=== PATIENT | female | born 1995 | race Hispanic/Latino ===

== ENCOUNTER 2018-07-29 18:54 | Inpatient (IN) | payer SELFPAY ==
--- OUTSIDE RECORDS SUMMARY | 2018-07-29 18:56 | XMS REPORT ---
:1995 [facility] Address [address] [place] [address] Care Team Providers Name Role Phone Unavailable Unavailable Unavailable Payers Payer Name Policy Type Policy Number Effective Date Expiration Date Problems This patient has no known problems. Allergies, Adverse Reactions, Alerts Allergy Allergy Status Severity Reaction(s) Onset Inactive Treating Comments Name Type Date Date Clinician No Known DA Active U 2016-12 Allergies -31 00:00:0 0 Medications This patient has no known medications.
[2018-07-29] MEDS ORDERED: ONDANSETRON 4 MG/2 ML VIAL ONE ×2 (19:49→23:03)
[2018-07-29] MEDS ORDERED: NA CHLORIDE 0.9% 1,000 ML ONE (19:49)
[2018-07-29] MEDS ORDERED: PANTOPRAZOLE 40 MG INJ ONE (19:49)
[2018-07-29 20:07] LABS: Absolute Lymphocytes (CBC) 1.3 K/uL (0.7-4.9); Absolute Monocytes 0.7 K/uL (0.1-1.3); Absolute Neutrophil 10.5 K/uL (1.8-8.0); Basophils % 0.3 % (0-1.3); Eosinophils % 4.4 % (0-4.4); Hematocrit 36.4 % (36.0-45.0); MCH 27.9 pg (27.0-35.0); MCV 84.1 fL (80-100); MPV 8.6 fL (7.6-11.3); Monocytes % 5.1 % (3.3-12.3); RBC Red Blood Cell Count 4.33 M/uL (3.86-4.86)
[2018-07-29 20:28] LABS: Barbiturates NEGATIVE (NEGATIVE); Benzodiazepines NEGATIVE (NEGATIVE); Cocaine POSITIVE (NEGATIVE); METHAMPHETAM NEGATIVE (NEGATIVE); Methadone NEGATIVE (NEGATIVE); Opiates NEGATIVE (NEGATIVE); Phencyclidine NEGATIVE (NEGATIVE); THC Cannibis NEGATIVE (NEGATIVE)
[2018-07-29 20:28] LABS: Albumin 3.5 g/dL (3.4-5.0); Bilirubin Direct 0.2 mg/dL (0-0.2); Bilirubin Total 0.3 mg/dL (0.2-1.0); Potassium 3.6 mmol/L (3.5-5.1); Protein, Total 7.4 g/dL (6.4-8.2)
[2018-07-29 20:29] LABS: Troponin I < 0.02 ng/mL (0.0-0.045)
[2018-07-29] MEDS ORDERED: FENTANYL CITR 100 MCG/2 ML ONE (20:35)
--- NOTE | 2018-07-29 20:56 | RAD REPORT ---
EXAM DESCRIPTION: CTAbdomen Pelvis W Contrast - 07/29/2018 8:48 pm CLINICAL HISTORY: Abdominal pain. upper abdomen pain COMPARISON: No comparisons TECHNIQUE: Biphasic CT imaging of the abdomen and pelvis was performed with 100 ml non-ionic IV cont rast. All CT scans are performed using dose optimization technique as appropriate and may include automated exposure control or mA/KV adjustment according to patient size. FINDINGS: The lung bases are clear. Diffuse fatty liver is identified. [id number] peripancreatic fat stranding is identified compat ible with acute pancreatitis. No evidence of portal vein thrombosis, pancreatic necrosis or pseudocys t identified. The spleen, adrenal glands and kidneys are within normal limits. No bowel obstruction, free air, free fluid or abscess. The appendix is normal. No evidence of signi ficant lymphadenopathy. No suspicious bony findings. 3 cm left ovarian follicle. IMPRESSION: Moderate acute pancreatitis. Fatty liver.
[2018-07-29 21:02] LABS: Urine Blood NEGATIVE (NEG); Urine Glucose NEGATIVE (NEG); Urine Protein 1+ (NEG); Urine Specific Gravity 1.025 (1.005-1.030)
--- NOTE | 2018-07-29 21:02 | RAD REPORT ---
EXAM DESCRIPTION: RAD - Chest Single View - 07/29/2018 8:57 pm CLINICAL HISTORY: upper abdomen pain Chest pain. COMPARISON: No comparisons FINDINGS: Portable technique limits examination quality. The lungs are grossly clear. The heart is normal in size. No displaced fractures. IMPRESSION: No acute intrathoracic process suspected.
[2018-07-29] MEDS ORDERED: NA CHLORIDE 0.9% 2,000 ML ONE (21:33)
--- NOTE | 2018-07-29 21:38 | ER ---
Nurse's Notes [facility] Name: Rufina Pavon Age: 22 yrs Sex: Female : 1995 Arrival Date: 07/29/2018 Time: 18:56 Bed 7 Private MD: Diagnosis: Acute pancreatitis;Cocaine abuse Presentation: 07/29 18:58 Presenting complaint: Patient states: I have pancreatitis and I think I am having a la1 flare. I have been having pain and vomiting. Transition of care: patient was not received from another setting of care. Onset of symptoms was July 29, 2018. Risk Assessment: Do you want to hurt yourself or someone else? Patient reports no desire to harm self or others. Initial Sepsis Screen: Does the patient meet any 2 criteria? No. Patient's initial sepsis screen is negative. Does the patient have a suspected source of infection? No. Patient's initial sepsis screen is negative. Care prior to arrival: None. 18:58 Method Of Arrival: Ambulatory la1 18:58 Acuity: AYAZ 3 la1 Historical: - Allergies: 18:59 No Known Allergies; la1 - PMHx: 18:59 Anxiety; Pancreatitis; la1 - PSHx: 18:59 None; la1 - Immunization history:: Adult Immunizations up to date. - Social history:: Smoking status: Patient/guardian denies using tobacco. - Ebola Screening: : No symptoms or risks identified at this time. Screenin:28 Abuse screen: Denies threats or abuse. Denies injuries from another. Nutritional ao screening: No deficits noted. Tuberculosis screening: No symptoms or risk factors identified. Fall Risk None identified. Assessment: 19:19 General: Appears uncomfortable, Behavior is calm, cooperative, appropriate for age. ea Pain: Complains of pain in right upper quadrant and left upper quadrant. Neuro: Level of Consciousness is awake, alert, obeys commands, Oriented to person, place, time, situation. Cardiovascular: Heart tones S1 S2 present Patient's skin is warm and dry. Respiratory: Airway is patent Respiratory effort is even, unlabored, Respiratory pattern is regular, symmetrical. GI: Bowel sounds present X 4 quads. Abd is soft X 4 quads Abdomen is tender to palpation in right upper quadrant and left upper quadrant. : No signs and/or symptoms were reported regarding the genitourinary system. Derm: Skin is pink, warm \T\ dry. 20:23 Reassessment: Patient appears in no apparent distress at this time. Patient and/or ao family updated on plan of care and expected duration. Pain level reassessed. Patient is alert, oriented x 3, equal unlabored respirations, skin warm/dry/pink. 21:29 Reassessment: Patient appears in no apparent distress at this time. Patient and/or ao family updated on plan of care and expected duration. Pain level reassessed. Patient is alert, oriented x 3, equal unlabored respirations, skin warm/dry/pink. 23:19 Reassessment: Patient appears in no apparent distress at this time. Patient and/or ao family updated on plan of care and expected duration. Pain level reassessed. Patient to be hospitalize. Patient agree with POC. 23:30 Reassessment: Patient and/or family updated on plan of care and expected duration. Pain ea level reassessed. Patient is alert, oriented x 3, equal unlabored respirations, skin warm/dry/pink. Report called to Kelly on fourth floor. Vital Signs: 18:59 BP 113 / 77; Pulse 95; Resp 16; Temp 97.6; Pulse Ox 99% on R/A; Weight 96.16 kg; Height la1 5 ft. 0 in. (152.40 cm); 19:21 BP 133 / 104; Pulse 64; Resp 18; Pulse Ox 99% on R/A; ea 20:23 BP 96 / 76; Pulse 70; Resp 16; Pulse Ox 100% on R/A; ao 21:34 BP 131 / 81; Pulse 72; Resp 16; Pulse Ox 98% on R/A; Pain 0/10; ao 22:16 BP 96 / 57; Pulse 74; Resp 16; Pulse Ox 98% on R/A; ao 23:16 BP 124 / 73; Pulse 76; Resp 16; Pulse Ox 100% on R/A; ao 18:59 Body Mass Index 41.40 (96.16 kg, 152.40 cm) la1 ED Course: 18:56 Patient arrived in ED. as 18:59 Triage completed. la1 18:59 Arm band placed on left wrist. la1 19:13 Maryam Yeboah, RN is Primary Nurse. ph 19:14 Miri Almazan, KYM is Primary Nurse. ea 19:16 [facility]. cp 19:16 Wes Mata MD is Attending Physician. cp 19:16 Inserted saline lock: 20 gauge in right antecubital area, using aseptic technique. jb5 Blood collected. 20:15 Troponin I Sent. jb5 20:15 Basic Metabolic Panel Sent. jb5 20:15 CBC with Diff Sent. jb5 20:15 Creatinine for Radiology Sent. jb5 20:15 Hepatic Function Sent. jb5 20:15 Lipase Sent. jb5 20:47 CT Abd/Pelvis - W/Contrast: no oral contrast In Process Unspecified. EDMS 20:47 CT completed. Patient tolerated procedure well. Patient moved to radiology Patient kw1 moved back from CT. 20:55 XRAY Chest (1 view) In Process Unspecified. EDMS 21:29 Patient has correct armband on for positive identification. Pulse ox on. NIBP on. ao 21:37 Dimitri Valeznuela MD is Hospitalizing Provider. cp 23:21 No provider procedures requiring assistance completed. Patient admitted, IV remains in ea place. Administered Medications: 19:42 Drug: Zofran 4 mg Route: IVP; Site: right antecubital; ao 21:01 Follow up: Response: No adverse reaction ao 19:45 Drug: NS 0.9% 1000 ml Route: IV; Rate: 1 bolus; Site: right antecubital; ao 20:58 Follow up: IV Status: Completed infusion; IV Intake: 1000ml ao 19:52 Drug: ProTONIX 40 mg Route: IVP; Site: right antecubital; ao 21:01 Follow up: Response: No adverse reaction ao 20:31 Drug: fentaNYL (PF) 25 mcg Route: IVP; Site: right antecubital; ao 21:01 Follow up: Response: Pain is unchanged, physician notified ao 21:38 Drug: NS 0.9% 1000 ml Route: IV; Rate: 1 bolus; Site: right antecubital; ea 23:21 Follow up: Response: No adverse reaction; IV Status: Completed infusion ea 21:38 Drug: NS 0.9% 1000 ml Route: IV; Rate: 125 ml/hr; Site: right antecubital; ea 23:21 Follow up: Response: No adverse reaction; IV Status: Completed infusion ea Intake: 20:58 IV: 1000ml; Total: 1000ml. ao Outcome: 21:38 Decision to Hospitalize by Provider. cp 23:22 Instructed on the need for admit. triston 23:30 Admitted to Med/surg accompanied by tech, room 427, on monitor, Report called to Kelly goldstein RN on fourth floor 23:30 Condition: stable 23:33 Patient left the ED. triston Signatures: Dispatcher [employer] EDElizabeth Fam Lee RN RN la1 Maryam Yeboah RN RN Lenny Sauer, KORIN PA Landry Hillman, RN RN Grace Dominguez jb5 Miri Almazan RN RN Yenifer Walsh kw1
--- NOTE | 2018-07-29 21:39 | EDPHYS ---
Physician Documentation [facility] Name: Rufina Pavon Age: 22 yrs Sex: Female : 1995 Arrival Date: 07/29/2018 Time: 18:56 Bed 7 Private MD: ED Physician Wes Mata HPI: 07/29 19:57 This 22 yrs old Female presents to ER via Ambulatory with complaints of cp Abdominal Pain. 19:57 The patient presents with abdominal pain in the upper abdomen. cp 19:57 Onset: The symptoms/episode began/occurred today. cp 19:57 The symptoms do not radiate. Associated signs and symptoms: Pertinent positives: nausea cp and vomiting, chest pain, Pertinent negatives: blood in stools, constipation, diarrhea, dysuria, fever, headache, shortness of breath, vaginal discharge, vomiting blood. The symptoms are described as constant. The patient has experienced similar episodes in the past, today's symptoms are similar, to when the patient was apparently diagnosed with pancreatitis. Historical: - Allergies: 18:59 No Known Allergies; la1 - PMHx: 18:59 Anxiety; Pancreatitis; la1 - PSHx: 18:59 None; la1 - Immunization history:: Adult Immunizations up to date. - Social history:: Smoking status: Patient/guardian denies using tobacco. - Ebola Screening: : No symptoms or risks identified at this time. ROS: 20:05 Constitutional: Negative for body aches, chills, fever, poor PO intake. cp 20:05 Eyes: Negative for injury, pain, redness, and discharge. cp 20:05 ENT: Negative for drainage from ear(s), ear pain, sore throat, difficulty swallowing, difficulty handling secretions. 20:05 Cardiovascular: Positive for chest pain, Negative for edema, palpitations. 20:05 Respiratory: Negative for cough, shortness of breath, wheezing. 20:05 Abdomen/GI: Positive for abdominal pain, nausea and vomiting, Negative for diarrhea, constipation, hematemesis, black/tarry stool, rectal bleeding. 20:05 : Negative for urinary symptoms, vaginal bleeding, vaginal discharge. 20:05 Skin: Negative for cellulitis, rash. 20:05 Neuro: Negative for altered mental status, weakness. 20:05 All other systems are negative. Exam: 20:10 ECG was reviewed by the Attending Physician. cp 20:15 Constitutional: The patient appears in no acute distress, alert, awake, cp non-diaphoretic, non-toxic, well developed, well nourished, uncomfortable. 20:15 Head/Face: Normocephalic, atraumatic. Eyes: Pupils equal round and reactive to light, cp extra-ocular motions intact. Lids and lashes normal. Conjunctiva and sclera are non-icteric and not injected. Cornea within normal limits. Periorbital areas with no swelling, redness, or edema. ENT: Nares patent. No nasal discharge, no septal abnormalities noted. Tympanic membranes are normal and external auditory canals are clear. Oropharynx with no redness, swelling, or masses, exudates, or evidence of obstruction, uvula midline. Mucous membranes moist. Chest/axilla: Normal chest wall appearance and motion. Nontender with no deformity. No lesions are appreciated. 20:15 Cardiovascular: Rate: normal, Rhythm: regular, Heart sounds: murmur, not appreciated, Edema: is not appreciated, JVD: is not appreciated. 20:15 Respiratory: the patient does not display signs of respiratory distress, Respirations: normal, no use of accessory muscles, no retractions, no splinting, no tachypnea, labored breathing, is not present, Breath sounds: are clear throughout, no decreased breath sounds, no stridor, no wheezing. 20:15 Abdomen/GI: Inspection: abdomen appears normal, Bowel sounds: active, all quadrants, Palpation: soft, in all quadrants, moderate abdominal tenderness, in the right upper quadrant and left upper quadrant, voluntary guarding, is elicited in the right upper quadrant and left upper quadrant. 20:15 Back: CVA tenderness, is absent. 20:15 Skin: cellulitis, is not appreciated, no rash present. 20:15 Neuro: Orientation: to person, place \T\ time. Mentation: lucid, able to follow commands, Cerebellar function: is grossly normal, Motor: moves all fours, strength is normal, Sensation: no obvious gross deficits. Vital Signs: 18:59 BP 113 / 77; Pulse 95; Resp 16; Temp 97.6; Pulse Ox 99% on R/A; Weight 96.16 kg; Height la1 5 ft. 0 in. (152.40 cm); 19:21 BP 133 / 104; Pulse 64; Resp 18; Pulse Ox 99% on R/A; ea 20:23 BP 96 / 76; Pulse 70; Resp 16; Pulse Ox 100% on R/A; ao 21:34 BP 131 / 81; Pulse 72; Resp 16; Pulse Ox 98% on R/A; Pain 0/10; ao 22:16 BP 96 / 57; Pulse 74; Resp 16; Pulse Ox 98% on R/A; ao 23:16 BP 124 / 73; Pulse 76; Resp 16; Pulse Ox 100% on R/A; ao 18:59 Body Mass Index 41.40 (96.16 kg, 152.40 cm) la1 MDM: 19:16 Patient medically screened. cp 20:00 Differential diagnosis: appendicitis, cholecystitis, Cholelithiasis, gastritis, cp gastroesophageal reflux disease, GI Bleed, non-specific abd pain, pancreatitis, Peptic Ulcer Disease, Perf. Duodenal Ulcer, Perf. Gastric Ulcer, Ureterolithiasis, urinary tract infection. 21:15 Data reviewed: vital signs, nurses notes, lab test result(s), EKG, radiologic studies, cp CT scan, plain films. 21:15 Test interpretation: by ED physician or midlevel provider: ECG, plain radiologic cp studies. Counseling: I had a detailed discussion with the patient and/or guardian regarding: the historical points, exam findings, and any diagnostic results supporting the discharge/admit diagnosis, lab results, radiology results, the need for further work-up and treatment in the hospital. 07/29 19:16 Order name: Basic Metabolic Panel; Complete Time: 21:09 cp 07/29 21:09 Interpretation: Normal except: GLUC 127; BUN 6; GFR 78. cp 07/29 19:16 Order name: CBC with Diff; Complete Time: 20:26 cp 07/29 21:10 Interpretation: WBC 13.1; TIMRU% 80.2; LYM% 10.0; NEUT A 10.5. cp 07/29 19:16 Order name: Creatinine for Radiology; Complete Time: 20:26 cp 07/29 19:16 Order name: Hepatic Function; Complete Time: 21:09 cp 07/29 21:09 Interpretation: Normal except: ALT 85; GLOB 3.9; A/G 0.9. cp 07/29 19:16 Order name: Lipase; Complete Time: 21:09 cp 07/29 19:36 Order name: Troponin I; Complete Time: 21:09 cp 07/29 19:36 Order name: UDS; Complete Time: 21:09 cp 07/29 19:36 Order name: Magnesium; Complete Time: 21: cp 07/29 20:27 Order name: CT Abd/Pelvis - W/Contrast: no oral contrast; Complete Time: 21:09 cp 07/29 20:27 Order name: XRAY Chest (1 view); Complete Time: 21:09 cp 07/29 20:28 Order name: Urine Dipstick--Ancillary (enter results); Complete Time: 21:09 cc 07/29 20:28 Order name: Urine --Ancillary (enter results); Complete Time: 21:09 cc 07/29 19:16 Order name: IV Saline Lock; Complete Time: 19:40 cp 07/29 19:16 Order name: Labs collected and sent; Complete Time: 19:40 cp 07/29 19:16 Order name: Urine Dipstick-Ancillary (obtain specimen); Complete Time: 20:27 cp 07/29 19:16 Order name: Urine Test (obtain specimen); Complete Time: 20:27 cp 07/29 19:36 Order name: EKG; Complete Time: 19:37 cp 07/29 19:36 Order name: EKG - Nurse/Tech; Complete Time: 20:15 cp EC:10 Rate is 56 beats/min. Rhythm is regular. ND interval is normal. QRS interval is normal. cp QT interval is normal. Interpreted by me. Reviewed by me. Administered Medications: 19:42 Drug: Zofran 4 mg Route: IVP; Site: right antecubital; ao 21:01 Follow up: Response: No adverse reaction ao 19:45 Drug: NS 0.9% 1000 ml Route: IV; Rate: 1 bolus; Site: right antecubital; ao 20:58 Follow up: IV Status: Completed infusion; IV Intake: 1000ml ao 19:52 Drug: ProTONIX 40 mg Route: IVP; Site: right antecubital; ao 21:01 Follow up: Response: No adverse reaction ao 20:31 Drug: fentaNYL (PF) 25 mcg Route: IVP; Site: right antecubital; ao 21:01 Follow up: Response: Pain is unchanged, physician notified ao 21:38 Drug: NS 0.9% 1000 ml Route: IV; Rate: 1 bolus; Site: right antecubital; ea 23:21 Follow up: Response: No adverse reaction; IV Status: Completed infusion ea 21:38 Drug: NS 0.9% 1000 ml Route: IV; Rate: 125 ml/hr; Site: right antecubital; ea 23:21 Follow up: Response: No adverse reaction; IV Status: Completed infusion ea Disposition: 07/29/18 21:38 Hospitalization ordered by Dimitri Valenzuela for Inpatient Admission. Preliminary diagnosis are Acute pancreatitis, Cocaine abuse. - Bed requested for Telemetry/MedSurg (Inpatient). - Status is Inpatient Admission. ea - Condition is Stable. - Problem is new. - Symptoms have improved. UTI on Admission? No Addendum: 08/04/2018 21:30 Co-signature as Attending Physician, Wes Mata MD Available for consultation at p s1 all times. . Signatures: Dispatcher [employer] EDMS Sola Tang Lee, RN RN la1 Lenny Chavira PA PA cp Ortiz, Alex, RN RN ao Antunez, Elena, RN RN ea Singer, Phillip, MD MD ps1 Corrections: (The following items were deleted from the chart) 07/29 23:09 21:38 Hospitalization Ordered by Dimitri Valenzuela MD for Inpatient Admission. Preliminary cc diagnosis is Acute pancreatitis; Cocaine abuse. Bed requested for Telemetry/MedSurg (Inpatient). Status is Inpatient Admission. Condition is Stable. Problem is new. Symptoms have improved. UTI on Admission? No. cp 23:33 23:09 07/29/2018 21:38 Hospitalization Ordered by Dimitri Valenzuela MD for Inpatient ea Admission. Preliminary diagnosis is Acute pancreatitis; Cocaine abuse. Bed requested for Telemetry/MedSurg (Inpatient). Status is Inpatient Admission. Condition is Stable. Problem is new. Symptoms have improved. UTI on Admission? No. cc
[2018-07-29] MEDS ORDERED: MORPHINE 2 MG/ML SYR IV ONE (22:23)
--- NOTE | 2018-07-29 22:29 | P.HP ---
Certification for Inpatient Patient admitted to: Inpatient With expected LOS: >2 Midnights Practitioner: I am a practitioner with admitting privileges, knowledge of patient current condition, hospital course, and medical plan of care. Services: Services provided to patient in accordance with Admission requirements found in Title 42 Section 412.3 of the Code of Federal Regulations Patient History Date of Service: 07/29/18 Reason for admission: Acute pancreatitis History of Present Illness: Ms Pavon is a 22-year-old woman with history of cocaine abuse, alcohol abuse , who start last night with severe abdominal pain localizing in left upper quadrant, radiating to mid abdomen, associated with nausea and vomiting. Intensity of the pain is 10/10. She states that the last time she drink alcohol was last night, about 3 beers, but she says that usually she drinks more than 6 beers, however not every day. Lab work is remarkable for leukocytosis 13.1 K, significant elevation of lipase 3152. Toxicology was positive for cocaine. CT abdomen and pelvis remarkable for signs of acute pancreatitis, no pseudocyst seen. At my encounter, patient was in moderate distress due to abdominal pain. Home medications list reviewed: Yes - Past Medical/Surgical History -: Alcohol abuse -: Cocaine abuse Past Surgical History: Reviewed- Non-Contributory - Family History Family History: Reviewed- Non-Contributory - Social History Smoking Status: Light Tobacco smoker (1-9 cigarettes/day) Counseled patient to stop smoking for: less than 10 minutes Alcohol use: Yes CD- Drugs: Yes Caffeine use: Yes Place of Residence: Home Review of Systems 10-point ROS is otherwise unremarkable Physical Examination - Physical Exam General: Alert, In no apparent distress HEENT: Atraumatic, PERRLA, Mucous membr. moist/pink, EOMI, Sclerae nonicteric Neck: Supple, 2+ carotid pulse no bruit, No LAD, Without JVD or thyroid abnormality Respiratory: Clear to auscultation bilaterally, Normal air movement Cardiovascular: Regular rate/rhythm, Normal S1 S2 Gastrointestinal: Normal bowel sounds, Tenderness (Tenderness to palpation especially in the left upper quadrant) Musculoskeletal: No tenderness Integumentary: No rashes Neurological: Normal speech, Normal strength at 5/5 x4 extr, Normal tone, Normal affect Lymphatics: No axilla or inguinal lymphadenopathy - Studies Laboratory Data (last 24 hrs) 07/29/18 19:52: Magnesium 2.0, Troponin I < 0.02 07/29/18 19:52: Creatinine 0.90 07/29/18 19:52: WBC 13.1 H, Hgb 12.1, Hct 36.4, Plt Count 269 07/29/18 19:52: Sodium 139, Potassium 3.6, BUN 6 L, Creatinine 0.90, Glucose 127 H, Total Bilirubin 0.3, AST 30, ALT 85 H, Alkaline Phosphatase 115, Lipase 3152 H Assessment and Plan - Problems (Diagnosis) (1) Acute pancreatitis Current Visit: Yes Status: Acute Qualifiers: Pancreatitis type: unspecified pancreatitis type Acute pancreatitis complication: unspecified Qualified Code(s): K85.90 - Acute pancreatitis without necrosis or infection, unspecified (2) Cocaine abuse Current Visit: Yes Status: Acute (3) Alcohol use Current Visit: Yes Status: Acute - Plan The patient will be admitted to the hospital due to acute pancreatitis. Will keep her NPO, ordered IV normal saline. Will follow up with a new laboratory work in the morning. Order lipid panel, abdominal ultrasound, and symptomatic medication for pain, nausea and vomiting. - Advance Directives Does patient have a Living Will: No Does patient have a Durable POA for Healthcare: No - Code Status/Comfort Care Code Status Assessed: Yes Code Status: Full Code
[2018-07-29] MEDS ORDERED: MORPHINE 4 MG/ML SYR ONE (23:03)
[2018-07-29] MEDS ORDERED: ACETAMINOPHEN 500 MG TAB PO PRN (23:47)
[2018-07-30] MEDS: NA CHLORIDE 0.9% 1,000 ML IV SCH ×5 (00:23→22:49)
[2018-07-30] MEDS: ONDANSETRON 4 MG/2 ML VIAL IV PRN ×4 (00:23→20:48)
[2018-07-30] MEDS: MORPHINE 2 MG/ML SYR IV PRN ×5 (00:25→20:48)
[2018-07-30 01:44] VITALS: BMI 38.9
[2018-07-30 05:16] LABS: Absolute Lymphocytes (CBC) 1.8 K/uL (0.7-4.9); Absolute Monocytes 0.6 K/uL (0.1-1.3); Absolute Neutrophil 7.2 K/uL (1.8-8.0); Basophils % 0.3 % (0-1.3); Hematocrit 33.9 % (36.0-45.0); Lymphocytes % 17.8 % (15.3-44.8); MCV 84.1 fL (80-100); RBC Red Blood Cell Count 4.03 M/uL (3.86-4.86)
[2018-07-30 05:40] LABS: ALT/SGPT 64 U/L (12-78); AST/SGOT 22 U/L (15-37); Albumin 2.9 g/dL (3.4-5.0); Alkaline Phosphatase 103 U/L (45-117); BUN Blood Urea Nitrogen 4 mg/dL (7-18); Bicarbonate 25 mmol/L (21-32); Bilirubin Total 0.4 mg/dL (0.2-1.0); Glucose Level 109 mg/dL (74-106); HDL Cholesterol 49 mg/dL (40-60); LDL Cholesterol, Calculated 25 (<130); Lipase 1695 U/L (73-393); Protein, Total 6.1 g/dL (6.4-8.2); Sodium Level 141 mmol/L (136-145)
[2018-07-30] MEDS ORDERED: SODIUM CHLORIDE 0.9% 10ML INJ IV PRN (06:58)
--- NOTE | 2018-07-30 07:28 | EKG ---
Test Date: 2018-07-29 Test Time: 20:04:56 Ground Crew Chief: ARLEEN MEASUREMENT RESULTS: Intervals: Rate: 56 HI: 154 QRSD: 86 QT: 424 QTc: 409 [place]: P: 27 HI: 154 QRS: 21 T: 41 INTERPRETIVE STATEMENTS: Sinus bradycardia Otherwise normal ECG No previous ECG available for comparison Electronically Signed On 07-30-18 07:27:44 CDT by Eran Deluca
--- NOTE | 2018-07-30 08:53 | RAD REPORT ---
EXAM DESCRIPTION: US - Abdomen Exam Limited - 07/30/2018 7:40 am CLINICAL HISTORY: Acute pancreatitis, evaluate biliary tree COMPARISON: No comparisons FINDINGS: The gallbladder demonstrates no gallstones. No pericholecystic fluid or gallbladder wall t hickening. The common bile duct is normal measuring 5 mm. The liver demonstrates no findings of intrahepatic biliary dilatation. IMPRESSION: Unremarkable examination.
[2018-07-30] MEDS: ENOXAPARIN 40 MG/0.4 ML SQ SCH (09:28)
[2018-07-30] MEDS: PANTOPRAZOLE 40 MG INJ IVP SCH (09:29)
--- NOTE | 2018-07-30 10:12 | P.PN ---
Subjective Date of Service: 07/30/18 Chief Complaint: Acute pancreatitis Subjective: Other (Still with abdominal pain) Physical Examination - Vital Signs Temperature: 97.4 F Blood Pressure: 105/59 Pulse: 53 Respirations: 16 Pulse Ox (%): 99 - Physical Exam General: Alert, In no apparent distress, Oriented x3, Cooperative HEENT: Atraumatic Neck: Supple Respiratory: Clear to auscultation bilaterally, Normal air movement Cardiovascular: Normal pulses, Regular rate/rhythm Gastrointestinal: Normal bowel sounds, Non-distended, No masses, No rebound, Tenderness (Epigastric pain) Musculoskeletal: No erythema, No tenderness, No warmth Integumentary: No erythema, No warmth, No cyanosis Neurological: Normal speech, Normal strength at 5/5 x4 extr, Normal tone, Normal affect - Studies Laboratory Data (last 24 hrs) 07/29/18 19:52: Magnesium 2.0, Troponin I < 0.02 07/29/18 19:52: Creatinine 0.90 07/29/18 19:52: WBC 13.1 H, Hgb 12.1, Hct 36.4, Plt Count 269 07/29/18 19:52: Sodium 139, Potassium 3.6, BUN 6 L, Creatinine 0.90, Glucose 127 H, Total Bilirubin 0.3, AST 30, ALT 85 H, Alkaline Phosphatase 115, Lipase 3152 H Medications List Reviewed: Yes Assessment & Plan Discharge Plan: Home Plan to discharge in: Greater than 2 days Physician Review Additional Text: Impression: Epigastric pain, nausea and vomiting secondary to acute pancreatitis likely from alcohol Alcohol abuse Cocaine abuse Anemia Plan: Epigastric pain, nausea and vomiting secondary to acute pancreatitis likely from alcohol: Will continue with IV fluids and medication for pain and nausea. Will keep the patient NPO. Encourage ambulation. Once the patient improves then can transition to clear liquids. Education on pancreatitis addressed in detail. Alcohol abuse: Alcohol cessation education addressed in detail. Cocaine abuse: Cocaine cessation education addressed in detail. Anemia: Monitor closely. Time Spent Managing Pts Care (In Minutes): 55
[2018-07-30] MEDS: TEMAZEPAM 15 MG CAP PO PRN (22:25)
[2018-07-31] MEDS: MORPHINE 2 MG/ML SYR IV PRN ×2 (00:27→06:05)
[2018-07-31] MEDS ORDERED: MORPHINE 4 MG/ML SYR IV PRN ×2 (09:09→14:09)
[2018-07-31] MEDS: ENOXAPARIN 40 MG/0.4 ML SQ SCH (09:44)
[2018-07-31] MEDS: PANTOPRAZOLE 40 MG INJ IVP SCH (09:44)
[2018-07-31] MEDS: NA CHLORIDE 0.9% 1,000 ML IV SCH ×3 (09:45→16:35)
--- NOTE | 2018-07-31 13:20 | P.PN ---
Subjective Date of Service: 07/31/18 Primary Care Provider: None Chief Complaint: Acute pancreatitis Subjective: Improving (Still with mild epigastric pain) Physical Examination - Vital Signs Temperature: 97.4 F Blood Pressure: 96/53 Pulse: 63 Respirations: 18 Pulse Ox (%): 98 - Physical Exam General: Alert, In no apparent distress, Oriented x3, Cooperative HEENT: Atraumatic Neck: Supple Respiratory: Clear to auscultation bilaterally, Normal air movement Cardiovascular: Normal pulses, Regular rate/rhythm Gastrointestinal: Normal bowel sounds, Non-distended, No masses, No rebound, No guarding, Tenderness (Epigastric pain improved) Musculoskeletal: No erythema, No tenderness, No warmth Integumentary: No tenderness/swelling, No erythema, No warmth, No cyanosis Neurological: Normal speech, Normal strength at 5/5 x4 extr, Normal tone, Normal affect - Studies Medications List Reviewed: Yes Assessment & Plan Discharge Plan: Home Plan to discharge in: 48 Hours Physician Review Additional Text: Impression: Epigastric pain, nausea and vomiting secondary to acute pancreatitis likely from alcohol Alcohol abuse Cocaine abuse Anemia Plan: Epigastric pain, nausea and vomiting secondary to acute pancreatitis likely from alcohol: Will continue with IV fluids and medication for pain and nausea. Encourage ambulation. Once abdominal pain significantly improved will start clear liquids. Will continue monitor lab and electrolytes. Education on pancreatitis addressed in detail. Alcohol abuse: Alcohol cessation education addressed in detail. Cocaine abuse: Cocaine cessation education addressed in detail. Anemia: Monitor closely. Time Spent Managing Pts Care (In Minutes): 55
[2018-07-31] MEDS: TRAMADOL HCL 50 MG TAB PO PRN ×2 (14:59→20:54)
[2018-07-31] MEDS: HYDROCODONE/APAP 7.5/325 MG TAB PO PRN ×2 (16:26→22:39)
[2018-07-31] MEDS: TEMAZEPAM 15 MG CAP PO PRN (21:02)
[2018-08-01] MEDS: NA CHLORIDE 0.9% 1,000 ML IV SCH ×3 (01:53→21:36)
[2018-08-01] MEDS: HYDROCODONE/APAP 7.5/325 MG TAB PO PRN ×2 (05:30→21:34)
[2018-08-01] MEDS: TRAMADOL HCL 50 MG TAB PO PRN (06:42)
[2018-08-01 08:04] LABS: ALT/SGPT 68 U/L (12-78); AST/SGOT 38 U/L (15-37); Alkaline Phosphatase 97 U/L (45-117); BUN Blood Urea Nitrogen 2 mg/dL (7-18); Bicarbonate 27 mmol/L (21-32); Bilirubin Total 0.3 mg/dL (0.2-1.0); Glucose Level 93 mg/dL (74-106); Lipase 489 U/L (73-393); Potassium 3.9 mmol/L (3.5-5.1); Protein, Total 6.4 g/dL (6.4-8.2); Sodium Level 141 mmol/L (136-145)
[2018-08-01 08:09] LABS: Absolute Lymphocytes (CBC) 1.9 K/uL (0.7-4.9); Absolute Monocytes 0.3 K/uL (0.1-1.3); Absolute Neutrophil 3.7 K/uL (1.8-8.0); Basophils % 0.4 % (0-1.3); Hematocrit 33.5 % (36.0-45.0); Lymphocytes % 29.1 % (15.3-44.8); MCH 27.9 pg (27.0-35.0); MCV 83.3 fL (80-100); MPV 9.1 fL (7.6-11.3); Monocytes % 5.3 % (3.3-12.3); RBC Red Blood Cell Count 4.02 M/uL (3.86-4.86)
[2018-08-01] MEDS: ENOXAPARIN 40 MG/0.4 ML SQ SCH (08:17)
[2018-08-01] MEDS: PANTOPRAZOLE 40 MG INJ IVP SCH (08:18)
[2018-08-01] MEDS ORDERED: POTASSIUM CL SA 10 MEQ TAB PO ONE (10:57)
--- NOTE | 2018-08-01 13:31 | P.PN ---
Subjective Date of Service: 08/01/18 Primary Care Provider: None Chief Complaint: Acute pancreatitis Subjective: Improving Physical Examination - Vital Signs Temperature: 98.0 F Blood Pressure: 112/51 Pulse: 60 Respirations: 16 Pulse Ox (%): 99 - Physical Exam General: Alert, In no apparent distress, Oriented x3, Cooperative HEENT: Atraumatic Neck: Supple Respiratory: Clear to auscultation bilaterally, Normal air movement Cardiovascular: Normal pulses, Regular rate/rhythm Gastrointestinal: Normal bowel sounds, Soft and benign, Non-distended, No masses , No rebound, No guarding, Tenderness (To the epigastric region significantly improved.) Musculoskeletal: No erythema, No tenderness, No warmth Integumentary: No tenderness/swelling, No erythema, No warmth, No cyanosis Neurological: Normal speech, Normal strength at 5/5 x4 extr, Normal tone, Normal affect - Studies Medications List Reviewed: Yes Assessment & Plan Discharge Plan: Home Plan to discharge in: 24 Hours Physician Review Additional Text: Impression: Epigastric pain, nausea and vomiting secondary to acute pancreatitis likely from alcohol Alcohol abuse Cocaine abuse Anemia Plan: Epigastric pain, nausea and vomiting secondary to acute pancreatitis likely from alcohol: Will continue with IV fluids and medication for pain and nausea. Patient improved. Will advance diet to soft. Encourage ambulation. Will discontinue IV pain medication. Anticipate discharge tomorrow. Electrolytes and lipase improved. Alcohol abuse: Alcohol cessation education addressed in detail. Cocaine abuse: Cocaine cessation education addressed in detail. Anemia: Monitor closely. I will turn the service over to Dr. Mcguire tomorrow. I will go over the plan of care with her. Time Spent Managing Pts Care (In Minutes): 55
[2018-08-01] MEDS: TEMAZEPAM 15 MG CAP PO PRN (21:34)
[2018-08-02 01:45] VITALS: O2SAT 100
[2018-08-02 04:42] LABS: BUN Blood Urea Nitrogen 2 mg/dL (7-18); Bicarbonate 28 mmol/L (21-32); Glucose Level 89 mg/dL (74-106); Lipase 314 U/L (73-393); Potassium 3.9 mmol/L (3.5-5.1); Sodium Level 142 mmol/L (136-145)
[2018-08-02] MEDS ORDERED: POTASSIUM CL SA 10 MEQ TAB PO ONE (05:11)
[2018-08-02] MEDS: NA CHLORIDE 0.9% 1,000 ML IV SCH (05:36)
[2018-08-02] MEDS: PANTOPRAZOLE 40 MG INJ IVP SCH (08:06)
[2018-08-02] MEDS: ENOXAPARIN 40 MG/0.4 ML SQ SCH (08:07)
[2018-08-02 12:57] VITALS: BP 103/55; TEMP 97.5
--- NOTE | 2018-08-02 12:57 | P.DS ---
Admission Date: 07/29/18 Discharge Date: 08/02/18 Primary Care Provider: None Disposition: ROUTINE DISCHARGE Discharge Condition: GOOD Reason for Admission: Acute pancreatitis - Problems (1) Acute pancreatitis Onset Date: 07/30/18 Current Visit: Yes Status: Acute Qualifiers: Pancreatitis type: unspecified pancreatitis type Acute pancreatitis complication: unspecified Qualified Code(s): K85.90 - Acute pancreatitis without necrosis or infection, unspecified (2) Alcohol use Onset Date: 07/30/18 Current Visit: Yes Status: Acute (3) Cocaine abuse Onset Date: 07/30/18 Current Visit: Yes Status: Acute Brief History of Present Illness: Seen HPI Hospital Course: Overall during the hospital stay patient remained stable The patient was initially admitted to the hospital for abdominal pain most likely secondary to acute pancreatitis most likely secondary to alcohol abuse versus cocaine abuse. Patient was kept on IV fluids NPO here in the hospital. Patient had marked resolution of her symptoms. Her diet was advanced to a clear liquid diet. Patient tolerated her diet well and was advanced to a soft diet. Patient tolerated her diet well at that time as well and ambulated around the room and thus was discharged home under stable condition. Patient was educated extensively on drug abuse and alcohol abuse in using abstinence from that. Patient demonstrated understanding and thus was discharged home under stable condition. Patient was asked to follow up with primary care provider about 1-2 days post discharge Vital Signs/Physical Exam: Temp Pulse Resp BP Pulse Ox 97 F 55 20 119/65 99 08/02/18 08:00 08/02/18 08:00 08/02/18 08:00 08/02/18 08:00 08/02/18 08:00 General: Alert, In no apparent distress HEENT: Atraumatic, PERRLA, EOMI Neck: Supple, JVD not distended Respiratory: Clear to auscultation bilaterally, Normal air movement Cardiovascular: Regular rate/rhythm, Normal S1 S2 Gastrointestinal: Normal bowel sounds, No tenderness Musculoskeletal: No tenderness Integumentary: No rashes Neurological: Normal speech, Normal tone, Normal affect Lymphatics: No axilla or inguinal lymphadenopathy Laboratory Data at Discharge: WBC 6.4 K/uL (4.3-10.9) D 08/01/18 07:37 Hgb 11.2 g/dL (12.0-15.0) L 08/01/18 07:37 Hct 33.5 % (36.0-45.0) L 08/01/18 07:37 Plt Count 270 K/uL (152-406) 08/01/18 07:37 Sodium 142 mmol/L (136-145) 08/02/18 03:56 Potassium 3.9 mmol/L (3.5-5.1) 08/02/18 03:56 BUN 2 mg/dL (7-18) L 08/02/18 03:56 Creatinine 0.70 mg/dL (0.55-1.3) 08/02/18 03:56 Glucose 89 mg/dL (74-106) 08/02/18 03:56 Magnesium 2.0 mg/dL (1.8-2.4) 07/29/18 19:52 Total Bilirubin 0.3 mg/dL (0.2-1.0) 08/01/18 07:37 AST 38 U/L (15-37) H 08/01/18 07:37 ALT 68 U/L (12-78) 08/01/18 07:37 Alkaline Phosphatase 97 U/L (45-117) 08/01/18 07:37 Troponin I < 0.02 ng/mL (0.0-0.045) 07/29/18 19:52 Triglycerides 83 mg/dL (<150) 07/30/18 04:35 Cholesterol 91 mg/dL (<200) 07/30/18 04:35 HDL Cholesterol 49 mg/dL (40-60) 07/30/18 04:35 Cholesterol/HDL Ratio 1.86 07/30/18 04:35 Lipase 314 U/L (73-393) 08/02/18 03:56 Home Medications: NK [No Home Meds] 07/30/18 Patient Discharge Instructions: Please F.u with PCP in 1 to 2 days after discharge. No New medication. Please refrain from using alcohol Diet: Regular Activity: Ad joni
== END 2018-08-02 14:34 | disposition home or self-care (01) | DRG 440 ==
LOC: ER 18:54 → ERHOLD 22:21 → 4TH 23:21
PROVIDERS: ADMIT Internal Medicine; ATTEND Family Medicine
DX: K85.20 Alcohol induced acute pancreatitis without necrosis or infection (principal); K85.30 Drug induced acute pancreatitis without necrosis or infection; F10.10 Alcohol abuse, uncomplicated; F14.10 Cocaine abuse, uncomplicated; D64.9 Anemia, unspecified
CPT/HCPCS: 36415; 71045; 74177; 76705; 80048; 80053; 80061; 80076; 80307; 81003; 81025; 83690; 83735; 84484; 85025; 93005; 96361; 96374; 96375; 99285; C9113; J1650; J2270; J2405; J3010; J7030; Q9967

== ENCOUNTER 2018-09-11 05:41 | Inpatient (IN) | payer SELFPAY ==
--- OUTSIDE RECORDS SUMMARY | 2018-09-11 05:44 | XMS REPORT ---
:1995 [facility] Address [address] [place] [address] Care Team Providers Name Role Phone Unavailable [...]
[2018-09-11 06:23] LABS: Absolute Lymphocytes (CBC) 2.3 K/uL (0.7-4.9); Absolute Monocytes 0.4 K/uL (0.1-1.3); Absolute Neutrophil 3.3 K/uL (1.8-8.0); Basophils % 0.9 % (0-1.3); Eosinophils % 5.2 % (0-4.4); Hematocrit 34.2 % (36.0-45.0); Lymphocytes % 35.7 % (15.3-44.8); MCH 26.9 pg (27.0-35.0); MCV 80.1 fL (80-100); MPV 8.8 fL (7.6-11.3); Monocytes % 6.1 % (3.3-12.3); RBC Red Blood Cell Count 4.26 M/uL (3.86-4.86)
[2018-09-11] MEDS ORDERED: MORPHINE 4 MG/ML SYR ONE (06:25)
[2018-09-11] MEDS ORDERED: ONDANSETRON 4 MG/2 ML VIAL ONE (06:26)
[2018-09-11] MEDS ORDERED: NA CHLORIDE 0.9% 1,000 ML ONE (06:26)
[2018-09-11 06:40] LABS: ALT/SGPT 54 U/L (12-78); AST/SGOT 21 U/L (15-37); Albumin 3.5 g/dL (3.4-5.0); Alkaline Phosphatase 100 U/L (45-117); BUN Blood Urea Nitrogen 8 mg/dL (7-18); Bicarbonate 24 mmol/L (21-32); Bilirubin Direct < 0.1 mg/dL (0-0.2); Bilirubin Total 0.3 mg/dL (0.2-1.0); Glucose Level 113 mg/dL (74-106); Lipase 830 U/L (73-393); Potassium 3.7 mmol/L (3.5-5.1); Protein, Total 7.2 g/dL (6.4-8.2); Sodium Level 142 mmol/L (136-145)
[2018-09-11] MEDS ORDERED: NA CHLORIDE 0.9% 2,000 ML ONE (07:18)
--- NOTE | 2018-09-11 07:48 | ER ---
Nurse's Notes [facility] Name: Rufina Pavon Age: 22 yrs Sex: Female : 1995 Arrival Date: 09/11/2018 Time: 05:43 Bed 14 Private MD: Diagnosis: Abdominal tenderness;Acute pancreatitis;Alcohol abuse;Vomiting Presentation: 09/11 05:53 Presenting complaint: Patient states: upper abd pain and epigastric pain started Monday ak1 after have ETOH Monday night. pt c/o N/V. pt with hx pancreatitis. Transition of care: patient was not received from another setting of care. Onset of symptoms was September 09, 2018. Risk Assessment: Do you want to hurt yourself or someone else? Patient reports no desire to harm self or others. Initial Sepsis Screen: Does the patient meet any 2 criteria? No. Patient's initial sepsis screen is negative. Does the patient have a suspected source of infection? No. Patient's initial sepsis screen is negative. Care prior to arrival: None. 05:53 Method Of Arrival: Ambulatory ak1 05:53 Acuity: AYAZ 3 ak1 Triage Assessment: 05:54 General: Appears uncomfortable, Behavior is calm, cooperative. Pain: Complains of pain ak1 in epigastric area, right upper quadrant and left upper quadrant. EENT: No signs and/or symptoms were reported regarding the EENT system. Neuro: No deficits noted. Cardiovascular: No deficits noted. Respiratory: No deficits noted. GI: Reports upper abdominal pain, nausea, vomiting, since Monday09/09/18. : No signs and/or symptoms were reported regarding the genitourinary system. Derm: No signs and/or symptoms reported regarding the dermatologic system. Musculoskeletal: No signs and/or symptoms reported regarding the musculoskeletal system. 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 - Social history:: Smoking status: Patient uses tobacco products, smokes one-half pack cigarettes per day. - Ebola Screening: : No symptoms or risks identified at this time. - Family history:: not pertinent. Screenin:56 Abuse screen: Denies threats or abuse. Denies injuries from another. Nutritional ak1 screening: No deficits noted. Tuberculosis screening: No symptoms or risk factors identified. Fall Risk None identified. Assessment: 05:55 General: Appears in no apparent distress. uncomfortable, Behavior is calm, cooperative, jb4 appropriate for age. Pain: Complains of pain in epigastric area, umbilical area, right upper quadrant and left upper quadrant Pain radiates to right mid back Pain currently is 9 out of 10 on a pain scale. Quality of pain is described as stabbing, Pain began 1 day ago. Neuro: Level of Consciousness is awake, alert, obeys commands, Oriented to person, place, time, situation. Cardiovascular: Patient's skin is warm and dry. Respiratory: Airway is patent Respiratory effort is even, unlabored, Respiratory pattern is regular, symmetrical. GI: Abdomen is non-distended, obese, Bowel sounds present X 4 quads. Abd is soft X 4 quads Abd is non tender in suprapubic area, right lower quadrant and left lower quadrant Abdomen is tender to palpation in epigastric area, umbilical area, right upper quadrant and left upper quadrant Reports nausea, vomiting. : No signs and/or symptoms were reported regarding the genitourinary system. EENT: No signs and/or symptoms were reported regarding the EENT system. Derm: Skin is intact, Skin is pink, warm \T\ dry. Musculoskeletal: Circulation, motion, and sensation intact. 07:32 Reassessment: Patient appears in no apparent distress at this time. Patient and/or ls4 family updated on plan of care and expected duration. Pain level reassessed. 08:43 Reassessment: No changes from previously documented assessment. ls4 09:20 Reassessment: No changes from previously documented assessment. Patient and/or family ls4 updated on plan of care and expected duration. Pain level reassessed. 09:43 Reassessment: No changes from previously documented assessment. Patient and/or family ls4 updated on plan of care and expected duration. Pain level reassessed. 10:12 Reassessment: Patient appears in no apparent distress at this time. Patient and/or ls4 family updated on plan of care and expected duration. Pain level reassessed. Pain: Complains of pain in left upper quadrant and right upper quadrant Pain currently is 5 out of 10 on a pain scale. Vital Signs: 05:54 BP 117 / 51; Pulse 58; Resp 16; Temp 98.8(O); Pulse Ox 99% on R/A; Weight 96.16 kg (R); ak1 Height 5 ft. 0 in. (152.40 cm) (R); Pain 9/10; 07:10 BP 122 / 84; Pulse 58; Resp 16; Pulse Ox 98% ; Pain 5/10; ls4 07:57 BP 127 / 87; Pulse 59; Resp 16; Pulse Ox 99% ; ls4 09:02 BP 124 / 78; Pulse 88; Resp 16; Pulse Ox 99% on R/A; Pain 5/10; ls4 05:54 Body Mass Index 41.40 (96.16 kg, 152.40 cm) ak1 ED Course: 05:43 Patient arrived in ED. am2 05:47 Cabrera Wen, RN is Primary Nurse. jb4 05:54 Triage completed. ak1 05:54 Arm band placed on Patient placed in an exam room, on a stretcher, on pulse oximetry, ak1 Patient notified of wait time. 05:56 Patient has correct armband on for positive identification. Bed in low position. Call ak1 light in reach. Side rails up X 1. Pulse ox on. NIBP on. 06:00 Lenny Domingo MD is Attending Physician. dave 06:26 Basic Metabolic Panel Sent. cc3 06:26 CBC with Diff Sent. cc3 06:26 Creatinine for Radiology Sent. cc3 06:26 Hepatic Function Sent. cc3 06:26 Lipase Sent. cc3 06:28 Urine Dipstick--Ancillary (enter results) Sent. jb4 07:46 Lex Ahuja MD is Hospitalizing Provider. dave 07:58 No provider procedures requiring assistance completed. ls4 10:30 Patient admitted, IV remains in place. intact, No redness/swelling at site. ls4 Administered Medications: 06:26 Drug: NS 0.9% 1000 ml Route: IV; Rate: 1 bolus; Site: right antecubital; jb4 07:31 Follow up: IV Status: Completed infusion; IV Intake: 1000ml ls4 06:27 Drug: morphine 4 mg Route: IVP; Site: right antecubital; jb4 07:00 Follow up: Response: No adverse reaction; Pain is decreased jb4 06:27 Drug: Zofran 4 mg Route: IVP; Site: right antecubital; jb4 06:59 Follow up: Response: No adverse reaction; Nausea is decreased jb4 07:31 Drug: NS 0.9% 1000 ml Route: IV; Rate: 1 bolus; Site: right antecubital; ls4 08:42 Follow up: IV Status: Completed infusion; IV Intake: 1000ml ls4 08:42 Drug: NS 0.9% 1000 ml Route: IV; Rate: 1 bolus; Site: right antecubital; ls4 09:21 Follow up: Response: No adverse reaction; IV Status: Completed infusion; IV Intake: ls4 1000ml Intake: 07:31 IV: 1000ml; Total: 1000ml. ls4 08:42 IV: 1000ml; Total: 2000ml. ls4 09:21 IV: 1000ml; Total: 3000ml. ls4 Outcome: 07:47 Decision to Hospitalize by Provider. dave 10:29 Admitted to Med/surg accompanied by memo, via stretcher, room 228, with chart, Report ls4 called to chacha 10:29 Condition: stable 10:29 Instructed on the need for admit, medication usage, safety practices, Demonstrated understanding of instructions, follow-up care. 10:31 Patient left the ED. ls4 Signatures: Lenny Domingo MD MD cha Krenek, Amber, RN RN ak1 Cabrera Wen, RN RN jb4 Faviola Miller Charlene cc3 Angelia Pappas, RN RN ls4
--- NOTE | 2018-09-11 07:48 | EDPHYS ---
Physician Documentation [facility] Name: Rufina Pavon Age: 22 yrs Sex: Female : 1995 Arrival Date: 09/11/2018 Time: 05:43 Bed 14 Private MD: ED Physician Lenny Domingo HPI: 09/11 06:12 This 22 yrs old Female presents to ER via Ambulatory with complaints of dave Abdominal Pain. 06:12 The patient presents with abdominal pain in the epigastric area, in the upper abdomen. dave Onset: The symptoms/episode began/occurred 2 day(s) ago. The symptoms do not radiate. Associated signs and symptoms: none. Modifying factors: The symptoms are alleviated by nothing, the symptoms are aggravated by nothing. Severity of pain: At its worst the pain was moderate in the emergency department the pain is unchanged. The patient has not experienced similar symptoms in the past. 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 - Social history:: Smoking status: Patient uses tobacco products, smokes one-half pack cigarettes per day. - Ebola Screening: : No symptoms or risks identified at this time. - Family history:: not pertinent. ROS: 06:12 Constitutional: Negative for fever, chills, and weight loss, Eyes: Negative for injury, dave pain, redness, and discharge, ENT: Negative for injury, pain, and discharge, Neck: Negative for injury, pain, and swelling, Cardiovascular: Negative for chest pain, palpitations, and edema, Respiratory: Negative for shortness of breath, cough, wheezing, and pleuritic chest pain, Back: Negative for injury and pain, : Negative for injury, bleeding, discharge, and swelling, MS/Extremity: Negative for injury and deformity, Skin: Negative for injury, rash, and discoloration, Neuro: Negative for headache, weakness, numbness, tingling, and seizure, Psych: Negative for depression, anxiety, suicide ideation, homicidal ideation, and hallucinations, Allergy/Immunology: Negative for hives, rash, and allergies, Endocrine: Negative for neck swelling, polydipsia, polyuria, polyphagia, and marked weight changes, Hematologic/Lymphatic: Negative for swollen nodes, abnormal bleeding, and unusual bruising. 06:12 Abdomen/GI: Positive for abdominal pain, of the epigastric area, right upper quadrant and left upper quadrant. Exam: 06:12 Constitutional: This is a well developed, well nourished patient who is awake, alert, dave and in no acute distress. Head/Face: Normocephalic, atraumatic. Eyes: Pupils equal round and reactive to light, extra-ocular motions intact. Lids and lashes normal. Conjunctiva and sclera are non-icteric and not injected. Cornea within normal limits. Periorbital areas with no swelling, redness, or edema. ENT: Nares patent. No nasal discharge, no septal abnormalities noted. Tympanic membranes are normal and external auditory canals are clear. Oropharynx with no redness, swelling, or masses, exudates, or evidence of obstruction, uvula midline. Mucous membranes moist. Neck: Trachea midline, no thyromegaly or masses palpated, and no cervical lymphadenopathy. Supple, full range of motion without nuchal rigidity, or vertebral point tenderness. No Meningismus. Chest/axilla: Normal chest wall appearance and motion. Nontender with no deformity. No lesions are appreciated. Cardiovascular: Regular rate and rhythm with a normal S1 and S2. No gallops, murmurs, or rubs. Normal PMI, no JVD. No pulse deficits. Respiratory: Lungs have equal breath sounds bilaterally, clear to auscultation and percussion. No rales, rhonchi or wheezes noted. No increased work of breathing, no retractions or nasal flaring. Back: No spinal tenderness. No costovertebral tenderness. Full range of motion. Skin: Warm, dry with normal turgor. Normal color with no rashes, no lesions, and no evidence of cellulitis. MS/ Extremity: Pulses equal, no cyanosis. Neurovascular intact. Full, normal range of motion. Neuro: Awake and alert, GCS 15, oriented to person, place, time, and situation. Cranial nerves II-XII grossly intact. Motor strength 5/5 in all extremities. Sensory grossly intact. Cerebellar exam normal. Normal gait. Psych: Awake, alert, with orientation to person, place and time. Behavior, mood, and affect are within normal limits. 06:12 Abdomen/GI: Inspection: abdomen appears normal, Bowel sounds: normal, Palpation: mild abdominal tenderness, moderate abdominal tenderness, in the epigastric area, right upper quadrant and left upper quadrant. Vital Signs: 05:54 BP 117 / 51; Pulse 58; Resp 16; Temp 98.8(O); Pulse Ox 99% on R/A; Weight 96.16 kg (R); ak1 Height 5 ft. 0 in. (152.40 cm) (R); Pain 9/10; 07:10 BP 122 / 84; Pulse 58; Resp 16; Pulse Ox 98% ; Pain 5/10; ls4 07:57 BP 127 / 87; Pulse 59; Resp 16; Pulse Ox 99% ; ls4 09:02 BP 124 / 78; Pulse 88; Resp 16; Pulse Ox 99% on R/A; Pain 5/10; ls4 05:54 Body Mass Index 41.40 (96.16 kg, 152.40 cm) ak1 MDM: 06:00 Patient medically screened. [facility] 06:14 Data reviewed: vital signs, nurses notes, lab test result(s), radiologic studies, CT dave scan. 09/11 06:08 Order name: Basic Metabolic Panel [facility] 09/11 06:08 Order name: CBC with Diff [facility] 09/11 06:08 Order name: Creatinine for Radiology [facility] 09/11 06:08 Order name: Hepatic Function [facility] 09/11 06:08 Order name: Lipase [facility] 09/11 06:11 Order name: Urine Dipstick--Ancillary (enter results) [facility] 09/11 06:25 Order name: CBC with Automated Diff; Complete Time: 07:40 [facility] 09/11 06:40 Order name: Creatinine (Radiology Only); Complete Time: 07:40 [facility] 09/11 06:40 Order name: Basic Metabolic Panel; Complete Time: 07:40 [facility] 09/11 06:40 Order name: Liver (Hepatic) Function; Complete Time: 07:40 [facility] 09/11 06:40 Order name: Lipase; Complete Time: 07:40 [facility] 09/11 06:06 Order name: Urine Dipstick-Ancillary (obtain specimen); Complete Time: 06:06 [facility] 09/11 06:06 Order name: Urine Test (obtain specimen); Complete Time: 06:06 jb4 09/11 06:08 Order name: IV Saline Lock; Complete Time: : jd3 09/11 06:08 Order name: Labs collected and sent; Complete Time: : jd3 Administered Medications: 06:26 Drug: NS 0.9% 1000 ml Route: IV; Rate: 1 bolus; Site: right antecubital; jb4 07:31 Follow up: IV Status: Completed infusion; IV Intake: 1000ml ls4 06:27 Drug: morphine 4 mg Route: IVP; Site: right antecubital; jb4 07:00 Follow up: Response: No adverse reaction; Pain is decreased jb4 06:27 Drug: Zofran 4 mg Route: IVP; Site: right antecubital; jb4 06:59 Follow up: Response: No adverse reaction; Nausea is decreased jb4 07:31 Drug: NS 0.9% 1000 ml Route: IV; Rate: 1 bolus; Site: right antecubital; ls4 08:42 Follow up: IV Status: Completed infusion; IV Intake: 1000ml ls4 08:42 Drug: NS 0.9% 1000 ml Route: IV; Rate: 1 bolus; Site: right antecubital; ls4 09:21 Follow up: Response: No adverse reaction; IV Status: Completed infusion; IV Intake: ls4 1000ml Disposition: 09/11/18 07:47 Hospitalization ordered by Lex Ahuja for Inpatient Admission. Preliminary diagnosis are Abdominal tenderness, Acute pancreatitis, Alcohol abuse, Vomiting. - Bed requested for Telemetry/MedSurg (Inpatient). - Status is Inpatient Admission. ls4 - Condition is Fair. - Problem is new. - Symptoms have improved. UTI on Admission? No Signatures: Dispatcher [employer] EDMS Lenny Domingo MD MD cha Krenek, Amber RN RN ak1 Cabrera Wen RN RN jb4 Matilde Quiñones RN RN df Elia Foster RN RN jd3 Stewart, Lisa, RN RN ls4 Corrections: (The following items were deleted from the chart) 09:22 07:47 Hospitalization Ordered by Lex Ahuja MD for Inpatient Admission. Preliminary df diagnosis is Abdominal tenderness; Acute pancreatitis; Alcohol abuse; Vomiting. Bed requested for Telemetry/MedSurg (Inpatient). Status is Inpatient Admission. Condition is Fair. Problem is new. Symptoms have improved. UTI on Admission? No. dave 09:52 09:22 09/11/2018 07:47 Hospitalization Ordered by Lex Ahuja MD for Inpatient ls4 Admission. Preliminary diagnosis is Abdominal tenderness; Acute pancreatitis; Alcohol abuse; Vomiting. Bed requested for Telemetry/MedSurg (Inpatient). Status is Inpatient Admission. Condition is Fair. Problem is new. Symptoms have improved. UTI on Admission? No. df 09:52 09:52 09/11/2018 07:47 Hospitalization Ordered by Lex Ahuja MD for Inpatient ls4 Admission. Preliminary diagnosis is Abdominal tenderness; Acute pancreatitis; Alcohol abuse; Vomiting. Bed requested for Telemetry/MedSurg (Inpatient). Status is Inpatient Admission. Condition is Fair. Problem is new. Symptoms have improved. UTI on Admission? No. ls4 10:31 09:52 09/11/2018 07:47 Hospitalization Ordered by Lex Ahuja MD for Inpatient ls4 Admission. Preliminary diagnosis is Abdominal tenderness; Acute pancreatitis; Alcohol abuse; Vomiting. Bed requested for Telemetry/MedSurg (Inpatient). Status is Inpatient Admission. Condition is Fair. Problem is new. Symptoms have improved. UTI on Admission? No. ls4
[2018-09-11] MEDS ORDERED: ACETAMINOPHEN 500 MG TAB PO PRN (11:17)
[2018-09-11] MEDS: MORPHINE 2 MG/ML SYR IV PRN ×2 (11:52→18:06)
[2018-09-11] MEDS: NA CHLORIDE 0.9% 1,000 ML IV SCH ×2 (11:52→21:18)
[2018-09-11 14:02] VITALS: BMI 41.3
[2018-09-11] MEDS ORDERED: INFLUENZA VACCINE (for 3y+) 0.5 ML DOSE IMVAC ONE (15:00)
--- NOTE | 2018-09-11 16:49 | P.HP ---
Certification for Inpatient Patient admitted to: Inpatient Practitioner: I am a practitioner with admitting privileges, knowledge of patient current condition, hospital course, and medical plan of care. Services: Services provided to patient in accordance with Admission requirements found in Title 42 Section 412.3 of the Code of Federal Regulations Patient History Date of Service: 09/11/18 Primary Care Provider: Does not have one as she just moved down here Reason for admission: Abdominal pain, pancreatitis History of Present Illness: This is a 21-year-old female with past medical history of anxiety admitted for abdominal pain, intractable nausea and vomiting. Epigastric abdominal pain that started Monday morning, radiating to the back. She has previous episodes like this, so she knew this maybe pancreatitis. Her last prior episode was a month ago. States that she was very much nauseous, unable to keep anything down. Pain worse with walking/any movement, alleviated with no movements. He she has a history of drinking alcohol. She stated that she stopped after her last episode, drink again on Monday right before with abdominal pain started. She also endorses smoking 1/3 pack per day for the past 3 years. She also endorses cocaine use approximately every 2 weeks. Last usage was on Monday, prior to abdominal pain. At the time of my exam, patient was in moderate distress secondary to abdominal and back pain, though she was alert oriented x3, hemodynamically stable. She denies any chest pain, shortness of breath, headache, dizziness, vision changes, syncopal/presyncopal episodes, fevers, chills, diarrhea or constipation. Allergies No Known Allergies Allergy (Unverified 07/29/18 23:47) Home Medications: NK [No Home Meds] 07/30/18 - Past Medical/Surgical History Has patient received pneumonia vaccine in the past: No Diabetic: No -: Alcohol abuse -: Cocaine abuse -: Anxiety -: Pancreatitis - Family History Mother Notes: States mother is healthy - Social History Smoking Status: Current every day smoker Alcohol use: Yes CD- Drugs: Yes Caffeine use: Yes Place of Residence: Home Review of Systems General: Unremarkable Eyes: Unremarkable ENT: Unremarkable Respiratory: Unremarkable Cardiovascular: Unremarkable Gastrointestinal: Nausea, Vomiting, Abdominal Pain, As per HPI Genitourinary: Unremarkable Musculoskeletal: Unremarkable Integumentary: Unremarkable Neurological: Unremarkable Lymphatics: Unremarkable Physical Examination - Vital Signs Temperature: 97.1 F Blood Pressure: 123/67 Pulse: 53 Respirations: 20 Pulse Ox (%): 99 - Physical Exam General: Alert, Oriented x3, Moderate distress HEENT: Atraumatic, PERRLA, Mucous membr. moist/pink, EOMI, Sclerae nonicteric Neck: Supple, 2+ carotid pulse no bruit, No LAD, Without JVD or thyroid abnormality Respiratory: Clear to auscultation bilaterally, Normal air movement Cardiovascular: Regular rate/rhythm, Normal S1 S2 Gastrointestinal: Normal bowel sounds, Tenderness, Rebound, Guarding Musculoskeletal: No tenderness Integumentary: No rashes Neurological: Normal gait, Normal speech, Normal strength at 5/5 x4 extr, Normal tone, Normal affect Lymphatics: No axilla or inguinal lymphadenopathy - Studies Laboratory Data (last 24 hrs) 09/11/18 06:05: Creatinine 0.80 09/11/18 06:05: WBC 6.3, Hgb 11.5 L, Hct 34.2 L, Plt Count 296 09/11/18 06:05: Sodium 142, Potassium 3.7, BUN 8, Creatinine 0.80, Glucose 113 H , Total Bilirubin 0.3, AST 21, ALT 54, Alkaline Phosphatase 100, Lipase 830 H Assessment and Plan - Plan This is a 21-year-old female with: Intractable Abdominal pain Acute pancreatitis, secondary to alcohol abuse CT abdomen ordered, pending IV fluids Pain control with IV morphine Continue to keep NPO for bowel rest. Nausea and vomiting Zofran as needed for nausea and vomiting Anxiety Stable at this time. No medication at home for anxiety as patient has stopped taking her medications 2 months ago. She will need outpatient follow up. Would not want to start benzodiazepine at this time on patient as she is stable not requiring any anxiety medications. Alcohol abuse Counseled on alcohol cessation Tobacco usage Counseled on smoking cessation Cocaine usage Counseled on drug usage/cessation DVT prophylaxis: Not needed GI prophylaxis: Protonix Diet: NPO Disposition: Admit to floor with tele. Monitor, pending symptomatic improvement. Keep NPO Discharge Plan: Home Plan to discharge in: 48 Hours - Advance Directives Does patient have a Living Will: No Does patient have a Durable POA for Healthcare: No Physician Review: Patient Assessed, Agree with Above Assessment and Plan Time Spent Managing Pts Care (In Minutes): 45
[2018-09-11] MEDS ORDERED: ONDANSETRON 4 MG/2 ML VIAL IV PRN (16:53)
[2018-09-11 19:36] LABS: Urine Blood 3+ (NEG); Urine Glucose NEGATIVE (NEG); Urine Protein 1+ (NEG); Urine Specific Gravity 1.025 (1.005-1.030); Urine pH 6.5 (5.0-7.0)
--- NOTE | 2018-09-11 19:45 | RAD REPORT ---
EXAM DESCRIPTION: CT - Abdomen W Contrast - 09/11/2018 7:33 pm CLINICAL HISTORY: Abdominal pain COMPARISON: July 2018 TECHNIQUE: Computed axial tomography from the diaphragm to the iliac crest was obtained. Oral contra st was given. Unenhanced and enhanced images obtained. 100 cc Isovue-[address] scans are performed using dose optimization technique as appropriate and may include automated exposure control or mA/KV adjustment according to patient size. FINDINGS: Mildly diminished attenuation liver indicates mild fatty infiltration. Spleen, adrenals and kidneys are unremarkable. Pancreas is normal size and density. Mild stranding within the peripancreatic fat. A pseudocyst is no t seen No ascites is seen. The visualized bowel caliber and wall thickness is normal IMPRESSION: Mild stranding within the peripancreatic fat indicates a mild pancreatitis.
[2018-09-11] MEDS: MEPERIDINE HCL 25 MG/0.5 ML IV PRN (23:36)
[2018-09-12] MEDS: MEPERIDINE HCL 25 MG/0.5 ML IV PRN ×2 (04:47→12:44)
[2018-09-12] MEDS: NA CHLORIDE 0.9% 1,000 ML IV SCH ×2 (06:12→17:35)
[2018-09-12 06:47] LABS: Absolute Lymphocytes (CBC) 1.7 K/uL (0.7-4.9); Absolute Monocytes 0.5 K/uL (0.1-1.3); Absolute Neutrophil 4.5 K/uL (1.8-8.0); Basophils % 0.5 % (0-1.3); Eosinophils % 3.8 % (0-4.4); Hematocrit 31.9 % (36.0-45.0); Lymphocytes % 24.4 % (15.3-44.8); MCH 26.6 pg (27.0-35.0); MCV 80.5 fL (80-100); Monocytes % 6.8 % (3.3-12.3); RBC Red Blood Cell Count 3.96 M/uL (3.86-4.86)
[2018-09-12 07:03] LABS: Albumin 3.2 g/dL (3.4-5.0); Bilirubin Total 0.4 mg/dL (0.2-1.0); Protein, Total 6.6 g/dL (6.4-8.2)
--- NOTE | 2018-09-12 15:54 | P.PN ---
Subjective Date of Service: 09/12/18 Primary Care Provider: Does not have one as she just moved down here Chief Complaint: Abdominal pain, pancreatitis Subjective: Improving Patient seen and examined at bedside. No family at bedside. Chart reviewed and Case discussed with nursing staff. Patient reports improved pain, though now having more back pain than abdominal pain. Back pain has been pretty chronic. Denies any chest pain, shortness of breath, vision changes, syncopal/ presyncopal episodes. Review of Systems As noted Physical Examination - Vital Signs Temperature: 97.1 F Blood Pressure: 104/73 Pulse: 69 Respirations: 20 Pulse Ox (%): 100 - Physical Exam General: Alert, In no apparent distress, Oriented x3 HEENT: Atraumatic, PERRLA, EOMI Neck: Supple, JVD not distended Respiratory: Clear to auscultation bilaterally, Normal air movement Cardiovascular: Regular rate/rhythm, Normal S1 S2 Gastrointestinal: Normal bowel sounds, Tenderness (Mild tenderness with stethoscope. Though exaggerated response with palpation by hand.) Musculoskeletal: No tenderness Integumentary: No rashes Neurological: Normal speech, Normal tone, Normal affect Assessment And Plan - Plan This is a 21-year-old female with: Intractable Abdominal pain Acute pancreatitis, secondary to alcohol abuse CT abdomen with mild pancreatitis, no pseudocyst noted. IV fluids. Will discontinue if tolerates diet Pain control with IV morphine Start clear liquid diet, advance as tolerated Nausea and vomiting Zofran as needed for nausea and vomiting Lower Back pain, chronic Patient and chronic lower back pain. Encouraged patient to get up and walk around as this may help. She is already getting IV pain control with morphine. No abnormalities noted on physical exam Anxiety Stable at this time. No medication at home for anxiety as patient has stopped taking her medications 2 months ago. She will need outpatient follow up. Would not want to start benzodiazepine at this time on patient as she is stable not requiring any anxiety medications. Alcohol abuse Counseled on alcohol cessation Tobacco usage Counseled on smoking cessation Cocaine usage Counseled on drug usage/cessation DVT prophylaxis: Not needed GI prophylaxis: Protonix Diet: Clear liquid diet, advance as tolerated Disposition: Monitor, pending symptomatic improvement. Physician Review: Patient Assessed, Agree with Above Assessment and Plan Time Spent Managing PTS Care (In Minutes): 45
[2018-09-12] MEDS: FENTANYL CITR 100 MCG/2 ML IV PRN (22:37)
[2018-09-13] MEDS ORDERED: LORazepam 2 MG/ML VIAL IV ONE (00:35)
[2018-09-13] MEDS: NA CHLORIDE 0.9% 1,000 ML IV SCH (05:16)
[2018-09-13 06:09] LABS: Absolute Lymphocytes (CBC) 1.8 K/uL (0.7-4.9); Absolute Monocytes 0.4 K/uL (0.1-1.3); Absolute Neutrophil 3.2 K/uL (1.8-8.0); Basophils % 0.3 % (0-1.3); Eosinophils % 3.8 % (0-4.4); Hematocrit 33.8 % (36.0-45.0); Lymphocytes % 31.5 % (15.3-44.8); MCH 26.7 pg (27.0-35.0); MCV 80.9 fL (80-100); MPV 8.8 fL (7.6-11.3); Monocytes % 6.9 % (3.3-12.3); RBC Red Blood Cell Count 4.17 M/uL (3.86-4.86)
[2018-09-13 06:44] LABS: Magnesium 2.2 mg/dL (1.8-2.4); Phosphorus 4.1 mg/dL (2.5-4.9)
[2018-09-13 06:48] LABS: Albumin 3.2 g/dL (3.4-5.0); Bilirubin Total 0.3 mg/dL (0.2-1.0); Potassium 3.8 mmol/L (3.5-5.1); Protein, Total 6.5 g/dL (6.4-8.2)
[2018-09-13] MEDS ORDERED: POTASSIUM CL SA 10 MEQ TAB PO ONE (09:47)
[2018-09-13 09:57] VITALS: O2SAT 99
[2018-09-13] MEDS: FENTANYL CITR 100 MCG/2 ML IV PRN (11:25)
[2018-09-13] MEDS ORDERED: TRAMADOL HCL 50 MG TAB PO PRN (11:37)
[2018-09-13 12:24] VITALS: BP 102/58; TEMP 97.9
--- NOTE | 2018-09-13 13:53 | P.DS ---
Admission Date: 09/11/18 Discharge Date: 09/13/18 Primary Care Provider: Does not have one as she just moved down here Disposition: ROUTINE DISCHARGE Discharge Condition: GOOD Reason for Admission: Abdominal pain, pancreatitis Brief History of Present Illness: This is a 21-year-old female with past medical history of anxiety admitted for abdominal pain, intractable nausea and vomiting. Epigastric abdominal pain that started Monday morning, radiating to the back. She has previous episodes like this, so she knew this maybe pancreatitis. Her last prior episode was a month ago. States that she was very much nauseous, unable to keep anything down. Pain worse with walking/any movement, alleviated with no movements. He she has a history of drinking alcohol. She stated that she stopped after her last episode, drink again on Monday right before with abdominal pain started. She also endorses smoking 1/3 pack per day for the past 3 years. She also endorses cocaine use approximately every 2 weeks. Last usage was on Monday, prior to abdominal pain. At the time of my exam, patient was in moderate distress secondary to abdominal and back pain, though she was alert oriented x3, hemodynamically stable. She denies any chest pain, shortness of breath, headache, dizziness, vision changes, syncopal/presyncopal episodes, fevers, chills, diarrhea or constipation. Hospital Course: Patient admitted for acute pancreatitis, secondary to alcohol use. Patient has had prior episodes like this whenever she uses alcohol. She stated that she is not for a month, restarted alcohol and had an episode of pancreatitis. CT abdomen was done which showed mild pancreatitis, no pseudocyst were noted on it. Initially, lipase was elevated which decreased on recheck. She was kept NPO, given IV fluids and pain medication. She was started on a clear liquid diet, advancing as tolerated. Patient stated that she required pain medication through her IV, she would want to Demerol and not fentanyl. Was explained to patient the risks of IV pain medications. IV pain medications were discontinued , patient continued to do well from pain aspect. It was noted by the nurses that she was laughing on the phone, had visitors and was laughing and talking to them. Whenever nurse went in to check for pain she would speak very slowly and ask for pain medications as she was in a lot of pain. At the time of discharge, patient states her abdominal pain was resolved, she was tolerating a regular diet without any nausea or vomiting and she was hemodynamically stable. She continued to have back pain, which is chronic for her. Encouraged patient to go get out the walk around, physical therapy and exercise as she could tolerate. She was extensively counseled on alcohol, drug cessation as well as tobacco cessation. Unsure if patient interested in cessation at this time. Vital Signs/Physical Exam: Temp Pulse Resp BP Pulse Ox 97.9 F 52 18 102/58 L 100 09/13/18 12:00 09/13/18 12:00 09/13/18 12:00 09/13/18 12:00 09/13/18 12:00 General: Alert, In no apparent distress, Oriented x3 HEENT: Atraumatic, PERRLA, EOMI Neck: Supple, JVD not distended Respiratory: Clear to auscultation bilaterally, Normal air movement Cardiovascular: Regular rate/rhythm, Normal S1 S2 Gastrointestinal: Normal bowel sounds, No tenderness, No rebound, No guarding Musculoskeletal: No tenderness Integumentary: No rashes Neurological: Normal speech, Normal tone, Normal affect Laboratory Data at Discharge: WBC 5.6 K/uL (4.3-10.9) D 09/13/18 05:48 Hgb 11.1 g/dL (12.0-15.0) L 09/13/18 05:48 Hct 33.8 % (36.0-45.0) L 09/13/18 05:48 Plt Count 277 K/uL (152-406) 09/13/18 05:48 Sodium 139 mmol/L (136-145) 09/13/18 05:48 Potassium 3.8 mmol/L (3.5-5.1) 09/13/18 05:48 BUN 7 mg/dL (7-18) 09/13/18 05:48 Creatinine 0.80 mg/dL (0.55-1.3) 09/13/18 05:48 Glucose 110 mg/dL (74-106) H 09/13/18 05:48 Phosphorus 4.1 mg/dL (2.5-4.9) 09/13/18 05:48 Magnesium 2.2 mg/dL (1.8-2.4) 09/13/18 05:48 Total Bilirubin 0.3 mg/dL (0.2-1.0) 09/13/18 05:48 AST 24 U/L (15-37) 09/13/18 05:48 ALT 43 U/L (12-78) 09/13/18 05:48 Alkaline Phosphatase 85 U/L (45-117) 09/13/18 05:48 Lipase 341 U/L (73-393) 09/12/18 06:02 Patient Discharge Instructions: Please follow up with the primary care physician in 1 week Diet: Soft, advance as tolerated Activity: Ad joni Physician Review: Patient Assessed, Agree with Above Assessment and Plan Time spent managing pt's care (in minutes): 45
== END 2018-09-13 15:55 | disposition home or self-care (01) | DRG 440 ==
LOC: ER 05:41 → ERHOLD 07:48 → 2ND 10:13
PROVIDERS: ADMIT Family Medicine; ATTEND Family Medicine
DX: K85.20 Alcohol induced acute pancreatitis without necrosis or infection (principal); F14.90 Cocaine use, unspecified, uncomplicated; F41.9 Anxiety disorder, unspecified; M54.5 Low back pain; F17.210 Nicotine dependence, cigarettes, uncomplicated
CPT/HCPCS: 36415; 74160; 80048; 80053; 80076; 81003; 81025; 83690; 83735; 84100; 85025; 94760; 96361; 96374; 96375; 99285; J2175; J2270; J2405; J3010; J7030; Q9967

== ENCOUNTER 2018-11-18 02:14 | Inpatient (IN) | payer SELFPAY ==
--- OUTSIDE RECORDS SUMMARY | 2018-11-18 02:16 | XMS REPORT ---
:1995 [facility] [address] [place] [address] Care Team Providers Name Role Phone Unavailable [...]
[2018-11-18 02:37] LABS: Absolute Lymphocytes (CBC) 1.7 K/uL (0.7-4.9); Absolute Monocytes 0.6 K/uL (0.1-1.3); Absolute Neutrophil 11.1 K/uL (1.8-8.0); Basophils % 1.4 % (0-1.3); Eosinophils % 1.4 % (0-4.4); Hematocrit 39.7 % (36.0-45.0); Lymphocytes % 12.4 % (15.3-44.8); MPV 8.7 fL (7.6-11.3); Monocytes % 4.3 % (3.3-12.3); RBC Red Blood Cell Count 5.08 M/uL (3.86-4.86)
[2018-11-18] MEDS ORDERED: PROMETHAZINE 25 MG/ML VIAL ONE (02:47)
[2018-11-18] MEDS ORDERED: NA CHLORIDE 0.9% 1,000 ML ONE ×2 (02:48→07:32)
[2018-11-18] MEDS ORDERED: FENTANYL CITR 100 MCG/2 ML ONE (02:48)
[2018-11-18 03:48] LABS: Albumin 3.9 g/dL (3.4-5.0); Bilirubin Direct 0.2 mg/dL (0-0.2); Bilirubin Total 0.5 mg/dL (0.2-1.0); Potassium 3.8 mmol/L (3.5-5.1); Protein, Total 7.9 g/dL (6.4-8.2)
--- NOTE | 2018-11-18 04:23 | ER ---
Nurse's Notes [facility] Name: Rufina Pavon Age: 23 yrs Sex: Female : 1995 Arrival Date: 11/18/2018 Time: 02:15 Bed 5 Private MD: Diagnosis: Acute pancreatitis Presentation: 11/18 02:16 Presenting complaint: EMS states: Pt says she had a history of pancreas issues and is ed1 having upper abdominal pain. Transition of care: patient was not received from another setting of care. Onset of symptoms was November 18, 2018. Risk Assessment: Do you want to hurt yourself or someone else? Patient reports no desire to harm self or others. Initial Sepsis Screen: Does the patient meet any 2 criteria? No. Patient's initial sepsis screen is negative. Does the patient have a suspected source of infection? No. Patient's initial sepsis screen is negative. Care prior to arrival: None. 02:16 Method Of Arrival: EMS: [facility] ed1 02:16 Acuity: [facility] 3 ed1 Triage Assessment: 02:17 General: Appears in no apparent distress. Behavior is calm, cooperative. Pain: ed1 Complains of pain in epigastric area and right upper quadrant Pain radiates to back Pain currently is 8 out of 10 on a pain scale. Quality of pain is described as sharp, Pain began suddenly, 2 hours ago. Is continuous, Also complains of nausea. EENT: No signs and/or symptoms were reported regarding the EENT system. Neuro: Level of Consciousness is awake, alert, obeys commands, Oriented to person, place, time, situation. Cardiovascular: Denies chest pain, Heart tones S1 S2 present. Respiratory: Airway is patent Respiratory effort is even, unlabored, Respiratory pattern is regular, symmetrical, Breath sounds are clear bilaterally. GI: Abdomen is non-distended, Bowel sounds present X 4 quads. Abd is soft and non tender X 4 quads. Reports nausea, vomiting, Patient currently denies diarrhea. : No signs and/or symptoms were reported regarding the genitourinary system. Derm: Skin is intact, is healthy with good turgor, Skin is dry, Skin is pink, warm \T\ dry. Skin temperature is warm. Musculoskeletal: Circulation, motion, and sensation intact. 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 - Social history:: Smoking status: Patient uses tobacco products, about 2 a day. - Ebola Screening: : Patient negative for fever greater than or equal to 101.5 degrees Fahrenheit, and additional compatible Ebola Virus Disease symptoms Patient denies exposure to infectious person Patient denies travel to an Ebola-affected area in the 21 days before illness onset No symptoms or risks identified at this time. Screenin:23 Abuse screen: Denies threats or abuse. Denies injuries from another. Nutritional ed1 screening: No deficits noted. Tuberculosis screening: No symptoms or risk factors identified. Fall Risk None identified. Assessment: 02:23 General: See triage assessment. ed1 03:27 Reassessment: Patient appears in no apparent distress at this time. No changes from ed1 previously documented assessment. Patient and/or family updated on plan of care and expected duration. Pain level reassessed. Patient is alert, oriented x 3, equal unlabored respirations, skin warm/dry/pink. Patient states symptoms have not improved. 04:16 Reassessment: Patient appears in no apparent distress at this time. No changes from ed1 previously documented assessment. Patient and/or family updated on plan of care and expected duration. Pain level reassessed. Patient is alert, oriented x 3, equal unlabored respirations, skin warm/dry/pink. Patient states symptoms have not improved. 05:21 Reassessment: Patient appears in no apparent distress at this time. No changes from ed1 previously documented assessment. Patient and/or family updated on plan of care and expected duration. Pain level reassessed. Patient is alert, oriented x 3, equal unlabored respirations, skin warm/dry/pink. Patient states symptoms have not improved. 06:05 Reassessment: Patient appears in no apparent distress at this time. No changes from ed1 previously documented assessment. Patient and/or family updated on plan of care and expected duration. Pain level reassessed. Patient is alert, oriented x 3, equal unlabored respirations, skin warm/dry/pink. Patient states symptoms have not improved. 07:10 Reassessment: Patient appears in no apparent distress at this time. Patient and/or ph family updated on plan of care and expected duration. Pain level reassessed. Patient is alert, oriented x 3, equal unlabored respirations, skin warm/dry/pink. Pt c/o pain 9/10 and requesting pain medication, checked meditech for admit orders and pt given Toradol 30 mg IVP per hospitalist order. 07:45 Reassessment: Patient appears in no apparent distress at this time. Patient and/or ph family updated on plan of care and expected duration. Pain level reassessed. Patient is alert, oriented x 3, equal unlabored respirations, skin warm/dry/pink. Pt reports that pain has decreased to 7/10, report called to 4th floor, pt taken to room via stretcher by upstream biomanufacturing technician. Vital Signs: 02:17 BP 132 / 90; Pulse 85; Resp 18; Temp 98.7; Pulse Ox 100% on R/A; Weight 81.65 kg; ed1 Height 5 ft. 1 in. (154.94 cm); Pain 8/10; 03:27 BP 128 / 86; Pulse 60; Resp 20; Pulse Ox 100% ; Pain 8/10; ed1 04:16 BP 137 / 92; Pulse 59; Resp 16; Pulse Ox 100% on R/A; Pain 8/10; ed1 05:21 BP 146 / 98; Pulse 105; Resp 20; Pulse Ox 97% on R/A; Pain 8/10; ed1 06:05 BP 121 / 86; Pulse 57; Resp 16; Pulse Ox 100% on R/A; Pain 7/10; ed1 07:37 BP 134 / 84; Pulse 63; Resp 18; Temp 98.4; Pulse Ox 98% on R/A; ph 02:17 Body Mass Index 34.01 (81.65 kg, 154.94 cm) ed1 ED Course: 02:15 Patient arrived in ED. al2 02:15 Elisa Singleton, RN is Primary Nurse. ed1 02:17 Triage completed. ed1 02:17 Arm band placed on right wrist. ed1 02:18 Initial lab(s) drawn, by me, sent to lab. Inserted saline lock: 20 gauge in right aa1 antecubital area, using aseptic technique. 02:23 Patient has correct armband on for positive identification. Placed in gown. Bed in low ed1 position. Call light in reach. Pulse ox on. NIBP on. 02:26 Sade Moraes F[facility]-C [facility]. snw 02:26 Britton Regalado MD is Attending Physician. snw 04:21 Dimitri Valenzuela MD is Hospitalizing Provider. gs 05:14 Radiology exam delayed due to test not completed at this time. kw1 05:[address] Scan, Awaiting: test completed at 0248. ed1 05:[address] via wheelchair. kw1 05:38 CT completed. Patient tolerated procedure well. Patient moved back from CT. kw1 06:05 Resting quietly. Awaiting bed assignment. ed1 06:05 No provider procedures requiring assistance completed. Patient admitted, IV remains in ed1 place. intact, No redness/swelling at site. 07:00 Primary Nurse role handed off by Elisa Singleton RN ed1 07:25 Maryam Yeboah RN is Primary Nurse. ph Administered Medications: 02:44 Drug: NS 0.9% 1000 ml Route: IV; Rate: 1 bolus; Site: right antecubital; ed1 04:33 Follow up: IV Status: Completed infusion; IV Intake: 1000ml ed1 02:45 Drug: fentaNYL (PF) 25 mcg Route: IVP; Site: right antecubital; ed1 03:27 Follow up: Response: No adverse reaction; Pain is unchanged, physician notified ed1 02:45 Drug: Phenergan 12.5 mg Route: IVP; Site: right antecubital; ed1 03:28 Follow up: Response: No adverse reaction; Nausea is decreased ed1 07:26 Drug: NS 0.9% 1000 ml Route: IV; Rate: 125 ml/hr; Site: right antecubital; ph 07:26 Follow up: IV Status: Infusion continued upon admission ph 07:26 Drug: TORadol 30 mg Route: IVP; Site: right antecubital; ph 07:38 Follow up: Response: No adverse reaction ph Intake: 04:33 IV: 1000ml; Total: 1000ml. ed1 Outcome: 04:22 Decision to Hospitalize by Provider. gs 08:00 Patient left the ED. ph 08:00 Admitted to Med/surg accompanied by memo, via stretcher, with chart. ph 08:00 Condition: stable 08:00 Instructed on the need for admit. Signatures: Cora Madsen RN RN aa1 Sade Moraes, WAREHOUSE CHECKER-C WAREHOUSE CHECKER-Csnw Elisa Singleton RN RN ed1 Maryam Yeboah RN RN ph Britton Regalado MD MD Yenifer Hastings kw1 Aishwarya Golden2 Corrections: (The following items were deleted from the chart) 03:28 03:27 Pulse 60bpm; Resp 20bpm; Pulse Ox 100%; Pain 8/10; ed1 ed1 05:23 05:[address] Scan, ed1 ed1
--- NOTE | 2018-11-18 04:23 | EDPHYS ---
Physician Documentation [facility] Name: Rufina Pavon Age: 23 yrs Sex: Female : 1995 Arrival Date: 11/18/2018 Time: 02:15 Bed 5 Private MD: ED Physician Britton Regalado HPI: 11/18 02:28 This 23 yrs old Female presents to ER via EMS with complaints of abdominal snw pain. 02:28 The patient presents with abdominal pain in the upper abdomen. Onset: The snw symptoms/episode began/occurred suddenly, today. The symptoms do not radiate. Associated signs and symptoms: Pertinent positives: nausea and vomiting. The symptoms are described as sharp, steady. Severity of pain: At its worst the pain was moderate severe in the emergency department the pain is unchanged. The patient has experienced similar episodes in the past, with the last episode occurring "Thanksgiving", x 6 episodes. The patient has not recently seen a physician, just moved here 4 months ago. 02:32 Pt states her dx is from what she eats and drinking too much. States she used to drink snw a lot on the weekends. Last drink two days ago ( " three beers and a shot") LMP last week. Denies possibility of .. 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 - Social history:: Smoking status: Patient uses tobacco products, about 2 a day. - Ebola Screening: : Patient negative for fever greater than or equal to 101.5 degrees Fahrenheit, and additional compatible Ebola Virus Disease symptoms Patient denies exposure to infectious person Patient denies travel to an Ebola-affected area in the 21 days before illness onset No symptoms or risks identified at this time. ROS: 02:28 Constitutional: Negative for fever, chills, and weight loss, Eyes: Negative for injury, snw pain, redness, and discharge, ENT: Negative for injury, pain, and discharge, Neck: Negative for injury, pain, and swelling, Cardiovascular: Negative for chest pain, palpitations, and edema, Respiratory: Negative for shortness of breath, cough, wheezing, and pleuritic chest pain, Back: Negative for injury and pain, : Negative for injury, bleeding, discharge, and swelling, MS/Extremity: Negative for injury and deformity, Skin: Negative for injury, rash, and discoloration, Neuro: Negative for headache, weakness, numbness, tingling, and seizure. 02:28 Abdomen/GI: Positive for abdominal pain, nausea and vomiting. Exam: 02:27 Head/Face: Normocephalic, atraumatic. Eyes: Pupils equal round and reactive to light, snw extra-ocular motions intact. Lids and lashes normal. Conjunctiva and sclera are non-icteric and not injected. Cornea within normal limits. Periorbital areas with no swelling, redness, or edema. ENT: Nares patent. No nasal discharge, no septal abnormalities noted. Tympanic membranes are normal and external auditory canals are clear. Oropharynx with no redness, swelling, or masses, exudates, or evidence of obstruction, uvula midline. Mucous membranes moist. Neck: Trachea midline, no thyromegaly or masses palpated, and no cervical lymphadenopathy. Supple, full range of motion without nuchal rigidity, or vertebral point tenderness. No Meningismus. Chest/axilla: Normal chest wall appearance and motion. Nontender with no deformity. No lesions are appreciated. Cardiovascular: Regular rate and rhythm with a normal S1 and S2. No gallops, murmurs, or rubs. Normal PMI, no JVD. No pulse deficits. Respiratory: Lungs have equal breath sounds bilaterally, clear to auscultation and percussion. No rales, rhonchi or wheezes noted. No increased work of breathing, no retractions or nasal flaring. Back: No spinal tenderness. No costovertebral tenderness. Full range of motion. 02:27 Skin: Warm, dry with normal turgor. Pale color with no rashes, no lesions, and no evidence of cellulitis. MS/ Extremity: Pulses equal, no cyanosis. Neurovascular intact. Full, normal range of motion. Neuro: Awake and alert, GCS 15, oriented to person, place, time, and situation. Cranial nerves II-XII grossly intact. Motor strength 5/5 in all extremities. Sensory grossly intact. Cerebellar exam normal. Normal gait. 02:27 Constitutional: The patient appears alert, anxious, obese, pale, restless, uncomfortable. 02:27 Abdomen/GI: Inspection: obese Bowel sounds: active, Palpation: moderate abdominal tenderness, severe abdominal tenderness, in the right upper quadrant and left upper quadrant. Vital Signs: 02:17 BP 132 / 90; Pulse 85; Resp 18; Temp 98.7; Pulse Ox 100% on R/A; Weight 81.65 kg; ed1 Height 5 ft. 1 in. (154.94 cm); Pain 8/10; 03:27 BP 128 / 86; Pulse 60; Resp 20; Pulse Ox 100% ; Pain 8/10; ed1 04:16 BP 137 / 92; Pulse 59; Resp 16; Pulse Ox 100% on R/A; Pain 8/10; ed1 05:21 BP 146 / 98; Pulse 105; Resp 20; Pulse Ox 97% on R/A; Pain 8/10; ed1 06:05 BP 121 / 86; Pulse 57; Resp 16; Pulse Ox 100% on R/A; Pain 7/10; ed1 07:37 BP 134 / 84; Pulse 63; Resp 18; Temp 98.4; Pulse Ox 98% on R/A; ph 02:17 Body Mass Index 34.01 (81.65 kg, 154.94 cm) ed1 MDM: 02:31 Patient medically screened. snw 02:31 Data reviewed: vital signs, nurses notes. Data interpreted: Pulse oximetry: on room air snw is 100 %. Interpretation: normal. Counseling: I had a detailed discussion with the patient and/or guardian regarding: the historical points, exam findings, and any diagnostic results supporting the discharge/admit diagnosis, the presence of at least one elevated blood pressure reading (>120/80) during this emergency department visit. Transition of care: After a detail discussion of the patient's case, care is transferred to Britton Regalado MD. 11/18 02:27 Order name: Basic Metabolic Panel; Complete Time: 03:52 snw 11/18 02:27 Order name: CBC with Diff; Complete Time: 03:35 snw 11/18 02:27 Order name: Hepatic Function; Complete Time: 03:52 snw 11/18 02:27 Order name: Lipase; Complete Time: 03:52 snw 11/18 02:46 Order name: Urine Dipstick--Ancillary (enter results); Complete Time: 06:51 oe 11/18 02:47 Order name: Urine --Ancillary (enter results); Complete Time: 06:51 oe 11/18 04:33 Order name: Urine Drug Screen; Complete Time: 06:51 gs 11/18 04:33 Order name: Ethanol; Complete Time: 06:51 gs 11/18 04:36 Order name: CT Abd/Pelvis - W/Contrast gs 11/18 02:27 Order name: IV Saline Lock; Complete Time: 02:33 snw 11/18 02:27 Order name: Labs collected and sent; Complete Time: 02:33 snw 11/18 02:27 Order name: NPO; Complete Time: 02:33 snw Administered Medications: 02:44 Drug: NS 0.9% 1000 ml Route: IV; Rate: 1 bolus; Site: right antecubital; ed1 04:33 Follow up: IV Status: Completed infusion; IV Intake: 1000ml ed1 02:45 Drug: fentaNYL (PF) 25 mcg Route: IVP; Site: right antecubital; ed1 03:27 Follow up: Response: No adverse reaction; Pain is unchanged, physician notified ed1 02:45 Drug: Phenergan 12.5 mg Route: IVP; Site: right antecubital; ed1 03:28 Follow up: Response: No adverse reaction; Nausea is decreased ed1 07:26 Drug: NS 0.9% 1000 ml Route: IV; Rate: 125 ml/hr; Site: right antecubital; ph 07:26 Follow up: IV Status: Infusion continued upon admission ph 07:26 Drug: TORadol 30 mg Route: IVP; Site: right antecubital; ph 07:38 Follow up: Response: No adverse reaction ph Disposition: 04:21 Co-signature as Attending Physician, Britton Regalado MD I agree with the assessment and plan of care. Disposition: 11/18/18 04:22 Hospitalization ordered by Dimitri Valenzuela for Inpatient Admission. Preliminary diagnosis is Acute pancreatitis. - Bed requested for Telemetry/MedSurg (Inpatient). - Status is Inpatient Admission. ph - Condition is Stable. - Problem is new. - Symptoms have improved. UTI on Admission? No Signatures: Dispatcher [employer] Yenifer Gutierrez RN RN kl Sade Moraes, ASSESSMENT CONSULTANT-C ASSESSMENT CONSULTANT-Csnw Elisa Singleton RN RN ed1 Maryam Yeboah RN RN RegaladoBritton MD MD Corrections: (The following items were deleted from the chart) 06:37 04:22 Hospitalization Ordered by Dimitri Valenzuela MD for Inpatient Admission. Preliminary diagnosis is Acute pancreatitis. Bed requested for Telemetry/MedSurg (Inpatient). Status is Inpatient Admission. Condition is Stable. Problem is new. Symptoms have improved. UTI on Admission? No. gs 08:00 06:37 11/18/2018 04:22 Hospitalization Ordered by Dimitri Valenzuela MD for Inpatient Admission. Preliminary diagnosis is Acute pancreatitis. Bed requested for Telemetry/MedSurg (Inpatient). Status is Inpatient Admission. Condition is Stable. Problem is new. Symptoms have improved. UTI on Admission? No. kl
--- NOTE | 2018-11-18 04:52 | P.HP ---
Certification for Inpatient Patient admitted to: Inpatient With expected LOS: >2 Midnights Practitioner: I am a practitioner with admitting privileges, knowledge of patient current condition, hospital course, and medical plan of care. Services: Services provided to patient in accordance with Admission requirements found in Title 42 Section 412.3 of the Code of Federal Regulations Patient History Date of Service: 11/18/18 Reason for admission: alcoholic pancreatitis History of Present Illness: Ms Pavon is a 23 years old woman with history of alcohol abuse, cocaine abuse, 2 previous episodes of pancreatitis related to alcohol and cocaine abuse , previous abd US shows no gallstones, triglycerides WNL. The patient came to ED complaining of severe abdominal pain, localized in epigastrium radiated to LUQ and back. She denied fever or chills. The pain started early this morning, intensity is 10/10. She denied vomiting or diarrhea but has had nausea. Lab work remarkable for elevated lipase 2508. She states that last time drinking alcohol and consume cocaine was last night. Allergies No Known Allergies Allergy (Unverified 07/29/18 23:47) Home medications list reviewed: Yes - Past Medical/Surgical History Diabetic: No -: Alcohol abuse -: Cocaine abuse -: Anxiety -: Pancreatitis - Family History Mother Notes: States mother is healthy - Social History Smoking Status: Current every day smoker Counseled patient to stop smoking for: less than 10 minutes Alcohol use: Yes CD- Drugs: Yes Caffeine use: Yes Place of Residence: Home Review of Systems 10-point ROS is otherwise unremarkable Physical Examination - Physical Exam General: Alert, In no apparent distress HEENT: Atraumatic, PERRLA, Mucous membr. moist/pink, EOMI, Sclerae nonicteric Neck: Supple, 2+ carotid pulse no bruit, No LAD, Without JVD or thyroid abnormality Respiratory: Clear to auscultation bilaterally, Normal air movement Cardiovascular: Regular rate/rhythm, Normal S1 S2 Gastrointestinal: Normal bowel sounds, Tenderness (epigastric area and LUQ.) Musculoskeletal: No tenderness Integumentary: No rashes Neurological: Normal speech, Normal strength at 5/5 x4 extr, Normal tone, Normal affect Lymphatics: No axilla or inguinal lymphadenopathy - Studies Laboratory Data (last 24 hrs) 11/18/18 02:18: WBC 13.8 H, Hgb 12.8, Hct 39.7, Plt Count 311 11/18/18 02:18: Sodium 137, Potassium 3.8, BUN 9, Creatinine 1.01, Glucose 136 H , Total Bilirubin 0.5, AST 119 H, ALT 91 H, Alkaline Phosphatase 103, Lipase 2508 H Assessment and Plan - Problems (Diagnosis) (1) Acute pancreatitis Onset Date: 07/30/18 Current Visit: No Status: Acute Qualifiers: Pancreatitis type: unspecified pancreatitis type Acute pancreatitis complication: unspecified Qualified Code(s): K85.90 - Acute pancreatitis without necrosis or infection, unspecified (2) Alcohol use Onset Date: 07/30/18 Current Visit: No Status: Acute (3) Cocaine abuse Onset Date: 07/30/18 Current Visit: No Status: Acute (4) Intractable abdominal pain Onset Date: 09/12/18 Current Visit: No Status: Acute - Plan The patient will be admitted to the hospital due to alcoholic pancreatitis. CT abd/pelvis is pending to evaluate potential complications since this is the 3rd alcoholic pancreatitis. Continue IV fluid, bowel rest, symptomatic medication. UDS in process. - Advance Directives Does patient have a Living Will: No Does patient have a Durable POA for Healthcare: No - Code Status/Comfort Care Code Status Assessed: Yes Code Status: Full Code
[2018-11-18 05:17] LABS: Barbiturates NEGATIVE (NEGATIVE); Benzodiazepines NEGATIVE (NEGATIVE); Cocaine POSITIVE (NEGATIVE); METHAMPHETAM NEGATIVE (NEGATIVE); Methadone NEGATIVE (NEGATIVE); Opiates NEGATIVE (NEGATIVE); Phencyclidine NEGATIVE (NEGATIVE); THC Cannibis NEGATIVE (NEGATIVE)
[2018-11-18 05:43] LABS: Urine Specific Gravity >1.030 (1.005-1.030)
[2018-11-18 05:44] LABS: Urine Blood NEGATIVE (NEG); Urine Glucose NEGATIVE (NEG); Urine Protein 2+ (NEG); Urine Specific Gravity >1.030 (1.005-1.030)
[2018-11-18] MEDS ORDERED: KETOROLAC 30 MG/ML INJ ONE (07:32)
[2018-11-18 08:19] VITALS: O2SAT 98
[2018-11-18] MEDS ORDERED: ONDANSETRON 4 MG/2 ML VIAL IV PRN (08:36)
[2018-11-18] MEDS ORDERED: ACETAMINOPHEN 500 MG TAB PO PRN (08:36)
[2018-11-18] MEDS: ENOXAPARIN 40 MG/0.4 ML SQ SCH (09:30)
[2018-11-18] MEDS: MORPHINE 4 MG/ML SYR IV PRN (09:30)
[2018-11-18] MEDS: FAMOTIDINE 20 MG/2 ML VIAL IV SCH ×2 (09:31→20:15)
[2018-11-18] MEDS: NA CHLORIDE 0.9% 1,000 ML IV SCH ×3 (09:31→20:15)
--- NOTE | 2018-11-18 09:40 | RAD REPORT ---
EXAM DESCRIPTION: CT - Abdomen Pelvis W Contrast - 11/18/2018 6:07 am CLINICAL HISTORY: Abdominal pain/upper abdominal pain COMPARISON: August 2018 TECHNIQUE: Computed axial tomography of the abdomen pelvis was obtained. 100 cc Isovue-300 was admin istered intravenously. Oral contrast was not requested which limits evaluation of bowel.Preliminary r eport was generated by [employer] and reviewed prior to dictation All CT scans are performed using dose optimization technique as appropriate and may include automated exposure control or mA/KV adjustment according to patient size. FINDINGS: Fatty liver Pancreas is mildly enlarged. Moderate stranding is present within the peripancreatic fat with ill-def ined fluid. A pseudocyst is not seen. Spleen, adrenal and kidneys appear unremarkable. There is no evidence of diverticulitis. IMPRESSION: Moderate pancreatitis.
[2018-11-18] MEDS ORDERED: KCL 20 MEQ/100 mL IVPB 20 MEQ/100 ML BAG IV SCH (10:00)
--- NOTE | 2018-11-18 13:10 | P.PN ---
Subjective Date of Service: 11/18/18 Primary Care Provider: None Chief Complaint: alcoholic pancreatitis Subjective: Other (Patient still with pain.) Physical Examination - Vital Signs Temperature: 97.5 F Blood Pressure: 113/56 Pulse: 62 Respirations: 16 Pulse Ox (%): 98 - Physical Exam General: Alert, Oriented x3, Cooperative HEENT: Atraumatic Neck: Supple Respiratory: Clear to auscultation bilaterally, Normal air movement Cardiovascular: Normal pulses, Regular rate/rhythm Gastrointestinal: Hypoactive, Non-distended, No masses, No rebound, No guarding , Tenderness (Pain to the epigastric region) Musculoskeletal: No erythema, No tenderness, No warmth Integumentary: No tenderness/swelling, No erythema, No warmth, No cyanosis Neurological: Normal speech, Normal strength at 5/5 x4 extr, Normal tone - Studies Laboratory Data (last 24 hrs) 11/18/18 02:18: Lipase 2536 H 11/18/18 02:18: WBC 13.8 H, Hgb 12.8, Hct 39.7, Plt Count 311 11/18/18 02:18: Sodium 137, Potassium 3.8, BUN 9, Creatinine 1.01, Glucose 136 H , Total Bilirubin 0.5, AST 119 H, ALT 91 H, Alkaline Phosphatase 103, Lipase 2508 H Medications List Reviewed: Yes Assessment & Plan Discharge Plan: Home Plan to discharge in: Greater than 2 days Physician Review Additional Text: Impression: Epigastric abdominal pain with nausea and vomiting secondary to alcoholic pancreatitis Dehydration Cocaine abuse Alcohol abuse Plan: Epigastric abdominal pain with nausea and vomiting secondary to alcoholic pancreatitis: Will keep the patient NPO. Continue IV antibiotic therapy. Will provide IV banana bag and IV fluids. Will monitor closely. Will continue to monitor closely. I will turn the service over to Dr. Mcguire tomorrow. I will go over the plan of care with her. Dehydration: Continue aggressive IV fluids Cocaine abuse: Patient positive for cocaine. Patient admits cocaine use. Cocaine cessation addressed in detail. Alcohol abuse: Alcohol cessation addressed in detail. Patient positive for alcohol upon admission. Time Spent Managing Pts Care (In Minutes): 55
--- NOTE | 2018-11-18 13:36 | RAD REPORT ---
EXAM DESCRIPTION: US - Abdomen Exam Complete - 11/18/2018 1:25 pm CLINICAL HISTORY: Abdominal pain COMPARISON: November 18 cat scan FINDINGS: The liver has an increased echotexture. A gallstone is not seen. The gallbladder wall is not thickened. The biliary tree is normal caliber. The pancreas has an inhomogeneous echotexture and is mildly enlarged. A pseudocyst is not seen. The right kidney measures 11 centimeters with a normal echotexture. The left kidney measures 11 centimeters with a normal echotexture. The spleen measures 11 centimeters. The abdominal aorta and inferior vena cava appear unremarkable IMPRESSION: Enlarged and inhomogeneous pancreas consistent with pancreatitis
[2018-11-18] MEDS: KETOROLAC 30 MG/ML INJ IV PRN ×2 (13:45→20:15)
[2018-11-18] MEDS ORDERED: LORazepam 2 MG/ML VIAL IV PRN (14:18)
[2018-11-18] MEDS: THIAMINE 200 MG/2 ML INJ IVP SCH (14:50)
[2018-11-18] MEDS ORDERED: INFLUENZA VACCINE (for 3y+) 0.5 ML DOSE IMVAC ONE (15:00)
[2018-11-18 19:59] LABS: Urine Appearance CLEAR; Urine Bilirubin NEGATIVE (NEG); Urine Blood NEGATIVE (NEG); Urine Color YELLOW; Urine Glucose NEGATIVE (NEG); Urine Protein NEGATIVE (NEG); Urine Specific Gravity >=1.030 (1.005-1.030); Urine Urobilinogen 0.2 mg/dL (0.2-1.0)
[2018-11-18 20:17] LABS: Urine Microscopic Reflex NO UMIC
[2018-11-19] MEDS: MORPHINE 4 MG/ML SYR IV PRN ×2 (00:22→06:10)
[2018-11-19] MEDS: KETOROLAC 30 MG/ML INJ IV PRN ×3 (03:40→22:31)
[2018-11-19 04:38] LABS: Absolute Lymphocytes (CBC) 1.3 K/uL (0.7-4.9); Absolute Monocytes 0.4 K/uL (0.1-1.3); Absolute Neutrophil 6.6 K/uL (1.8-8.0); Basophils % 0.3 % (0-1.3); Eosinophils % 5.9 % (0-4.4); Hematocrit 34.2 % (36.0-45.0); Lymphocytes % 14.6 % (15.3-44.8); MPV 8.7 fL (7.6-11.3); RBC Red Blood Cell Count 4.35 M/uL (3.86-4.86)
[2018-11-19 04:48] LABS: ALT/SGPT 55 U/L (12-78); AST/SGOT 44 U/L (15-37); Alkaline Phosphatase 98 U/L (45-117); BUN Blood Urea Nitrogen 6 mg/dL (7-18); Bicarbonate 26 mmol/L (21-32); Bilirubin Total 0.6 mg/dL (0.2-1.0); Glucose Level 89 mg/dL (74-106); Lipase 799 U/L (73-393); Magnesium 1.7 mg/dL (1.8-2.4); Potassium 3.8 mmol/L (3.5-5.1); Protein, Total 6.1 g/dL (6.4-8.2); Sodium Level 138 mmol/L (136-145)
[2018-11-19] MEDS ORDERED: POTASSIUM CL SA 10 MEQ TAB PO ONE (05:09)
[2018-11-19] MEDS ORDERED: MAGNESIUM SULFATE 1 gm IVPB 1 GM/100 ML BAG IV ONE (05:10)
[2018-11-19] MEDS ORDERED: KCL 20 MEQ/100 mL IVPB 20 MEQ/100 ML BAG IV SCH (06:00)
[2018-11-19] MEDS: NA CHLORIDE 0.9% 1,000 ML IV SCH ×2 (06:09→16:52)
[2018-11-19 07:36] VITALS: BMI 39.9
[2018-11-19] MEDS: FAMOTIDINE 20 MG/2 ML VIAL IV SCH (09:09)
[2018-11-19] MEDS: THIAMINE 200 MG/2 ML INJ IVP SCH (09:09)
[2018-11-19] MEDS: ENOXAPARIN 40 MG/0.4 ML SQ SCH (09:09)
[2018-11-19] MEDS: TRAMADOL HCL 50 MG TAB PO PRN (10:27)
--- NOTE | 2018-11-19 16:04 | P.PN ---
Subjective Date of Service: 11/19/18 Primary Care Provider: None Chief Complaint: alcoholic pancreatitis Patient seen and examined at bedside with RN. Chart reviewed. Case discussed with patient and family member at bedside. Currently complaining of having some abdominal pain and mild nausea. No vomiting noted. No other complaints to offer at this time. Review of Systems 10-point ROS is otherwise unremarkable Physical Examination - Vital Signs Temperature: 97.5 F Blood Pressure: 116/63 Pulse: 72 Respirations: 16 Pulse Ox (%): 99 - Physical Exam General: Alert, In no apparent distress HEENT: Atraumatic, PERRLA, EOMI Neck: Supple, JVD not distended Respiratory: Clear to auscultation bilaterally, Normal air movement Cardiovascular: Regular rate/rhythm, Normal S1 S2 Gastrointestinal: Normal bowel sounds, Tenderness Musculoskeletal: No tenderness Integumentary: No rashes Neurological: Normal speech, Normal tone, Normal affect Lymphatics: No axilla or inguinal lymphadenopathy - Studies Medications List Reviewed: Yes Assessment And Plan - Current Problems (Diagnosis) (1) Acute pancreatitis Onset Date: 07/30/18 Current Visit: No Status: Acute Plan: Acute pancreatitis most likely secondary to alcohol abuse -IV fluids and NPO at this time -improving today. -will start patient on clear liquid diet today Qualifiers: Pancreatitis type: alcohol induced Acute pancreatitis complication: no infection or necrosis Qualified Code(s): K85.20 - Alcohol induced acute pancreatitis without necrosis or infection (2) Alcohol use Onset Date: 07/30/18 Current Visit: No Status: Chronic (3) Cocaine abuse Onset Date: 07/30/18 Current Visit: No Status: Chronic Discharge Plan: Home Plan to discharge in: 48 Hours - Code Status/Comfort Care Code Status Assessed: Yes Critical Care: No
[2018-11-20] MEDS: NA CHLORIDE 0.9% 1,000 ML IV SCH ×2 (00:36→08:51)
[2018-11-20 04:17] LABS: Absolute Lymphocytes (CBC) 1.6 K/uL (0.7-4.9); Absolute Monocytes 0.4 K/uL (0.1-1.3); Absolute Neutrophil 3.3 K/uL (1.8-8.0); Basophils % 0.3 % (0-1.3); Eosinophils % 8.2 % (0-4.4); Hematocrit 35.1 % (36.0-45.0); Lymphocytes % 28.1 % (15.3-44.8); MPV 8.7 fL (7.6-11.3); Monocytes % 6.6 % (3.3-12.3); RBC Red Blood Cell Count 4.46 M/uL (3.86-4.86)
[2018-11-20] MEDS: KETOROLAC 30 MG/ML INJ IV PRN (04:32)
[2018-11-20 04:35] LABS: ALT/SGPT 71 U/L (12-78); AST/SGOT 61 U/L (15-37); Albumin 3.1 g/dL (3.4-5.0); Alkaline Phosphatase 114 U/L (45-117); BUN Blood Urea Nitrogen 3 mg/dL (7-18); Bicarbonate 27 mmol/L (21-32); Bilirubin Total 0.4 mg/dL (0.2-1.0); Glucose Level 87 mg/dL (74-106); Magnesium 2.2 mg/dL (1.8-2.4); Potassium 3.9 mmol/L (3.5-5.1); Protein, Total 6.9 g/dL (6.4-8.2); Sodium Level 140 mmol/L (136-145)
[2018-11-20] MEDS ORDERED: POTASSIUM 25 MEQ EFFERV TAB PO ONE (08:00)
[2018-11-20] MEDS: ENOXAPARIN 40 MG/0.4 ML SQ SCH (08:53)
[2018-11-20] MEDS: THIAMINE 200 MG/2 ML INJ IVP SCH (08:54)
[2018-11-20] MEDS: TRAMADOL HCL 50 MG TAB PO PRN (09:01)
[2018-11-20 12:12] VITALS: BP 100/55; TEMP 97.6
--- NOTE | 2018-11-20 15:33 | P.DS ---
Admission Date: 11/18/18 Discharge Date: 11/20/18 Primary Care Provider: None Disposition: ROUTINE DISCHARGE Discharge Condition: GOOD Reason for Admission: alcoholic pancreatitis - Problems (1) Acute pancreatitis Onset Date: 07/30/18 Status: Acute Qualifiers: Pancreatitis type: alcohol induced Acute pancreatitis complication: no infection or necrosis Qualified Code(s): K85.20 - Alcohol induced acute pancreatitis without necrosis or infection (2) Alcohol use Onset Date: 07/30/18 Status: Chronic (3) Cocaine abuse Onset Date: 07/30/18 Status: Chronic Brief History of Present Illness: Ms Pavon is a 23 years old woman with history of alcohol abuse, cocaine abuse, 2 previous episodes of pancreatitis related to alcohol and cocaine abuse , previous abd US shows no gallstones, triglycerides WNL. The patient came to ED complaining of severe abdominal pain, localized in epigastrium radiated to LUQ and back. She denied fever or chills. The pain started early this morning, intensity is 10/10. She denied vomiting or diarrhea but has had nausea. Lab work remarkable for elevated lipase 2508. She states that last time drinking alcohol and consume cocaine was last night. Hospital Course: Overall during the hospital stay patient remained stable The patient was initially admitted to the hospital for acute pancreatitis most likely secondary to alcohol abuse and cocaine abuse. Patient had marked improvement in her symptoms after she was kept NPO and on IV fluids for 48 hr. Patient's diet was then advanced slowly to GI soft which she tolerated well. Abdominal pain also was improving and thus patient was discharged home under stable condition. Patient was given prescription for tramadol for pain management and was asked to follow up with primary care provider along with a GI specialist in about 1-2 days post discharge. Vital Signs/Physical Exam: Temp Pulse Resp BP Pulse Ox 97.6 F 63 16 100/55 L 98 11/20/18 12:00 11/20/18 12:00 11/20/18 12:00 11/20/18 12:00 11/20/18 12:00 General: Alert, In no apparent distress HEENT: Atraumatic, PERRLA, EOMI Neck: Supple, JVD not distended Respiratory: Clear to auscultation bilaterally, Normal air movement Cardiovascular: Regular rate/rhythm, Normal S1 S2 Gastrointestinal: Normal bowel sounds, No tenderness Musculoskeletal: No tenderness Integumentary: No rashes Neurological: Normal speech, Normal tone, Normal affect Lymphatics: No axilla or inguinal lymphadenopathy Laboratory Data at Discharge: WBC 5.8 K/uL (4.3-10.9) D 11/20/18 03:43 Hgb 11.4 g/dL (12.0-15.0) L 11/20/18 03:43 Hct 35.1 % (36.0-45.0) L 11/20/18 03:43 Plt Count 245 K/uL (152-406) 11/20/18 03:43 Sodium 140 mmol/L (136-145) 11/20/18 03:43 Potassium 3.9 mmol/L (3.5-5.1) 11/20/18 03:43 BUN 3 mg/dL (7-18) L 11/20/18 03:43 Creatinine 0.68 mg/dL (0.55-1.3) 11/20/18 03:43 Glucose 87 mg/dL (74-106) 11/20/18 03:43 Magnesium 2.2 mg/dL (1.8-2.4) D 11/20/18 03:43 Total Bilirubin 0.4 mg/dL (0.2-1.0) 11/20/18 03:43 AST 61 U/L (15-37) H 11/20/18 03:43 ALT 71 U/L (12-78) 11/20/18 03:43 Alkaline Phosphatase 114 U/L (45-117) 11/20/18 03:43 Lipase 371 U/L (73-393) 11/20/18 08:26 Home Medications: traMADol HCL [Ultram*] 50 mg PO Q6H PRN #20 tab 11/20/18 New Medications: traMADol HCL [Ultram*] 50 mg PO Q6H PRN #20 tab PRN Reason: Pain Scale 5-7 (Moderate) Diet: Regular Activity: Ad joni Followup: Miguel Jackson MD [ACTIVE - CAN ADMIT] - 1 Week (Call to schedule an appointment)
== END 2018-11-20 15:07 | disposition home or self-care (01) | DRG 440 ==
LOC: ER 02:14 → ERHOLD 04:41 → 4TH 07:45
PROVIDERS: ADMIT Internal Medicine; ATTEND Family Medicine
DX: K85.20 Alcohol induced acute pancreatitis without necrosis or infection (principal); F10.10 Alcohol abuse, uncomplicated; F14.10 Cocaine abuse, uncomplicated; F41.9 Anxiety disorder, unspecified; E86.0 Dehydration; R11.2 Nausea with vomiting, unspecified
CPT/HCPCS: 36415; 74177; 76700; 80048; 80053; 80076; 80307; 80320; 81003; 81025; 83690; 83735; 85025; 96361; 96374; 96375; 99285; G0008; J1650; J2550; J3010; J3411; J3475; J7030; Q2035; Q9967

== ENCOUNTER 2019-01-13 15:56 | Inpatient (IN) | payer SELFPAY ==
--- OUTSIDE RECORDS SUMMARY | 2019-01-13 15:59 | XMS REPORT ---
:1995 [facility] Address [address] [place] [address] Care Team Providers Name Role Phone Unavailable [...]
[2019-01-13 16:42] LABS: Absolute Lymphocytes (CBC) 1.9 K/uL (0.7-4.9); Absolute Monocytes 0.5 K/uL (0.1-1.3); Basophils % 0.6 % (0-1.3); Eosinophils % 4.6 % (0-4.4); Lymphocytes % 21.4 % (15.3-44.8); MPV 8.6 fL (7.6-11.3); Monocytes % 5.8 % (3.3-12.3); RBC Red Blood Cell Count 5.12 M/uL (3.86-4.86)
[2019-01-13] MEDS ORDERED: MORPHINE 4 MG/ML SYR ONE ×2 (16:42→17:29)
[2019-01-13] MEDS ORDERED: NA CHLORIDE 0.9% 2,000 ML ONE (16:42)
[2019-01-13] MEDS ORDERED: ONDANSETRON 4 MG/2 ML VIAL ONE ×2 (16:42→18:17)
[2019-01-13 17:00] LABS: Urine Blood NEGATIVE (NEG); Urine Glucose NEGATIVE (NEG); Urine Protein 1+ (NEG); Urine Specific Gravity 1.025 (1.005-1.030)
[2019-01-13 17:09] LABS: ALT/SGPT 40 U/L (12-78); AST/SGOT 16 U/L (15-37); Albumin 3.6 g/dL (3.4-5.0); Alkaline Phosphatase 110 U/L (45-117); BUN Blood Urea Nitrogen 7 mg/dL (7-18); Bicarbonate 28 mmol/L (21-32); Bilirubin Direct < 0.1 mg/dL (0-0.2); Bilirubin Total 0.2 mg/dL (0.2-1.0); Glucose Level 128 mg/dL (74-106); Lipase 2865 U/L (73-393); NT PRO-BNP 24 pg/mL (<125); Potassium 3.9 mmol/L (3.5-5.1); Protein, Total 7.5 g/dL (6.4-8.2); Sodium Level 139 mmol/L (136-145); Troponin (Emerg Dept Use Only) < 0.02 ng/mL (0.0-0.045)
[2019-01-13 17:09] LABS: Barbiturates NEGATIVE (NEGATIVE); Benzodiazepines NEGATIVE (NEGATIVE); Cocaine POSITIVE (NEGATIVE); METHAMPHETAM NEGATIVE (NEGATIVE); Methadone NEGATIVE (NEGATIVE); Opiates NEGATIVE (NEGATIVE); Phencyclidine NEGATIVE (NEGATIVE); THC Cannibis NEGATIVE (NEGATIVE)
--- NOTE | 2019-01-13 17:22 | RAD REPORT ---
EXAM DESCRIPTION: RAD - Chest Single View - 01/13/2019 4:59 pm CLINICAL HISTORY: ABDOMINAL DISTENTION Chest pain. COMPARISON: <Comparisons> FINDINGS: Portable technique limits examination quality. The lungs are grossly clear. The heart is normal in size. No displaced fractures. IMPRESSION: No acute intrathoracic process suspected.
[2019-01-13] MEDS ORDERED: NA CHLORIDE 0.9% 1,000 ML ONE ×2 (17:29→18:17)
--- NOTE | 2019-01-13 17:52 | ER ---
Nurse's Notes [facility] Name: Rufina Pavon Age: 23 yrs Sex: Female : 1995 Arrival Date: 01/13/2019 Time: 15:58 Bed 30 Private MD: Diagnosis: Abdominal tenderness;Acute pancreatitis;Alcohol abuse;Cocaine abuse Presentation: 01/13 16:10 Presenting complaint: Patient states: I have been having upper abd pain, nausea, la1 vomiting, and diarrhea after an episode of binge drinking, pt reports hx of tequila. Transition of care: patient was not received from another setting of care. Onset of symptoms was January 13, 2019. Risk Assessment: Do you want to hurt yourself or someone else? Patient reports no desire to harm self or others. Initial Sepsis Screen: Does the patient meet any 2 criteria? No. Patient's initial sepsis screen is negative. Does the patient have a suspected source of infection? No. Patient's initial sepsis screen is negative. Care prior to arrival: None. 16:10 Method Of Arrival: Ambulatory la1 16:10 Acuity: AYAZ 3 la1 Historical: - Allergies: 16:12 No Known Allergies; la1 - Home Meds: 16:12 None [Active]; la1 - PMHx: 16:12 Anxiety; Pancreatitis; la1 - PSHx: 16:12 None; la1 - Immunization history:: Adult Immunizations up to date. - Social history:: Smoking status: Patient/guardian denies using tobacco. - Ebola Screening: : No symptoms or risks identified at this time. - Family history:: not pertinent. Screenin:39 Abuse screen: Denies threats or abuse. Nutritional screening: No deficits noted. la1 Tuberculosis screening: No symptoms or risk factors identified. Fall Risk None identified. Assessment: 16:38 General: Appears uncomfortable, Behavior is calm, cooperative. Pain: Complains of pain la1 in epigastric area, right upper quadrant and left upper quadrant. Neuro: Level of Consciousness is awake, alert, obeys commands, Oriented to person, place, time, situation. Cardiovascular: Capillary refill < 3 seconds Patient's skin is warm and dry. Respiratory: Airway is patent Respiratory effort is even, unlabored, Respiratory pattern is regular, symmetrical. GI: Abdomen is round non-distended, Bowel sounds present X 4 quads. Abd is soft X 4 quads Abdomen is tender to palpation in epigastric area. GI: Reports diarrhea, nausea, vomiting. : No signs and/or symptoms were reported regarding the genitourinary system. 17:16 Reassessment: Patient appears in no apparent distress at this time. No changes from la1 previously documented assessment. Patient and/or family updated on plan of care and expected duration. Pain level reassessed. Patient is alert, oriented x 3, equal unlabored respirations, skin warm/dry/pink. 18:11 Reassessment: Patient appears in no apparent distress at this time. No changes from la1 previously documented assessment. Patient and/or family updated on plan of care and expected duration. Pain level reassessed. Patient is alert, oriented x 3, equal unlabored respirations, skin warm/dry/pink. Vital Signs: 16:12 Weight 96.16 kg; Height 5 ft. 5 in. (165.10 cm); la1 16:37 BP 129 / 92; Pulse 83; Resp 18; Pulse Ox 99% on R/A; la1 17:05 BP 117 / 91; Pulse 77; Resp 16; Pulse Ox 100% on R/A; ca1 18:11 BP 123 / 66; Pulse 86; Resp 18; Temp 97.4; Pulse Ox 98% on R/A; la1 18:56 BP 130 / 78; Pulse 81; Resp 16; Temp 100.0(O); Pulse Ox 98% on R/A; la1 16:12 Body Mass Index 35.28 (96.16 kg, 165.10 cm) la1 ED Course: 15:58 Patient arrived in ED. as 16:09 Lenny Domingo MD is Attending Physician. [facility] 16:10 Renzo Serrano, KYM is Primary Nurse. la1 16:11 Triage completed. la1 16:12 Arm band placed on left wrist. la1 16:39 Bed in low position. Call light in reach. Side rails up X 1. Pulse ox on. NIBP on. la1 16:39 Inserted saline lock: 20 gauge in right antecubital area, using aseptic technique. la1 Blood collected. Inserted by [employer]. 16:57 XRAY Chest (1 view) In Process Unspecified. EDMS 17:41 CT Abd/Pelvis - W/Contrast In Process Unspecified. EDMS 17:48 CT completed. Patient tolerated procedure well. Patient moved back from CT. kw1 17:51 Curtis Ndiaye DO is Hospitalizing Provider. dave 20:16 No provider procedures requiring assistance completed. Patient admitted, IV remains in la1 place. Administered Medications: 16:37 Drug: NS 0.9% 1000 ml Route: IV; Rate: 1 bolus; Site: right antecubital; la1 20:17 Follow up: IV Status: Completed infusion la1 16:37 Drug: NS 0.9% 1000 ml Route: IV; Rate: 1 bolus; Site: right antecubital; la1 20:17 Follow up: IV Status: Completed infusion la1 16:37 Drug: morphine 4 mg Route: IVP; Site: right antecubital; la1 17:14 Follow up: Response: No adverse reaction; Pain is decreased la1 16:37 Drug: Zofran 4 mg Route: IVP; Site: right antecubital; la1 17:14 Follow up: Response: No adverse reaction la1 17:20 Drug: NS 0.9% 1000 ml Route: IV; Rate: 125 ml/hr; Site: right antecubital; la1 20:17 Follow up: IV Status: Infusion continued upon admission la1 17:20 Drug: morphine 4 mg Route: IVP; Site: right antecubital; la1 18:54 Follow up: Response: No adverse reaction; Pain is decreased la1 17:34 Drug: NS 0.9% 1000 ml Route: IV; Rate: 1 bolus; Site: right antecubital; la1 18:55 Follow up: IV Status: Completed infusion la1 18:10 Drug: Dilaudid 1 mg Route: IVP; Site: right antecubital; la1 18:55 Follow up: Response: No adverse reaction; Pain is decreased la1 18:10 Drug: Zofran 4 mg Route: IVP; Site: right antecubital; la1 18:55 Follow up: Response: No adverse reaction la1 Outcome: 17:51 Decision to Hospitalize by Provider. dave 20:16 Admitted to Med/surg accompanied by tech, via wheelchair, room 231. la1 20:16 Condition: stable 20:16 Instructed on the need for admit. 20:34 Patient left the ED. la1 Signatures: Dispatcher [employer] EDMS Jose L, Lenny, MD MD dave Micha, Elizabeth as Attema, Renzo, RN RN la1 Yenifer Hastings1 Anuja Pena RN RN ca1
--- NOTE | 2019-01-13 17:52 | EDPHYS ---
Physician Documentation [facility] Name: Rufina Pavon Age: 23 yrs Sex: Female : 1995 Arrival Date: 01/13/2019 Time: 15:58 Bed 30 Private MD: ED Physician Lenny Domingo HPI: 01/13 17:48 This 23 yrs old Female presents to ER via Ambulatory with complaints of dave Pancreatitis. 17:48 The patient presents with abdominal pain in the epigastric area, in the upper abdomen. dave Onset: The symptoms/episode began/occurred 1 day(s) ago. The symptoms radiate to right back. Associated signs and symptoms: Pertinent positives: nausea and vomiting. The symptoms are described as constant, sharp. Modifying factors: The symptoms are alleviated by nothing, the symptoms are aggravated by drinking, food. Severity of pain: At its worst the pain was moderate in the emergency department the pain is unchanged. The patient has experienced similar episodes in the past, several times. Historical: - Allergies: 16:12 No Known Allergies; la1 - Home Meds: 16:12 None [Active]; la1 - PMHx: 16:12 Anxiety; Pancreatitis; la1 - PSHx: 16:12 None; la1 - Immunization history:: Adult Immunizations up to date. - Social history:: Smoking status: Patient/guardian denies using tobacco. - Ebola Screening: : No symptoms or risks identified at this time. - Family history:: not pertinent. ROS: 17:48 Constitutional: Negative for fever, chills, and weight loss, Eyes: Negative for injury, dave pain, redness, and discharge, ENT: Negative for injury, pain, and discharge, Neck: Negative for injury, pain, and swelling, Cardiovascular: Negative for chest pain, palpitations, and edema, Respiratory: Negative for shortness of breath, cough, wheezing, and pleuritic chest pain, Back: Negative for injury and pain, : Negative for injury, bleeding, discharge, and swelling, MS/Extremity: Negative for injury and deformity, Skin: Negative for injury, rash, and discoloration, Neuro: Negative for headache, weakness, numbness, tingling, and seizure, Psych: Negative for depression, anxiety, suicide ideation, homicidal ideation, and hallucinations, Allergy/Immunology: Negative for hives, rash, and allergies, Endocrine: Negative for neck swelling, polydipsia, polyuria, polyphagia, and marked weight changes, Hematologic/Lymphatic: Negative for swollen nodes, abnormal bleeding, and unusual bruising. 17:48 Abdomen/GI: Positive for abdominal pain, nausea and vomiting, abdominal cramps, of the epigastric area, right upper quadrant and left upper quadrant. Exam: 17:48 Constitutional: This is a well developed, well nourished patient who is awake, alert, dave and in no acute distress. Head/Face: Normocephalic, atraumatic. Eyes: Pupils equal round and reactive to light, extra-ocular motions intact. Lids and lashes normal. Conjunctiva and sclera are non-icteric and not injected. Cornea within normal limits. Periorbital areas with no swelling, redness, or edema. ENT: Nares patent. No nasal discharge, no septal abnormalities noted. Tympanic membranes are normal and external auditory canals are clear. Oropharynx with no redness, swelling, or masses, exudates, or evidence of obstruction, uvula midline. Mucous membranes moist. Neck: Trachea midline, no thyromegaly or masses palpated, and no cervical lymphadenopathy. Supple, full range of motion without nuchal rigidity, or vertebral point tenderness. No Meningismus. Chest/axilla: Normal chest wall appearance and motion. Nontender with no deformity. No lesions are appreciated. Cardiovascular: Regular rate and rhythm with a normal S1 and S2. No gallops, murmurs, or rubs. Normal PMI, no JVD. No pulse deficits. Respiratory: Lungs have equal breath sounds bilaterally, clear to auscultation and percussion. No rales, rhonchi or wheezes noted. No increased work of breathing, no retractions or nasal flaring. Back: No spinal tenderness. No costovertebral tenderness. Full range of motion. Skin: Warm, dry with normal turgor. Normal color with no rashes, no lesions, and no evidence of cellulitis. MS/ Extremity: Pulses equal, no cyanosis. Neurovascular intact. Full, normal range of motion. Neuro: Awake and alert, GCS 15, oriented to person, place, time, and situation. Cranial nerves II-XII grossly intact. Motor strength 5/5 in all extremities. Sensory grossly intact. Cerebellar exam normal. Normal gait. Psych: Awake, alert, with orientation to person, place and time. Behavior, mood, and affect are within normal limits. 17:48 Abdomen/GI: Inspection: distension, Bowel sounds: normal, Palpation: moderate abdominal tenderness, in the epigastric area, right upper quadrant and left upper quadrant, Liver: no appreciated palpable abnormalities, Hernia: not appreciated. Vital Signs: 16:12 Weight 96.16 kg; Height 5 ft. 5 in. (165.10 cm); la1 16:37 BP 129 / 92; Pulse 83; Resp 18; Pulse Ox 99% on R/A; la1 17:05 BP 117 / 91; Pulse 77; Resp 16; Pulse Ox 100% on R/A; ca1 18:11 BP 123 / 66; Pulse 86; Resp 18; Temp 97.4; Pulse Ox 98% on R/A; la1 18:56 BP 130 / 78; Pulse 81; Resp 16; Temp 100.0(O); Pulse Ox 98% on R/A; la1 16:12 Body Mass Index 35.28 (96.16 kg, 165.10 cm) sc1 MDM: 16:09 Patient medically screened. [facility] 17:50 Data reviewed: vital signs, nurses notes, lab test result(s), EKG, radiologic studies, [facility] CT scan, plain films. 01/13 16:11 Order name: Basic Metabolic Panel; Complete Time: 17:15 [facility] 01/13 16:11 Order name: CBC with Diff; Complete Time: 17:15 [facility] 01/13 16:11 Order name: LFT's; Complete Time: 17:15 [facility] 01/13 16:11 Order name: Magnesium; Complete Time: 17:15 [facility] 01/13 16:11 Order name: NT PRO-BNP; Complete Time: 17:15 [facility] 01/13 16:11 Order name: PT-INR; Complete Time: 17:15 [facility] 01/13 16:11 Order name: Troponin (emerg Dept Use Only); Complete Time: 17:15 [facility] 01/13 16:11 Order name: Lipase; Complete Time: 17:15 [facility] 01/13 16:11 Order name: Acetaminophen; Complete Time: 17:15 [facility] 01/13 16:11 Order name: ETOH Level; Complete Time: 17:15 [facility] 01/13 16:11 Order name: Ptt, Activated; Complete Time: 17:15 [facility] 01/13 16:11 Order name: Salicylate; Complete Time: 17:15 [facility] 01/13 16:11 Order name: Urine Drug Screen; Complete Time: 17:15 [facility] 01/13 16:52 Order name: Urine Dipstick--Ancillary (enter results) 01/13 16:11 Order name: XRAY Chest (1 view); Complete Time: 17:33 [facility] 01/13 16:11 Order name: EKG; Complete Time: 16:13 [facility] 01/13 16:11 Order name: Cardiac monitoring; Complete Time: 17:06 [facility] 01/13 16:11 Order name: EKG - Nurse/Tech; Complete Time: 17:14 [facility] 01/13 16:15 Order name: CT Abd/Pelvis - W/Contrast; Complete Time: 18:06 [facility] 01/13 16:52 Order name: Urine --Ancillary (enter results); Complete Time: 17:15 01/13 16:53 Order name: Urine Dipstick-Ancillary; Complete Time: 17:15 [facility] 01/13 16:11 Order name: IV Saline Lock; Complete Time: 16:40 [facility] 01/13 16:11 Order name: Labs collected and sent; Complete Time: 16:40 [facility] 01/13 16:11 Order name: O2 Per Protocol; Complete Time: 16:40 [facility] 01/13 16:11 Order name: O2 Sat Monitoring; Complete Time: 16:40 [facility] 01/13 16:11 Order name: Urine Dipstick-Ancillary (obtain specimen); Complete Time: 17:14 [facility] 01/13 16:12 Order name: Urine Test (obtain specimen); Complete Time: 16:40 [facility] Administered Medications: 16:37 Drug: NS 0.9% 1000 ml Route: IV; Rate: 1 bolus; Site: right antecubital; la1 20:17 Follow up: IV Status: Completed infusion la1 16:37 Drug: NS 0.9% 1000 ml Route: IV; Rate: 1 bolus; Site: right antecubital; la1 20:17 Follow up: IV Status: Completed infusion la1 16:37 Drug: morphine 4 mg Route: IVP; Site: right antecubital; la1 17:14 Follow up: Response: No adverse reaction; Pain is decreased la1 16:37 Drug: Zofran 4 mg Route: IVP; Site: right antecubital; la1 17:14 Follow up: Response: No adverse reaction la1 17:20 Drug: NS 0.9% 1000 ml Route: IV; Rate: 125 ml/hr; Site: right antecubital; la1 20:17 Follow up: IV Status: Infusion continued upon admission la1 17:20 Drug: morphine 4 mg Route: IVP; Site: right antecubital; la1 18:54 Follow up: Response: No adverse reaction; Pain is decreased la1 17:34 Drug: NS 0.9% 1000 ml Route: IV; Rate: 1 bolus; Site: right antecubital; la1 18:55 Follow up: IV Status: Completed infusion la1 18:10 Drug: Dilaudid 1 mg Route: IVP; Site: right antecubital; la1 18:55 Follow up: Response: No adverse reaction; Pain is decreased la1 18:10 Drug: Zofran 4 mg Route: IVP; Site: right antecubital; la1 18:55 Follow up: Response: No adverse reaction la1 Disposition: 01/13/19 17:51 Hospitalization ordered by Curtis Ndiaye for Inpatient Admission. Preliminary diagnosis are Abdominal tenderness, Acute pancreatitis, Alcohol abuse, Cocaine abuse. - Bed requested for Telemetry/MedSurg (Inpatient). - Status is Inpatient Admission. la1 - Condition is Fair. - Problem is new. - Symptoms have improved. UTI on Admission? No Signatures: Dispatcher [employer] EDMS Kavitha Reina Corey, MD MD cha Attema, Lee, RN RN la1 Lenny Chavira PA PA cp Corrections: (The following items were deleted from the chart) 18:28 17:51 Hospitalization Ordered by Curtis Ndiaye DO for Inpatient Admission. Preliminary bd diagnosis is Abdominal tenderness; Acute pancreatitis; Alcohol abuse; Cocaine abuse. Bed requested for Telemetry/MedSurg (Inpatient). Status is Inpatient Admission. Condition is Fair. Problem is new. Symptoms have improved. UTI on Admission? No. dave 20:34 18:28 01/13/2019 17:51 Hospitalization Ordered by Curtis Ndiaye DO for Inpatient la1 Admission. Preliminary diagnosis is Abdominal tenderness; Acute pancreatitis; Alcohol abuse; Cocaine abuse. Bed requested for Telemetry/MedSurg (Inpatient). Status is Inpatient Admission. Condition is Fair. Problem is new. Symptoms have improved. UTI on Admission? No. bd
--- NOTE | 2019-01-13 18:02 | RAD REPORT ---
EXAM DESCRIPTION: CTAbdomen Pelvis W Contrast - 01/13/2019 5:41 pm CLINICAL HISTORY: Abdominal pain. ABD PAIN COMPARISON: Abdomen Pelvis W Contrast dated 11/18/2018; Abdomen Pelvis W Contrast dated 07/29/2018 TECHNIQUE: Biphasic CT imaging of the abdomen and pelvis was performed with 100 ml non-ionic IV cont rast. All CT scans are performed using dose optimization technique as appropriate and may include automated exposure control or mA/KV adjustment according to patient size. FINDINGS: The lung bases are clear. The liver, spleen, adrenal glands and kidneys are within normal limits. Mild edema peripancreatic inf lammation is seen involving pancreatic parenchyma compatible with mild pancreatitis. There is no find ing to indicate pseudocyst, portal vein thrombosis or pancreatic necrosis. No bowel obstruction, free air, free fluid or abscess. The appendix is normal. No evidence of signi ficant lymphadenopathy. No suspicious bony findings. IMPRESSION: Mild pancreatitis.
--- NOTE | 2019-01-13 18:14 | P.HP ---
Certification for Inpatient Patient admitted to: Inpatient With expected LOS: >2 Midnights Patient will require the following post-hospital care: None Practitioner: I am a practitioner with admitting privileges, knowledge of patient current condition, hospital course, and medical plan of care. Services: Services provided to patient in accordance with Admission requirements found in Title 42 Section 412.3 of the Code of Federal Regulations Patient History Date of Service: 01/13/19 Primary Care Provider: None Reason for admission: Epigastric pain, nausea and vomiting History of Present Illness: 23-year-old female presented to the emergency room with epigastric abdominal pain, nausea and vomiting. Patient reports epigastric abdominal pain, nausea and vomiting over the last day. She was not able to keep anything down. Patient has history of pancreatitis in the past with substance abuse. In the ER patient evaluated. Chest x-ray unremarkable. Lipase elevated. CT scan showed mild pancreatitis. Urine drug screen positive for cocaine. CBC BMP reviewed. Patient was given IV fluids. Patient remains NPO. Patient admitted for treatment. When I saw the patient ER, she appeared stable. I have seen the patient in past for recurrent pancreatitis. Patient continues to abuse alcohol and cocaine. Allergies No Known Allergies Allergy (Unverified 07/29/18 23:47) Home medications list reviewed: Yes Home Medications: traMADol HCL [Ultram*] 50 mg PO Q6H PRN #20 tab 11/20/18 - Past Medical/Surgical History Diabetic: No -: Alcohol abuse -: Cocaine abuse -: Anxiety -: Recurrent pancreatitis Past Surgical History: Patient denies surgical history Psychosocial/ Personal History: Patient lives at home - Family History Family History: Reviewed- Non-Contributory - Family History Mother Notes: States mother is healthy - Social History Smoking Status: Light Tobacco smoker (1-9 cigarettes/day) Counseled patient to stop smoking for: less than 10 minutes Smoking therapy provided: Yes Patient receptive to therapy: Yes Alcohol use: Yes CD- Drugs: Yes Caffeine use: Yes Place of Residence: Home Review of Systems General: Weakness, As per HPI Eyes: Unremarkable ENT: Unremarkable Respiratory: Unremarkable Cardiovascular: Unremarkable Gastrointestinal: Nausea, Vomiting, Abdominal Pain, As per HPI Genitourinary: Unremarkable Musculoskeletal: Unremarkable Integumentary: Unremarkable Neurological: Unremarkable Lymphatics: Unremarkable Physical Examination - Physical Exam General: Alert, In no apparent distress, Oriented x3, Cooperative HEENT: Atraumatic, Normocephalic, Other (Dry mucous membranes) Neck: Supple, No Thyromegaly Respiratory: Clear to auscultation bilaterally, Normal air movement Cardiovascular: Normal pulses, Regular rate/rhythm Gastrointestinal: Hypoactive, Soft and benign, Non-distended, No masses, No rebound, No guarding, Tenderness (Tender to the epigastric region) Musculoskeletal: No erythema, No tenderness, No warmth Integumentary: No erythema, No warmth, No cyanosis Neurological: Normal speech, Normal strength at 5/5 x4 extr, Normal tone, Normal affect - Studies Laboratory Data (last 24 hrs) 01/13/19 16:32: APTT 33.2 01/13/19 16:32: PT 11.8, INR 1.00 01/13/19 16:32: WBC 8.9, Hgb 13.1, Hct 40.0, Plt Count 315 01/13/19 16:32: Sodium 139, Potassium 3.9, BUN 7, Creatinine 0.95, Glucose 128 H , Magnesium 2.0, Total Bilirubin 0.2, AST 16, ALT 40, Alkaline Phosphatase 110, Lipase 2865 H Assessment and Plan - Plan Impression: Epigastric abdominal pain with nausea and vomiting secondary to recurrent pancreatitis Alcohol and cocaine abuse Dehydration Plan: Epigastric abdominal pain with nausea and vomiting secondary to recurrent pancreatitis: Patient will be admitted for treatment. Will continue to keep the patient NPO. Continue IV fluids. Will also provide banana bag. Diet can be advanced once pain is well controlled and patient without any significant nausea and vomiting. Anticipate hospitalization 3-4 days. I will turn the service over to Dr. Ahuja tomorrow. I will go over the plan of care with her. Alcohol and cocaine abuse: Patient continues to abuse alcohol and cocaine. Risks addressed in detail with the patient. Continue to address lifestyle modification education and cessation. Dehydration: Continue IV fluids. Discharge Plan: Home Plan to discharge in: Greater than 2 days - Advance Directives Does patient have a Living Will: No Does patient have a Durable POA for Healthcare: No - Code Status/Comfort Care Code Status Assessed: Yes (Patient full code.) Time Spent Managing Pts Care (In Minutes): 55
[2019-01-13] MEDS ORDERED: HYDROMORPHONE HCL 1 MG/ML INJ ONE (18:17)
[2019-01-13] MEDS ORDERED: ACETAMINOPHEN 500 MG TAB PO PRN (20:34)
[2019-01-13] MEDS ORDERED: ACETAMINOPHEN 650MG/RECT SUPP RECT PRN (20:34)
[2019-01-13] MEDS: NA CHLORIDE 0.9% 1,000 ML IV SCH ×2 (20:34→22:14)
[2019-01-13] MEDS: FAMOTIDINE 20 MG/2 ML VIAL IV SCH (21:00)
[2019-01-13] MEDS: ONDANSETRON 4 MG/2 ML VIAL IV PRN (22:03)
[2019-01-13] MEDS: MORPHINE 2 MG/ML SYR IV PRN (22:08)
[2019-01-13 22:17] VITALS: BMI 35.2
[2019-01-13 23:57] LABS: Urine Appearance CLEAR; Urine Bilirubin NEGATIVE (NEG); Urine Blood NEGATIVE (NEG); Urine Color YELLOW; Urine Glucose NEGATIVE (NEG); Urine Protein NEGATIVE (NEG); Urine Specific Gravity >=1.030 (1.005-1.030); Urine Urobilinogen 0.2 mg/dL (0.2-1.0); Urine pH 6.5 (5.0-7.0)
[2019-01-14 00:05] LABS: Urine Microscopic Reflex NO UMIC
[2019-01-14] MEDS: LORazepam 2 MG/ML VIAL IV PRN (01:18)
[2019-01-14] MEDS: MORPHINE 2 MG/ML SYR IV PRN ×4 (04:15→22:19)
[2019-01-14] MEDS: NA CHLORIDE 0.9% 1,000 ML IV SCH ×4 (04:16→23:40)
[2019-01-14] MEDS: ONDANSETRON 4 MG/2 ML VIAL IV PRN (04:20)
[2019-01-14 06:08] LABS: Absolute Lymphocytes (CBC) 1.3 K/uL (0.7-4.9); Absolute Monocytes 0.6 K/uL (0.1-1.3); Absolute Neutrophil 8.4 K/uL (1.8-8.0); Basophils % 0.2 % (0-1.3); Eosinophils % 1.9 % (0-4.4); Hematocrit 35.6 % (36.0-45.0); Lymphocytes % 12.3 % (15.3-44.8); MPV 8.4 fL (7.6-11.3); Monocytes % 6.1 % (3.3-12.3); RBC Red Blood Cell Count 4.47 M/uL (3.86-4.86)
[2019-01-14 06:32] LABS: ALT/SGPT 30 U/L (12-78); AST/SGOT 12 U/L (15-37); Albumin 3.1 g/dL (3.4-5.0); Alkaline Phosphatase 107 U/L (45-117); BUN Blood Urea Nitrogen 5 mg/dL (7-18); Bicarbonate 25 mmol/L (21-32); Bilirubin Total 0.4 mg/dL (0.2-1.0); Glucose Level 116 mg/dL (74-106); HDL Cholesterol 49 mg/dL (40-60); LDL Cholesterol, Calculated 27 (<130); Magnesium 1.8 mg/dL (1.8-2.4); Potassium 3.8 mmol/L (3.5-5.1); Protein, Total 6.3 g/dL (6.4-8.2); Sodium Level 136 mmol/L (136-145)
[2019-01-14] MEDS ORDERED: INFLUENZA VACCINE (for 3y+) 0.5 ML DOSE IMVAC ONE (08:00)
[2019-01-14] MEDS: ENOXAPARIN 40 MG/0.4 ML SQ SCH (08:35)
[2019-01-14] MEDS: FAMOTIDINE 20 MG/2 ML VIAL IV SCH ×2 (08:35→22:20)
--- NOTE | 2019-01-14 08:50 | EKG ---
Test Date: 2019-01-13 Test Time: 16:58:48 Senior Quantity Surveyor: MAYRA MEASUREMENT RESULTS: Intervals: Rate: 79 VA: 160 QRSD: 80 QT: 384 QTc: 440 [place]: P: 60 VA: 160 QRS: 53 T: 43 INTERPRETIVE STATEMENTS: Normal sinus rhythm Normal ECG Compared to ECG 07/29/2018 20:04:56 Sinus bradycardia no longer present Electronically Signed On 01-14-19 08:50:03 CDT by Eran Deluca
[2019-01-14] MEDS ORDERED: MAGNESIUM SULFATE 1 gm IVPB 1 GM/100 ML BAG IV ONE (09:00)
[2019-01-14] MEDS: FOLIC ACID 1 MG, MULTIVITAMINS INJ 10 ML, THIAMINE HCL 100 MG in NA CHLORIDE 0.9% 1,000 ML IV SCH (09:39)
[2019-01-14] MEDS ORDERED: KCL 20 MEQ/100 mL IVPB 20 MEQ/100 ML BAG IV SCH (11:00)
--- NOTE | 2019-01-14 11:18 | P.PN ---
Subjective Date of Service: 01/14/19 Primary Care Provider: None Chief Complaint: Epigastric pain, nausea and vomiting Patient seen and examined at bedside. No family at bedside. Chart reviewed and case discussed with nursing staff. Continues to complain of abdominal pain and back pain. Reports improved nausea and vomiting. No acute events noted overnight Review of Systems 10-point ROS is otherwise unremarkable Physical Examination - Vital Signs Temperature: 98.4 F Blood Pressure: 122/75 Pulse: 81 Respirations: 17 Pulse Ox (%): 98 - Physical Exam General: Alert, Oriented x3, Mild distress, Moderate distress HEENT: Atraumatic, PERRLA, EOMI Neck: Supple, JVD not distended Respiratory: Clear to auscultation bilaterally, Normal air movement Cardiovascular: Regular rate/rhythm, Normal S1 S2 Gastrointestinal: Normal bowel sounds, Tenderness, Rebound, Guarding Musculoskeletal: No tenderness Integumentary: No rashes Neurological: Normal speech, Normal tone, Normal affect Lymphatics: No axilla or inguinal lymphadenopathy - Studies Laboratory Data (last 24 hrs) 01/13/19 16:32: APTT 33.2 01/13/19 16:32: PT 11.8, INR 1.00 01/13/19 16:32: WBC 8.9, Hgb 13.1, Hct 40.0, Plt Count 315 01/13/19 16:32: Sodium 139, Potassium 3.9, BUN 7, Creatinine 0.95, Glucose 128 H , Magnesium 2.0, Total Bilirubin 0.2, AST 16, ALT 40, Alkaline Phosphatase 110, Lipase 2865 H Assessment And Plan - Current Problems (Diagnosis) (1) Acute pancreatitis Onset Date: 07/30/18 Current Visit: Yes Status: Acute Qualifiers: Pancreatitis type: alcohol induced Acute pancreatitis complication: no infection or necrosis Qualified Code(s): K85.20 - Alcohol induced acute pancreatitis without necrosis or infection (2) Intractable abdominal pain Onset Date: 09/12/18 Current Visit: Yes Status: Acute (3) Nausea and vomiting Onset Date: 09/12/18 Current Visit: Yes Status: Acute Qualifiers: Vomiting type: unspecified Vomiting Intractability: non-intractable Qualified Code(s): R11.2 - Nausea with vomiting, unspecified (4) Alcohol use Onset Date: 07/30/18 Current Visit: Yes Status: Chronic (5) Cocaine abuse Onset Date: 07/30/18 Current Visit: Yes Status: Chronic (6) Recurrent pancreatitis Current Visit: Yes Status: Chronic - Plan Epigastric abdominal pain with nausea and vomiting secondary to recurrent pancreatitis Alcohol and cocaine abuse Dehydration Epigastric abdominal pain Nausea and vomiting Recurrent pancreatitis Continue to keep NPO, continue IV fluids and banana bag. Continue pain management We will start on diet with clear liquid diet. Once patient's pain nausea and vomiting is more improved. Alcohol abuse Cocaine abuse: Patient continues to abuse alcohol and cocaine. Continue to adjust lifestyle modifications. Unsure if patient is willing/interested in cessation at this time. Dehydration: Improved. Continue IV fluids. DVT prophylaxis: Lovenox GI prophylaxis: None Diet: NPO Disposition: Pending symptomatic improvement
[2019-01-14] MEDS: TEMAZEPAM 15 MG CAP PO PRN (23:40)
[2019-01-15] MEDS: MORPHINE 2 MG/ML SYR IV PRN ×5 (02:32→20:25)
[2019-01-15] MEDS ORDERED: VANCOMYCIN 1.75 GM in NA CHLORIDE 0.9% 500 ML IVPB SCH ×2 (07:00→10:00)
[2019-01-15 07:07] LABS: Absolute Lymphocytes (CBC) 1.9 K/uL (0.7-4.9); Absolute Monocytes 0.4 K/uL (0.1-1.3); Absolute Neutrophil 3.6 K/uL (1.8-8.0); Basophils % 0.6 % (0-1.3); Eosinophils % 9.5 % (0-4.4); Hematocrit 35.5 % (36.0-45.0); Lymphocytes % 29.1 % (15.3-44.8); MPV 8.5 fL (7.6-11.3); Monocytes % 6.3 % (3.3-12.3); RBC Red Blood Cell Count 4.49 M/uL (3.86-4.86)
[2019-01-15 07:56] LABS: Albumin 3.2 g/dL (3.4-5.0); Bilirubin Total 0.3 mg/dL (0.2-1.0); Magnesium 2.2 mg/dL (1.8-2.4); Potassium 3.7 mmol/L (3.5-5.1); Protein, Total 6.5 g/dL (6.4-8.2)
[2019-01-15] MEDS ORDERED: VANCOMYCIN 1 GM in NA CHLORIDE 0.9% 500 ML IVPB SCH (09:00)
[2019-01-15] MEDS: ENOXAPARIN 40 MG/0.4 ML SQ SCH (09:00)
[2019-01-15] MEDS: FOLIC ACID 1 MG, MULTIVITAMINS INJ 10 ML, THIAMINE HCL 100 MG in NA CHLORIDE 0.9% 1,000 ML IV SCH (09:42)
[2019-01-15] MEDS: FAMOTIDINE 20 MG/2 ML VIAL IV SCH ×2 (09:49→20:25)
[2019-01-15] MEDS: NA CHLORIDE 0.9% 1,000 ML IV SCH ×2 (11:37→20:25)
--- NOTE | 2019-01-15 12:38 | P.PN ---
Subjective Date of Service: 01/15/19 Primary Care Provider: None Chief Complaint: Epigastric pain, nausea and vomiting Patient seen and examined at bedside. No family at bedside. Chart reviewed and case discussed with nursing staff. Continues to complain of abdominal pain and back pain. Reports improved nausea and vomiting. No acute events noted overnight Review of Systems 10-point ROS is otherwise unremarkable Physical Examination - Vital Signs Temperature: 97.6 F Blood Pressure: 136/76 Pulse: 57 Respirations: 18 Pulse Ox (%): 95 - Physical Exam General: Alert, In no apparent distress, Oriented x3 HEENT: Atraumatic, PERRLA, EOMI Neck: Supple, JVD not distended Respiratory: Clear to auscultation bilaterally, Normal air movement Cardiovascular: Regular rate/rhythm, Normal S1 S2 Gastrointestinal: Normal bowel sounds, Tenderness Musculoskeletal: No tenderness Integumentary: No rashes Neurological: Normal speech, Normal tone, Normal affect Lymphatics: No axilla or inguinal lymphadenopathy Assessment And Plan - Current Problems (Diagnosis) (1) Acute pancreatitis Onset Date: 07/30/18 Current Visit: Yes Status: Acute Qualifiers: Pancreatitis type: alcohol induced Acute pancreatitis complication: no infection or necrosis Qualified Code(s): K85.20 - Alcohol induced acute pancreatitis without necrosis or infection (2) Intractable abdominal pain Onset Date: 09/12/18 Current Visit: Yes Status: Acute (3) Nausea and vomiting Onset Date: 09/12/18 Current Visit: Yes Status: Acute Qualifiers: Vomiting type: unspecified Vomiting Intractability: non-intractable Qualified Code(s): R11.2 - Nausea with vomiting, unspecified (4) Alcohol use Onset Date: 07/30/18 Current Visit: Yes Status: Chronic (5) Cocaine abuse Onset Date: 07/30/18 Current Visit: Yes Status: Chronic (6) Recurrent pancreatitis Current Visit: Yes Status: Chronic - Plan Epigastric abdominal pain Nausea and vomiting Recurrent pancreatitis Start CLD Continue IV fluids and banana bag. Will discontinue IVF onve patient tolerating oral. Continue pain management Alcohol abuse Cocaine abuse: Patient continues to abuse alcohol and cocaine. Continue to adjust lifestyle modifications. Unsure if patient is willing/interested in cessation at this time. Dehydration: Improved. Continue IV fluids. DVT prophylaxis: Lovenox GI prophylaxis: None Diet: CLD Disposition: Pending symptomatic improvement
[2019-01-15] MEDS ORDERED: DIPHENHYDRAMINE 25 MG TAB/CAP PO ONE (15:00)
[2019-01-15] MEDS: ONDANSETRON 4 MG/2 ML VIAL IV PRN (20:25)
[2019-01-15] MEDS: TEMAZEPAM 15 MG CAP PO PRN (21:57)
[2019-01-16] MEDS: MORPHINE 2 MG/ML SYR IV PRN ×5 (00:02→19:20)
[2019-01-16] MEDS: LORazepam 2 MG/ML VIAL IV PRN (03:09)
[2019-01-16] MEDS: NA CHLORIDE 0.9% 1,000 ML IV SCH ×3 (04:34→21:30)
[2019-01-16 06:36] LABS: Absolute Lymphocytes (CBC) 1.6 K/uL (0.7-4.9); Absolute Monocytes 0.4 K/uL (0.1-1.3); Absolute Neutrophil 4.2 K/uL (1.8-8.0); Basophils % 0.4 % (0-1.3); Eosinophils % 4.8 % (0-4.4); Hematocrit 34.8 % (36.0-45.0); Lymphocytes % 24.5 % (15.3-44.8); MPV 8.6 fL (7.6-11.3); Monocytes % 5.4 % (3.3-12.3); RBC Red Blood Cell Count 4.44 M/uL (3.86-4.86)
[2019-01-16 06:56] LABS: ALT/SGPT 35 U/L (12-78); AST/SGOT 18 U/L (15-37); Albumin 3.3 g/dL (3.4-5.0); Alkaline Phosphatase 102 U/L (45-117); BUN Blood Urea Nitrogen 3 mg/dL (7-18); Bicarbonate 27 mmol/L (21-32); Bilirubin Total 0.4 mg/dL (0.2-1.0); Glucose Level 98 mg/dL (74-106); Potassium 3.6 mmol/L (3.5-5.1); Protein, Total 6.6 g/dL (6.4-8.2); Sodium Level 139 mmol/L (136-145)
[2019-01-16] MEDS: FAMOTIDINE 20 MG/2 ML VIAL IV SCH ×2 (08:31→21:31)
[2019-01-16] MEDS: ENOXAPARIN 40 MG/0.4 ML SQ SCH (08:32)
[2019-01-16] MEDS ORDERED: POTASSIUM 25 MEQ EFFERV TAB PO ONE (09:00)
[2019-01-16] MEDS: FOLIC ACID 1 MG, MULTIVITAMINS INJ 10 ML, THIAMINE HCL 100 MG in NA CHLORIDE 0.9% 1,000 ML IV SCH (10:31)
--- NOTE | 2019-01-16 15:15 | P.PN ---
Subjective Date of Service: 01/16/19 Primary Care Provider: None Chief Complaint: Epigastric pain, nausea and vomiting Patient seen and examined at bedside. No family at bedside. Chart reviewed and case discussed with nursing staff. Continues to complain of abdominal pain and back pain. Reports improved nausea and vomiting. Tolerated clear liquid diet. Review of Systems 10-point ROS is otherwise unremarkable Physical Examination - Vital Signs Temperature: 97.4 F Blood Pressure: 132/76 Pulse: 98 Respirations: 18 Pulse Ox (%): 97 - Physical Exam General: Alert, Oriented x3, Mild distress HEENT: Atraumatic, PERRLA, EOMI Neck: Supple, JVD not distended Respiratory: Clear to auscultation bilaterally, Normal air movement Cardiovascular: Regular rate/rhythm, Normal S1 S2 Gastrointestinal: Normal bowel sounds, Tenderness Musculoskeletal: No tenderness Integumentary: No rashes Neurological: Normal speech, Normal tone, Normal affect Lymphatics: No axilla or inguinal lymphadenopathy Assessment And Plan - Current Problems (Diagnosis) (1) Acute pancreatitis Onset Date: 07/30/18 Current Visit: Yes Status: Acute Qualifiers: Pancreatitis type: alcohol induced Acute pancreatitis complication: no infection or necrosis Qualified Code(s): K85.20 - Alcohol induced acute pancreatitis without necrosis or infection (2) Intractable abdominal pain Onset Date: 09/12/18 Current Visit: Yes Status: Acute (3) Nausea and vomiting Onset Date: 09/12/18 Current Visit: Yes Status: Acute Qualifiers: Vomiting type: unspecified Vomiting Intractability: non-intractable Qualified Code(s): R11.2 - Nausea with vomiting, unspecified (4) Alcohol use Onset Date: 07/30/18 Current Visit: Yes Status: Chronic (5) Cocaine abuse Onset Date: 07/30/18 Current Visit: Yes Status: Chronic (6) Recurrent pancreatitis Current Visit: Yes Status: Chronic - Plan Epigastric abdominal pain Nausea and vomiting Recurrent pancreatitis Start CLD, advance as tolerated Continue IV fluids and banana bag. Will discontinue IVF once patient tolerating oral. Continue pain management Encourage ambulation Alcohol abuse Cocaine abuse: Patient continues to abuse alcohol and cocaine. Continue to adjust lifestyle modifications. Unsure if patient is willing/interested in cessation at this time. Dehydration: Improved. Continue IV fluids. DVT prophylaxis: Lovenox GI prophylaxis: None Diet: CLD Disposition: Pending symptomatic improvement
[2019-01-16 21:27] VITALS: O2SAT 99
[2019-01-16] MEDS: TEMAZEPAM 15 MG CAP PO PRN (21:31)
[2019-01-16 21:34] VITALS: BP 132/86; TEMP 97
== END 2019-01-16 23:03 | disposition left against medical advice (07) | DRG 440 ==
LOC: ER 15:56 → ERHOLD 18:05 → 2ND 20:10
PROVIDERS: ADMIT Family Medicine; ATTEND Family Medicine
DX: K85.20 Alcohol induced acute pancreatitis without necrosis or infection (principal); F14.10 Cocaine abuse, uncomplicated; F10.10 Alcohol abuse, uncomplicated; E86.0 Dehydration
CPT/HCPCS: 36415; 71045; 74177; 80048; 80053; 80061; 80076; 80307; 80320; 80329; 81003; 81025; 83690; 83735; 83880; 84484; 85025; 85610; 85730; 87040; 87077; 87186; 87205; 93005; 96361; 96374; 96375; 99285; J1170; J1650; J2270; J2405; J3411; J3475; J7030; Q9967

== ENCOUNTER 2019-03-02 16:03 | Inpatient (IN) | payer SELFPAY ==
--- OUTSIDE RECORDS SUMMARY | 2019-03-02 16:05 | XMS REPORT ---
:1995 [facility] Address [address] [place] [address] [address] [place] [address] Care Team Providers Name Role Phone Unavailable [...]
[2019-03-02] MEDS ORDERED: FAMOTIDINE 20 MG/2 ML VIAL IV ONE (16:50)
[2019-03-02] MEDS ORDERED: NA CHLORIDE 0.9% 1,000 ML ONE ×2 (16:50→18:13)
[2019-03-02] MEDS ORDERED: ONDANSETRON 4 MG/2 ML VIAL ONE (16:50)
[2019-03-02] MEDS ORDERED: MORPHINE 4 MG/ML SYR ONE ×2 (16:50→17:51)
[2019-03-02 17:00] LABS: Absolute Lymphocytes (CBC) 1.7 K/uL (0.7-4.9); Absolute Monocytes 0.7 K/uL (0.1-1.3); Absolute Neutrophil 10.5 K/uL (1.8-8.0); Basophils % 0.3 % (0-1.3); Eosinophils % 4.9 % (0-4.4); Hematocrit 36.4 % (36.0-45.0); Lymphocytes % 12.7 % (15.3-44.8); MPV 8.8 fL (7.6-11.3); Monocytes % 5.2 % (3.3-12.3)
[2019-03-02 17:24] LABS: ALT/SGPT 50 U/L (12-78); AST/SGOT 17 U/L (15-37); Albumin 3.9 g/dL (3.4-5.0); Alkaline Phosphatase 118 U/L (45-117); BUN Blood Urea Nitrogen 6 mg/dL (7-18); Bicarbonate 22 mmol/L (21-32); Bilirubin Direct 0.1 mg/dL (0-0.2); Bilirubin Total 0.5 mg/dL (0.2-1.0); Glucose Level 130 mg/dL (74-106); Lipase 1479 U/L (73-393); Potassium 3.9 mmol/L (3.5-5.1); Protein, Total 7.4 g/dL (6.4-8.2); Sodium Level 137 mmol/L (136-145); Troponin I < 0.02 ng/mL (0.0-0.045)
--- NOTE | 2019-03-02 17:42 | RAD REPORT ---
EXAM DESCRIPTION: RAD - Chest Single View - 03/02/2019 5:33 pm CLINICAL HISTORY: epigastric pain Chest pain. COMPARISON: Chest Single View dated 01/13/2019; Chest Single View dated 07/29/2018 FINDINGS: Portable technique limits examination quality. The lungs are grossly clear. The heart is normal in size. No displaced fractures. IMPRESSION: No acute intrathoracic process suspected.
--- NOTE | 2019-03-02 18:12 | P.HP ---
Certification for Inpatient Patient admitted to: Inpatient Practitioner: I am a practitioner with admitting privileges, knowledge of patient current condition, hospital course, and medical plan of care. Services: Services provided to patient in accordance with Admission requirements found in Title 42 Section 412.3 of the Code of Federal Regulations Patient History Date of Service: 03/02/19 Reason for admission: Epigastric pain History of Present Illness: 23 year-old female past medical history of anxiety, cocaine and alcohol abuse presented to the emergency room with epigastric abdominal pain, nausea and vomiting. Patient reports epigastric abdominal pain, nausea and vomiting over the last day. She was not able to keep anything down. Patient has history of pancreatitis in the past with substance abuse. In the ER patient evaluated. Chest x-ray unremarkable. Lipase elevated. CT scan pending. Urine drug screen pending. CBC BMP reviewed. Patient was given IV fluids. Patient remains NPO. Patient admitted for treatment. When I saw the patient ER, she appeared stable but in distress due to pain. I have seen the patient in past for recurrent pancreatitis. Patient continues to abuse alcohol and cocaine. Last usage of alcohol and cocaine was last night. Allergies vancomycin Allergy (Verified 01/16/19 08:38) Itching Home medications list reviewed: Yes Home Medications: NK [No Home Meds] 01/13/19 - Past Medical/Surgical History Diabetic: No -: Alcohol abuse -: Cocaine abuse -: Anxiety -: Recurrent pancreatitis Psychosocial/ Personal History: Patient lives at home - Family History Mother Notes: States mother is healthy - Social History Alcohol use: Yes CD- Drugs: Yes Caffeine use: Yes Review of Systems 10-point ROS is otherwise unremarkable Physical Examination - Physical Exam General: Oriented x3, Moderate distress, Obese HEENT: Atraumatic, PERRLA, Mucous membr. moist/pink, EOMI, Sclerae nonicteric Neck: Supple, 2+ carotid pulse no bruit, No LAD, Without JVD or thyroid abnormality Respiratory: Clear to auscultation bilaterally, Normal air movement Cardiovascular: Regular rate/rhythm, Normal S1 S2 Gastrointestinal: Normal bowel sounds, Tenderness Musculoskeletal: No tenderness Integumentary: No rashes Neurological: Normal gait, Normal speech, Normal strength at 5/5 x4 extr, Normal tone, Normal affect Lymphatics: No axilla or inguinal lymphadenopathy - Studies Laboratory Data (last 24 hrs) 05/11/19 16:35: Creatinine 1.06 05/11/19 16:35: WBC 13.6 H, Hgb 11.7 L, Hct 36.4, Plt Count 299 03/02/19 16:35: Sodium 137, Potassium 3.9, BUN 6 L, Creatinine 1.05, Glucose 130 H, Magnesium 2.0, Total Bilirubin 0.5, AST 17, ALT 50, Alkaline Phosphatase 118 H, Troponin I < 0.02, Lipase 1479 H Assessment and Plan - Problems (Diagnosis) (1) Acute pancreatitis Onset Date: 07/30/18 Current Visit: Yes Status: Acute Plan: Likely secondary to alcohol and cocaine abuse. LFTs were normal last visit Keep NPO, IV fluids. Pain control with IV morphine Qualifiers: Pancreatitis type: alcohol induced Acute pancreatitis complication: no infection or necrosis Qualified Code(s): K85.20 - Alcohol induced acute pancreatitis without necrosis or infection (2) Recurrent pancreatitis Current Visit: Yes Status: Chronic Plan: Patient has been educated and re-educated regarding alcohol and cocaine usage. Patient continues to be noncompliant and continues to abuse cocaine. Urine drug screen pending, the patient stated that she did use alcohol and cocaine last night. (3) Intractable abdominal pain Onset Date: 09/12/18 Current Visit: No Status: Acute (4) Cocaine abuse Onset Date: 07/30/18 Current Visit: Yes Status: Chronic (5) Alcohol use Onset Date: 07/30/18 Current Visit: Yes Status: Chronic Plan: Patient has been educated and re-educated regarding alcohol cessation. Patient continues to abuse alcohol and cocaine - Plan DVT prophylaxis: Lovenox GI prophylaxis: Protonix Diet: NPO Disposition: Admit to the floor with tele. Pending symptomatic improvement - Advance Directives Does patient have a Living Will: No Does patient have a Durable POA for Healthcare: No
[2019-03-02 18:16] LABS: Urine Blood NEGATIVE (NEG); Urine Glucose NEGATIVE (NEG); Urine Protein NEGATIVE (NEG)
--- NOTE | 2019-03-02 18:16 | ER ---
Nurse's Notes [facility] Name: Rufina Pavon Age: 23 yrs Sex: Female : 1995 Arrival Date: 03/02/2019 Time: 16:05 Bed 20 Private MD: Diagnosis: Acute pancreatitis, unspecified;Cocaine abuse Presentation: 03/02 16:15 Presenting complaint: Patient states: I had my gall bladder out about three weeks ago la1 and also have a hx on pancreatitis, I have had pain since the sx but started having worse pain yesterday and today, pt also reports drinking about 3 smirnoffs yesterday. Transition of care: patient was not received from another setting of care. Onset of symptoms was March 02, 2019. Risk Assessment: Do you want to hurt yourself or someone else? Patient reports no desire to harm self or others. Initial Sepsis Screen: Does the patient meet any 2 criteria? No. Patient's initial sepsis screen is negative. Does the patient have a suspected source of infection? No. Patient's initial sepsis screen is negative. Care prior to arrival: None. 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 - Social history:: Smoking status: Patient uses tobacco products, smokes one-half pack cigarettes per day. - Ebola Screening: : No symptoms or risks identified at this time. Screenin:25 Abuse screen: Denies threats or abuse. Nutritional screening: No deficits noted. em Tuberculosis screening: No symptoms or risk factors identified. Fall Risk None identified. Assessment: 16:35 General: Appears in no apparent distress. uncomfortable, Behavior is calm, cooperative, em Denies fever. Pain: Complains of pain in epigastric area Pain radiates to back Pain currently is 10 out of 10 on a pain scale. Quality of pain is described as burning. Neuro: Level of Consciousness is awake, alert, obeys commands, Oriented to person, place, time, situation, Moves all extremities. Speech is normal. Cardiovascular: Denies chest pain, Heart tones S1 S2 present Capillary refill < 3 seconds Patient's skin is warm and dry. Respiratory: Airway is patent Respiratory effort is even, unlabored, Respiratory pattern is regular, symmetrical. GI: Abdomen is round non-distended, Bowel sounds present X 4 quads. Abd is soft X 4 quads Abdomen is tender to palpation in epigastric area, right upper quadrant and left upper quadrant Reports nausea, Patient currently denies vomiting. : Denies burning with urination. Derm: Skin is intact, is healthy with good turgor, Skin is pink, warm \T\ dry. Musculoskeletal: Capillary refill < 3 seconds, Range of motion: intact in all extremities. 16:45 Reassessment: I agree with the above assessment, KYM Burgess. tw2 17:10 Reassessment: Patient appears in no apparent distress at this time. Patient and/or em family updated on plan of care and expected duration. Pain level reassessed. Patient is alert, oriented x 3, equal unlabored respirations, skin warm/dry/pink. rates pain 6/10. 18:22 Reassessment: Patient appears in no apparent distress at this time. Patient and/or em family updated on plan of care and expected duration. Pain level reassessed. Patient is alert, oriented x 3, equal unlabored respirations, skin warm/dry/pink. Vital Signs: 16:16 BP 141 / 98; Pulse 81; Resp 16; Temp 97.6; Pulse Ox 98% on R/A; Weight 95.25 kg; Height la1 5 ft. 3 in. (160.02 cm); Pain 10/10; 17:10 BP 125 / 82; Pulse 75; Resp 19; Pulse Ox 99% on R/A; Pain 6/10; em 18:07 BP 135 / 74; Pulse 57; Resp 18; Pulse Ox 99% on R/A; Pain 6/10; em 16:16 Body Mass Index 37.20 (95.25 kg, 160.02 cm) la1 ED Course: 16:05 Patient arrived in ED. mr 16:16 Triage completed. la1 16:17 Arm band placed on left wrist. la1 16:19 Jm Pérez LVN is Primary Nurse. em 16:21 Lenny Chavira PA is PHCP. cp 16:21 Maikol Willoughby MD is Attending Physician. cp 16:25 Patient has correct armband on for positive identification. Placed in gown. Bed in low em position. Call light in reach. Pulse ox on. NIBP on. 16:35 Initial lab(s) drawn, by me, sent to lab. Inserted saline lock: 20 gauge in right em antecubital area, using aseptic technique. Blood collected. 16:57 Radiology exam delayed due to lab results not completed at this time. test mw3 not completed at this time. 17:33 XRAY Chest (1 view) In Process Unspecified. EDMS 18:14 Lex Ahuja MD is Hospitalizing Provider. cp 18:[address] mw3 18:35 CT completed. Patient tolerated procedure well. Patient moved back from CT. mw3 19:47 No provider procedures requiring assistance completed. Patient admitted, IV remains in ed1 place. intact, No redness/swelling at site. Administered Medications: 16:44 Drug: NS 0.9% 1000 ml Route: IV; Rate: 1 bolus; Site: right antecubital; em 16:45 Drug: Pepcid 20 mg Route: IVP; Site: right antecubital; iw 17:58 Follow up: Response: No adverse reaction em 16:46 Drug: Zofran 4 mg Route: IVP; Site: right antecubital; iw 17:58 Follow up: Response: No adverse reaction; Nausea is decreased em 16:48 Drug: morphine 4 mg Route: IVP; Site: right antecubital; iw 17:35 Follow up: Response: No adverse reaction; Pain is unchanged, physician notified em 17:50 Drug: morphine 4 mg Route: IVP; Site: right antecubital; em 18:23 Follow up: Response: No adverse reaction; Pain is decreased em 18:03 Drug: NS 0.9% 1000 ml Route: IV; Rate: 1 bolus; Site: right antecubital; em 19:45 Follow up: IV Status: Completed infusion; IV Intake: 1000ml ed1 Intake: 19:45 IV: 1000ml; Total: 1000ml. ed1 Outcome: 18:15 Decision to Hospitalize by Provider. cp 19:47 Admitted to Med/surg accompanied by tech, via wheelchair, room 216, with chart, Report ed1 called to Sherrell, RN 19:47 Condition: stable 19:47 Discharge instructions given to patient, Instructed on the need for admit, Demonstrated understanding of instructions. 19:57 Patient left the ED. ed1 Signatures: Dispatcher [employer] ED Praveen Luz Marina Pérez, Jm, TURKISH RUBBER TURKISH RUBBER Portia Mccord, RN RN Elisa Gibbons RN RN ed1 Renzo Serrano RN RN la1 Lenny Chavira PA PA cp Wise, Tara, RN RN 2 Karena Chatterjee 3
--- NOTE | 2019-03-02 18:16 | EDPHYS ---
Physician Documentation [facility] Name: Rufina Pavon Age: 23 yrs Sex: Female : 1995 Arrival Date: 03/02/2019 Time: 16:05 Bed 20 Private MD: ED Physician Maikol Willoughby HPI: 03/02 16:45 This 23 yrs old Female presents to ER via Ambulatory with complaints of cp Abdominal Pain. 16:45 The patient presents with abdominal pain in the epigastric area. Onset: The cp symptoms/episode began/occurred this morning. The symptoms do not radiate. 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 - Social history:: Smoking status: Patient uses tobacco products, smokes one-half pack cigarettes per day. - Ebola Screening: : No symptoms or risks identified at this time. ROS: 16:50 Constitutional: Negative for body aches, chills, fever, poor PO intake. cp 16:50 Eyes: Negative for injury, pain, redness, and discharge. cp 16:50 ENT: Negative for drainage from ear(s), ear pain, sore throat, difficulty swallowing, difficulty handling secretions. 16:50 Cardiovascular: Negative for chest pain, palpitations. 16:50 Respiratory: Negative for cough, shortness of breath, wheezing. 16:50 Abdomen/GI: Positive for abdominal pain, nausea, of the epigastric area, Negative for vomiting, diarrhea, constipation, black/tarry stool, rectal bleeding. 16:50 Back: Negative for injury or acute deformity, pain at rest, pain with movement. 16:50 : Negative for urinary symptoms. 16:50 Skin: Negative for cellulitis, rash. 16:50 Neuro: Negative for altered mental status, headache, weakness. 16:50 All other systems are negative. Exam: 16:55 Constitutional: The patient appears in no acute distress, alert, awake, non-toxic, well cp developed, well nourished, uncomfortable. 16:55 Head/Face: Normocephalic, atraumatic. cp 16:55 Eyes: Periorbital structures: appear normal, Pupils: equal, round, and reactive to light and accomodation, Extraocular movements: intact throughout, Conjunctiva: normal, no exudate, no injection, Sclera: no appreciated abnormality, Lids and lashes: appear normal, bilaterally. 16:55 ENT: External ear(s): are unremarkable, Nose: is normal, Mouth: Lips: moist, Oral mucosa: pink and intact, moist, Posterior pharynx: is normal, airway is patent, no erythema, no exudate. 16:55 Chest/axilla: Inspection: normal, Palpation: is normal, no crepitus, no tenderness. 16:55 Cardiovascular: Rate: normal, Rhythm: regular. 16:55 Respiratory: the patient does not display signs of respiratory distress, Respirations: normal, no use of accessory muscles, no retractions, no tachypnea, labored breathing, is not present, Breath sounds: are clear throughout, no decreased breath sounds, no stridor, no wheezing. 16:55 Abdomen/GI: Inspection: abdomen appears normal, Bowel sounds: active, all quadrants, Palpation: soft, in all quadrants, severe abdominal tenderness, in the epigastric area, rebound tenderness, is not appreciated, voluntary guarding, is elicited in the epigastric area. 16:55 Back: ROM is normal. 16:55 Skin: cellulitis, is not appreciated, no rash present. 16:55 Neuro: Orientation: to person, place \T\ time. Mentation: is normal. 17:18 ECG was reviewed by the Attending Physician. cp Vital Signs: 16:16 BP 141 / 98; Pulse 81; Resp 16; Temp 97.6; Pulse Ox 98% on R/A; Weight 95.25 kg; Height la1 5 ft. 3 in. (160.02 cm); Pain 10/10; 17:10 BP 125 / 82; Pulse 75; Resp 19; Pulse Ox 99% on R/A; Pain 6/10; em 18:07 BP 135 / 74; Pulse 57; Resp 18; Pulse Ox 99% on R/A; Pain 6/10; em 16:16 Body Mass Index 37.20 (95.25 kg, 160.02 cm) la1 MDM: 16:21 Patient medically screened. cp 17:00 Differential diagnosis: appendicitis, bowel obstruction, gastritis, non-specific abd cp pain, pancreatitis, Peptic Ulcer Disease, Perf. Duodenal Ulcer, Perf. Gastric Ulcer, Ureterolithiasis, urinary tract infection. 17:54 Data reviewed: vital signs, nurses notes, lab test result(s), EKG, I have discussed the cp patient's presentation/case with the attending Emergency Department Physician; and as a result, I will admit patient. Response to treatment: the patient's symptoms have mildly improved after treatment, and as a result, I will admit patient. Physician consultation: Lex Ahuja MD was called at 17:55, was contacted at 17:55, regarding admission, to the medical/surgical unit. patient's condition. 03/02 16:39 Order name: Basic Metabolic Panel 03/02 16:39 Order name: CBC with Diff 03/02 16:39 Order name: Creatinine for Radiology 03/02 16:39 Order name: Hepatic Function 03/02 16:39 Order name: Lipase; Complete Time: 17:33 03/02 17:33 Interpretation: Abnormal: LIP 1479. 03/02 16:39 Order name: UDS; Complete Time: 19:10 03/02 19:10 Interpretation: Normal except: DANNY POSITIVE; OPI POSITIVE. 03/02 16:39 Order name: Troponin I; Complete Time: 17:33 03/02 17:54 Interpretation: Reviewed. 03/02 16:39 Order name: Magnesium; Complete Time: 17:33 03/02 16:41 Order name: Basic Metabolic Panel; Complete Time: 17:33 EDMS 03/02 17:41 Interpretation: Normal except: GLUC 130; BUN 6; GFR 64. 03/02 16:41 Order name: CBC with Automated Diff; Complete Time: 17:17 EDMS 03/02 17:17 Interpretation: Normal except: WBC 13.6; HGB 11.7; MCV 79.1; MCH 25.4; RDW 15.3; TIMUR% cp 76.9; LYM% 12.7; EOSINOPHIL % 4.9; NEUT A 10.5; EOSA 0.7. 03/02 16:41 Order name: Creatinine (Radiology Only); Complete Time: 17:17 EDMS 03/02 17:18 Interpretation: Within normal limits. 03/02 16:41 Order name: Liver (Hepatic) Function; Complete Time: 17:33 EDMS 03/02 17:41 Interpretation: Normal except: ALK 118. cp 03/02 17:54 Order name: Urine Dipstick--Ancillary (enter results); Complete Time: 19:10 03/02 19:10 Interpretation: Reviewed. 03/02 17:54 Order name: Urine --Ancillary (enter results); Complete Time: 19:10 03/02 16:39 Order name: IV Saline Lock; Complete Time: 16:45 03/02 16:39 Order name: Labs collected and sent; Complete Time: 16:45 03/02 16:39 Order name: Urine Dipstick-Ancillary (obtain specimen); Complete Time: 17:57 cp 03/02 16:39 Order name: Urine Test (obtain specimen); Complete Time: 17:57 cp 03/02 16:39 Order name: XRAY Chest (1 view); Complete Time: 17:53 03/02 16:39 Order name: EKG; Complete Time: 16:41 03/02 16:39 Order name: EKG - Nurse/Tech; Complete Time: 17:58 03/02 16:39 Order name: CT Abd/Pelvis - W/Contrast 03/02 18:46 Order name: CT; Complete Time: 19:10 EDMS EC:18 Rate is 58 beats/min. Rhythm is regular. ND interval is normal. QRS interval is normal. cp QT interval is normal. Interpreted by me. Reviewed by me. Administered Medications: 16:44 Drug: NS 0.9% 1000 ml Route: IV; Rate: 1 bolus; Site: right antecubital; em 16:45 Drug: Pepcid 20 mg Route: IVP; Site: right antecubital; iw 17:58 Follow up: Response: No adverse reaction em 16:46 Drug: Zofran 4 mg Route: IVP; Site: right antecubital; iw 17:58 Follow up: Response: No adverse reaction; Nausea is decreased em 16:48 Drug: morphine 4 mg Route: IVP; Site: right antecubital; iw 17:35 Follow up: Response: No adverse reaction; Pain is unchanged, physician notified em 17:50 Drug: morphine 4 mg Route: IVP; Site: right antecubital; em 18:23 Follow up: Response: No adverse reaction; Pain is decreased em 18:03 Drug: NS 0.9% 1000 ml Route: IV; Rate: 1 bolus; Site: right antecubital; em 19:45 Follow up: IV Status: Completed infusion; IV Intake: 1000ml ed1 Disposition: 03/02/19 18:15 Hospitalization ordered by Lex Ahuja for Inpatient Admission. Preliminary diagnosis are Acute pancreatitis, unspecified, Cocaine abuse. - Bed requested for Telemetry/MedSurg (Inpatient). - Status is Inpatient Admission. ed1 - Condition is Stable. - Problem is new. - Symptoms have improved. UTI on Admission? No Addendum: 03/04/2019 07:02 Co-signature as Attending Physician, Maikol Willoughby MD. r n Signatures: Dispatcher [employer] EDJenelle Goldberg RN Jm Skinner, CREATIVE COORDINATOR CREATIVE COORDINATOR em Portia Goldsmith RN Maikol Paul MD MD rn Riggs, Erika, RN RN ed1 AttemaRenzo RN RN la1 Lenny Chavira PA PA cp Corrections: (The following items were deleted from the chart) 03/02 17:17 17:17 Normal except: WBC 13.6; HGB 11.7; MCV 79.1; MCH 25.4; RDW 15.3; TIMUR% 76.9; LYM% cp 12.7; EOSINOPHIL % 4.9; NEUT A 10.5. cp 18:39 18:15 Hospitalization Ordered by Lex Ahuja MD for Inpatient Admission. Preliminary dw diagnosis is Acute pancreatitis, unspecified. Bed requested for Telemetry/MedSurg (Inpatient). Status is Inpatient Admission. Condition is Stable. Problem is new. Symptoms have improved. UTI on Admission? No. cp 19:11 18:39 03/02/2019 18:15 Hospitalization Ordered by Lex Ahuja MD for Inpatient cp Admission. Preliminary diagnosis is Acute pancreatitis, unspecified. Bed requested for Telemetry/MedSurg (Inpatient). Status is Inpatient Admission. Condition is Stable. Problem is new. Symptoms have improved. UTI on Admission? No. dw 19:57 19:11 03/02/2019 18:15 Hospitalization Ordered by Lex Ahuja MD for Inpatient ed1 Admission. Preliminary diagnosis is Acute pancreatitis, unspecified; Cocaine abuse. Bed requested for Telemetry/MedSurg (Inpatient). Status is Inpatient Admission. Condition is Stable. Problem is new. Symptoms have improved. UTI on Admission? No. cp
--- NOTE | 2019-03-02 18:45 | RAD REPORT ---
EXAM DESCRIPTION: CTAbdomen Pelvis W Contrast - 03/02/2019 6:29 pm CLINICAL HISTORY: Abdominal pain. EPIGASTRIC PAIN COMPARISON: Abdomen Pelvis W Contrast dated 01/13/2019; Abdomen Pelvis W Contrast dated 11/18/2018 ; Abdomen Pelvis W Contrast dated 07/29/2018 TECHNIQUE: Biphasic CT imaging of the abdomen and pelvis was performed with 100 ml non-ionic IV cont rast. All CT scans are performed using dose optimization technique as appropriate and may include automated exposure control or mA/KV adjustment according to patient size. FINDINGS: The lung bases are clear. Mild fatty liver. Cholecystectomy clips seen. The spleen, adrenal glands and kidneys are within jessica l limits. The pancreas is mildly edematous, compatible with mild acute pancreatitis. No pseudocyst, p ortal vein thrombus or pancreatic necrosis identified. No bowel obstruction, free air, free fluid or abscess. The appendix is normal. No evidence of signi ficant lymphadenopathy. No suspicious bony findings. IMPRESSION: Mild acute pancreatitis without complication evident.
[2019-03-02 18:49] LABS: Barbiturates NEGATIVE (NEGATIVE); Benzodiazepines NEGATIVE (NEGATIVE); Cocaine POSITIVE (NEGATIVE); METHAMPHETAM NEGATIVE (NEGATIVE); Methadone NEGATIVE (NEGATIVE); Opiates POSITIVE (NEGATIVE); Phencyclidine NEGATIVE (NEGATIVE); THC Cannibis NEGATIVE (NEGATIVE)
[2019-03-02 20:34] VITALS: BMI 38.3
[2019-03-02] MEDS: NA CHLORIDE 0.9% 1,000 ML IV SCH (20:40)
[2019-03-02] MEDS: MORPHINE 2 MG/ML SYR IV PRN (20:41)
[2019-03-02] MEDS ORDERED: HYDROMORPHONE HCL 0.5 MG/0.5 ML INJ IV ONE (22:23)
[2019-03-03] MEDS: MORPHINE 2 MG/ML SYR IV PRN ×5 (00:46→15:12)
[2019-03-03] MEDS: ONDANSETRON 4 MG/2 ML VIAL IV PRN ×2 (00:47→21:11)
[2019-03-03 05:10] LABS: Absolute Monocytes 0.5 K/uL (0.1-1.3); Absolute Neutrophil 8.1 K/uL (1.8-8.0); Basophils % 0.2 % (0-1.3); Eosinophils % 2.6 % (0-4.4); Hematocrit 34.8 % (36.0-45.0); Monocytes % 4.9 % (3.3-12.3); RBC Red Blood Cell Count 4.41 M/uL (3.86-4.86)
[2019-03-03 05:30] LABS: ALT/SGPT 103 U/L (12-78); AST/SGOT 75 U/L (15-37); Albumin 3.5 g/dL (3.4-5.0); Alkaline Phosphatase 123 U/L (45-117); BUN Blood Urea Nitrogen 4 mg/dL (7-18); Bicarbonate 25 mmol/L (21-32); Bilirubin Total 0.6 mg/dL (0.2-1.0); Glucose Level 123 mg/dL (74-106); HDL Cholesterol 56 mg/dL (40-60); LDL Cholesterol, Calculated 34 (<130); Lipase 691 U/L (73-393); Phosphorus 2.6 mg/dL (2.5-4.9); Potassium 4.1 mmol/L (3.5-5.1); Protein, Total 6.9 g/dL (6.4-8.2); Sodium Level 139 mmol/L (136-145)
[2019-03-03] MEDS: NA CHLORIDE 0.9% 1,000 ML IV SCH ×3 (06:00→15:26)
[2019-03-03] MEDS: ENOXAPARIN 40 MG/0.4 ML SQ SCH (08:30)
--- NOTE | 2019-03-03 08:47 | EKG ---
Test Date: 2019-03-02 Test Time: 17:12:33 Polish Maker: FREDERICK MEASUREMENT RESULTS: Intervals: Rate: 58 DC: 152 QRSD: 86 QT: 424 QTc: 416 [place]: P: 30 DC: 152 QRS: 13 T: 40 INTERPRETIVE STATEMENTS: Sinus bradycardia Cannot rule out Anterior infarct, age undetermined Abnormal ECG Compared to ECG 01/13/2019 16:58:48 Myocardial infarct finding now present Sinus rhythm no longer present Electronically Signed On 03-03-19 08:46:10 CDT by Jadon Nowak
--- NOTE | 2019-03-03 10:45 | P.PN ---
Subjective Date of Service: 03/03/19 Chief Complaint: Epigastric pain Subjective: Improving Patient seen and examined at bedside. No family at bedside. Chart reviewed and case discussed with nursing staff. Patient admitted for acute pancreatitis, secondary to alcohol and cocaine usage Reports better controlled pain with medication though still unable to walk d/t pain. Nausea resolved. Review of Systems 10-point ROS is otherwise unremarkable Physical Examination - Vital Signs Temperature: 97.6 F Blood Pressure: 113/56 Pulse: 55 Respirations: 16 Pulse Ox (%): 99 - Physical Exam General: Alert, Oriented x3, Mild distress, Moderate distress Respiratory: Clear to auscultation bilaterally, Normal air movement Cardiovascular: Regular rate/rhythm, Normal S1 S2 Gastrointestinal: Tenderness, Guarding - Studies Laboratory Data (last 24 hrs) 03/02/19 16:35: Creatinine 1.06 03/02/19 16:35: WBC 13.6 H, Hgb 11.7 L, Hct 36.4, Plt Count 299 03/02/19 16:35: Sodium 137, Potassium 3.9, BUN 6 L, Creatinine 1.05, Glucose 130 H, Magnesium 2.0, Total Bilirubin 0.5, AST 17, ALT 50, Alkaline Phosphatase 118 H, Troponin I < 0.02, Lipase 1479 H Assessment And Plan - Current Problems (Diagnosis) (1) Acute pancreatitis Onset Date: 07/30/18 Current Visit: Yes Status: Acute Plan: Likely secondary to alcohol and cocaine abuse. LFTs were normal last visit Keep NPO, IV fluids. Pain control with IV morphine Qualifiers: Pancreatitis type: alcohol induced Acute pancreatitis complication: no infection or necrosis Qualified Code(s): K85.20 - Alcohol induced acute pancreatitis without necrosis or infection (2) Recurrent pancreatitis Current Visit: Yes Status: Chronic Plan: Patient has been educated and re-educated regarding alcohol and cocaine usage. Patient continues to be noncompliant and continues to abuse cocaine. Urine drug screen pending, the patient stated that she did use alcohol and cocaine last night. (3) Intractable abdominal pain Onset Date: 09/12/18 Current Visit: No Status: Acute (4) Cocaine abuse Onset Date: 07/30/18 Current Visit: Yes Status: Chronic (5) Alcohol use Onset Date: 07/30/18 Current Visit: Yes Status: Chronic Plan: Patient has been educated and re-educated regarding alcohol cessation. Patient continues to abuse alcohol and cocaine - Plan DVT prophylaxis: Lovenox GI prophylaxis: Protonix Diet: NPO Disposition: Pending symptomatic improvement
[2019-03-03] MEDS: HYDROMORPHONE HCL 1 MG/ML INJ IV PRN ×3 (16:13→23:53)
[2019-03-04] MEDS: NA CHLORIDE 0.9% 1,000 ML IV SCH ×4 (00:46→21:32)
[2019-03-04] MEDS: HYDROMORPHONE HCL 1 MG/ML INJ IV PRN ×5 (03:22→21:31)
[2019-03-04] MEDS: ONDANSETRON 4 MG/2 ML VIAL IV PRN ×4 (03:30→17:44)
[2019-03-04 06:05] LABS: Absolute Lymphocytes (CBC) 1.4 K/uL (0.7-4.9); Absolute Monocytes 0.4 K/uL (0.1-1.3); Absolute Neutrophil 4.7 K/uL (1.8-8.0); Basophils % 0.3 % (0-1.3); Eosinophils % 4.7 % (0-4.4); Hematocrit 32.8 % (36.0-45.0); Lymphocytes % 20.7 % (15.3-44.8); MPV 8.8 fL (7.6-11.3); Monocytes % 5.5 % (3.3-12.3); RBC Red Blood Cell Count 4.12 M/uL (3.86-4.86)
[2019-03-04 06:19] LABS: ALT/SGPT 68 U/L (12-78); AST/SGOT 20 U/L (15-37); Albumin 3.4 g/dL (3.4-5.0); Alkaline Phosphatase 111 U/L (45-117); BUN Blood Urea Nitrogen 6 mg/dL (7-18); Bicarbonate 26 mmol/L (21-32); Bilirubin Total 0.4 mg/dL (0.2-1.0); Glucose Level 81 mg/dL (74-106); Lipase 259 U/L (73-393); Potassium 3.9 mmol/L (3.5-5.1); Sodium Level 138 mmol/L (136-145)
[2019-03-04] MEDS ORDERED: KCL 20 MEQ/100 mL IVPB 20 MEQ/100 ML BAG IV SCH (07:30)
[2019-03-04] MEDS: ENOXAPARIN 40 MG/0.4 ML SQ SCH (07:43)
--- NOTE | 2019-03-04 17:06 | P.PN ---
Subjective Date of Service: 03/04/19 Chief Complaint: Epigastric pain Subjective: No new changes Patient seen and examined at bedside. No family at bedside. Chart reviewed and case discussed with nursing staff. Patient admitted for acute pancreatitis, secondary to alcohol and cocaine usage Reports better controlled pain with medication though still unable to walk d/t pain. Nausea resolved. Review of Systems 10-point ROS is otherwise unremarkable Physical Examination - Vital Signs Temperature: 97.5 F Blood Pressure: 111/52 Pulse: 86 Respirations: 18 Pulse Ox (%): 97 - Physical Exam General: Alert, Oriented x3, Mild distress, Moderate distress, Obese HEENT: Atraumatic, PERRLA, EOMI Neck: Supple, JVD not distended Respiratory: Clear to auscultation bilaterally, Normal air movement Cardiovascular: Regular rate/rhythm, Normal S1 S2 Gastrointestinal: Tenderness Musculoskeletal: No tenderness Integumentary: No rashes Neurological: Normal speech, Normal tone, Normal affect Lymphatics: No axilla or inguinal lymphadenopathy Assessment And Plan - Current Problems (Diagnosis) (1) Acute pancreatitis Onset Date: 07/30/18 Current Visit: Yes Status: Acute Plan: Likely secondary to alcohol and cocaine abuse. LFTs were normal last visit Keep NPO, IV fluids. Pain control with IV morphine Qualifiers: Pancreatitis type: alcohol induced Acute pancreatitis complication: no infection or necrosis Qualified Code(s): K85.20 - Alcohol induced acute pancreatitis without necrosis or infection (2) Recurrent pancreatitis Current Visit: Yes Status: Chronic Plan: Patient has been educated and re-educated regarding alcohol and cocaine usage. Patient continues to be noncompliant and continues to abuse cocaine. Urine drug screen pending, the patient stated that she did use alcohol and cocaine last night. (3) Intractable abdominal pain Onset Date: 09/12/18 Current Visit: No Status: Acute (4) Cocaine abuse Onset Date: 07/30/18 Current Visit: Yes Status: Chronic (5) Alcohol use Onset Date: 07/30/18 Current Visit: Yes Status: Chronic Plan: Patient has been educated and re-educated regarding alcohol cessation. Patient continues to abuse alcohol and cocaine - Plan DVT prophylaxis: Lovenox GI prophylaxis: Protonix Diet: NPO Disposition: Pending symptomatic improvement
[2019-03-05] MEDS: HYDROMORPHONE HCL 1 MG/ML INJ IV PRN ×2 (01:51→05:46)
[2019-03-05] MEDS: ONDANSETRON 4 MG/2 ML VIAL IV PRN (01:57)
[2019-03-05 05:50] LABS: Absolute Lymphocytes (CBC) 1.4 K/uL (0.7-4.9); Absolute Monocytes 0.3 K/uL (0.1-1.3); Absolute Neutrophil 2.6 K/uL (1.8-8.0); Basophils % 0.6 % (0-1.3); Eosinophils % 6.2 % (0-4.4); Hematocrit 33.9 % (36.0-45.0); Lymphocytes % 30.3 % (15.3-44.8); MPV 8.8 fL (7.6-11.3); Monocytes % 6.2 % (3.3-12.3); RBC Red Blood Cell Count 4.28 M/uL (3.86-4.86)
[2019-03-05 06:17] LABS: Albumin 3.4 g/dL (3.4-5.0); Bilirubin Total 0.4 mg/dL (0.2-1.0); Potassium 3.9 mmol/L (3.5-5.1)
[2019-03-05] MEDS: NA CHLORIDE 0.9% 1,000 ML IV SCH ×2 (09:41→15:18)
[2019-03-05] MEDS: ENOXAPARIN 40 MG/0.4 ML SQ SCH (09:41)
[2019-03-05] MEDS: MORPHINE 4 MG/ML SYR IV PRN ×3 (10:52→19:55)
--- NOTE | 2019-03-05 17:10 | PN ---
Date of Progress Note: 03/05/2019 Subjective: The patient is seen and examined. Chart reviewed and case discussed with RN. The patie nt is complaining of some pain in her bilateral flanks. The patient has been n.p.o. since arrival. No further vomiting. Medications: List reviewed. Physical Examination: Vital Signs: Temperature 97.6, heart rate 83, blood pressure 107/74, respirations 18, O2 sat 98% on room air. General: Awake, alert, oriented x3, ill-appearing female, in mild distress due to pain. CV: S1, S2. Regular rate and rhythm. Peripheral pulses present. Respiratory: Moving air well bilaterally. No wheezing or stridor. Gastrointestinal: Abdomen is soft. Tenderness to palpation. Bowel sounds positive. No guarding or rigidity. It should be noted that the pain was out of proportion to exam. Extremities: No clubbing, cyanosis, or edema. Neurologic: Nonfocal. Laboratory Data: Sodium 141, potassium 3.9, chloride 108, CO2 28, BUN 4, creatinine 0.79, glucose 11 4, calcium 8.7, AST 312, ALT 382, albumin 3.4. WBC 4.5, H and H 11 and 33.9, platelets 261, neutroph ils 56%. Lipase from 03/04/2019 is 259. Assessment And Plan: A 23-year-old female with, 1.Acute alcoholic pancreatitis. Lipase now normalized. We will start on clear liquid diet, decreas e pain medications from Dilaudid to morphine. CT scan did not show any necrosis or infection. 2.Recurrent pancreatitis secondary to alcohol and cocaine usage, counseled. 3.Cocaine abuse, counseled. 4.Alcohol abuse, counseled regarding alcohol cessation. 5.Intractable abdominal pain. Pain was out of proportion to exam. We will wean off Dilaudid, advan ce diet. 6.Obesity, BMI 38.3. 7.Deep venous thrombosis prophylaxis with Lovenox. Gastrointestinal prophylaxis with Protonix. Continue IV fluids. Discharge in next 24-48 hours depending on clinical response. /MODL Voice ID: [id number] Report ID: [id number]
[2019-03-06] MEDS: MORPHINE 4 MG/ML SYR IV PRN ×3 (00:25→10:48)
[2019-03-06] MEDS: NA CHLORIDE 0.9% 1,000 ML IV SCH ×3 (02:01→10:57)
[2019-03-06] MEDS: ENOXAPARIN 40 MG/0.4 ML SQ SCH (10:47)
[2019-03-06] MEDS: ONDANSETRON 4 MG/2 ML VIAL IV PRN (10:47)
[2019-03-06 12:35] VITALS: BP 112/69; TEMP 97.8
[2019-03-06 15:45] VITALS: O2SAT 94
--- NOTE | 2019-03-07 01:51 | DS ---
Date of Discharge: 03/06/2019 Admitting Diagnoses: 1.Acute pancreatitis. 2.Intractable abdominal pain. 3.Cocaine abuse. 4.Alcohol use. 5.Obesity, BMI 38.3. Discharge Diagnoses: 1.Acute recurrent pancreatitis secondary to alcohol. 2.Cocaine abuse. 3.Alcohol abuse. 4.Intractable abdominal pain, resolving. 5.Obesity, BMI 38.3. 6.Noncompliance. 7.Fatty liver disease with elevated liver enzymes. 8.Generalized anxiety disorder. Hospital Course: The patient is in a 23-year-old female with past medical history of generalized anx iety disorder, cocaine and alcohol abuse, who comes into the ER with abdominal pain, nausea, vomiting . The patient was found to have pancreatitis. Lipase was elevated. CT scan showed mild changes con sistent with pancreatitis. The patient has had multiple episodes of pancreatitis in the past due to alcohol. She continues to use alcohol and cocaine. The patient was kept n.p.o., started on IV fluid s, and pain medications were initiated. The patient's lipase normalized down to 259. Her white bloo d cell count also came down to normal. Her UA was negative. The patient was then started on a clear liquid diet, which was advanced. The patient tolerated the diet well. She did have some nausea, ho wever, did not have any further vomiting. The patient was able to ambulate without any difficulty. She was weaned off her pain medications. The patient was then cleared for discharge, sent home in a stable condition. Activity: As tolerated. Medications: As per medication reconciliation list. The patient was recommended to be on multivitam ins including thiamine and folate. Diet: [place] diet. Followup: Follow up with primary care physician in 2-3 days. Return to ER for worsening condition. Have repeat CMP in 1 week. Physical Examination: General: Awake, alert, oriented x3, obese female. CV: S1, S2. Respiratory: Moving air well bilaterally. Abdomen: Soft, nontender, nondistended. Positive bowel sounds. Extremities: No clubbing, cyanosis, or edema. Neuro: Nonfocal. Total time spent discharging the patient was 35 minutes. /KIANNA Voice ID: [id number] Report ID: [id number]
== END 2019-03-06 15:40 | disposition home or self-care (01) | DRG 440 ==
LOC: ER 16:03 → ERHOLD 18:08 → 2ND 19:48
PROVIDERS: ADMIT Family Medicine; ATTEND Family Medicine
DX: K85.20 Alcohol induced acute pancreatitis without necrosis or infection (principal); K86.0 Alcohol-induced chronic pancreatitis; K85.30 Drug induced acute pancreatitis without necrosis or infection; K86.1 Other chronic pancreatitis; F10.10 Alcohol abuse, uncomplicated; T40.5X5A Adverse effect of cocaine, initial encounter; F14.10 Cocaine abuse, uncomplicated; Z91.19 Patient's noncompliance with other medical treatment and regimen; E66.9 Obesity, unspecified; Z68.38 Body mass index [BMI] 38.0-38.9, adult; K76.0 Fatty (change of) liver, not elsewhere classified; F41.1 Generalized anxiety disorder
CPT/HCPCS: 36415; 71045; 74177; 80048; 80053; 80061; 80076; 80307; 81003; 81025; 83690; 83735; 84100; 84484; 85025; 93005; 94760; 96361; 96365; 96367; 96374; 96375; 99285; J1170; J1650; J2270; J2405; J7030; Q9967

== ENCOUNTER 2019-05-01 17:46 | Emergency (ER) | payer SELFPAY ==
--- OUTSIDE RECORDS SUMMARY | 2019-05-01 17:48 | XMS REPORT ---
:1995 Author Organization [facility] Address [address] [place] [address] [address] [place] [address] Care Team Providers Name Role Phone Unavailable [...]
[2019-05-01] MEDS ORDERED: NA CHLORIDE 0.9% 1,000 ML ONE (18:47)
[2019-05-01] MEDS ORDERED: KETOROLAC 30 MG/ML INJ ONE (18:47)
[2019-05-01] MEDS ORDERED: ONDANSETRON 4 MG/2 ML VIAL ONE (18:47)
[2019-05-01 18:54] LABS: Absolute Lymphocytes (CBC) 1.6 K/uL (0.7-4.9); Basophils % 0.5 % (0-1.3); Eosinophils % 4.4 % (0-4.4); Hematocrit 35.7 % (36.0-45.0); Lymphocytes % 20.2 % (15.3-44.8); MPV 8.8 fL (7.6-11.3); Monocytes % 4.9 % (3.3-12.3)
[2019-05-01 19:09] LABS: ALT/SGPT 79 U/L (12-78); AST/SGOT 34 U/L (15-37); Albumin 3.7 g/dL (3.4-5.0); Alkaline Phosphatase 112 U/L (45-117); BUN Blood Urea Nitrogen 5 mg/dL (7-18); Bicarbonate 27 mmol/L (21-32); Bilirubin Direct < 0.1 mg/dL (0-0.2); Bilirubin Total 0.2 mg/dL (0.2-1.0); Glucose Level 125 mg/dL (74-106); Lipase 114 U/L (73-393); Potassium 4.1 mmol/L (3.5-5.1); Protein, Total 7.4 g/dL (6.4-8.2); Sodium Level 140 mmol/L (136-145)
--- NOTE | 2019-05-01 19:56 | RAD REPORT ---
EXAM DESCRIPTION: CT - Abdomen Pelvis W Contrast - 05/01/2019 7:37 pm CLINICAL HISTORY: Abdominal pain . COMPARISON: February 2019 TECHNIQUE: Computed axial tomography of the abdomen pelvis was obtained. 100 cc Isovue-300 was admin istered intravenously. Oral contrast was not requested which limits evaluation of bowel. All CT scans are performed using dose optimization technique as appropriate and may include automated exposure control or mA/KV adjustment according to patient size. FINDINGS: Fatty liver. Cholecystectomy Pancreas is normal size. Minimal stranding is present within pancreatic fat. A pseudocyst is not note d Spleen,, adrenal and kidneys appear unremarkable. There is no evidence of diverticulitis. IMPRESSION: Minimal pancreatitis
[2019-05-01 20:22] LABS: Urine Blood NEGATIVE (NEG); Urine Glucose NEGATIVE (NEG); Urine Protein TRACE (NEG); Urine Specific Gravity 1.025 (1.005-1.030); Urine pH 6.5 (5.0-7.0)
[2019-05-01] MEDS ORDERED: FENTANYL CITR 100 MCG/2 ML ONE (20:33)
--- NOTE | 2019-05-01 21:05 | EDPHYS ---
Physician Documentation [facility] Name: Rufina Pavon Age: 23 yrs Sex: Female : 1995 Arrival Date: 05/01/2019 Time: 17:49 Bed 20 Private MD: ED Physician Km Hardin HPI: 05/01 20:33 This 23 yrs old Female presents to ER via Ambulatory with complaints of Back kb Pain. 20:33 The patient presents with pain that is acute, with no known mechanism of injury, and kb tenderness. The symptoms are located in the right mid back. Onset: The symptoms/episode began/occurred 3 day(s) ago. The pain radiates to the right upper quadrant. Associated signs and symptoms: Pertinent positives: abdominal pain, nausea, vomiting, Pertinent negatives: chest pain, constipation, dysuria, fever, headache, hematuria, incontinence, numbness, tingling, urinary retention, weakness. The problem was sustained without known cause. Modifying factors: The patient symptoms are alleviated by nothing, the patient symptoms are aggravated by any movement. Severity of symptoms: At their worst the symptoms were moderate, in the emergency department the symptoms are unchanged. The patient has not experienced similar symptoms in the past. The patient has not recently seen a physician. 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 - Ebola Screening: : No symptoms or risks identified at this time. - Social history:: Smoking status: Smoking status: Patient/guardian denies using tobacco. ROS: 20:33 Constitutional: Negative for fever, chills, and weight loss, ENT: Negative for injury, kb pain, and discharge, Neck: Negative for injury, pain, and swelling, Cardiovascular: Negative for chest pain, palpitations, and edema, Respiratory: Negative for shortness of breath, cough, wheezing, and pleuritic chest pain, : Negative for injury, bleeding, discharge, and swelling, MS/Extremity: Negative for injury and deformity, Skin: Negative for injury, rash, and discoloration, Neuro: Negative for headache, weakness, numbness, tingling, and seizure. 20:33 Abdomen/GI: Positive for abdominal pain, nausea and vomiting. 20:33 Back: Positive for pain at rest, pain with movement. Exam: 20:37 Constitutional: This is a well developed, well nourished patient who is awake, alert, kb and in no acute distress. Head/Face: Normocephalic, atraumatic. Chest/axilla: Normal chest wall appearance and motion. Nontender with no deformity. No lesions are appreciated. Cardiovascular: Regular rate and rhythm with a normal S1 and S2. No gallops, murmurs, or rubs. Normal PMI, no JVD. No pulse deficits. Respiratory: Lungs have equal breath sounds bilaterally, clear to auscultation and percussion. No rales, rhonchi or wheezes noted. No increased work of breathing, no retractions or nasal flaring. Skin: Warm, dry with normal turgor. Normal color with no rashes, no lesions, and no evidence of cellulitis. MS/ Extremity: Pulses equal, no cyanosis. Neurovascular intact. Full, normal range of motion. Neuro: Awake and alert, GCS 15, oriented to person, place, time, and situation. Cranial nerves II-XII grossly intact. Motor strength 5/5 in all extremities. Sensory grossly intact. Cerebellar exam normal. Normal gait. 20:37 Abdomen/GI: Inspection: abdomen appears normal, Bowel sounds: normal, in all quadrants, Palpation: soft, in all quadrants, moderate abdominal tenderness, in the right upper quadrant. 20:37 Back: pain, that is moderate, of the right mid back, ROM is normal, normal spinal alignment noted. Vital Signs: 17:53 BP 132 / 78; Pulse 67; Resp 18; Temp 98.7(TE); Pulse Ox 100% on R/A; Weight 96.16 kg; hj Height 5 ft. 0 in. (152.40 cm); Pain 10/10; 19:48 BP 117 / 67; Pulse 47; Resp 18; Pulse Ox 98% on R/A; tl2 21:00 BP 111 / 64; Pulse 49; Resp 18; Pulse Ox 98% on R/A; tl2 21:20 BP 106 / 63; Pulse 67; Resp 18; Pulse Ox 96% on R/A; tl2 17:53 Body Mass Index 41.40 (96.16 kg, 152.40 cm) hj MDM: 18:10 Patient medically screened. kb 20:35 Data reviewed: vital signs, nurses notes. Data interpreted: Pulse oximetry: on room air kb is 98 %. Interpretation: normal. 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 ED course: Pt feeling better after medication administration. Pt educated on findings and to return for worsening symptoms or any other concerns. . 21:06 ED course: Pt reports her pancreatitis history is from drug use and alcohol. Pt kb educated to avoid use of both . 05/01 18:22 Order name: Basic Metabolic Panel kb 05/01 18:22 Order name: CBC with Diff; Complete Time: 19:27 kb 05/01 18:22 Order name: Hepatic Function; Complete Time: 19:27 kb 05/01 18:22 Order name: Lipase; Complete Time: 19:27 kb 05/01 18:23 Order name: Basic Metabolic Panel; Complete Time: 19:27 EDMS 05/01 18:37 Order name: Urine Dipstick--Ancillary (enter results); Complete Time: 20:23 ms 05/01 18:22 Order name: IV Saline Lock; Complete Time: 18:42 kb 05/01 18:22 Order name: Labs collected and sent; Complete Time: 18:43 kb 05/01 18:22 Order name: CT Abd/Pelvis - IV Contrast Only; Complete Time: 20:02 kb 05/01 18:37 Order name: Urine --Ancillary (enter results); Complete Time: 20:23 ms 05/01 18:31 Order name: Urine Dipstick-Ancillary (obtain specimen); Complete Time: 18:31 aa5 05/01 18:31 Order name: Urine Test (obtain specimen); Complete Time: 18:31 aa5 Administered Medications: 18:36 Drug: NS 0.9% 1000 ml Route: IV; Rate: 1000 ml; Site: right antecubital; aa5 20:00 Follow up: IV Status: Completed infusion; IV Intake: 1000ml tl2 18:36 Drug: Zofran 4 mg Route: IVP; Site: right antecubital; aa5 18:42 Follow up: Response: No adverse reaction aa5 18:38 Drug: TORadol - Ketorolac 15 mg Route: IVP; Site: right antecubital; aa5 18:42 Follow up: Response: No adverse reaction aa5 20:29 Drug: fentaNYL (PF) 50 mcg Route: IVP; Site: right antecubital; tl2 21:33 Follow up: Response: No adverse reaction; Pain is decreased tl2 Disposition: 05/02 07:35 Co-signature as Attending Physician, Km Hardin MD I agree with the assessment and kdr plan of care. Disposition: 05/01/19 21:05 Discharged to Home. Impression: Acute pancreatitis, unspecified. - Condition is Stable. - Discharge Instructions: Acute Pancreatitis, [id number]. - Prescriptions for Tylenol- Codeine #3 300-30 mg Oral Tablet - take 2 tablets by ORAL route every 6 hours As needed; 16 tablet. Zofran 4 mg Oral Tablet - take 1 tablet by ORAL route every 6 hours As needed; 20 tablet. - Medication Reconciliation Form, Thank You Letter, Antibiotic Education, Prescription Opioid Use form. - Follow up: Emergency Department; When: As needed; Reason: Worsening of condition. Follow up: Private Physician; When: 2 - 3 days; Reason: Recheck today's complaints, Continuance of care, Re-evaluation by your physician. Signatures: Dispatcher [employer] EDLA Tammy Nguyen, UNIV[employer]ITY INTERNSHIP-C UNIVERSITY INTERNSHIP-Ckb Km Hardin MD MD [facility] Maxine Day RN RN aa5 Mauricio Lopez RN RN Alberta Ontiveros RN RN tl2 Corrections: (The following items were deleted from the chart) 05/01 21:33 21:05 05/01/2019 21:05 Discharged to Home. Impression: Acute pancreatitis, unspecified. tl2 Condition is Stable. Forms are Medication Reconciliation Form, Thank You Letter, Antibiotic Education, Prescription Opioid Use. Follow up: Emergency Department; When: As needed; Reason: Worsening of condition. Follow up: Private Physician; When: 2 - 3 days; Reason: Recheck today's complaints, Continuance of care, Re-evaluation by your physician. kb
--- NOTE | 2019-05-01 21:05 | ER ---
Nurse's Notes [facility] Name: Rufina Pavon Age: 23 yrs Sex: Female : 1995 Arrival Date: 05/01/2019 Time: 17:49 Bed 20 Private MD: Diagnosis: Acute pancreatitis, unspecified Presentation: 05/01 17:51 Presenting complaint: Patient states: my back has been hurting since Monday and my R hj upper stomach is hurting too; reports vomiting x 2 today, denies fever and chills;. Transition of care: patient was not received from another setting of care. Onset of symptoms was May 01, 2019. Risk Assessment: Do you want to hurt yourself or someone else? Patient reports no desire to harm self or others. Initial Sepsis Screen: Does the patient meet any 2 criteria? No. Patient's initial sepsis screen is negative. Does the patient have a suspected source of infection? No. Patient's initial sepsis screen is negative. Care prior to arrival: None. 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 - Ebola Screening: : No symptoms or risks identified at this time. - Social history:: Smoking status: Smoking status: Patient/guardian denies using tobacco. Screenin:15 Abuse screen: Denies threats or abuse. Nutritional screening: No deficits noted. aa5 Tuberculosis screening: No symptoms or risk factors identified. Fall Risk None identified. Assessment: 18:15 General: Appears uncomfortable, Behavior is calm, cooperative. Pain: Complains of pain aa5 in right mid back Pain does not radiate. Pain currently is 9 out of 10 on a pain scale. Quality of pain is described as sharp, Pain began 2-3 days ago. Is continuous. Neuro: Level of Consciousness is awake, alert, obeys commands, Oriented to person, place, time, situation. Cardiovascular: Patient's skin is warm and dry. Respiratory: Airway is patent Respiratory effort is even, unlabored, Respiratory pattern is regular, symmetrical. GI: Abdomen is round Bowel sounds present X 4 quads. Abd is soft X 4 quads Abdomen is tender to palpation in right upper quadrant Reports nausea, vomiting. : Denies burning with urination, inability to void, urinary frequency, urgency. EENT: No signs and/or symptoms were reported regarding the EENT system. Derm: Skin is pink, warm \T\ dry. Musculoskeletal: Range of motion: intact in all extremities. 19:55 Reassessment: INTERACTIVE MEDIA MARKETING STRATEGIST notified of low HR, ordered for EKG. Pt denies chest pain or tl2 dizziness. BP WNL. 20:09 General: Appears in no apparent distress. uncomfortable, Behavior is calm, cooperative, tl2 appropriate for age. Pain: Complains of pain in right upper quadrant and right mid back Pain does not radiate. Neuro: Level of Consciousness is awake, alert, obeys commands, Oriented to person, place, time, situation. Cardiovascular: Denies chest pain. Respiratory: Airway is patent Respiratory effort is even, unlabored, Respiratory pattern is regular, symmetrical. GI: Reports upper abdominal pain, nausea, vomiting. : Denies burning with urination. Derm: Skin is pink, warm \T\ dry. 21:20 Reassessment: INTERACTIVE MEDIA MARKETING STRATEGIST and MD aware of pt's low resting HR and order to continue with tl2 discharge. 21:31 Reassessment: Patient appears in no apparent distress at this time. Patient and/or tl2 family updated on plan of care and expected duration. Pain level reassessed. Patient is alert, oriented x 3, equal unlabored respirations, skin warm/dry/pink. pt verbalized understanding of discharge instructions, need for follow up and prescription usage. Vital Signs: 17:53 BP 132 / 78; Pulse 67; Resp 18; Temp 98.7(TE); Pulse Ox 100% on R/A; Weight 96.16 kg; hj Height 5 ft. 0 in. (152.40 cm); Pain 10/10; 19:48 BP 117 / 67; Pulse 47; Resp 18; Pulse Ox 98% on R/A; tl2 21:00 BP 111 / 64; Pulse 49; Resp 18; Pulse Ox 98% on R/A; tl2 21:20 BP 106 / 63; Pulse 67; Resp 18; Pulse Ox 96% on R/A; tl2 17:53 Body Mass Index 41.40 (96.16 kg, 152.40 cm) ED Course: 17:49 Patient arrived in ED. mr 17:53 Triage completed. hj 17:53 Arm band placed on right wrist. hj 18:09 Tammy Nguyen FNP-C is [facility]. kb 18:09 Km Hardin MD is Attending Physician. kb 18:15 Patient has correct armband on for positive identification. Placed in gown. Bed in low aa5 position. Call light in reach. Side rails up X2. 18:25 Maxine Day, RN is Primary Nurse. aa5 18:35 Initial lab(s) drawn, by me, sent to lab. Inserted saline lock: 20 gauge in right aa5 antecubital area, using aseptic technique. Blood collected. 18:36 Urine collected: clean catch specimen, clear. dh3 18:43 Radiology exam delayed due to lab results not completed at this time. (BUN/Creatinine) nj IV insertion attempt and/or patient not having appropriate IV at this time. 19:10 Report given to KYM Pinzon. aa5 19:37 CT Abd/Pelvis - IV Contrast Only In Process Unspecified. EDMS 21:20 No provider procedures requiring assistance completed. IV discontinued, intact, tl2 bleeding controlled, No redness/swelling at site. Pressure dressing applied. Administered Medications: 18:36 Drug: NS 0.9% 1000 ml Route: IV; Rate: 1000 ml; Site: right antecubital; aa5 20:00 Follow up: IV Status: Completed infusion; IV Intake: 1000ml tl2 18:36 Drug: Zofran 4 mg Route: IVP; Site: right antecubital; aa5 18:42 Follow up: Response: No adverse reaction aa5 18:38 Drug: TORadol - Ketorolac 15 mg Route: IVP; Site: right antecubital; aa5 18:42 Follow up: Response: No adverse reaction aa5 20:29 Drug: fentaNYL (PF) 50 mcg Route: IVP; Site: right antecubital; tl2 21:33 Follow up: Response: No adverse reaction; Pain is decreased tl2 Intake: 20:00 IV: 1000ml; Total: 1000ml. tl2 Outcome: 21:05 Discharge ordered by . kb 21:20 Discharged to home ambulatory, with family. tl2 21:20 Condition: stable 21:20 Discharge instructions given to patient, Instructed on discharge instructions, follow up and referral plans. medication usage, Demonstrated understanding of instructions, follow-up care, medications, Prescriptions given X 2. 21:33 Patient left the ED. tl2 Signatures: Dispatcher [employer] EDMS Tammy Nguyen, FRED UI DEVELOPER WITH ANGULAR JS-Dorota Luz Marina Morton, Maxine RN RN aa5 Mauricio Lopez RN RN hj Knox, Taylor, RN RN tl2 Aaron Higuera Deanna 3 Corrections: (The following items were deleted from the chart) 17:55 17:53 Pulse 67bpm; Resp 18bpm; Pulse Ox 100% RA; Temp 98.7F Temporal; 96.16 kg; Height hj 5 ft. 0 in.; BMI: 41.4; Pain 10/10; hj 18:42 18:15 : No signs and/or symptoms were reported regarding the genitourinary system. [id number] 20:09 19:48 BP 117 / 76; Pulse 47bpm; Resp 18bpm; Pulse Ox 98% RA; tl2 tl2
[2019-05-01 21:38] VITALS: TEMP 98.7
[2019-05-01 21:42] VITALS: BP 106/63; O2SAT 96
--- NOTE | 2019-05-02 14:48 | EKG ---
Test Date: 2019-05-01 Test Time: 20:02:28 Free Lance Artist: BRANDEE MEASUREMENT RESULTS: Intervals: Rate: 47 MN: 164 QRSD: 78 QT: 444 QTc: 392 [place]: P: 35 MN: 164 QRS: 11 T: 25 INTERPRETIVE STATEMENTS: Marked sinus bradycardia Cannot rule out Anterior infarct, age undetermined Abnormal ECG Compared to ECG 03/02/2019 17:12:33 No significant changes Electronically Signed On 05-02-19 14:47:26 CDT by Jadon Nowak
== END 2019-05-01 21:33 | disposition home or self-care (01) ==
LOC: ER 17:46
DX: K85.90 Acute pancreatitis without necrosis or infection, unspecified (principal); Z88.3 Allergy status to other anti-infective agents
CPT/HCPCS: 36415; 74177; 80048; 80076; 81003; 81025; 83690; 85025; 93005; 96361; 96374; 96375; 99284; J2405; J3010; J7030; Q9967

== ENCOUNTER 2019-05-12 22:43 | Inpatient (IN) | payer SELFPAY ==
--- OUTSIDE RECORDS SUMMARY | 2019-05-12 22:45 | XMS REPORT ---
:1995 [facility] Address [address] [place] [address] [address] [place] [address] Care Team Providers Name Role Phone Unavailable [...]
[2019-05-12 23:14] LABS: Urine Blood 3+ (NEG); Urine Glucose NEGATIVE (NEG); Urine Protein 2+ (NEG); Urine Specific Gravity >1.030 (1.005-1.030)
[2019-05-12 23:25] LABS: Absolute Lymphocytes (CBC) 1.7 K/uL (0.7-4.9); Basophils % 0.3 % (0-1.3); Hematocrit 36.7 % (36.0-45.0); Lymphocytes % 12.8 % (15.3-44.8); MPV 8.8 fL (7.6-11.3); RBC Red Blood Cell Count 4.86 M/uL (3.86-4.86)
[2019-05-12] MEDS ORDERED: MORPHINE 4 MG/ML SYR ONE (23:25)
[2019-05-12] MEDS ORDERED: ONDANSETRON 4 MG/2 ML VIAL ONE (23:25)
[2019-05-12] MEDS ORDERED: NA CHLORIDE 0.9% 1,000 ML ONE (23:25)
[2019-05-12 23:46] LABS: Albumin 4.1 g/dL (3.4-5.0); Bilirubin Direct 0.2 mg/dL (0-0.2); Bilirubin Total 0.4 mg/dL (0.2-1.0); Potassium 3.6 mmol/L (3.5-5.1); Protein, Total 7.8 g/dL (6.4-8.2)
[2019-05-13] MEDS ORDERED: FENTANYL CITR 100 MCG/2 ML ONE (00:22)
--- NOTE | 2019-05-13 02:27 | ER ---
Nurse's Notes [facility] Name: Rufina Pavon Age: 23 yrs Sex: Female : 1995 Arrival Date: 05/12/2019 Time: 22:46 Bed 14 Private MD: Diagnosis: Acute pancreatitis Presentation: 05/12 22:52 Presenting complaint: Patient states: upper abd pain and N/V x 4 days. Reports hx of aa1 pancreatitis and believes that is what is causing her pain. Transition of care: patient was not received from another setting of care. Onset of symptoms was May 09, 2019. Risk Assessment: Do you want to hurt yourself or someone else? Patient reports no desire to harm self or others. Initial Sepsis Screen: Does the patient meet any 2 criteria? HR > 90 bpm. Does the patient have a suspected source of infection? Yes: Acute abdominal pain. Care prior to arrival: None. 22:52 Method Of Arrival: Ambulatory aa1 22:52 Acuity: AYAZ 3 aa1 Triage Assessment: 22:56 General: Appears in no apparent distress. uncomfortable, Behavior is calm, cooperative, aa1 appropriate for age. Historical: - Allergies: 22:56 Vancomycin; aa1 - Home Meds: 22:56 None [Active]; aa1 - PMHx: 22:56 pancreatitis; aa1 - PSHx: 22:56 Cholecystectomy; aa1 - Immunization history:: Flu vaccine is up to date. - Social history:: Smoking status: Patient uses tobacco products, smokes one-half pack cigarettes per day. - Ebola Screening: : No symptoms or risks identified at this time. Screenin:13 Abuse screen: Denies threats or abuse. Nutritional screening: No deficits noted. la1 Tuberculosis screening: No symptoms or risk factors identified. Fall Risk None identified. Assessment: 23:13 General: Appears uncomfortable, Behavior is calm, cooperative. Pain: Complains of pain la1 in epigastric area. Neuro: Level of Consciousness is awake, alert, obeys commands, Oriented to person, place, time, situation. Cardiovascular: Capillary refill < 3 seconds Patient's skin is warm and dry. Respiratory: Airway is patent Respiratory effort is even, unlabored, Respiratory pattern is regular, symmetrical. GI: Abdomen is round non-distended, Bowel sounds present X 4 quads. Abd is soft X 4 quads Abdomen is tender to palpation in epigastric area, right upper quadrant and left upper quadrant. : No signs and/or symptoms were reported regarding the genitourinary system. 05/13 00:30 Reassessment: Patient appears in no apparent distress at this time. No changes from la1 previously documented assessment. Patient and/or family updated on plan of care and expected duration. Pain level reassessed. Patient is alert, oriented x 3, equal unlabored respirations, skin warm/dry/pink. 02:12 Reassessment: Patient appears in no apparent distress at this time. No changes from la1 previously documented assessment. Patient and/or family updated on plan of care and expected duration. Pain level reassessed. Patient is alert, oriented x 3, equal unlabored respirations, skin warm/dry/pink. 03:40 Reassessment: Patient appears in no apparent distress at this time. Patient and/or cc3 family updated on plan of care and expected duration. Pain level reassessed. Patient is alert, oriented x 3, equal unlabored respirations, skin warm/dry/pink. Patient left ER for admission vitally stable by wheelchair escorted by [facility]. No valuables left in the patient's room. Patient denies pain at this time. Patient states feeling better. Patient states symptoms have improved. Vital Signs: 05/12 22:56 BP 125 / 82; Pulse 106; Resp 18; Temp 98.4; Pulse Ox 99% on R/A; Weight 96.16 kg; aa1 Height 5 ft. 0 in. (152.40 cm); Pain 10/10; 05/13 00:30 BP 117 / 70; Pulse 85; Resp 16; Pulse Ox 98% on R/A; la1 01:45 BP 122 / 74; Pulse 65; Resp 16; Pulse Ox 98% on R/A; la1 03:10 BP 132 / 72; Pulse 63; Resp 18 S; Pulse Ox 97% on R/A; cc3 05/12 22:56 Body Mass Index 41.40 (96.16 kg, 152.40 cm) aa1 ED Course: 05/12 22:46 Patient arrived in ED. ag3 22:48 Mario Basilio NP is PHCP. pm1 22:48 Erlin Longo MD is Attending Physician. pm1 22:50 Renzo Serrano RN is Primary Nurse. la1 22:54 Triage completed. aa1 22:56 Arm band placed on right wrist. aa1 23:13 No provider procedures requiring assistance completed. Inserted saline lock: 18 gauge la1 in right antecubital area, using aseptic technique. 23:14 Call light in reach. Side rails up X 1. la1 05/13 01:38 CT Abd/Pelvis - IV Contrast Only In Process Unspecified. EDMS 02:26 Christian Soriano MD is Hospitalizing Provider. pm1 03:00 Patient admitted, IV remains in place. cc3 Administered Medications: 05/12 23:12 Drug: NS 0.9% 1000 ml Route: IV; Rate: 1000 ml; Site: right antecubital; la1 23:33 Follow up: IV Status: Completed infusion la1 23:12 Drug: morphine 4 mg Route: IVP; Site: right antecubital; la1 23:33 Follow up: Response: No adverse reaction la1 23:13 Drug: Zofran 4 mg Route: IVP; Site: right antecubital; la1 23:33 Follow up: Response: No adverse reaction la1 05/13 00:11 Drug: fentaNYL (PF) 50 mcg Route: IVP; Site: right antecubital; la1 02:30 Follow up: Response: No adverse reaction; Pain is decreased la1 02:45 Drug: NS 0.9% 1000 ml Route: IV; Rate: 125 ml/hr; Site: right antecubital; la1 02:45 Follow up: IV Status: Infusion continued upon admission la1 02:45 Drug: Dilaudid 1 mg Route: IVP; Site: right antecubital; la1 02:45 Follow up: Response: No adverse reaction; Pain is decreased la1 Outcome: 02:26 Decision to Hospitalize by Provider. pm1 02:50 Admitted to Med/surg accompanied by tech, via wheelchair, room 230, with chart, Report cc3 called to KYM Muller handed over to KYM Santos 02:50 Condition: stable 02:50 Instructed on the need for admit, Demonstrated understanding of instructions. 03:42 Patient left the ED. cc3 Signatures: Dispatcher [employer] EDLA Cora Jules RN RN aa1 Attema, Renzo, RN RN la1 Mario Basilio, DIRECTOR CRITICAL CARE DIRECTOR CRITICAL CARE pm1 Penny Rodgers cc3 Linda oRmo ag3
--- NOTE | 2019-05-13 02:27 | EDPHYS ---
Physician Documentation [facility] Name: Rufina Pavon Age: 23 yrs Sex: Female : 1995 Arrival Date: 05/12/2019 Time: 22:46 Bed 14 Private MD: ED Physician Erlin Longo HPI: 05/13 01:29 This 23 yrs old Female presents to ER via Ambulatory with complaints of pm1 Abdominal Pain. 01:29 The patient presents with abdominal pain in the upper abdomen. Onset: The pm1 symptoms/episode began/occurred 4 day(s) ago. The symptoms do not radiate. Associated signs and symptoms: Pertinent positives: nausea and vomiting, Pertinent negatives: chest pain, diarrhea, shortness of breath. The symptoms are described as achy, constant. Modifying factors: The symptoms are alleviated by nothing, the symptoms are aggravated by nothing. Severity of pain: in the emergency department the pain is actually worse. The patient has experienced similar episodes in the past, and the symptoms today are exactly the same, to previous pancreatitis. The patient has not recently seen a physician. 01:30 Snorted cocaine yesterday. pm1 Historical: - Allergies: 05/12 22:56 Vancomycin; aa1 - Home Meds: 22:56 None [Active]; aa1 - PMHx: 22:56 pancreatitis; aa1 - PSHx: 22:56 Cholecystectomy; aa1 - Immunization history:: Flu vaccine is up to date. - Social history:: Smoking status: Patient uses tobacco products, smokes one-half pack cigarettes per day. - Ebola Screening: : No symptoms or risks identified at this time. ROS: 05/13 01:29 Constitutional: Negative for fever, chills, and weight loss, Eyes: Negative for injury, pm1 pain, redness, and discharge, ENT: Negative for injury, pain, and discharge, Neck: Negative for injury, pain, and swelling, Cardiovascular: Negative for chest pain, palpitations, and edema, Respiratory: Negative for shortness of breath, cough, wheezing, and pleuritic chest pain. Back: Negative for injury and pain, : Negative for injury, bleeding, discharge, and swelling, MS/Extremity: Negative for injury and deformity, Skin: Negative for injury, rash, and discoloration, Neuro: Negative for headache, weakness, numbness, tingling, and seizure. Abdomen/GI: Positive for abdominal pain, nausea and vomiting, of the right upper quadrant and left upper quadrant, Negative for constipation. Exam: 01:29 Constitutional: This is a well developed, well nourished patient who is awake, alert, pm1 and in no acute distress. Head/Face: Normocephalic, atraumatic. Neck: Trachea midline, no thyromegaly or masses palpated, and no cervical lymphadenopathy. Supple, full range of motion without nuchal rigidity, or vertebral point tenderness. No Meningismus. Chest/axilla: Normal chest wall appearance and motion. Nontender with no deformity. No lesions are appreciated. Cardiovascular: Regular rate and rhythm with a normal S1 and S2. No gallops, murmurs, or rubs. Normal PMI, no JVD. No pulse deficits. Respiratory: Lungs have equal breath sounds bilaterally, clear to auscultation and percussion. No rales, rhonchi or wheezes noted. No increased work of breathing, no retractions or nasal flaring. 01:29 Back: No spinal tenderness. No costovertebral tenderness. Full range of motion. Skin: Warm, dry with normal turgor. Normal color with no rashes, no lesions, and no evidence of cellulitis. MS/ Extremity: Pulses equal, no cyanosis. Neurovascular intact. Full, normal range of motion. 01:29 Abdomen/GI: Inspection: abdomen appears normal, Bowel sounds: normal, Palpation: mild abdominal tenderness, in the epigastric area and left upper quadrant, mass, is not appreciated, rebound tenderness, is not appreciated. 01:29 Neuro: Orientation: is normal, Motor: is normal, moves all fours. Vital Signs: 05/12 22:56 BP 125 / 82; Pulse 106; Resp 18; Temp 98.4; Pulse Ox 99% on R/A; Weight 96.16 kg; aa1 Height 5 ft. 0 in. (152.40 cm); Pain 1010; 05/13 00:30 BP 117 / 70; Pulse 85; Resp 16; Pulse Ox 98% on R/A; la1 01:45 BP 122 / 74; Pulse 65; Resp 16; Pulse Ox 98% on R/A; la1 03:10 BP 132 / 72; Pulse 63; Resp 18 S; Pulse Ox 97% on R/A; cc3 05/12 22:56 Body Mass Index 41.40 (96.16 kg, 152.40 cm) aa1 MDM: 05/12 22:49 Patient medically screened. pm1 05/13 01:31 Data reviewed: vital signs. Data interpreted: Pulse oximetry: on room air is 98 %. pm1 Interpretation: normal. 02:25 Counseling: I had a detailed discussion with the patient and/or guardian regarding: the pm1 historical points, exam findings, and any diagnostic results supporting the discharge/admit diagnosis, lab results, radiology results, the need for further work-up and treatment in the hospital. 05/12 22:52 Order name: Basic Metabolic Panel pm1 05/12 22:52 Order name: CBC with Diff pm1 05/12 22:52 Order name: Creatinine for Radiology; Complete Time: 23:55 pm1 05/12 22:52 Order name: Hepatic Function; Complete Time: 23:55 pm1 05/12 22:52 Order name: Lipase; Complete Time: 23:55 pm1 05/12 22:54 Order name: Basic Metabolic Panel; Complete Time: 23:55 EDMS 05/12 22:54 Order name: CBC with Automated Diff; Complete Time: 23:55 EDMS 05/12 23:12 Order name: Urine Dipstick--Ancillary (enter results); Complete Time: 23:18 cm6 05/12 23:12 Order name: Urine --Ancillary (enter results); Complete Time: 23:18 cm6 05/12 23:56 Order name: CT Abd/Pelvis - IV Contrast Only pm1 05/12 23:56 Order name: ETOH Level; Complete Time: 01:28 pm1 05/12 22:52 Order name: IV Saline Lock; Complete Time: 23:04 pm1 05/12 22:52 Order name: Labs collected and sent; Complete Time: 23:04 pm1 05/12 22:52 Order name: Urine Dipstick-Ancillary (obtain specimen); Complete Time: 23:06 pm1 05/12 22:52 Order name: Urine Test (obtain specimen); Complete Time: 23:06 pm1 05/13 03:02 Order name: CONS Pharmacy Consult EDNC 05/13 03:02 Order name: NPO EDMS Administered Medications: 05/12 23:12 Drug: NS 0.9% 1000 ml Route: IV; Rate: 1000 ml; Site: right antecubital; la1 23:33 Follow up: IV Status: Completed infusion la1 23:12 Drug: morphine 4 mg Route: IVP; Site: right antecubital; la1 23:33 Follow up: Response: No adverse reaction la1 23:13 Drug: Zofran 4 mg Route: IVP; Site: right antecubital; la1 23:33 Follow up: Response: No adverse reaction la1 05/13 00:11 Drug: fentaNYL (PF) 50 mcg Route: IVP; Site: right antecubital; la1 02:30 Follow up: Response: No adverse reaction; Pain is decreased la1 02:45 Drug: NS 0.9% 1000 ml Route: IV; Rate: 125 ml/hr; Site: right antecubital; la1 02:45 Follow up: IV Status: Infusion continued upon admission la1 02:45 Drug: Dilaudid 1 mg Route: IVP; Site: right antecubital; la1 02:45 Follow up: Response: No adverse reaction; Pain is decreased la1 Disposition: 05/13/19 02:26 Hospitalization ordered by Christian Soriano for Inpatient Admission. Preliminary diagnosis is Acute pancreatitis. - Bed requested for Telemetry/MedSurg (Inpatient). - Status is Inpatient Admission. cc3 - Condition is Stable. - Problem is new. - Symptoms have improved. UTI on Admission? No Addendum: 05/14/2019 04:29 Co-signature as Attending Physician, Erlin Longo MD I agree with the assessment and t w4 plan of care. Signatures: Dispatcher [employer] EDNC Chula Bautista RN RN Cora Jules RN RN aa1 Renzo Serrano RN RN la1 Mario Basilio, TRUCK LOADER TRUCK LOADER pm1 Erlin Longo MD MD tw4 Penny Rodgers cc3 Corrections: (The following items were deleted from the chart) 05/13 02:44 02:26 Hospitalization Ordered by Christian Soriano MD for Inpatient Admission. Preliminary mw diagnosis is Acute pancreatitis. Bed requested for Telemetry/MedSurg (Inpatient). Status is Inpatient Admission. Condition is Stable. Problem is new. Symptoms have improved. UTI on Admission? No. pm1 03:42 02:44 05/13/2019 02:26 Hospitalization Ordered by Christian Soriano MD for Inpatient cc3 Admission. Preliminary diagnosis is Acute pancreatitis. Bed requested for Telemetry/MedSurg (Inpatient). Status is Inpatient Admission. Condition is Stable. Problem is new. Symptoms have improved. UTI on Admission? No. mw
[2019-05-13] MEDS ORDERED: HYDROMORPHONE HCL 1 MG/ML INJ ONE (02:51)
[2019-05-13] MEDS ORDERED: NA CHLORIDE 0.9% 1,000 ML ONE (02:51)
[2019-05-13] MEDS ORDERED: MORPHINE 4 MG/ML SYR IV PRN (02:55)
[2019-05-13] MEDS ORDERED: ACETAMINOPHEN 500 MG TAB PO PRN (02:55)
[2019-05-13 03:55] VITALS: BMI 38.0
[2019-05-13] MEDS: HYDROMORPHONE HCL 1 MG/ML INJ IV PRN ×4 (04:42→23:03)
[2019-05-13] MEDS: NA CHLORIDE 0.9% 1,000 ML IV SCH ×4 (04:45→23:02)
[2019-05-13] MEDS: ONDANSETRON 4 MG/2 ML VIAL IV PRN ×3 (04:49→23:02)
--- NOTE | 2019-05-13 07:25 | P.HP ---
Certification for Inpatient Patient admitted to: Inpatient With expected LOS: >2 Midnights Patient will require the following post-hospital care: None Practitioner: I am a practitioner with admitting privileges, knowledge of patient current condition, hospital course, and medical plan of care. Services: Services provided to patient in accordance with Admission requirements found in Title 42 Section 412.3 of the Code of Federal Regulations Patient History Date of Service: 05/13/19 Reason for admission: Acute pancreatitis History of Present Illness: Patient is a 23-year-old female with a prior history of pancreatitis. She has had a prior cholecystectomy. She has been drinking over the past week, and she had a small amount to drink yesterday. She was having abdominal pain prior to even drinking. She vomited a few times. After drinking she vomited again. She has a prior history of cocaine abuse as well. In the ER she was found have a significantly elevated lipase and a CT scan finding of mild to moderate pancreatitis. She will be admitted to the hospital for further workup. Will hydrate patient aggressively and continue with pain control. Will check a triglyceride level. Will do a urine drug screen as well. We counseled patient regarding alcohol use. Hopefully she will be more compliant going forward. She will need outpatient GI follow-up as well. Allergies vancomycin Allergy (Verified 03/03/19 02:12) Itching Home Medications: NK [No Home Meds] 05/13/19 - Past Medical/Surgical History Has patient received pneumonia vaccine in the past: No Diabetic: No -: Alcohol abuse -: Cocaine abuse -: Anxiety -: Recurrent pancreatitis -: cholecystectomy Psychosocial/ Personal History: Patient lives at home - Family History Mother Notes: States mother is healthy - Social History Smoking Status: Current every day smoker Alcohol use: Yes CD- Drugs: No Caffeine use: No Place of Residence: Home Review of Systems 10-point ROS is otherwise unremarkable Physical Examination - Vital Signs Temperature: 98.4 F Blood Pressure: 122/74 Pulse: 65 Respirations: 16 Pulse Ox (%): 96 - Physical Exam General: Alert, In no apparent distress, Oriented x3 HEENT: Atraumatic, PERRLA, Mucous membr. moist/pink, EOMI, Sclerae nonicteric Neck: Supple, 2+ carotid pulse no bruit, No LAD, Without JVD or thyroid abnormality Respiratory: Clear to auscultation bilaterally, Normal air movement Cardiovascular: Regular rate/rhythm, Normal S1 S2, No murmurs Gastrointestinal: Normal bowel sounds, Soft and benign, Non-distended, No rebound, No guarding, Tenderness Musculoskeletal: No clubbing, No swelling, No tenderness Integumentary: No rashes Neurological: Normal gait, Normal speech, Normal strength at 5/5 x4 extr, Normal tone, Sensation intact, Cranial nerves 3-12 intact, Normal affect Lymphatics: No axilla or inguinal lymphadenopathy - Studies Laboratory Data (last 24 hrs) 05/12/19 23:00: Creatinine 1.12 05/12/19 23:00: WBC 13.0 H D, Hgb 11.8 L, Hct 36.7, Plt Count 259 D 05/12/19 23:00: Sodium 137, Potassium 3.6, BUN 8, Creatinine 1.11, Glucose 184 H , Total Bilirubin 0.4, AST 47 H, ALT 85 H, Alkaline Phosphatase 139 H, Lipase 1547 H Assessment & Plan - Problems (Diagnosis) (1) Acute pancreatitis Onset Date: 07/30/18 Current Visit: No Status: Acute Qualifiers: Pancreatitis type: alcohol induced (2) Anxiety Onset Date: 09/12/18 Current Visit: No Status: Acute (3) Nausea and vomiting Onset Date: 09/12/18 Current Visit: No Status: Acute Qualifiers: Vomiting Intractability: intractable (4) Alcohol use Onset Date: 07/30/18 Current Visit: No Status: Chronic (5) Cocaine abuse Onset Date: 07/30/18 Current Visit: No Status: Chronic - Plan Plan: 1. Aggressive IV hydration 2. IV antibiotics 3. Pain control 4. Therapeutic Riding Instructor regarding alcohol cessation 5. Lipid profile 6. Urine drugs screen 7. Outpatient GI follow-up 8. GI and DVT prophylaxis Discharge Plan: Home Plan to discharge in: Greater than 2 days - Advance Directives Does patient have a Living Will: No Does patient have a Durable POA for Healthcare: No - Code Status/Comfort Care Code Status Assessed: Yes Code Status: Full Code Critical Care: No Time Spent Managing PTS Care (In Minutes): 45
[2019-05-13] MEDS ORDERED: FENTANYL CITR 100 MCG/2 ML IV ONE (07:35)
--- NOTE | 2019-05-13 09:50 | RAD REPORT ---
EXAM DESCRIPTION: CT - Abdomen Pelvis W Contrast - 05/13/2019 4:47 am CLINICAL HISTORY: The patient is 23 years old and is Female; ABD PAIN TECHNIQUE: Axial computed tomography images of the abdomen and pelvis with intravenous contrast. S agittal and coronal reformatted images were created and reviewed. This CT exam was performed using one or more of the following dose reduction techniques: automated exposure control, adjustment of t he mA and/or kV according to patient size, and/or use of iterative reconstruction technique. COMPARISON: CT of the abdomen and pelvis May 01, 2019 FINDINGS: LUNG BASES: Unremarkable. No mass. No consolidation. ABDOMEN: LIVER: There is a diffuse decrease in hepatic parenchymal density, consistent with fatty infiltr ation. GALLBLADDER AND BILE DUCTS: Surgical clips are present in the right upper quadrant, consistent w ith previous cholecystectomy. PANCREAS: Inflammatory stranding and minimal fluid surrounding the pancreas is present. The panc reas enhances uniformly. There is no pseudocyst. SPLEEN: Unremarkable. ADRENALS: Unremarkable. No mass. KIDNEYS AND URETERS: Unremarkable. No solid mass. No hydronephrosis. STOMACH AND BOWEL: The stomach is minimally fluid filled. The small bowel is normal in caliber. Minimal stool is present throughout colon. There is no mucosal thickening or evidence of bowel obstru ction. PELVIS: APPENDIX: The appendix is normal in caliber without surrounding inflammation. BLADDER: The bladder is not well distended. REPRODUCTIVE: Unremarkable as visualized. ABDOMEN and PELVIS: INTRAPERITONEAL SPACE: Unremarkable. No free air. No significant fluid collection. BONES/JOINTS: No acute fracture. SOFT TISSUES: The soft tissues are normal. VASCULATURE: Unremarkable. No abdominal aortic aneurysm. LYMPH NODES: Unremarkable. No enlarged lymph nodes. IMPRESSION: Findings consistent with acute pancreatitis which has worsened since prior exam. Electronically signed by: Tomasa Silveira MD 05/13/2019 2:12 AM CDT
[2019-05-13 11:06] LABS: Absolute Lymphocytes (CBC) 1.3 K/uL (0.7-4.9); Basophils % 0.3 % (0-1.3); Hematocrit 33.2 % (36.0-45.0); MPV 8.4 fL (7.6-11.3)
[2019-05-13 11:26] LABS: ALT/SGPT 65 U/L (12-78); AST/SGOT 29 U/L (15-37); Albumin 3.2 g/dL (3.4-5.0); Alkaline Phosphatase 116 U/L (45-117); BUN Blood Urea Nitrogen 6 mg/dL (7-18); Bicarbonate 26 mmol/L (21-32); Bilirubin Total 0.6 mg/dL (0.2-1.0); Glucose Level 122 mg/dL (74-106); Lipase 750 U/L (73-393); Magnesium 2.1 mg/dL (1.8-2.4); Phosphorus 2.2 mg/dL (2.5-4.9); Potassium 3.6 mmol/L (3.5-5.1); Protein, Total 6.6 g/dL (6.4-8.2); Sodium Level 141 mmol/L (136-145)
[2019-05-13 13:24] LABS: Barbiturates NEGATIVE (NEGATIVE); Benzodiazepines NEGATIVE (NEGATIVE); Cocaine POSITIVE (NEGATIVE); METHAMPHETAM NEGATIVE (NEGATIVE); Methadone NEGATIVE (NEGATIVE); Opiates NEGATIVE (NEGATIVE); Phencyclidine NEGATIVE (NEGATIVE); THC Cannibis POSITIVE (NEGATIVE)
[2019-05-14] MEDS: HYDROMORPHONE HCL 1 MG/ML INJ IV PRN ×4 (03:18→21:35)
[2019-05-14] MEDS: NA CHLORIDE 0.9% 1,000 ML IV SCH ×4 (05:59→21:28)
--- NOTE | 2019-05-14 17:34 | PN ---
Date of Progress Note: 05/14/2019 Subjective: Patient seen and examined. Chart reviewed and case discussed with RN. Patient stated t hat her pain started after a can of beer. Medications: List reviewed. Physical Examination: Vital Signs: Temperature 97, heart rate 60, blood pressure 105/52, respirations 17, O2 of 99% on frances m air. General: Awake, alert, oriented x3, obese female, ill-appearing. CV: S1, S2. Regular rate and rhythm. Peripheral pulses present. Respiratory: Moving air well bilaterally. No wheezing or stridor. Gastrointestinal: Abdomen is soft. Minimal tenderness to palpation. No guarding or rigidity. Ramin l sounds positive. Extremities: No clubbing, cyanosis, or edema. Neuro: Cranial nerves 2-12 intact grossly. No focal neurological deficit. Speech is normal. Skin: No rashes. Normal skin turgor. Laboratory Data: Lipase is 305. WBC pending. Assessment And Plan: 1.Acute pancreatitis secondary to alcohol abuse, counseled. Lipase levels trending down. Patient i s still having pain. We will advance diet. 2.Generalized anxiety disorder. 3.Polysubstance abuse, counseled. 4.Intractable nausea and vomiting improving. Continue antiemetics. 5.Obesity. BMI 38. DVT prophylaxis addressed. Likely discharge in next 24 hours. /KIANNA Voice ID: [id number] Report ID: [id number]
[2019-05-14] MEDS: ONDANSETRON 4 MG/2 ML VIAL IV PRN (21:39)
[2019-05-15] MEDS ORDERED: ALPRAZOLAM 0.25 MG TABLET PO ONE (00:46)
[2019-05-15] MEDS ORDERED: ONDANSETRON 4 MG/2 ML VIAL IV PRN (02:56)
[2019-05-15] MEDS: HYDROMORPHONE HCL 1 MG/ML INJ IV PRN ×3 (03:00→14:19)
[2019-05-15] MEDS ORDERED: SODIUM CHLORIDE 0.9% 10ML INJ IV PRN (03:09)
[2019-05-15] MEDS: NA CHLORIDE 0.9% 1,000 ML IV SCH ×3 (04:27→15:00)
[2019-05-15 08:50] VITALS: TEMP 96.9
[2019-05-15] MEDS ORDERED: PANTOPRAZOLE 40 MG INJ IVP SCH (09:00)
[2019-05-15 10:16] VITALS: O2SAT 98
[2019-05-15 12:19] VITALS: BP 123/62
--- NOTE | 2019-05-16 00:34 | DS ---
Date of Discharge: 05/15/2019 Admitting Diagnoses: 1.Acute pancreatitis. 2.Anxiety. 3.Nausea, vomiting. 4.Alcohol abuse. 5.Cocaine abuse. Discharge Diagnoses: 1.Acute pancreatitis secondary to alcohol abuse, resolved. 2.Generalized anxiety disorder, stable. 3.Polysubstance abuse, counseled. 4.Alcohol abuse, counseled. 5.Intractable nausea, vomiting, resolved. 6.Obesity, body mass index 38. Hospital Course: Patient is a 23-year-old female with multiple admissions to the hospital for pancre atitis secondary to alcohol. Patient again had been drinking binge over the weekend and had some lily sea and vomiting, used some cocaine and developed some abdominal pain, therefore came into the ER for further evaluation. Patient has significantly elevated lipase. She has had at least 7 CT scans ove r the past year. Her lipase level was found to be 1547. White blood cell count was mildly elevated. UDS was positive for cocaine and marijuana. Patient was started on aggressive IV fluid hydration. She was kept n.p.o. IV pain medications were initiated. She was counseled extensively. She again stated that she will avoid alcohol in the future. She also understands that use of cocaine can resul t in [place] or even , bleeding, etc. Patient was slowly started on a clear liquid diet after her li pase level had improved. She was then further advanced to GI soft, which she was able to tolerate. Did have some nausea, but no vomiting. Patient's lipase level normalized. She was able to ambulate without difficulty. She was then cleared for discharge and was sent home in a stable condition. Activity: As tolerated. Medications: As per medication reconciliation list. Followup: Follow up with primary care physician in 2 to 3 days. Return to the ER for worsening cond ition. Diet: Bull[place], though absolutely no alcohol use. Physical Examination: General: Awake, alert, and oriented, no acute distress, obese female. CV: S1, S2. No murmurs. Respiratory: Moving air well bilaterally. No wheezing. Gastrointestinal: Abdomen is soft, nontender, nondistended. Positive bowel sounds. Extremities: No clubbing, cyanosis, or edema. Neurologic: Nonfocal. Time Spent: Total time spent discharging the patient was 37 minutes. LUIS CARLOS Voice ID: [id number] Report ID: [id number]
== END 2019-05-15 15:16 | disposition home or self-care (01) | DRG 440 ==
LOC: ER 22:43 → 2ND 05-13 03:07
PROVIDERS: ADMIT Hospitalist; ATTEND Family Medicine
DX: K85.20 Alcohol induced acute pancreatitis without necrosis or infection (principal); F10.10 Alcohol abuse, uncomplicated; F14.10 Cocaine abuse, uncomplicated; F12.10 Cannabis abuse, uncomplicated; F41.1 Generalized anxiety disorder; F17.210 Nicotine dependence, cigarettes, uncomplicated; E66.9 Obesity, unspecified; Z68.38 Body mass index [BMI] 38.0-38.9, adult
CPT/HCPCS: 36415; 74177; 80048; 80053; 80076; 80307; 80320; 81003; 81025; 83690; 83735; 84100; 85025; 96374; 96375; 99285; C9113; J1170; J2405; J3010; J7030; Q9967

== ENCOUNTER 2019-08-28 08:16 | Inpatient (IN) | payer SELFPAY ==
[2019-08-28] MEDS ORDERED: MORPHINE 4 MG/ML SYR ONE (09:14)
[2019-08-28] MEDS ORDERED: ONDANSETRON 4 MG/2 ML VIAL ONE (09:15)
[2019-08-28] MEDS ORDERED: NA CHLORIDE 0.9% 500 ML ONE (09:15)
[2019-08-28 09:27] LABS: Absolute Lymphocytes (CBC) 2.2 K/uL (0.7-4.9); Basophils % 0.6 % (0-1.3); Hematocrit 37.1 % (36.0-45.0); Lymphocytes % 26.2 % (15.3-44.8); RBC Red Blood Cell Count 4.88 M/uL (3.86-4.86)
[2019-08-28 09:53] LABS: Albumin 3.7 g/dL (3.4-5.0); Bilirubin Direct 0.1 mg/dL (0-0.2); Bilirubin Total 0.5 mg/dL (0.2-1.0); Potassium 3.9 mmol/L (3.5-5.1); Protein, Total 7.4 g/dL (6.4-8.2)
--- NOTE | 2019-08-28 10:26 | RAD REPORT ---
EXAM DESCRIPTION: CT - Stone Protocol - 08/28/2019 9:38 am CLINICAL HISTORY: Abdominal pain. Vomiting COMPARISON: April 2019 TECHNIQUE: Computed axial tomography of the abdomen pelvis was obtained without oral or IV contrast. Lack of IV and oral contrast limits evaluation of solid organs, bowel, and vessels. Coronal reformat lexis images were obtained and reviewed. All CT scans are performed using dose optimization technique as appropriate and may include automated exposure control or mA/KV adjustment according to patient size. FINDINGS: A renal calculus is not seen. An ureteral calculus is not noted. A bladder calculus is not present. Fatty liver The spleen, adrenals and kidneys appear unremarkable Cholecystectomy The pancreas is normal size. Mild stranding within the fat adjacent to the pancreatic head. No pseudo cyst There is no evidence of diverticulitis. The appendix appears normal No adnexal mass. Tiny umbilical hernia IMPRESSION: Negative for a genitourinary calculus Mild stranding adjacent to the pancreas may indicate a mild pancreatitis
[2019-08-28] MEDS ORDERED: HYDROCODONE/APAP 10/325 TAB ONE (10:43)
--- NOTE | 2019-08-28 12:18 | ER ---
Nurse's Notes [facility] Name: Rufina Pavon Age: 23 yrs Sex: Female : 1995 Arrival Date: 08/28/2019 Time: 08:18 Bed 7 Private MD: Unknown, Unknown Diagnosis: Acute pancreatitis Presentation: 08/28 08:39 Presenting complaint: Patient states: vomited 2 days ago and yesterday, also had right iw flank pain and RUQ pain 2 days ago, hx of pancreatitis, denies urinary s/s. Transition of care: patient was not received from another setting of care. Onset of symptoms was August 26, 2019. Risk Assessment: Do you want to hurt yourself or someone else? Patient reports no desire to harm self or others. Initial Sepsis Screen: Does the patient meet any 2 criteria? No. Patient's initial sepsis screen is negative. Does the patient have a suspected source of infection? No. Patient's initial sepsis screen is negative. Care prior to arrival: None. 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 - Social history:: Smoking status: Patient uses tobacco products, 2-3 cigarettes per day . - Ebola Screening: : Patient negative for fever greater than or equal to 101.5 degrees Fahrenheit, and additional compatible Ebola Virus Disease symptoms Patient denies exposure to infectious person Patient denies travel to an Ebola-affected area in the 21 days before illness onset No symptoms or risks identified at this time. Screenin:10 Abuse screen: Denies threats or abuse. Denies injuries from another. Nutritional sv screening: No deficits noted. Tuberculosis screening: No symptoms or risk factors identified. Fall Risk None identified. Assessment: 09:10 General: Appears in no apparent distress. uncomfortable, well developed, Behavior is sv cooperative, appropriate for age, restless. Pain: Complains of pain in posterior aspect of right lateral abdomen and anterior aspect of right lateral abdomen Pain currently is 8 out of 10 on a pain scale. Neuro: Level of Consciousness is awake, alert, obeys commands, Oriented to person, place, time, situation, Gait is steady. Respiratory: Respiratory effort is even, unlabored, Respiratory pattern is regular, symmetrical. GI: Abdomen is round. : Denies burning with urination, inability to void. Derm: Skin is pink, warm \T\ dry. 10:40 Reassessment: Patient appears in no apparent distress at this time. Patient and/or sv family updated on plan of care and expected duration. Pain level reassessed. Patient is alert, oriented x 3, equal unlabored respirations, skin warm/dry/pink. c/o pain returning, informed Dr Hardin; medication order received. 12:00 Reassessment: Patient appears in no apparent distress at this time. Patient and/or sv family updated on plan of care and expected duration. Pain level reassessed. Patient is alert, oriented x 3, equal unlabored respirations, skin warm/dry/pink. 13:43 Reassessment: Patient appears in no apparent distress at this time. Patient and/or sv family updated on plan of care and expected duration. Pain level reassessed. Patient is alert, oriented x 3, equal unlabored respirations, skin warm/dry/pink. Vital Signs: 08:42 BP 127 / 75; Pulse 60; Resp 16 S; Temp 98.1(TE); Pulse Ox 100% on R/A; Weight 96.16 kg; iw Height 5 ft. 0 in. (152.40 cm); Pain 8/10; 09:32 BP 118 / 70; Pulse 60; Resp 16; Pulse Ox 99% ; sv 10:15 BP 119 / 76; Pulse 55; Resp 16; Pulse Ox 100% ; sv 11:00 BP 115 / 70; Pulse 47; Resp 18; Pulse Ox 99% on R/A; sv 11:55 Pain 6/10; sv 11:59 BP 92 / 44; Pulse 51; Resp 18; Pulse Ox 100% ; sv 13:00 BP 91 / 54; Pulse 49; Resp 16; Pulse Ox 99% ; sv 13:42 BP 96 / 55; Pulse 51; Resp 16; Pulse Ox 99% ; sv 08:42 Body Mass Index 41.40 (96.16 kg, 152.40 cm) iw ED Course: 08:18 Patient arrived in ED. ag5 08:18 Unknown, Unknown is Private Physician. ag5 08:32 Km Hardin MD is Attending Physician. kdr 08:41 Triage completed. iw 08:42 Arm band placed on. iw 09:06 Brittany Mehta, RN is Primary Nurse. sv 09:06 Radiology exam delayed due to test not completed at this time. sj 09:10 Patient has correct armband on for positive identification. Bed in low position. Call sv light in reach. Pulse ox on. NIBP on. Door closed. Head of bed elevated. 09:10 Inserted saline lock: 20 gauge in right antecubital area, using aseptic technique. sv Blood collected. Flushed right antecubital with 5 ml normal saline. 09:29 Awaiting lab results, Awaiting CT Scan. sv 09:31 Urine --Ancillary (enter results) Sent. sv 09:31 Urine Dipstick--Ancillary (enter results) Sent. sv 09:[address] via wheelchair. sv 09:39 CT Stone Protocol In Process Unspecified. EDMS 09:[address] from [address]. sv 12:14 Curtis Nidaye DO is Hospitalizing Provider. kdr 12:58 Awaiting bed assignment. sv 13:42 No provider procedures requiring assistance completed. Patient admitted, IV remains in sv place. intact. Administered Medications: 09:25 Drug: Zofran 4 mg Route: IVP; Site: right antecubital; sv 10:00 Follow up: Response: No adverse reaction sv 09:25 Drug: NS 0.9% 500 ml Route: IV; Rate: bolus; Site: right antecubital; sv 10:00 Follow up: Response: No adverse reaction; IV Status: Completed infusion; IV Intake: sv 500ml 09:27 Drug: morphine 4 mg {Note: RASS2.} Route: IVP; Site: right antecubital; sv 10:00 Follow up: Response: No adverse reaction; RASS: Restless (+1) sv 10:44 Drug: Export 10 mg-325 mg 1 tabs {Note: RASS2.} Route: PO; sv 11:55 Follow up: Pain 6/10 Adult; Response: No adverse reaction; Pain is decreased; RASS: sv Alert and Calm (0) Intake: 10:00 IV: 500ml; Total: 500ml. sv Outcome: 12:17 Decision to Hospitalize by Provider. kdr 13:43 Admitted to Med/surg accompanied by tech, via wheelchair, room 414, with chart, Report sv called to Sherrell MEJÍA 13:43 Condition: stable 13:43 Instructed on the need for admit. 14:16 Patient left the ED. jenna Signatures: Dispatcher [employer] Brittany Mcgowan RN RN sv Rittger, Kevin, MD MD kdr Jones, Portia Mullen RN RN iw Martinez, Eric 1 Ramiro Trotter ag5 Corrections: (The following items were deleted from the chart) 11:58 11:16 BP 168 / 60; Pulse 59bpm; Resp 16bpm; Pulse Ox 95% RA; em1 salima
--- NOTE | 2019-08-28 12:18 | EDPHYS ---
Physician Documentation [facility] Name: Rufina Pavon Age: 23 yrs Sex: Female : 1995 Arrival Date: 08/28/2019 Time: 08:18 Bed 7 Private MD: Unknown, Unknown ED Physician Km Hardin HPI: 08/28 09:49 This 23 yrs old Female presents to ER via Ambulatory with complaints of Side kdr Pain. 09:49 The patient presents with abdominal pain in the right upper quadrant, Right flank and kdr CVA tenderness. Onset: The symptoms/episode began/occurred gradually, 2 day(s) ago. The symptoms radiate to the right flank. Associated signs and symptoms: Pertinent positives: nausea and vomiting, Pertinent negatives: constipation, headache, hematuria, nausea, palpitations, shortness of breath, vaginal discharge, vomiting blood. The symptoms are described as achy, constant, crampy, sharp, steady. Modifying factors: The symptoms are alleviated by nothing, the symptoms are aggravated by emotional upset, home stress, jumping, movement. Severity of pain: At its worst the pain was moderate severe just prior to arrival, in the emergency department the pain is unchanged. The patient has not experienced similar symptoms in the past. The patient has not recently seen a physician. The patient states that this feels like her prior episodes of pancreatitis which is caused by ETOH. She last drank over the weekend. 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 - Social history:: Smoking status: Patient uses tobacco products, 2-3 cigarettes per day . - Ebola Screening: : Patient negative for fever greater than or equal to 101.5 degrees Fahrenheit, and additional compatible Ebola Virus Disease symptoms Patient denies exposure to infectious person Patient denies travel to an Ebola-affected area in the 21 days before illness onset No symptoms or risks identified at this time. ROS: 09:49 Constitutional: Negative for fever, chills, and weight loss, Eyes: Negative for injury, kdr pain, redness, and discharge, ENT: Negative for injury, pain, and discharge, Neck: Negative for injury, pain, and swelling, Cardiovascular: Negative for chest pain, palpitations, and edema, Respiratory: Negative for shortness of breath, cough, wheezing, and pleuritic chest pain, Back: Negative for injury and pain, : Negative for injury, bleeding, discharge, and swelling, MS/Extremity: Negative for injury and deformity, Skin: Negative for injury, rash, and discoloration, Neuro: Negative for headache, weakness, numbness, tingling, and seizure activity. Psych: Negative for depression, anxiety, suicide ideation, homicidal ideation, and hallucinations, Allergy/Immunology: Negative for hives, rash, and allergies, Endocrine: Negative for neck swelling, polydipsia, polyuria, polyphagia, and marked weight changes, Hematologic/Lymphatic: Negative for swollen nodes, abnormal bleeding, and unusual bruising. 09:49 Abdomen/GI: Positive for abdominal pain, nausea and vomiting, Negative for diarrhea, constipation, abdominal cramps, anorexia, dysphagia, hematemesis, black/tarry stool, rectal pain, rectal bleeding, bowel incontinence. Exam: 09:49 Constitutional: This is a well developed, well nourished patient who is awake, alert, kdr and in no acute distress. Head/Face: Normocephalic, atraumatic. Eyes: Pupils equal round and reactive to light, extra-ocular motions intact. Lids and lashes normal. Conjunctiva and sclera are non-icteric and not injected. Cornea within normal limits. Periorbital areas with no swelling, redness, or edema. Neck: Trachea midline, no thyromegaly or masses palpated, and no cervical lymphadenopathy. Supple, full range of motion without nuchal rigidity, or vertebral point tenderness. No Meningismus. Chest/axilla: Normal chest wall appearance and motion. Nontender with no deformity. No lesions are appreciated. Cardiovascular: Regular rate and rhythm with a normal S1 and S2. No gallops, murmurs, or rubs. Normal PMI, no JVD. No pulse deficits. Respiratory: Lungs have equal breath sounds bilaterally, clear to auscultation and percussion. No rales, rhonchi or wheezes noted. No increased work of breathing, no retractions or nasal flaring. Skin: Warm, dry with normal turgor. Normal color with no rashes, no lesions, and no evidence of cellulitis. MS/ Extremity: Pulses equal, no cyanosis. Neurovascular intact. Full, normal range of motion. Neuro: Awake and alert, GCS 15, oriented to person, place, time, and situation. Cranial nerves II-XII grossly intact. Motor strength 5/5 in all extremities. Sensory grossly intact. Cerebellar exam normal. Normal gait. Psych: Awake, alert, with orientation to person, place and time. Behavior, mood, and affect are within normal limits. 09:49 Abdomen/GI: Inspection: abdomen appears normal, obese Bowel sounds: active, diminished, in all quadrants, Palpation: soft, mild abdominal tenderness, in all quadrants, mass, is not appreciated, rebound tenderness, is not appreciated. Vital Signs: 08:42 BP 127 / 75; Pulse 60; Resp 16 S; Temp 98.1(TE); Pulse Ox 100% on R/A; Weight 96.16 kg; iw Height 5 ft. 0 in. (152.40 cm); Pain 8/10; 09:32 BP 118 / 70; Pulse 60; Resp 16; Pulse Ox 99% ; sv 10:15 BP 119 / 76; Pulse 55; Resp 16; Pulse Ox 100% ; sv 11:00 BP 115 / 70; Pulse 47; Resp 18; Pulse Ox 99% on R/A; sv 11:55 Pain 6/10; sv 11:59 BP 92 / 44; Pulse 51; Resp 18; Pulse Ox 100% ; sv 13:00 BP 91 / 54; Pulse 49; Resp 16; Pulse Ox 99% ; sv 13:42 BP 96 / 55; Pulse 51; Resp 16; Pulse Ox 99% ; sv 08:42 Body Mass Index 41.40 (96.16 kg, 152.40 cm) iw MDM: 12:17 Patient medically screened. kdr 08/29 07:06 Data reviewed: vital signs, nurses notes, lab test result(s), radiologic studies. kdr Counseling: I had a detailed discussion with the patient and/or guardian regarding: the historical points, exam findings, and any diagnostic results supporting the discharge/admit diagnosis, lab results, radiology results, the need for outpatient follow up. 08/28 09:03 Order name: Basic Metabolic Panel; Complete Time: 10:15 kdr 08/28 09:03 Order name: CBC with Diff; Complete Time: 09:48 kdr 08/28 09:03 Order name: Creatinine for Radiology; Complete Time: 09:48 kdr 08/28 09:03 Order name: Hepatic Function; Complete Time: 10:15 kdr 08/28 09:03 Order name: Lipase; Complete Time: 10:15 kdr 08/28 09:29 Order name: Urine Dipstick--Ancillary (enter results) bd 08/28 09:03 Order name: IV Saline Lock; Complete Time: 09:17 kdr 08/28 09:03 Order name: Labs collected and sent; Complete Time: 09:17 kdr 08/28 09:03 Order name: CT Stone Protocol; Complete Time: 10:40 kdr 08/28 09:29 Order name: Urine --Ancillary (enter results) bd 08/28 09:03 Order name: Urine Test (obtain specimen); Complete Time: 09:29 kdr 08/28 09:03 Order name: Urine Dipstick-Ancillary (obtain specimen); Complete Time: 09:29 kdr Administered Medications: 08/28 09:25 Drug: Zofran 4 mg Route: IVP; Site: right antecubital; sv 10:00 Follow up: Response: No adverse reaction sv 09:25 Drug: NS 0.9% 500 ml Route: IV; Rate: bolus; Site: right antecubital; sv 10:00 Follow up: Response: No adverse reaction; IV Status: Completed infusion; IV Intake: sv 500ml 09:27 Drug: morphine 4 mg {Note: RASS2.} Route: IVP; Site: right antecubital; sv 10:00 Follow up: Response: No adverse reaction; RASS: Restless (+1) sv 10:44 Drug: Isabel 10 mg-325 mg 1 tabs {Note: RASS2.} Route: PO; sv 11:55 Follow up: Pain 6/10 Adult; Response: No adverse reaction; Pain is decreased; RASS: sv Alert and Calm (0) Disposition: 08/28/19 12:17 Hospitalization ordered by Curtis Ndiaye for Observation. Preliminary diagnosis is Acute pancreatitis. - Bed requested for Telemetry/MedSurg (observation). - Status is Observation. iw - Condition is Fair. - Problem is an acute exacerbation. - Symptoms have improved. UTI on Admission? No Signatures: Dispatcher [employer] Brittany Mcgowan RN RN sv Jenelle Raya RN RN dw Km Hardin MD MD [facility] Portia Goldsmith RN RN iw Corrections: (The following items were deleted from the chart) 13:04 12:17 Hospitalization Ordered by Curtis Ndiaye DO for Observation. Preliminary dw diagnosis is Acute pancreatitis. Bed requested for Telemetry/MedSurg (observation). Status is Observation. Condition is Fair. Problem is an acute exacerbation. Symptoms have improved. UTI on Admission? No. kdr 14:16 13:04 08/28/2019 12:17 Hospitalization Ordered by Curtis Ndiaye DO for Observation. iw Preliminary diagnosis is Acute pancreatitis. Bed requested for Telemetry/MedSurg (observation). Status is Observation. Condition is Fair. Problem is an acute exacerbation. Symptoms have improved. UTI on Admission? No. dw
--- NOTE | 2019-08-28 12:46 | P.HP ---
Certification for Inpatient Patient admitted to: Observation With expected LOS: <2 Midnights Patient will require the following post-hospital care: None Practitioner: I am a practitioner with admitting privileges, knowledge of patient current condition, hospital course, and medical plan of care. Services: Services provided to patient in accordance with Admission requirements found in Title 42 Section 412.3 of the Code of Federal Regulations Patient History Date of Service: 08/28/19 Primary Care Provider: none Reason for admission: Abdominal pain History of Present Illness: 23-year-old female with history of recurrent alcoholic pancreatitis presents with abdominal pain. Patient reported increase abdominal pain to the epigastric region over the last 2 days. She admits drinking alcohol about 1 week ago. Over the last 2 days she has been having increased nausea and vomiting. She did report taking ibuprofen to help with the pain. She reports that this made it worse. Pain would radiate to the right upper quadrant. She has had poor oral intake since that time. She came to the ER for further evaluation. In the ER patient was evaluated. Vital signs stable. White count 8.3, hemoglobin 12. Platelet count of 233. Sodium 139, potassium 3.9, BUN of 10, creatinine 0.8 with a GFR of 84. Lipase 97. LFTs unremarkable. CT scan showed some stranding around the pancreas indicated of mild pancreatitis. Patient was given IV pain medication the emergency room. Patient admitted for observation and treatment. When I saw the patient in the ER, patient appeared stable. Patient desired to go home as she needed to work. But patient still had pain. Patient admits drinking alcohol last week. Patient with history of cocaine abuse. Allergies vancomycin Allergy (Verified 03/03/19 02:12) Itching Home medications list reviewed: Yes Home Medications: NK [No Home Meds] 05/13/19 - Past Medical/Surgical History Diabetic: No -: Alcohol abuse -: Cocaine abuse -: Anxiety -: Recurrent pancreatitis -: Tobacco abuse -: cholecystectomy Psychosocial/ Personal History: Patient lives at home - Family History Family History: Reviewed- Non-Contributory - Family History Mother Notes: States mother is healthy - Social History Smoking Status: Light Tobacco smoker (1-9 cigarettes/day) Counseled patient to stop smoking for: less than 10 minutes Smoking therapy provided: Yes Patient receptive to therapy: No Alcohol use: Yes CD- Drugs: No Caffeine use: Yes Place of Residence: Home Review of Systems General: As per HPI Eyes: Unremarkable ENT: Unremarkable Respiratory: Unremarkable Cardiovascular: Unremarkable Gastrointestinal: Nausea, Vomiting, Abdominal Pain, As per HPI Genitourinary: Unremarkable Musculoskeletal: Back Pain, As per HPI Integumentary: Unremarkable Neurological: Unremarkable Lymphatics: Unremarkable Physical Examination - Physical Exam General: Alert, In no apparent distress, Oriented x3, Cooperative HEENT: Atraumatic, Normocephalic, Other (Dry mucous membranes), EOMI Neck: Supple, No Thyromegaly Respiratory: Clear to auscultation bilaterally, Normal air movement Cardiovascular: Normal pulses, Regular rate/rhythm Gastrointestinal: Normal bowel sounds, Soft and benign, Non-distended, No masses , No rebound, No guarding, Tenderness (Pain to the epigastric and right upper quadrant region) Musculoskeletal: No erythema, No tenderness, No warmth Integumentary: No tenderness/swelling, No erythema, No warmth, No cyanosis Neurological: Normal speech, Normal strength at 5/5 x4 extr, Normal tone, Normal affect - Studies Laboratory Data (last 24 hrs) 08/28/19 09:10: Creatinine 0.82 08/28/19 09:10: WBC 8.3, Hgb 12.0, Hct 37.1, Plt Count 238 08/28/19 09:10: Sodium 139, Potassium 3.9, BUN 10, Creatinine 0.83, Glucose 128 H, Total Bilirubin 0.5, AST 24, ALT 60, Alkaline Phosphatase 124 H, Lipase 97 Assessment and Plan - Plan Impression: Epigastric abdominal pain with nausea and vomiting secondary to recurrent alcoholic pancreatitis GERD Tobacco abuse Alcohol abuse Plan: Epigastric abdominal pain with nausea and vomiting secondary to recurrent alcoholic pancreatitis: Patient will be admitted for further treatment and observation. Will keep the patient NPO at this time. Will provide IV pain medication, Protonix, and IV fluids. Will provide IV fluid bolus at this time and continue aggressive IV fluids. Will obtain alcohol and urine drug screen. Await urinalysis with urine test. Once the pain has improved then will transition to oral hydration. Education on recurrent alcoholic pancreatitis address in detail. Patient needs to eliminate alcohol completely. The patient understands. Will continue to monitor closely. Electrolyte protocol in place. DVT prophylaxis-Lovenox in place. Anticipate discharge likely within the next 24-48 hr with clinical improvement. GERD: Continue IV Protonix. Will educate on no further use of nonsteroidal anti inflammatories Tobacco abuse: Provide nicotine patch. Will continue with tobacco cessation Alcohol abuse: Will check alcohol level. Urine drug screen to be obtained. Patient needs to eliminate alcohol completely. Patient understands Discharge Plan: Home Plan to discharge in: 24 Hours - Advance Directives Does patient have a Living Will: No Does patient have a Durable POA for Healthcare: No - Code Status/Comfort Care Code Status Assessed: Yes (Patient is full code) Time Spent Managing Pts Care (In Minutes): 55
[2019-08-28] MEDS ORDERED: SODIUM CHLORIDE 0.9% 10ML INJ IV PRN (14:21)
[2019-08-28] MEDS ORDERED: ACETAMINOPHEN 500 MG TAB PO PRN (14:21)
[2019-08-28] MEDS ORDERED: ACETAMINOPHEN 650MG/RECT SUPP PR PRN (14:21)
[2019-08-28] MEDS ORDERED: NA CHLORIDE 0.9% 1,000 ML IV ONE (15:00)
[2019-08-28] MEDS: NICOTINE 21 MG/PAT TD SCH (15:42)
[2019-08-28] MEDS: NACHLORIDE 0.45% 1,000 ML IV SCH ×2 (15:42→22:21)
[2019-08-28] MEDS: ENOXAPARIN 40 MG/0.4 ML SQ SCH (15:42)
[2019-08-28] MEDS: MORPHINE 2 MG/ML SYR IV PRN ×2 (15:43→20:30)
[2019-08-28 16:00] VITALS: BMI 41.3
[2019-08-28 18:00] LABS: Urine Blood NEGATIVE (NEG); Urine Glucose NEGATIVE (NEG); Urine Protein NEGATIVE (NEG); Urine Specific Gravity 1.025 (1.005-1.030); Urine pH 6.5 (5.0-7.0)
[2019-08-28] MEDS ORDERED: INFLUENZA VACCINE (for 3y+) 0.5 ML DOSE IMVAC ONE (18:00)
[2019-08-28] MEDS: ONDANSETRON 4 MG/2 ML VIAL IV PRN (20:30)
[2019-08-29] MEDS: MORPHINE 2 MG/ML SYR IV PRN (02:34)
[2019-08-29] MEDS: ONDANSETRON 4 MG/2 ML VIAL IV PRN (02:34)
[2019-08-29 04:33] LABS: Basophils % 0.2 % (0-1.3); Hematocrit 34.9 % (36.0-45.0); Lymphocytes % 19.9 % (15.3-44.8); MPV 9.1 fL (7.6-11.3); RBC Red Blood Cell Count 4.61 M/uL (3.86-4.86)
[2019-08-29 05:16] LABS: ALT/SGPT 50 U/L (12-78); AST/SGOT 20 U/L (15-37); Albumin 3.3 g/dL (3.4-5.0); Alkaline Phosphatase 114 U/L (45-117); BUN Blood Urea Nitrogen 7 mg/dL (7-18); Bicarbonate 27 mmol/L (21-32); Bilirubin Total 0.4 mg/dL (0.2-1.0); Glucose Level 114 mg/dL (74-106); Lipase 363 U/L (73-393); Magnesium 2.2 mg/dL (1.8-2.4); Potassium 3.9 mmol/L (3.5-5.1); Protein, Total 6.6 g/dL (6.4-8.2); Sodium Level 137 mmol/L (136-145)
[2019-08-29] MEDS ORDERED: MORPHINE 2 MG/ML SYR IV ONE (06:31)
[2019-08-29] MEDS: ENOXAPARIN 40 MG/0.4 ML SQ SCH (08:01)
[2019-08-29] MEDS: NICOTINE 21 MG/PAT TD SCH (08:01)
[2019-08-29] MEDS ORDERED: PANTOPRAZOLE 40 MG INJ IVP SCH (09:00)
[2019-08-29 09:28] LABS: Barbiturates NEGATIVE (NEGATIVE); Benzodiazepines NEGATIVE (NEGATIVE); Cocaine POSITIVE (NEGATIVE); METHAMPHETAM NEGATIVE (NEGATIVE); Methadone NEGATIVE (NEGATIVE); Opiates POSITIVE (NEGATIVE); Phencyclidine NEGATIVE (NEGATIVE); THC Cannibis POSITIVE (NEGATIVE)
[2019-08-29] MEDS: NACHLORIDE 0.45% 1,000 ML IV SCH (10:45)
[2019-08-29 12:32] VITALS: BP 122/71; TEMP 97
--- NOTE | 2019-08-29 12:46 | P.PN ---
Subjective Date of Service: 08/29/19 Primary Care Provider: none Chief Complaint: Abdominal pain Subjective: Other (Patient is slowly improving.) Physical Examination - Vital Signs Temperature: 97 F Blood Pressure: 122/71 Pulse: 75 Respirations: 18 Pulse Ox (%): 97 - Physical Exam General: Alert, In no apparent distress, Oriented x3, Cooperative HEENT: Atraumatic Neck: Supple Respiratory: Clear to auscultation bilaterally, Normal air movement Cardiovascular: Normal pulses, Regular rate/rhythm Gastrointestinal: Normal bowel sounds, Soft and benign, Non-distended, No masses , No rebound, No guarding, Tenderness (Mild pain to the epigastric region) Musculoskeletal: No erythema, No tenderness, No warmth Integumentary: No erythema, No warmth, No cyanosis Neurological: Normal speech, Normal strength at 5/5 x4 extr, Normal tone, Normal affect - Studies Medications List Reviewed: Yes Assessment & Plan Discharge Plan: Home Plan to discharge in: 48 Hours Physician Review Additional Text: Impression: Epigastric abdominal pain with nausea and vomiting secondary to recurrent alcoholic pancreatitis GERD Tobacco abuse Alcohol abuse THC/cocaine abuse Plan: Epigastric abdominal pain with nausea and vomiting secondary to recurrent alcoholic pancreatitis: Continue with IV fluids. Encourage ambulation. Patient continues to improve. Patient remains NPO at this time. Will adjust to clear liquid once abdominal pain significantly improved. Urine drug screen shows positive for THC and cocaine. Patient also positive for alcohol. Will address cessation. Anticipate discharge likely within the next 24-48 hr with clinical improvement. GERD: Continue IV Protonix. Will educate on no further use of nonsteroidal anti inflammatories Tobacco abuse: Provide nicotine patch. Will continue with tobacco cessation Alcohol abuse: Alcohol level was elevated. Addressed alcohol cessation in detail. THC/cocaine abuse: Will address cessation education. Will check to see if there is resources for rehab for this. Time Spent Managing Pts Care (In Minutes): 55
[2019-08-29 15:09] VITALS: O2SAT 97
--- NOTE | 2019-08-29 15:40 | P.DS ---
Admission Date: 08/29/19 Discharge Date: 08/29/19 Primary Care Provider: none Disposition: AMA-LEFT AGAINST MEDICAL ADVIC Discharge Condition: GOOD Reason for Admission: Abdominal pain Consultations: none Procedures: CT scan: FINDINGS: A renal calculus is not seen. An ureteral calculus is not noted. A bladder calculus is not present. Fatty liver The spleen, adrenals and kidneys appear unremarkable Cholecystectomy The pancreas is normal size. Mild stranding within the fat adjacent to the pancreatic head. No pseudocyst There is no evidence of diverticulitis. The appendix appears normal No adnexal mass. Tiny umbilical hernia IMPRESSION: Negative for a genitourinary calculus Mild stranding adjacent to the pancreas may indicate a mild pancreatitis Medical Problem List: Epigastric abdominal pain with nausea and vomiting secondary to recurrent alcoholic pancreatitis GERD Tobacco abuse Alcohol abuse THC/cocaine abuse Brief History of Present Illness: 23-year-old female with history of recurrent alcoholic pancreatitis presents with abdominal pain. Patient reported increase abdominal pain to the epigastric region over the last 2 days. She admits drinking alcohol about 1 week ago. Over the last 2 days she has been having increased nausea and vomiting. She did report taking ibuprofen to help with the pain. She reports that this made it worse. Pain would radiate to the right upper quadrant. She has had poor oral intake since that time. She came to the ER for further evaluation. In the ER patient was evaluated. Vital signs stable. White count 8.3, hemoglobin 12. Platelet count of 233. Sodium 139, potassium 3.9, BUN of 10, creatinine 0.8 with a GFR of 84. Lipase 97. LFTs unremarkable. CT scan showed some stranding around the pancreas indicated of mild pancreatitis. Patient was given IV pain medication the emergency room. Patient admitted for observation and treatment. When I saw the patient in the ER, patient appeared stable. Patient desired to go home as she needed to work. But patient still had pain. Patient admits drinking alcohol last week. Patient with history of cocaine abuse. Hospital Course: Patient presented with epigastric abdominal pain, nausea and vomiting. Patient was found to have recurrent alcoholic pancreatitis. CT scan reviewed showed mild pancreatitis. Initial lipase unremarkable. The patient was was kept NPO. IV fluids was initiated. Prior to admission patient mention that her last alcohol use was last week. Upon further review alcohol level was elevated upon admission. Patient also positive for THC and cocaine abuse. Patient has had a history of abuse in the past. Her condition was slowly improving. Patient had yet to be started on clear liquid diet. Nurses inform me that the patient desired to leave against medical advice. I came to reassess the patient. By the time I arrived patient had left. Patient had signed against medical advice. Early this morning, I did address her issues of recurrent alcoholic pancreatitis. I addressed the importance of treatment and cessation of alcohol/ THC and cocaine. She understands that her condition can reoccur if she continues to drink alcohol and use cocaine. Patient would benefit with rehab. AMA form reviewed. AMA formed signed by patient with nurses present before she left. Case discussed with nurse and charge nurse Vital Signs/Physical Exam: Temp Pulse Resp BP Pulse Ox 97 F 75 18 122/71 97 08/29/19 12:46 08/29/19 12:46 08/29/19 12:46 08/29/19 12:46 08/29/19 12:46 General: Other (Patient left against medical advice. Patient seen early during the day.) Laboratory Data at Discharge: WBC 10.2 K/uL (4.3-10.9) D 08/29/19 03:50 Hgb 11.6 g/dL (12.0-15.0) L 08/29/19 03:50 Hct 34.9 % (36.0-45.0) L 08/29/19 03:50 Plt Count 214 K/uL (152-406) 08/29/19 03:50 Sodium 137 mmol/L (136-145) 08/29/19 03:50 Potassium 3.9 mmol/L (3.5-5.1) 08/29/19 03:50 BUN 7 mg/dL (7-18) 08/29/19 03:50 Creatinine 0.70 mg/dL (0.55-1.3) 08/29/19 03:50 Glucose 114 mg/dL (74-106) H 08/29/19 03:50 Magnesium 2.2 mg/dL (1.8-2.4) 08/29/19 03:50 Total Bilirubin 0.4 mg/dL (0.2-1.0) 08/29/19 03:50 AST 20 U/L (15-37) 08/29/19 03:50 ALT 50 U/L (12-78) 08/29/19 03:50 Alkaline Phosphatase 114 U/L (45-117) 08/29/19 03:50 Lipase 363 U/L (73-393) 08/29/19 03:50 Home Medications: NK [No Home Meds] 08/28/19 Patient Discharge Instructions: Patient left against medical advice. Forms signed by patient with nurse and charge nurse present. Time spent managing pt's care (in minutes): 25
--- OUTSIDE RECORDS SUMMARY | 2019-09-02 00:28 | XMS REPORT ---
:1995 [facility] Address [address] [place] [address] [address] [place] [address] Care Team Providers Name Role Phone Unavailable [...]
--- OUTSIDE RECORDS SUMMARY | 2019-09-02 00:29 | XMS REPORT | Summary of Care ---
:1995 Author Organization [facility] - [facility] Address [address] [place] [id number] Care Team Providers Name Role Phone Pcp, Patient Does Not Have A Primary Care Provider Reason for Referral MRI/CAT Scan (STAT) Status Reason Specialty Diagnoses / Referred By Referred To Procedures Contact Contact New Request Diagnostic Diagnoses Abdominal pain, unspecified abdominal location Chloe Gallardo, Radiology Procedures CT ABDOMEN PELVIS W CONTRAST PAC [address] [place] [address] [place] [id number] MRI/CAT Scan (STAT) Status Reason Specialty Diagnoses / Referred By Referred To Procedures Contact Contact New Request Diagnostic Diagnoses Abdominal pain, unspecified abdominal location Chloe Gallardo, Radiology Procedures CT ABDOMEN PELVIS W CONTRAST PAC [address] [place] [address] [place] [id number] Reason for Visit Reason Comments Abdominal Pain Auth/Cert Status Reason Specialty Diagnoses / Referred By Referred To Procedures Contact Contact [facility] [address] [place] [address] [place] [address] Encounter Details Date Type Department Care Team Description 07/03/2019 - Hospital Encounter [facility] Surgery Chloe Gallardo, PAC [address] [place] [address] [place] [address] Pancreatitis 07/07/2019 Unit Regina Dewitt MD [address] [place] [address]. [address] [place], [place] [id number] [address] [place] [address] [place] [address] Allergies No Known Allergiesdocumented as of this encounter (statuses as of 07/07/2019) Medications Medication Sig Dispensed Refills Start Date End Date Status ibuprofen 800 mg Take 1 tablet 20 tablet 0 02/09/2019 Active tabletIndications: by mouth 3 Other acute (three) times pancreatitis without daily with infection or meals. For necrosis pain traMADol 50 mg Take 1-2 15 tablet 0 07/07/2019 Active tabletIndications: tablets by Other acute mouth every 6 pancreatitis without (six) hours infection or as needed for necrosis Pain (scale 7-10). acetaminophen 500 mg Take 2 30 tablet 0 07/07/2019 Active tabletIndications: tablets by Other acute mouth every 8 pancreatitis without (eight) hours infection or as needed for necrosis Pain. traMADOL 50 mg Take 1-2 15 tablet 0 02/09/2019 07/07/2019 Discontinued tabletIndications: tablets by Other acute mouth every 6 pancreatitis without (six) hours infection or as needed for necrosis Pain (scale 7-10). documented as of this encounter (statuses as of 07/07/2019) Active Problems Problem Noted Date Pancreatitis 07/03/2019 Morbid obesity with body mass index of 40.0-49.9 02/04/2019 Acute pancreatitis 02/03/2019 Obesity (BMI 30-39.9) 02/03/2019 Abdominal pain 02/03/2019 documented as of this encounter (statuses as of 07/07/2019) Social History Tobacco Use Types Packs/Day Years Used Date Current Every Day Smoker Cigarettes 0.1 Smokeless Tobacco: Never Used Alcohol Use Drinks/Week oz/Week Comments Yes heavy weekend drinker Sex Assigned at Date Recorded Not on file Job Start Date Occupation Industry Not on file Not on file Not on file Travel History Travel Start Travel End No recent travel history available. documented as of this encounter Last Filed Vital Signs Vital Sign Reading Time Taken Comments Blood Pressure 116/66 07/07/2019 11:19 AM CDT Pulse 65 07/07/2019 11:19 AM CDT Temperature 37.1 C (98.8 F) 07/07/2019 11:19 AM CDT Respiratory Rate 18 07/07/2019 11:19 AM CDT Oxygen Saturation 97% 07/07/2019 11:19 AM CDT Inhaled Oxygen Concentration - - Weight 84.5 kg (186 lb 3.2 oz) 07/03/2019 9:25 PM CDT Height 152.4 cm (5') 07/03/2019 9:25 PM CDT Body Mass Index 36.36 07/03/2019 9:25 PM CDT documented in this encounter Discharge Instructions Karena Hendricks RN - 07/07/2019 Patient Discharge Instructions Discharge date: 07/07/2019 Procedure(s): Discharge Orders Regular Diet; Texture: Regular. Texture Regular. Diabetic: No Discharge Condition - Discharge Condition: GOOD Discharge Activity Discharge Activity: As Tolerated VTE Propylaxis- Was ordered during hospitalization Follow instructions as indicated below: 1. The medication that was used will be acting in your system for the next 24 hours, so you might feel a little drowsy, with impaired judgment and or motor function. This feeling should go wear off. Because the medication is still in your system for the next 24 hours you SHOULD NOT: Drive a car, operate machinery or power tool. Drink any alcohol beverages (including beer or wine). Make any important decisions or sign any legal documents. 2. You should rest the remainder of the day and not engage in any physical activity. Move slowly today. After lying down, sit on the edge of the bed for a moment before standing. YOU ARE RESPONSIBLEFOR HAVING SOMEONE AT HOME WITH YOU DURING THE AFTERNOON AND NIGHT IMMEDIATELY FOLLOWING YOUR SURGERY. Patient should cough and deep breathe every 2-4 hours while awake to avoid respiratory complications. 4. Lifting: {IP DISCHARGE INSTRUCTIONS LIFTIN::"No medical restrictions"} 5. Weight: In general, sudden weight gains or losses should be reported to your provider. Cardiac patients should weigh daily and notify their provider for a weight gain of 3 pounds per day or 5 pounds per week. 6. Tobacco Avoidance: Follow recommendations below 7. Because the medications used could procedure some residual nausea and vomiting after you go home,you should eat lightly today, starting with clear liquids (broth, soft drinks, apple juice, jello) and toast or crackers, progressing to bland solid foods and then to your normal diet as tolerated, unless otherwise stated by your surgeon. If you get sick, wait a couple of hours and then begin to eat. After 24 hours the nausea should be gone. 8. You may experience some pain and your physician will advise you on what to take for discomfort. This should be taken as directed. If the pain is not relieved, contact your physician. You may alsohave a sore throat from the airway that was in place. You may uses lozenges, throat spray (such as Chloraseptic), or warm salt water gargles for symptomatic relief. 9. If you feel warm, take your temperature. If it is 101 degrees or above call your physician. 10. If you are unable to urinate within five hours after your procedure, call your physician. 11. The type of surgery performed will determine how much bleeding (if any) to expect. Normally, some spotting might occur. If your dressing pad becomes saturated, notify your physician. Elevate surgical site, if applicable, to reduced swelling and pain. 12. Wound/dressing care: Tips on preventing a surgical site infection.. Dont smoke. It is best to quit at least 30 days before surgery, but quitting after surgery is also helpful. If you are diabetic, keep your blood sugar well controlled. WASH YOUR HANDS. Keep your wound clean and remember to wash your hands before and after contact with the area. All health care workers should also wash their hands or use an alcohol based hand rub prior to examining you. If antibiotics are prescribed, take them as directed. Finish the entire course of antibiotics. Call your doctor if you have signs of infection: ? Increased tenderness at the surgical site ? Red streaks or increased redness of the area ? Bad-smelling discharge from the incision ? Fever of 101F or higher ? General tired feeling that doesnt improve 13. Other discharge instructions: {DC IP DISCHARGE INSTRUCTIONS OTHER:88440} 14. Special Instructions: Take Home Medications These are medications ordered for you by your healthcare provider. Do not take any other medications or supplements unless advised by your healthcare provider. Current Discharge Medication List START taking these medications Details acetaminophen 500 mg tablet Take 2 tablets by mouth every 8 (eight) hours as needed for Pain. Qty: 30 tablet, Refills: 0 Associated Diagnoses: Other acute pancreatitis without infection or necrosis CONTINUE these medications which have CHANGED Details traMADol 50 mg tablet Take 1-2 tablets by mouth every 6 (six) hours as needed for Pain (scale 7-10). Qty: 15 tablet, Refills: 0 Associated Diagnoses: Other acute pancreatitis without infection or necrosis CONTINUE these medications which have NOT CHANGED Details ibuprofen 800 mg tablet Take 1 tablet by mouth 3 (three) times daily with meals. For pain Qty: 20 tablet, Refills: 0 Associated Diagnoses: Other acute pancreatitis without infection or necrosis Follow-up appointments: Your follow up appointment with your surgeon has been made. Appointment Date: , Appointment Time . For questions regarding follow-up instructions call the Healthcare Hotline at or If you experience any of the following symptoms , please follow up with . For worsening symptoms/changing condition/problems or questions: Non-emergency/urgent: Call the Healthcare Hotline at or or Emergency: Go to the closest emergency room or call [phone] Translated by Date Time If you receive the patient satisfaction survey by mail please complete and return and let us know how we are doing. TOBACCO AVOIDANCE Exposure to tobacco either from smoking or from second hand (environmental) smoke or smokeless tobacco (snuff) is damaging to your health. This information is to encourage everyone to avoid tobacco exposure. It is recommended that you: ? If you smoke or use smokeless tobacco, we encourage you to quit. ? If you have already quit smoking, continue your good work! ? If you do not smoke or use smokeless tobacco, do not start. ? Avoid secondhand smoke. Additional Resources You may want to contact these organizations for further information on smoking and how to quit. [place] [employer], http://www.lungusa.org/stop-smoking/ [place] [employer], http://www.cancer.org/Healthy/StayAwayfromTobacco/index [place] [employer], http://www.heart.org/HEARTORG/GettingHealthy/ QuitSmoking/Quit-Smoking_[facility]_001085_SubHomePage.jsp AttachmentsThe following attachments cannot be sent through Care Everywhere.Acute Pancreatitis, Discharge Instructions for (Bah[place]i)Pancreatitis , Understanding (B[place]raini)Pancreatitis ([place]i)Tramadol tablets ([place]i) Ibuprofen tablets and capsules (B[place]raini)Acetaminophen tablets or caplets ( [place]i)documented in this encounter Progress Notes Gamaliel Reilly MD - 07/06/2019 2:45 PM CDT [facility] Hospitalist Progress Note SUBJECTIVE: No acute events overnight CURRENT MEDICATIONS - reviewed. Current Facility-Administered Medications Medication Dose Route Frequency Last Rate Last Dose FENTanyl PF (SUBLIMAZE (PF)) injection 50 mcg 50 mcg Slow IV Push Q2HPRN 50 mcg at 07/06/19 1315 D5W 0.45% NaCl (1/2NS) IV infusion 1,000 mL 1,000 mL IV Infusion CONTINUOUS 150 mL/hr at 07/06/19 1112 1,000 mL at 07/06/19 1112 ondansetron (ZOFRAN (PF)) injection 4 mg 4 mg Slow IV Push Q6HPRN 4 mg at 07/06/19 0859 PHYSICAL EXAM: BP 128/64 | Pulse 62 | Temp 36.8 C (98.3 F) (Oral) | Resp 16 | Ht 5' ( 1.524 m) | Wt 186 lb 3.2 oz (84.5 kg) | SpO2 100% | BMI 36.36 kg/m General: No respiratory distress Psych: Normal affect LABS/IMAGING - reviewed, pertinent results as below: CBC BMP PT/INR WBC (10*3/L) Date Value 07/05/2019 10.32 NA (mmol/L) Date Value 07/05/2019 140 No results found for: PT RBC (10*6/L) Date Value 07/05/2019 4.68 K (mmol/L) Date Value 07/05/2019 3.9 INR (no units) Date Value 02/08/2019 1.0 PLT (10*3/L) Date Value 07/05/2019 277 CALCIUM (mg/dL) Date Value 07/05/2019 8.8 HGB (g/dL) Date Value 07/05/2019 11.1 (L) CL (mmol/L) Date Value 07/05/2019 107 aPTT HCT (%) Date Value 07/05/2019 35.6 (L) BUN (mg/dL) Date Value 07/05/2019 3 (L) No results found for: APTTPAT CREATININE (mg/dL) Date Value 07/05/2019 0.97 IMAGING- Hospital Encounter on 07/03/19 CT ABDOMEN PELVIS W CONTRAST Narrative * * * * * * * * ORIGINAL REPORT * * * * * * * * CT ABDOMEN AND PELVIS WITH CONTRAST HISTORY: Abd pain, acute, generalized h/o cholecystectomy 01/2019 COMPARISON: Abdominal CT 04/15/2019. TECHNIQUE: Contiguous axial imaging from the level of the lung bases through the pubic symphysis was performed after the administration of 120 cc of intravenous Omnipaque contrast. Coronal and sagittal reconstructions were obtained. FINDINGS: LOWER THORAX: The lungs bases are clear. No cardiomegaly. LIVER: Diffuse low-attenuation of the liver is consistent with hepatic steatosis. No focal lesions. No biliary ductal dilation. GALLBLADDER: Prior cholecystectomy. SPLEEN: No splenomegaly. PANCREAS: No masses or ductal dilation. Ill-defined peripancreatic inflammatory stranding and edema is noted. The pancreas is normally enhancing. No ductal dilation or masses. No drainable fluid collections, abscess, or necrosis. ADRENAL GLANDS: No adrenal nodules. KIDNEYS: No hydronephrosis, stones, or masses. PERITONEUM AND RETROPERITONEUM: No free air. LYMPH NODES: No lymphadenopathy. GI TRACT: No dilation or wall thickening. Normal appendix. PELVIS: The bladder wall is thickened for the degree of distention. The uterus is unremarkable. The ovaries are normal. A 2.57 m cyst in the left ovary is noted. VESSELS: Unremarkable. BONES AND SOFT TISSUES: No aggressive or suspicious osseous lesions. Impression Ill-defined peripancreatic inflammatory stranding and edema is consistent with acute interstitial pancreatitis. Circumferential bladder wall thickening may be due to underdistention, or possibly cystitis. Clinical correlation is recommended. Hepatic steatosis. I, Precious Payton MD., have reviewed this study and agree with the above report. ASSESSMENT/PLAN Rufina Pavon is a 23 year old female with PMH as listed above, admitted to the hospital with: Acute uncomplicated pancreatitis Unclear etiology but likely due to continued alcohol abuse, counseled on cessation today and previous admission. Also polysubstance abuse, counseled on cessation. Smoker, counseled on cessation. Check etoh levels and utox. Had cholycestectomy already. Morbid obesity. Hx of prediabetes. CT done, illdefined panc inflammation/edema, hepatic steatosis, bladder wall thickening Wbc 14.7, lipase 1488 Improved with IVF, NPO, fentanyl prn Advance to soft diet today Left eye stye Warm compress tid dvt proph SCD Full Code Doesn't take home medications Disposition: Home Gamaliel Reilly MD Gamaliel traore MD - 07/05/2019 5:42 PM CDT [facility] Hospitalist Progress Note SUBJECTIVE: No acute events overnight CURRENT MEDICATIONS - reviewed. Current Facility-Administered Medications Medication Dose Route Frequency Last Rate Last Dose FENTanyl PF (SUBLIMAZE (PF)) injection 50 mcg 50 mcg Slow IV Push Q2HPRN 50 mcg at 07/05/19 1558 D5W 0.45% NaCl (1/2NS) IV infusion 1,000 mL 1,000 mL IV Infusion CONTINUOUS 150 mL/hr at 07/05/19 1348 1,000 mL at 07/05/19 1348 docusate (COLACE) capsule 100 mg 100 mg Oral BID 100 mg at 07/05/19 1026 ondansetron (ZOFRAN (PF)) injection 4 mg 4 mg Slow IV Push Q6HPRN 4 mg at 07/05/19 1225 pantoprazole (PROTONIX) 40 mg in NaCl 0.9% (NS) 100 mL MINI-BAG 40 mg IV Piggyback Q24H 40 mgat 07/05/19 0110 PHYSICAL EXAM: BP 125/84 | Pulse 66 | Temp 36.8 C (98.3 F) (Oral) | Resp 18 | Ht 5' ( 1.524 m) | Wt 186 lb 3.2 oz (84.5 kg) | SpO2 98% | BMI 36.36 kg/m General: No respiratory distress Psych: Normal affect LABS/IMAGING - reviewed, pertinent results as below: CBC BMP PT/INR WBC (10*3/L) Date Value 07/05/2019 10.32 NA (mmol/L) Date Value 07/05/2019 140 No results found for: PT RBC (10*6/L) Date Value 07/05/2019 4.68 K (mmol/L) Date Value 07/05/2019 3.9 INR (no units) Date Value 02/08/2019 1.0 PLT (10*3/L) Date Value 07/05/2019 277 CALCIUM (mg/dL) Date Value 07/05/2019 8.8 HGB (g/dL) Date Value 07/05/2019 11.1 (L) CL (mmol/L) Date Value 07/05/2019 107 aPTT HCT (%) Date Value 07/05/2019 35.6 (L) BUN (mg/dL) Date Value 07/05/2019 3 (L) No results found for: APTTPAT CREATININE (mg/dL) Date Value 07/05/2019 0.97 IMAGING- Hospital Encounter on 07/03/19 CT ABDOMEN PELVIS W CONTRAST Narrative * * * * * * * * ORIGINAL REPORT * * * * * * * * CT ABDOMEN AND PELVIS WITH CONTRAST HISTORY: Abd pain, acute, generalized h/o cholecystectomy 01/2019 COMPARISON: Abdominal CT 04/15/2019. TECHNIQUE: Contiguous axial imaging from the level of the lung bases through the pubic symphysis was performed after the administration of 120 cc of intravenous Omnipaque contrast. Coronal and sagittal reconstructions were obtained. FINDINGS: LOWER THORAX: The lungs bases are clear. No cardiomegaly. LIVER: Diffuse low-attenuation of the liver is consistent with hepatic steatosis. No focal lesions. No biliary ductal dilation. GALLBLADDER: Prior cholecystectomy. SPLEEN: No splenomegaly. PANCREAS: No masses or ductal dilation. Ill-defined peripancreatic inflammatory stranding and edema is noted. The pancreas is normally enhancing. No ductal dilation or masses. No drainable fluid collections, abscess, or necrosis. ADRENAL GLANDS: No adrenal nodules. KIDNEYS: No hydronephrosis, stones, or masses. PERITONEUM AND RETROPERITONEUM: No free air. LYMPH NODES: No lymphadenopathy. GI TRACT: No dilation or wall thickening. Normal appendix. PELVIS: The bladder wall is thickened for the degree of distention. The uterus is unremarkable. The ovaries are normal. A 2.57 m cyst in the left ovary is noted. VESSELS: Unremarkable. BONES AND SOFT TISSUES: No aggressive or suspicious osseous lesions. Impression Ill-defined peripancreatic inflammatory stranding and edema is consistent with acute interstitial pancreatitis. Circumferential bladder wall thickening may be due to underdistention, or possibly cystitis. Clinical correlation is recommended. Hepatic steatosis. I, Precious Payton MD., have reviewed this study and agree with the above report. ASSESSMENT/PLAN Rufina Pavon is a 23 year old female with PMH as listed above, admitted to the hospital with: Acute uncomplicated pancreatitis Unclear etiology but likely due to continued alcohol abuse, counseled on cessation today and previous admission. Also polysubstance abuse, counseled on cessation. Smoker, counseled on cessation. Check etoh levels and utox. Had cholycestectomy already. Morbid obesity. Hx of prediabetes. 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: Decreased intake Admission Chief Complaint: Chief Complaint Patient presents with Abdominal Pain Problem List/Diagnosis: Problem List Items Addressed This Visit Abdominal pain - Primary Nutrition Assessment PMH/PSH: Past Medical History: Diagnosis Date Insomnia Obesity Recurrent pancreatitis Past Surgical History: Procedure Laterality Date LAPAROSCOPIC CHOLECYSTECTOMY N/A 02/08/2019 Surgeon: Tereza Castañeda MD; Location: [facility] GI and Nutrition Related Findings: GI Symptoms: Nausea, Vomiting and Abdominal Pain Difficulty Chewing/Swallowing: N/A GI tract alteration: N/A Alternative means of nutrition: N/A General: N/A Medications: Current Facility-Administered Medications: FENTanyl PF (SUBLIMAZE (PF)) injection 50 mcg, 50 mcg, Slow IV Push, Q2HPRN , Regina Dewitt MD, 50 mcg at 07/05/19 1228 D5W 0.45% NaCl (1/2NS) IV infusion 1,000 mL, 1,000 mL, IV Infusion, CONTINUOUS, Regina Dewitt MD, Last Rate: 150 mL/hr at 07/05/19 0627, 1,000 mL at 07/05/19 0627 docusate (COLACE) capsule 100 mg, 100 mg, Oral, BID, Regina Dewitt MD, 100 mg at 07/05/19 1026 ondansetron (ZOFRAN (PF)) injection 4 mg, 4 mg, Slow IV Push, Q6HPRN, Regina Dewitt MD, 4 mg at 07/05/19 1225 pantoprazole (PROTONIX) 40 mg in NaCl 0.9% (NS) 100 mL MINI-BAG, 40 mg, IV Piggyback, Q24H, Regina Dewitt MD, 40 mg at 07/05/19 0110 Lab and Medical Test Results: NA (mmol/L) Date Value 07/05/2019 140 K (mmol/L) Date Value 07/05/2019 3.9 CALCIUM (mg/dL) Date Value 07/05/2019 8.8 ALBUMIN (g/dL) Date Value 07/05/2019 3.8 PHOSPHORUS (mg/dL) Date Value 07/04/2019 2.9 CL (mmol/L) Date Value 07/05/2019 107 BUN (mg/dL) Date Value 07/05/2019 3 (L) CREATININE (mg/dL) Date Value 07/05/2019 0.97 GLUCOSE (mg/dL) Date Value 07/05/2019 152 (H) HGB A1C (% NGSP) Date Value 04/15/2019 6.1 (H) CO2 TOTAL (mmol/L) Date Value 07/05/2019 25 T PROTEIN (g/dL) Date Value 07/05/2019 6.7 ALT(SGPT) (U/L) Date Value 07/05/2019 47 AST(SGOT) (U/L) Date Value 07/05/2019 27 No results found for: CRP WBC (10*3/L) Date Value 07/05/2019 10.32 Intake/Output Summary (Last 24 hours) at 07/05/2019 1339 Last data filed at 07/05/2019 0627 Gross per 24 hour Intake 2000 ml Output Net 2000 ml Antropometric: Age: [age] year old Sex: female Ht: 5'0" Ht Readings from Last 3 Encounters: 07/03/19 1.524 m (5') 04/15/19 1.524 m (5') 02/03/19 1.524 m (5') Current Wt: 186lb/85kg BMI: Body mass index is 36.36 kg/m. IBW for Ht: 100/lb 45 kg %IBW: 189% Weight History: Wt Readings from Last 10 Encounters: 07/03/19 84.5 kg (186 lb 3.2 oz) 04/15/19 87.5 kg (192 lb 12.8 oz) 02/04/19 96 kg (211 lb 9.6 oz) Current Dietary Order(s): Orders Placed This Encounter Procedures Clear Liquid Diet; Food Sensitivity Modifiers: None. EMR documented food allergies/intolerance/cultural preferences: No known food allergies Nutrition Focused Physical Exam- See SGA flowsheet for details Nutritional Diagnosis: None SGA Rating: At Risk Nutrition/Related History: Last bowel movement (LBM)per EMR I/O: 07/04 Ms. Pavon is a 23 y/o female with PMH including recurrent pancreatitis admitted to the hospital related to epigastric pain. Principal problems for this admission include acute pancreatitis likely d/t alcohol abuse. Pt also smokes and has polysubstance abuse. Pt stated she was still nauseated and in pain, had not eaten lunch. She states that about 1 month ago, her intake decreased and she was eating 1 meal per day. Unclear why the decrease in intake. RD educated patient on low fat diet r/t pancreatitis. Calculated Daily Nutritional Needs: Calories: 8563-4561 kcal/day=25-30 kcal/kg IBW (45kg) Protein: 54-68 g/day=20 % of kcal need/day=1.2-1.5 g/kg IBW Fluid: 1800 mL/day or per MD; adjust per acute needs Nutrition Diagnosis: PES #1: Inadequate oral intake related to nausea/vomiting/pain as evidenced by patient report, RD observation Nutrition Interventions: 1. Continue with current medical nutrition therapy 2. Provided education 3. Monitor p.o. Intake/tolerance Goals: 1. Patient will tolerate > 75% of provided meals Nutrition Monitoring and Evaluation: A registered dietitian will f/u as indicated to review patients progress toward nutriton goals, report nutrition related information, and revise the nutrition recommendations and interventions. Please call with any question or concerns, thank-you. Discharge Needs: Pending Jaki Kirby, MPH, RD, LD Clinical Dietitian Office: [phone] signed by Jaki Kirby at 07/05/2019 1:44 PM Hailee Graves LBSW - 07/05/2019 1:12 PM CDTSubjective Patient ID: Rufina Pavon is a 23 year old female. Care Management Social Functional Assessment Patient Name: Rufina Pavon Age: [age] year old Sex: female Patient's Previous Admission Date at [facility]: 02/03/2019 Current diagnosis and co-morbidities: Pancreatitis Readmission Questions: Was patient discharged from any acute care hospital within the last 30 days: No Social Functional Assessment: Primary language spoken/preferred: [place]raini Mental Status: Alert & Oriented to Person,Place & Time Information given by: Self Patient's support system: Other Name and number of support system: Katt Calhoun, Primary Rivet Flunky: Self MPOA: No Living Arrangement: Home Address of living arrangement : [address] [place] [id number] Persons living in home: Self Barriers to returning home: None Baseline functional status- ambulation: Independent Functional status-baseline personal care: Independent Baseline functional status- driving: Independent Baseline functional status- grocery shopping: Independent Functional status-baseline housekeeping: Independent Functional status-baseline meal prep: Independent Current functional status same as prior: Yes Do you have a PCP?: No Home Health Care Agency: No Provider Services: No DME Company: No Equipment: None Hemodialysis: No Community resources utilized: Substance Abuse Treatment Resources Funding Resources: Self Pay Prescription coverage plan: Self Pay Pharmacy where meds are filled: Other Other pharmacy: [facility] Anticipated services prior to disharge: Continue Medical Eval Expected mode of discharge transportation: Same as support system Additional Recommendations for DC: Medical clearance Additional info required for discharge planning: Pending medical evaluation Recommended discharge plan: Home SFA Complete: Social Functional Assessment complete: Yes Alcohol Use Screening (AUDIT-C) How often do you have a drink containing alcohol?: 4 or more times a week SCORE: 4 How many drinks containing alcohol do you have on a typical day when you are drinking?: 5 or 6 drinks How often do you have six or more drinks on one occasion?: Monthly Total Score (AUDIT-C): 8 Did patient elect to have resources provided: No Role of Care Management explained. Any issues or concerns with obtaining/affording your medications at home: no. Are you or your support system able to bulk picker medications at discharge: yes. Review of Systems Objective Physical Exam Assessment/Plan Home, sub abuse resource provided BRITANY Mccullough Plant Electrical Engineer - Care Management [facility] [phone] [email or web address] Gamaliel Ibarra MD - 07/04/2019 6:34 PM CDT [facility] Hospitalist Progress Note SUBJECTIVE: No acute events overnight CURRENT MEDICATIONS - reviewed. Current Facility-Administered Medications Medication Dose Route Frequency Last Rate Last Dose D5W 0.45% NaCl (1/2NS) IV infusion 1,000 mL 1,000 mL IV Infusion CONTINUOUS 150 mL/hr at 07/04/19 1450 1,000 mL at 07/04/19 1450 docusate (COLACE) capsule 100 mg 100 mg Oral BID 100 mg at 07/04/19 0756 FENTanyl PF (SUBLIMAZE (PF)) injection 50 mcg 50 mcg Slow IV Push Q4HPRN 50 mcg at 07/04/19 1450 ondansetron (ZOFRAN (PF)) injection 4 mg 4 mg Slow IV Push Q6HPRN pantoprazole (PROTONIX) 40 mg in NaCl 0.9% (NS) 100 mL MINI-BAG 40 mg IV Piggyback Q24H 40 mgat 07/04/19 0212 PHYSICAL EXAM: BP 112/74 | Pulse 53 | Temp 36.6 C (97.8 F) (Oral) | Resp 18 | Ht 5' ( 1.524 m) | Wt 186 lb 3.2 oz (84.5 kg) | SpO2 99% | BMI 36.36 kg/m General: No respiratory distress Psych: Normal affect LABS/IMAGING - reviewed, pertinent results as below: CBC BMP PT/INR WBC (10*3/L) Date Value 07/04/2019 10.96 NA (mmol/L) Date Value 07/04/2019 139 No results found for: PT RBC (10*6/L) Date Value 07/04/2019 4.63 K (mmol/L) Date Value 07/04/2019 3.9 INR (no units) Date Value 02/08/2019 1.0 PLT (10*3/L) Date Value 07/04/2019 268 CALCIUM (mg/dL) Date Value 07/04/2019 8.7 HGB (g/dL) Date Value 07/04/2019 10.7 (L) CL (mmol/L) Date Value 07/04/2019 107 aPTT HCT (%) Date Value 07/04/2019 35.8 BUN (mg/dL) Date Value 07/04/2019 5 (L) No results found for: APTTPAT CREATININE (mg/dL) Date Value 07/04/2019 0.71 IMAGING- Hospital Encounter on 07/03/19 CT ABDOMEN PELVIS W CONTRAST Narrative * * * * * * * * ORIGINAL REPORT * * * * * * * * CT ABDOMEN AND PELVIS WITH CONTRAST HISTORY: Abd pain, acute, generalized h/o cholecystectomy 01/2019 COMPARISON: Abdominal CT 04/15/2019. TECHNIQUE: Contiguous axial imaging from the level of the lung bases through the pubic symphysis was performed after the administration of 120 cc of intravenous Omnipaque contrast. Coronal and sagittal reconstructions were obtained. FINDINGS: LOWER THORAX: The lungs bases are clear. No cardiomegaly. LIVER: Diffuse low-attenuation of the liver is consistent with hepatic steatosis. No focal lesions. No biliary ductal dilation. GALLBLADDER: Prior cholecystectomy. SPLEEN: No splenomegaly. PANCREAS: No masses or ductal dilation. Ill-defined peripancreatic inflammatory stranding and edema is noted. The pancreas is normally enhancing. No ductal dilation or masses. No drainable fluid collections, abscess, or necrosis. ADRENAL GLANDS: No adrenal nodules. KIDNEYS: No hydronephrosis, stones, or masses. PERITONEUM AND RETROPERITONEUM: No free air. LYMPH NODES: No lymphadenopathy. GI TRACT: No dilation or wall thickening. Normal appendix. PELVIS: The bladder wall is thickened for the degree of distention. The uterus is unremarkable. The ovaries are normal. A 2.57 m cyst in the left ovary is noted. VESSELS: Unremarkable. BONES AND SOFT TISSUES: No aggressive or suspicious osseous lesions. Impression Ill-defined peripancreatic inflammatory stranding and edema is consistent with acute interstitial pancreatitis. Circumferential bladder wall thickening may be due to underdistention, or possibly cystitis. Clinical correlation is recommended. Hepatic steatosis. IPrecious MD., have reviewed this study and agree with the above report. ASSESSMENT/PLAN Rufina Pavon is a 23 year old female with PMH as listed above, admitted to the hospital with: Acute pancreatitis unclear etiology but likely due to continued alcohol abuse, counseled on cessation today and previous admission. Also polysubstance abuse, counseled on cessation. Smoker, counseled on cessation. Check etoh levels and utox. Had cholycestectomy already. Morbid obesity. Hx of prediabetes. CT done, illdefined panc inflammation/edema, hepatic steatosis, bladder wall thickening Wbc 14.7, lipase 1488 IVF, npo, iv fentanyl prn No GI consult Sinus bradycardia Supportive care dvt proph SCD Full Code Doesn't take home medications Iv protonix daily Disposition: Home Gamaliel Reilly MD documented in this encounter Plan of Treatment Name Type Priority Associated Diagnoses Date/Time [facility] ONLY - URINE DRUG LAB STAT 07/04/2019 2:54 PM CDT (LCMSMS) - MONIQUE PANEL URINE DRUG (LCMSMS) - LAB STAT 07/04/2019 2:54 PM CDT SYNTHETIC OPIATES PANEL URINE DRUG (LCMSMS) - LAB STAT 07/04/2019 2:54 PM CDT OPIATES PANEL Name Type Priority Associated Diagnoses Order Schedule EKG-12 LEAD ROUTINE HEART STATION BENJI ONCE for 1 Occurrences starting 07/03/2019 until 07/03/2019 [facility] ONLY - URINE LAB Routine ONCE for 1 DRUG (LCMSMS) - MONIQUE Occurrences starting PANEL 07/04/2019 until 07/04/2019, 1 completed URINE DRUG (LCMSMS) LAB Routine ONCE for 1 - SYNTHETIC OPIATES Occurrences starting PANEL 07/04/2019 until 07/04/2019, 1 completed URINE DRUG (LCMSMS) LAB Routine ONCE for 1 - OPIATES PANEL Occurrences starting 07/04/2019 until 07/04/2019, 1 completed Health Maintenance Due Date Last Done Comments PNEUMOCOCCAL 0-64 YEARS COMBINED SERIES (1 of 1 - 2000 PPSV23) VARICELLA VACCINES (1 of 2 - 13+ 2-dose series) 2007 HPV VACCINES (1 - Female 3-dose series) 2009 CHLAMYDIA SCREENING 2010 DTaP,Tdap,and Td Vaccines (1 - Tdap) 2013 PAP SMEAR 2015 INFLUENZA VACCINE (#1) 2019 documented as of this encounter Procedures Procedure Name Priority Date/Time Associated Comments Diagnosis CBC WITH Routine 07/05/2019 6:04 Results for this DIFFERENTIAL AM CDT procedure are in the results section. CBC WITH DIFF Routine 07/05/2019 6:04 Results for this AM CDT procedure are in the results section. COMP. METABOLIC Routine 07/05/2019 6:04 Results for this PANEL (57222) AM CDT procedure are in the results section. LIPASE Routine 07/05/2019 6:04 Results for this AM CDT procedure are in the results section. AMYLASE Routine 07/05/2019 6:04 Abdominal pain, Results for this AM CDT unspecified procedure are in abdominal location the results section. ADC / LCC - DRUG BENJI 07/04/2019 2:54 Results for this SCREEN TRIAGE PM CDT procedure are in the results section. CBC WITH Routine 07/04/2019 5:03 Results for this DIFFERENTIAL AM CDT procedure are in the results section. CBC WITH DIFF Routine 07/04/2019 5:03 Results for this AM CDT procedure are in the results section. COMP. METABOLIC Routine 07/04/2019 5:03 Results for this PANEL ([id number]) AM CDT procedure are in the results section. MAGNESIUM Routine 07/04/2019 5:03 Results for this AM CDT procedure are in the results section. LIPASE Routine 07/04/2019 5:03 Results for this AM CDT procedure are in the results section. AMYLASE Routine 07/04/2019 5:03 Abdominal pain, Results for this AM CDT unspecified procedure are in abdominal location the results section. PHOSPHORUS Routine 07/04/2019 5:03 Results for this AM CDT procedure are in the results section. EKG-12 LEAD Routine 07/03/2019 11:[address] ABDOMEN PELVIS W STAT 07/03/2019 7:17 Abdominal pain, Results for this CONTRAST PM CDT unspecified procedure are in abdominal location the results section. CBC WITH STAT 07/03/2019 5:58 Abdominal pain, Results for this DIFFERENTIAL PM CDT unspecified procedure are in abdominal location the results section. CBC WITH DIFF STAT 07/03/2019 5:58 Abdominal pain, Results for this PM CDT unspecified procedure are in abdominal location the results section. ETHANOL BENJI Add-On 07/03/2019 5:58 Results for this PM CDT procedure are in the results section. COMP. METABOLIC STAT 07/03/2019 5:58 Abdominal pain, Results for this PANEL ([id number]) PM CDT unspecified procedure are in abdominal location the results section. LIPASE STAT 07/03/2019 5:58 Abdominal pain, Results for this PM CDT unspecified procedure are in abdominal location the results section. POCT TEST BENJI 07/03/2019 5:03 Abdominal pain, Results for this PM CDT unspecified procedure are in abdominal location the results section. URINALYSIS STAT 07/03/2019 5:03 Abdominal pain, Results for this PM CDT unspecified procedure are in abdominal location the results section. CONSENT/REFUSAL FOR Routine 07/03/2019 3:58 DIAGNOSIS AND PM CDT TREATMENT documented in this encounter Results CBC WITH DIFFERENTIAL (07/05/2019 6:04 AM CDT) WBC 10.32 4.30 - 11.10 [facility] 10*3/L [facility] RBC 4.68 3.93 - 5.25 [facility] 10*6/L [facility] HGB 11.1 (L) 11.6 - 15.0 [facility] g/dL [facility] HCT 35.6 (L) 35.7 - 45.2 % [facility] MCV 76.1 (L) 80.6 - 95.5 fL [facility] MCH 23.7 (L) 25.9 - 32.8 pg [facility] MCHC 31.2 (L) 31.6 - 35.1 [facility] g/dL [facility] RDW-SD 45.6 39.0 - 49.9 fL [facility] RDW-CV 16.8 (H) 12.0 - 15.5 % [facility] PLT 277 166 - 358 [facility] 10*3/L [facility] MPV 11.4 9.5 - 12.9 fL [facility] NRBC/100 WBC 0.0 0.0 - 10.0 /100 [facility] WBCs [facility] NRBC x10^3 <0.01 10*3/L [facility] GRAN MAT (NEUT) % 65.7 % [facility] IMM GRAN % 0.10 % [facility] LYMPH % 22.8 % [facility] MONO % 5.2 % [facility] EOS % 5.9 % [facility] BASO % 0.3 % [facility] GRAN MAT x10^3(ANC) 6.78 1.88 - 7.09 [facility] 10*3/uL [facility] IMM GRAN x10^3 <0.03 0.00 - 0.06 [facility] 10*3/uL [facility] LYMPH x10^3 2.35 1.32 - 3.29 [facility] 10*3/uL [facility] MONO x10^3 0.54 0.33 - 0.92 [facility] 10*3/uL [facility] EOS x10^3 0.61 (H) 0.03 - 0.39 [facility] 10*3/uL [facility] BASO x10^3 0.03 0.01 - 0.[address]3/uL [facility] Specimen Blood - ARM, RIGHT Performing Organization Address City/State/Zipcode Phone Number [facility] CLIA: [id number], [address] [place] [address] COMP. METABOLIC PANEL ([id number]) (07/05/2019 6:04 AM CDT) NA 140 135 - 145 [facility] mmol/L [facility] K 3.9 3.5 - 5.0 [facility] mmol/L [facility] CL 107 98 - 108 mmol/L [facility] CO2 TOTAL 25 23 - 31 mmol/L [facility] AGAP 8 2 - 16 [facility] BUN 3 (L) 7 - 23 mg/dL [facility] GLUCOSE 152 (H) 70 - 110 mg/dL [facility] CREATININE 0.97 0.50 - 1.04 [facility] mg/dL [facility] TOTAL BILI 0.2 0.1 - 1.1 mg/dL [facility] CALCIUM 8.8 8.6 - 10.6 [facility] mg/dL [facility] T PROTEIN 6.7 6.3 - 8.2 g/dL [facility] ALBUMIN 3.8 3.5 - 5.0 g/dL [facility] ALK PHOS 98 34 - 122 U/L [facility] ALT(SGPT) 47 9 - 51 U/L [facility] AST(SGOT) 27 13 - 40 U/L [facility] eGFR Calculation 70.6 mL/min/1.73m2 [facility] ([facility] [place] [facility] Eritrean) eGFR Calculation 85.5 mL/min/1.73m2 [facility] () [facility] Specimen Blood - ARM, RIGHT Narrative Performed At [facility] Glomerular Filtration Rate (GFR) [facility] and Staging of Kidney Disease* + + +- + | GFR (mL/min/1.73 m2)| With Kidney Damage|Without Kidney Damage + + +- + |>90| Stage one| Normal + + +- + |60-89|S tage two| Decreased GFR + + +- + |30-59|S tage three| Stage three + + +- + |15-29|S tage four | Stage four + + +- + |<15 (or dialysis)|Stage five | Stage five + + +- + *Each stage assumes the associated GFR level has been in effect for at least three months.Stages 1 to 5, with or without kidney disease, indicate chronic kidney disease. Notes: Determination of stages one and two (with eGFR >59mL/min/1.73 m2) requires estimation of kidney damage for at least three months as defined by structural or functional abnormalities of the kidney, manifested by either: Pathological abnormalities or Markers of kidney damage (including abnormalities in the composition of the blood or urine or abnormalities in imaging tests). Performing Organization Address [facility] Phone Number [facility] [id number], [address] [place] [address] LIPASE (07/05/2019 6:04 AM CDT) LIPASE 476 (H) 0 - 220 U/L [facility] Specimen Blood - ARM, RIGHT Performing Organization Address [facility] Phone Number [facility] CLIA: [id number], [address] [place], [place] [address] LABORAT[address] AMYLASE (07/05/2019 6:04 AM CDT) JOSE 87 35 - 110 U/L [facility] Specimen Blood - ARM, RIGHT Performing Organization Address [facility] Phone Number [facility] [id number], [address] [place] [address] ADC / LCC - DRUG SCREEN TRIAGE (07/04/2019 2:54 PM CDT) BENZO U Negative Negative [facility] NESSA U Negative Negative [facility] AMPHET Negative Negative [facility] THC Presumptive Positive Negative [facility] Confirm[facility] LAB[facility]ORY Presumptive Positive THC result requires physician order. METHADONE Negative Negative [facility] Meth U Negative Negative [facility] OPIATES Presumptive Positive Negative [facility] Cocaine Metabolite Presumptive Positive Negative [facility] PROPOXY Negative Negative [facility] Tric U Negative Negative [facility] PCP Negative Negative [facility] OXYCOD Negative Negative [facility] Specimen Urine - URINE, CLEAN CATCH Narrative Performed At Urine Drug Cutoff Ranges [facility] Benzodiazepines: 150 ng/mL Barbiturates: 200 ng/mL Amphetamine: 500 ng/mL Cannabinoids: 50ng/mL Methadone: 200 ng/mL Methamphetamine: 500 ng/mL Opiates: 100 ng/mL or 2000 ng/mL Cocaine: 150 ng/mL Propoxyphene:300 ng/mL Tricyclics:300 ng/mL Oxycodone: 100 ng/mL PCP: 25ng/mL The results are to be used only for medical (i.e., treatment) purposes. Unconfirmed screening results must not be used for non-medical purposes (e.g., employment testing, legal testing). Performing Organization Address City/State/Zipcode Phone Number [facility] CLIA: [id number], [address] [place] [address] CBC WITH DIFFERENTIAL (07/04/2019 5:03 AM CDT) WBC 10.96 4.30 - 11.10 [facility] 10*3/L [facility] RBC 4.63 3.93 - 5.25 [facility] 10*6/L [facility] HGB 10.7 (L) 11.6 - 15.0 [facility] g/dL [facility] HCT 35.8 35.7 - 45.2 % [facility] MCV 77.3 (L) 80.6 - 95.5 fL [facility] MCH 23.1 (L) 25.9 - 32.8 pg [facility] MCHC 29.9 (L) 31.6 - 35.1 [facility] g/dL [facility] RDW-SD 47.1 39.0 - 49.9 fL [facility] RDW-CV 16.7 (H) 12.0 - 15.5 % [facility] PLT 268 166 - 358 [facility] 10*3/L HOSPITAL LAB[facility]ORY MPV 11.2 9.5 - 12.9 fL [facility] NRBC/100 WBC 0.0 0.0 - 10.0 /100 [facility] WBCs [facility] NRBC x10^3 <0.01 10*3/L [facility] GRAN MAT (NEUT) % 69.0 % [facility] IMM GRAN % 0.50 % [facility] LYMPH % 18.5 % [facility] MONO % 6.1 % [facility] EOS % 5.6 % [facility] BASO % 0.3 % [facility] GRAN MAT x10^3(ANC) 7.57 (H) 1.88 - 7.09 [facility] 10*3/uL [facility] IMM GRAN x10^3 0.05 0.00 - 0.06 [facility] 10*3/uL [facility] LYMPH x10^3 2.03 1.32 - 3.29 [facility] 10*3/uL [facility] MONO x10^3 0.67 0.33 - 0.92 [facility] 10*3/uL [facility] EOS x10^3 0.61 (H) 0.03 - 0.39 [facility] 10*3/uL HOSPITAL LABORATORY BASO x10^3 0.03 0.01 - 0.07 [facility] 10*3/uL [facility] Specimen Blood - ARM, RIGHT Performing Organization Address City/State/Zipcode Phone Number [facility] CLIA: [id number], [address] [place] [address] PHOSPHORUS (07/04/2019 5:03 AM CDT) PHOSPHORUS 2.9 2.5 - 5.0 mg/dL [facility] Specimen Blood - ARM, RIGHT Performing Organization Address City/State/Zipcode Phone Number [facility] CLIA: [id number], [address] [place] [address] MAGNESIUM (07/04/2019 5:03 AM CDT) MAGNESIUM 2.0 1.7 - 2.4 mg/dL [facility] Specimen Blood - ARM, RIGHT Performing Organization Address City/[facility]/Zipcode Phone Number [facility] CLIA: [id number], [address] [place] [address] COMP. METABOLIC PANEL ([id number]) (07/04/2019 5:03 AM CDT) NA 139 135 - 145 [facility] mmol/L [facility] K 3.9 3.5 - 5.0 [facility] mmol/L [facility] CL 107 98 - 108 mmol/L [facility] CO2 TOTAL 26 23 - 31 mmol/L [facility] AGAP 6 2 - 16 [facility] BUN 5 (L) 7 - 23 mg/dL [facility] GLUCOSE 130 (H) 70 - 110 mg/dL [facility] CREATININE 0.71 0.50 - 1.04 [facility] mg/dL [facility] TOTAL BILI 0.3 0.1 - 1.1 mg/dL [facility] CALCIUM 8.7 8.6 - 10.6 [facility] mg/dL [facility] T PROTEIN 6.4 6.3 - 8.2 g/dL [facility] ALBUMIN 3.6 3.5 - 5.0 g/dL [facility] ALK PHOS 93 34 - 122 U/L [facility] ALT(SGPT) 52 (H) 9 - 51 U/L [facility] AST(SGOT) 27 13 - 40 U/L [facility] eGFR Calculation 101.1 mL/min/1.73m2 [facility] ([facility] [place] LABORATORY Eritrean) eGFR Calculation 122.6 mL/min/1.73m2 [facility] () [facility] Specimen Blood - ARM, RIGHT Narrative Performed At [facility] Glomerular Filtration Rate (GFR) [facility] LABORATORY and Staging of Kidney Disease* + + +- + | GFR (mL/min/1.73 m2)| With Kidney Damage|Without Kidney Damage + + +- + |>90| Stage one| Normal + + +- + |60-89|S tage two| Decreased GFR + + +- + |30-59|S tage three| Stage three + + +- + |15-29|S tage four | Stage four + + +- + |<15 (or dialysis)|Stage five | Stage five + + +- + *Each stage assumes the associated GFR level has been in effect for at least three months.Stages 1 to 5, with or without kidney disease, indicate chronic kidney disease. Notes: Determination of stages one and two (with eGFR >59mL/min/1.73 m2) requires estimation of kidney damage for at least three months as defined by structural or functional abnormalities of the kidney, manifested by either: Pathological abnormalities or Markers of kidney damage (including abnormalities in the composition of the blood or urine or abnormalities in imaging tests). Performing Organization Address [facility] Phone Number [facility] CLIA: [id number], [address] [place] [address] [facility] LIPASE (07/04/2019 5:03 AM CDT) LIPASE 739 (H) 0 - 220 U/L [facility] Specimen Blood - ARM, RIGHT Performing Organization Address [facility] Phone Number [facility] [id number], [address] [place] [address] [facility] AMYLASE (07/04/2019 5:03 AM CDT) JOSE 127 (H) 35 - 110 U/L [facility] Specimen Blood - ARM, RIGHT Performing Organization Address [facility] Phone Number [facility] CLIA: [id number], [address] [place] [address] [facility] [address] ABDOMEN PELVIS W CONTRAST (07/03/2019 7:17 PM CDT) Specimen Impressions Performed At PACS/VR/DOSE Ill-defined peripancreatic inflammatory stranding and edema is consistent with acute interstitial pancreatitis. Circumferential bladder wall thickening may be due to underdistention, or possibly cystitis. Clinical correlation is recommended. Hepatic steatosis. Francia Nolan MD., have reviewed this study and agree with the above report. Narrative Performed At * * * * * * * * ORIGINAL REPORT * * * * * * * * PACS/VR/DOSE CT ABDOMEN AND PELVIS WITH CONTRAST HISTORY: Abd pain, acute, generalized h/o cholecystectomy 01/2019 COMPARISON: Abdominal CT 04/15/2019. TECHNIQUE: Contiguous axial imaging from the level of the lung bases through the pubic symphysis was performed after the administration of 120 cc of intravenous Omnipaque contrast. Coronal and sagittal reconstructions were obtained. FINDINGS: LOWER THORAX: The lungs bases are clear. No cardiomegaly. LIVER: Diffuse low-attenuation of the liver is consistent with hepatic steatosis. No focal lesions. No biliary ductal dilation. GALLBLADDER: Prior cholecystectomy. SPLEEN: No splenomegaly. PANCREAS: No masses or ductal dilation. Ill-defined peripancreatic inflammatory stranding and edema is noted. The pancreas is normally enhancing. No ductal dilation or masses. No drainable fluid collections, abscess, or necrosis. ADRENAL GLANDS: No adrenal nodules. KIDNEYS: No hydronephrosis, stones, or masses. PERITONEUM AND RETROPERITONEUM: No free air. LYMPH NODES: No lymphadenopathy. GI TRACT: No dilation or wall thickening. Normal appendix. PELVIS: The bladder wall is thickened for the degree of distention. The uterus is unremarkable. The ovaries are normal. A 2.57 m cyst in the left ovary is noted. VESSELS: Unremarkable. BONES AND SOFT TISSUES: No aggressive or suspicious osseous lesions. Procedure Note [facility], Radiant Results Inft User - 07/03/2019 7:56 PM CDT * * * * * * * * ORIGINAL REPORT * * * * * * * * CT ABDOMEN AND PELVIS WITH CONTRAST HISTORY: Abd pain, acute, generalized h/o cholecystectomy 01/2019 COMPARISON: Abdominal CT 04/15/2019. TECHNIQUE: Contiguous axial imaging from the level of the lung bases through the pubic symphysis was performed after the administration of 120 cc of intravenous Omnipaque contrast. Coronal and sagittal reconstructions were obtained. FINDINGS: LOWER THORAX: The lungs bases are clear. No cardiomegaly. LIVER: Diffuse low-attenuation of the liver is consistent with hepatic steatosis. No focal lesions. No biliary ductal dilation. GALLBLADDER: Prior cholecystectomy. SPLEEN: No splenomegaly. PANCREAS: No masses or ductal dilation. Ill-defined peripancreatic inflammatory stranding and edema is noted. The pancreas is normally enhancing. No ductal dilation or masses. No drainable fluid collections, abscess, or necrosis. ADRENAL GLANDS: No adrenal nodules. KIDNEYS: No hydronephrosis, stones, or masses. PERITONEUM AND RETROPERITONEUM: No free air. LYMPH NODES: No lymphadenopathy. GI TRACT: No dilation or wall thickening. Normal appendix. PELVIS: The bladder wall is thickened for the degree of distention. The uterus is unremarkable. The ovaries are normal. A 2.57 m cyst in the left ovary is noted. VESSELS: Unremarkable. BONES AND SOFT TISSUES: No aggressive or suspicious osseous lesions. IMPRESSION Ill-defined peripancreatic inflammatory stranding and edema is consistent with acute interstitial pancreatitis. Circumferential bladder wall thickening may be due to underdistention, or possibly cystitis. Clinical correlation is recommended. Hepatic steatosis. IPrecious MD., have reviewed this study and agree with the above report. Performing Organization Address [facility]/[place] Phone Number PACS/VR/DOSE ETHANOL (07/03/2019 5:58 PM CDT) ALCOHOL <10 mg/dL [facility] Specimen Blood - VENOUS Narrative Performed At <10 Negative [facility] 50-100 Toxic >100 Depression of [employer]AD [employer]GRAMMER >400 Fatalities Reported Performing Organization Address City/[facility]/Zipcode Phone Number [facility] CLIA: [id number], [address] [place] [address] CBC WITH DIFFERENTIAL (07/03/2019 5:58 PM CDT) WBC 14.70 (H) 4.30 - 11.10 [facility] 10*3/L [facility] RBC 5.09 3.93 - 5.25 [facility] 10*6/L [facility] HGB 11.8 11.6 - 15.0 [facility] g/dL [facility] HCT 39.1 35.7 - 45.2 % [facility] MCV 76.8 (L) 80.6 - 95.5 fL [facility] MCH 23.2 (L) 25.9 - 32.8 pg [facility] MCHC 30.2 (L) 31.6 - 35.1 [facility] g/dL [facility] RDW-SD 46.3 39.0 - 49.9 fL [facility] RDW-CV 16.8 (H) 12.0 - 15.5 % [facility] PLT 300 166 - 358 [facility] 10*3/L [facility] MPV 10.9 9.5 - 12.9 fL [facility] NRBC/100 WBC 0.0 0.0 - 10.0 /100 [facility] WBCs [facility] NRBC x10^3 <0.01 10*3/L [facility] GRAN MAT (NEUT) % 80.5 % [facility] IMM GRAN % 0.60 % [facility] LYMPH % 10.8 % [facility] MONO % 4.1 % [facility] EOS % 3.6 % [facility] BASO % 0.4 % [facility] GRAN MAT x10^3(ANC) 11.82 (H) 1.88 - 7.09 [facility] 10*3/uL [facility] IMM GRAN x10^3 0.09 (H) 0.00 - 0.06 [facility] 10*3/uL [facility] LYMPH x10^3 1.59 1.32 - 3.29 [facility] 10*3/uL [facility] MONO x10^3 0.61 0.33 - 0.92 [facility] 10*3/uL [facility] EOS x10^3 0.53 (H) 0.03 - 0.39 [facility] 10*3/uL [facility] BASO x10^3 0.06 0.01 - 0.07 [facility] 10*3/uL [facility] Specimen Blood - VENOUS Performing Organization Address City/[facility] Hospitalcode Phone Number [facility] CLIA: [id number], [address] [place] [address] LIPASE (07/03/2019 5:58 PM CDT) LIPASE 1,488 (H) 0 - 220 U/L [facility] Specimen Blood - VENOUS Performing Organization Address City/[facility]/Zipcode Phone Number [facility] CLIA: [id number], [address] [place] [address] COMP. METABOLIC PANEL (12866) (07/03/2019 5:58 PM CDT) NA 141 135 - 145 [facility] mmol/L [facility] K 4.2 3.5 - 5.0 [facility] mmol/L [facility] CL 104 98 - 108 mmol/L [facility] CO2 TOTAL 26 23 - 31 mmol/L [facility] AGAP 11 2 - 16 [facility] BUN 7 7 - 23 mg/dL [facility] GLUCOSE 122 (H) 70 - 110 mg/dL [facility] CREATININE 0.70 0.50 - 1.04 [facility] mg/dL [facility] TOTAL BILI 0.5 0.1 - 1.1 mg/dL [facility] CALCIUM 8.5 (L) 8.6 - 10.6 [facility] mg/dL [facility] T PROTEIN 7.6 6.3 - 8.2 g/dL [facility] ALBUMIN 4.4 3.5 - 5.0 g/dL [facility] ALK PHOS 115 34 - 122 U/L [facility] ALT(SGPT) 61 (H) 9 - 51 U/L [facility] AST(SGOT) 43 (H) 13 - 40 U/L [facility] eGFR Calculation 102.8 mL/min/1.73m2 [facility] ([facility] LABORATORY Eritrean) eGFR Calculation 124.6 mL/min/1.73m2 [facility] () [facility] Specimen Blood - VENOUS Narrative Performed At Association of Glomerular Filtration Rate (GFR) [facility] and Staging of Kidney Disease* + + +- + | GFR (mL/min/1.73 m2)| With Kidney Damage|Without Kidney Damage + + +- + |>90| Stage one| Normal + + +- + |60-89|S tage two| Decreased GFR + + +- + |30-59|S tage three| Stage three + + +- + |15-29|S tage four | Stage four + + +- + |<15 (or dialysis)|Stage five | Stage five + + +- + *Each stage assumes the associated GFR level has been in effect for at least three months.Stages 1 to 5, with or without kidney disease, indicate chronic kidney disease. Notes: Determination of stages one and two (with eGFR >59mL/min/1.73 m2) requires estimation of kidney damage for at least three months as defined by structural or functional abnormalities of the kidney, manifested by either: Pathological abnormalities or Markers of kidney damage (including abnormalities in the composition of the blood or urine or abnormalities in imaging tests). Performing Organization Address [facility]ley Hospitalcode Phone Number [facility] CLIA: [id number], [address] [place] [address] POCT TEST (07/03/2019 5:03 PM CDT) POCT PREG negative On board controls acceptable present with C Line POCT PREG LOT # [id number] POCT PREG TEST DATE 12/20/2020 Specimen Urine - URINE, CLEAN CATCH URINALYSIS (07/03/2019 5:03 PM CDT) APPEARANCE Clear Clear [facility] COLOR Yellow Yellow [facility] PH 7.0 4.8 - 8.0 [facility] SP GRAVITY 1.015 1.003 - 1.030 [facility] GLU U QUAL Negative Negative [facility] BLOOD Negative Negative [facility] KETONES Negative Negative [facility] PROTEIN Trace (A) Negative [facility] UROBILIN 0.2 mg/dL 0-1.0 mg/dL [facility] BILIRUBIN Negative Negative [facility] NITRITE Negative Negative [facility] LEUK AGNES Negative Negative [facility] RBC/HPF 0 0 - 3 HPF [facility] WBC/HPF 5 0 - 5 HPF [facility] BACTERIA Moderate (A) Negative [facility] AMORPHOUS Moderate HPF [facility] SQ EPITH 9 HPF [facility] Specimen Urine - URINE, CLEAN CATCH Performing Organization Address City/[facility]/Zipcode Phone Number [facility] CLIA: [id number], [address] [place] [address] documented in this encounter Visit Diagnoses Diagnosis Pancreatitis - Primary Acute pancreatitis Abdominal pain, unspecified abdominal location Other acute pancreatitis without infection or necrosis documented in this encounter Administered Medications Medication Order MAR Action Action Date Dose Rate Site D5W 0.45% NaCl (1/2NS) IV New Bag 07/07/2019 6:22 AM CDT 1,000 mL 150 mL/ hr infusion 1,000 mL at 150 mL/hr, 1,000 mL, IV Infusion, CONTINUOUS, Starting Diana 07/04/19 at 0045, Until Discontinued, Routine New Bag 07/07/2019 12:23 AM CDT 1,000 mL 150 mL/hr New Bag 07/06/2019 6:53 PM CDT 1,000 mL 150 mL/hr HYDROcodone-acetaminophen (NORCO 5) 5-325 Given 07/07/2019 11:06 AM CDT 1 tablet mg tablet 1 tablet 1 tablet, Oral, Q4HPRN, Starting Mon07/07/19 at 1029, Until Discontinued, Routine, Pain (scale 4-6), Pain (scale 7-10) ketorolac (TORADOL) injection 15 mg Given 07/07/2019 3:08 AM CDT 15 mg 15 mg, Slow IV Push, Q8HPRN, 4 doses, Starting Mon07/07/19 at 0303, Until Discontinued, Routine, Pain (scale 7-10), 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 Restricted medication: TAWANA KRAMER ondansetron (ZOFRAN (PF)) injection 4 mg Given 07/07/2019 8:32 AM CDT 4 mg 4 mg, Slow IV Push, Q6HPRN, Starting Mon07/03/19 at 2332, Until Discontinued, Routine, Nausea and Vomiting (N/V) Given 07/06/2019 11:13 PM CDT 4 mg Given 07/06/2019 4:30 PM CDT 4 mg Medication Order MAR Action Action Date Dose Rate Site docusate (COLACE) capsule 100 mg Given 07/05/2019 10:26 AM CDT 100 mg 100 mg, Oral, BID, First dose on Diana 07/04/19 at 0800, Until Discontinued, Routine Given 07/04/2019 7:56 AM CDT 100 mg FENTanyl PF (SUBLIMAZE (PF)) injection 50 Given 07/03/2019 6:57 PM CDT 50 mcg mcg 50 mcg, Slow IV Push, ONCE, 1 dose, Mon07/03/19 at 2000, STAT FENTanyl PF (SUBLIMAZE (PF)) injection 50 Given 07/03/2019 8:00 PM CDT 50 mcg mcg 50 mcg, Slow IV Push, ONCE, 1 dose, Mon07/03/19 at 2100, STAT FENTanyl PF (SUBLIMAZE (PF)) injection 50 Given 07/05/2019 12:56 AM CDT 50 mcg mcg 50 mcg, Slow IV Push, Q4HPRN, Starting Mon07/03/19 at 2331, Until Mon07/05/19 at 0301, Routine, Pain (scale 7-10) Given 07/04/2019 8:44 PM CDT 50 mcg Given 07/04/2019 2:50 PM CDT 50 mcg FENTanyl PF (SUBLIMAZE (PF)) injection 50 Given 07/07/2019 8:31 AM CDT 50 mcg mcg 50 mcg, Slow IV Push, Q2HPRN, Starting Mon07/05/19 at 0315, Until 07/07/19 at 1029, Routine, Pain (scale 7-10) Given 07/07/2019 5:34 AM CDT 50 mcg Given 07/07/2019 3:30 AM CDT 50 mcg iohexol (OMNIPAQUE 350 BULK-150 mL) Given 07/03/2019 7:30 PM CDT 120 mL injection 120 mL 120 mL, Intravenous, ONCE, 1 dose, Mon07/03/19 at 1930, Routine morpHINE injection 2 mg Given 07/03/2019 11:02 PM CDT 2 mg 2 mg, Slow IV Push, ONCE, 1 dose, Mon07/03/19 at 2300, Routine morpHINE injection 4 mg Given 07/03/2019 5:59 PM CDT 4 mg 4 mg, Slow IV Push, ONCE, 1 dose, Mon07/03/19 at 1730, STAT NaCl 0.9% (NS) bolus infusion New Bag 07/03/2019 5:59 PM CDT 1,000 mL 999 mL/hr 1,000 mL at 999 mL/hr, 1,000 mL, IV Infusion, ONCE, 1 dose, Mon07/03/19 at 1730, STAT ondansetron (ZOFRAN (PF)) injection 4 mg Given 07/03/2019 5:59 PM CDT 4 mg 4 mg, Slow IV Push, ONCE, 1 dose, Mon07/03/19 at 1730, BENJI pantoprazole (PROTONIX) 40 mg in NaCl 0.9% Given 07/05/2019 1:10 AM CDT 40 mg (NS) 100 mL MINI-BAG 40 mg, IV Piggyback, Q24H, First dose on Diana 07/04/19 at 0045, Until Discontinued, 100 mL Given 07/04/2019 2:12 AM CDT 40 mg proMETHazine (PHENERGAN) 12.5 mg in NaCl Given 07/03/2019 7:01 PM CDT 12.5 mg 0.9% (NS) 50 mL piggyback 12.5 mg, IV Piggyback, ONCE, 1 dose, 07/03/19 at 2000, 50 mL documented in this encounter
--- OUTSIDE RECORDS SUMMARY | 2019-09-02 00:29 | XMS REPORT | Summary of Care ---
:1995 Author Organization [facility] Address [address] [place] [address] Care Team Providers Name Role Phone Pcp, Patient Does Not Have A Primary Care Provider Reason for Visit Reason Comments Transition Of Care Encounter Details Date Type Department Care Team Description 07/09/2019 Transition of Care [facility] Transition Of Care [facility]- [address] [place] [address] [id number] Allergies No Known Allergiesdocumented as of this encounter (statuses as of 07/10/2019) Medications Medication Sig Dispensed Refills Start Date End Date Status ibuprofen 800 mg Take 1 tablet by 20 tablet 0 02/09/2019 Active tabletIndications: mouth 3 (three) Other acute times daily with pancreatitis without meals. For pain infection or necrosis traMADol 50 mg Take 1-2 tablets 15 tablet 0 07/07/2019 Active tabletIndications: by mouth every 6 Other acute (six) hours as pancreatitis without needed for Pain infection or necrosis (scale 7-10). acetaminophen 500 mg Take 2 tablets by 30 tablet 0 07/07/2019 Active tabletIndications: mouth every 8 Other acute (eight) hours as pancreatitis without needed for Pain. infection or necrosis documented as of this encounter (statuses as of 07/10/2019) Active Problems Problem Noted Date Pancreatitis 07/03/2019 Morbid obesity with body mass index of 40.0-49.9 02/04/2019 Acute pancreatitis 02/03/2019 Obesity (BMI 30-39.9) 02/03/2019 Abdominal pain 02/03/2019 documented as of this encounter (statuses as of 07/10/2019) Social History Tobacco Use Types Packs/Day Years [...] of this encounter Last Filed Vital Signs Not on filedocumented in this encounter Plan of Treatment Health Maintenance Due Date Last Done Comments PNEUMOCOCCAL 0-64 YEARS COMBINED SERIES (1 of 1 - 2000 PPSV23) VARICELLA VACCINES (1 of 2 - 13+ 2-dose series) 2007 HPV VACCINES (1 - Female 3-dose series) 2009 CHLAMYDIA SCREENING 2010 DTaP,Tdap,and Td Vaccines (1 - Tdap) 2013 PAP SMEAR 2015 INFLUENZA VACCINE (#1) 2019 documented as of this encounter Results Not on filedocumented in this encounter
== END 2019-08-29 15:30 | disposition left against medical advice (07) | DRG 440 ==
LOC: ER 08:16 → ERHOLD 12:30 → 4TH 13:42 → OBSVTOIN 08-29 15:24
PROVIDERS: ADMIT Family Medicine; ATTEND Family Medicine
DX: K86.0 Alcohol-induced chronic pancreatitis (principal); F12.10 Cannabis abuse, uncomplicated; F14.10 Cocaine abuse, uncomplicated; Z53.29 Procedure and treatment not carried out because of patient's decision for other reasons; K21.9 Gastro-esophageal reflux disease without esophagitis; F17.210 Nicotine dependence, cigarettes, uncomplicated
CPT/HCPCS: 36415; 74176; 76377; 80048; 80053; 80076; 80307; 80320; 81003; 81025; 83690; 83735; 85025; 96361; 96374; 96375; 99285; C9113; G0378; J1650; J2270; J2405; J7030; J7040

== ENCOUNTER 2019-08-30 09:34 | Emergency (ER) | payer SELFPAY ==
[2019-08-30] MEDS ORDERED: MORPHINE 2 MG/ML SYR ONE ×2 (09:57→10:39)
[2019-08-30] MEDS ORDERED: NA CHLORIDE 0.9% 1,000 ML ONE ×2 (09:57→12:34)
[2019-08-30 10:07] LABS: Absolute Lymphocytes (CBC) 1.6 K/uL (0.7-4.9); Basophils % 0.3 % (0-1.3); Hematocrit 34.9 % (36.0-45.0); Lymphocytes % 18.1 % (15.3-44.8); MPV 8.8 fL (7.6-11.3); RBC Red Blood Cell Count 4.65 M/uL (3.86-4.86)
[2019-08-30 10:27] LABS: ALT/SGPT 44 U/L (12-78); AST/SGOT 15 U/L (15-37); Albumin 3.5 g/dL (3.4-5.0); Alkaline Phosphatase 117 U/L (45-117); BUN Blood Urea Nitrogen 9 mg/dL (7-18); Bicarbonate 26 mmol/L (21-32); Bilirubin Direct < 0.1 mg/dL (0-0.2); Bilirubin Total 0.3 mg/dL (0.2-1.0); Glucose Level 131 mg/dL (74-106); Lipase 205 U/L (73-393); Potassium 3.9 mmol/L (3.5-5.1); Protein, Total 7.3 g/dL (6.4-8.2); Sodium Level 139 mmol/L (136-145)
--- NOTE | 2019-08-30 12:40 | ER ---
Nurse's Notes [facility] Name: Rufina Pavon Age: 23 yrs Sex: Female : 1995 Arrival Date: 08/30/2019 Time: 09:37 Bed 13 Private MD: Diagnosis: Generalized abdominal pain;Alcohol induced acute pancreatitis Presentation: 08/30 09:30 Presenting complaint: EMS states: pt was here yesterday for her pancreatitis, states tw2 pain got worse and is not better, got worse about 2 am, vomited 2 times prior to our arrival, pain RIGHT upper quad, pain on palpation to left lower quad, vs stable. Transition of care: patient was not received from another setting of care. Onset of symptoms was August 30, 2019. Risk Assessment: Do you want to hurt yourself or someone else? Patient reports no desire to harm self or others. Initial Sepsis Screen: Does the patient meet any 2 criteria? No. Patient's initial sepsis screen is negative. Does the patient have a suspected source of infection? No. Patient's initial sepsis screen is negative. Care prior to arrival: None. 09:30 Method Of Arrival: EMS: [facility] tw2 09:30 Acuity: AYAZ 3 tw2 Triage Assessment: 09:40 General: Appears uncomfortable, Behavior is appropriate for age. Pain: Complains of tw2 pain in abdomen. GI: Reports upper abdominal pain, nausea. 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 - Social history:: Smoking status: . - Ebola Screening: : Patient denies travel to an Ebola-affected area in the 21 days before illness onset. Screenin:54 Abuse screen: Denies threats or abuse. Nutritional screening: No deficits noted. tw2 Tuberculosis screening: No symptoms or risk factors identified. Fall Risk None identified. Assessment: 09:40 General: Appears uncomfortable, Behavior is calm, cooperative, appropriate for age. tw2 Pain: Complains of pain in abdomen. Neuro: Level of Consciousness is awake, alert, obeys commands, Oriented to person, place, time, situation. Cardiovascular: Heart tones S1 S2 Capillary refill < 3 seconds Patient's skin is warm and dry. Respiratory: Airway is patent Respiratory effort is even, unlabored, Respiratory pattern is regular, symmetrical. GI: Bowel sounds present X 4 quads. Abd is soft X 4 quads Reports lower abdominal pain, upper abdominal pain. : No signs and/or symptoms were reported regarding the genitourinary system. EENT: No signs and/or symptoms were reported regarding the EENT system. Derm: No signs and/or symptoms reported regarding the dermatologic system. Musculoskeletal: Range of motion: intact in all extremities. 10:20 Reassessment: Patient and/or family updated on plan of care and expected duration. Pain em level reassessed. Patient is alert, oriented x 3, equal unlabored respirations, skin warm/dry/pink. reports pain is 7/10, provider notified. 10:57 Reassessment: No changes from previously documented assessment. Patient and/or family tw2 updated on plan of care and expected duration. Pain level reassessed. Patient is alert, oriented x 3, equal unlabored respirations, skin warm/dry/pink. pt reports pain 5/10 at this time. Patient states feeling better. 12:12 Reassessment: No changes from previously documented assessment. Patient and/or family tw2 updated on plan of care and expected duration. Pain level reassessed. Patient is alert, oriented x 3, equal unlabored respirations, skin warm/dry/pink. 13:29 Reassessment: Patient appears in no apparent distress at this time. No changes from tw2 previously documented assessment. Patient and/or family updated on plan of care and expected duration. Pain level reassessed. Patient is alert, oriented x 3, equal unlabored respirations, skin warm/dry/pink. Patient denies pain at this time. 13:39 Reassessment: Patient appears in no apparent distress at this time. Patient and/or tw2 family updated on plan of care and expected duration. Pain level reassessed. Patient is alert, oriented x 3, equal unlabored respirations, skin warm/dry/pink. Patient states feeling better. Vital Signs: 09:39 BP 121 / 87; Pulse 66; Resp 17; Temp 98.5(O); Pulse Ox 99% on R/A; Weight 96.16 kg (R); tw2 Height 5 ft. 5 in. (165.10 cm); Pain 9/10; 10:29 BP 115 / 80; Pulse 50; Resp 18; Pulse Ox 99% on R/A; Pain 7/10; em 10:58 BP 124 / 80 Supine; Pulse 52; Resp 17; Pulse Ox 100% on R/A; tw2 12:12 BP 142 / 88; Pulse 67; Resp 17; Pulse Ox 100% on R/A; tw2 13:29 BP 124 / 86; Pulse 52; Resp 17; Pulse Ox 100% on R/A; tw2 13:39 BP 134 / 87; Pulse 57; Resp 17; Pulse Ox 99% ; Pain 4/10; tw2 09:39 Body Mass Index 35.28 (96.16 kg, 165.10 cm) tw2 ED Course: 09:37 Patient arrived in ED. tw2 09:38 Sade Moraes FNP-C is [facility]. snw 09:38 Lenny Domingo MD is Attending Physician. snw 09:38 Bed in low position. Call light in reach. tw2 09:39 Triage completed. tw2 09:39 Arm band placed on. tw2 09:41 Jenifer Lucas, RN is Primary Nurse. tw2 09:59 Initial lab(s) drawn, by me, sent to lab. Inserted saline lock: 20 gauge in right dh3 forearm, using aseptic technique. Blood collected. 12:43 Awaiting: completion of IV fluids PRIOR to discharge. tw2 13:39 No provider procedures requiring assistance completed. tw2 13:44 IV discontinued, intact, bleeding controlled, No redness/swelling at site. Pressure tw2 dressing applied. Administered Medications: 10:04 Drug: NS 0.9% 1000 ml Route: IV; Rate: 1 bolus; Site: right wrist; tw2 11:20 Follow up: Response: No adverse reaction; IV Status: Completed infusion; IV Intake: tw2 1000ml 10:05 Drug: morphine 2 mg Route: IVP; Site: right wrist; tw2 10:28 Follow up: Response: No adverse reaction; Pain is decreased; RASS: Alert and Calm (0) em 10:41 Drug: morphine 2 mg Route: IVP; Site: right wrist; em 13:29 Follow up: Response: No adverse reaction; Pain is decreased; RASS: Alert and Calm (0) tw2 12:35 Drug: NS 0.9% 1000 ml Route: IV; Rate: 1 bolus; Site: right wrist; em 13:40 Follow up: Response: No adverse reaction; IV Status: Completed infusion; IV Intake: tw2 1000ml 13:28 Drug: fentaNYL (PF) 50 mcg Route: IM; Site: right deltoid; tw2 13:43 Follow up: Response: No adverse reaction; Pain is decreased; RASS: Alert and Calm (0) tw2 Intake: 11:20 IV: 1000ml; Total: 1000ml. tw2 13:40 IV: 1000ml; Total: 2000ml. tw2 Outcome: 12:40 Discharge ordered by MD. snw 13:44 Discharged to home ambulatory, with family. tw2 13:44 Condition: stable 13:44 Discharge instructions given to patient, family, Instructed on discharge instructions, follow up and referral plans. no drinking with medication, no driving heavy equipment, medication usage, Demonstrated understanding of instructions, follow-up care, medications, Prescriptions given X 1. 13:44 Patient left the ED. tw2 Signatures: Sade Moraes, ESTIMATOR LUMBER-C ESTIMATOR LUMBER-Csnw Jm Pérez, RRTS RRTS Jenifer Horowitz RN RN tw2 Emma Espinoza 3
--- NOTE | 2019-08-30 12:41 | EDPHYS ---
Physician Documentation [facility] Name: Rufina Pavon Age: 23 yrs Sex: Female : 1995 Arrival Date: 08/30/2019 Time: 09:37 Bed 13 Private MD: ED Physician Lenny Domingo HPI: 08/30 12:34 This 23 yrs old Female presents to ER via EMS with complaints of Abdominal snw Pain. 12:34 The patient presents with abdominal pain that is diffuse. Onset: The symptoms/episode snw began/occurred suddenly. The symptoms do not radiate. Associated signs and symptoms: Pertinent positives: nausea and vomiting. The symptoms are described as steady. Severity of pain: At its worst the pain was moderate severe. The patient has experienced similar episodes in the past, chronically. The patient has been recently seen by a physician: The patient has been recently been admitted at [facility], was discharged yesterday, for similar complaints, but despite evaluation and treatment the patient has continued symptoms. 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 - Social history:: Smoking status: . - Ebola Screening: : Patient denies travel to an Ebola-affected area in the 21 days before illness onset. ROS: 12:33 Constitutional: Negative for fever, chills, and weight loss, Eyes: Negative for injury, snw pain, redness, and discharge, ENT: Negative for injury, pain, and discharge, Neck: Negative for injury, pain, and swelling, Cardiovascular: Negative for chest pain, palpitations, and edema, Respiratory: Negative for shortness of breath, cough, wheezing, and pleuritic chest pain, Back: Negative for injury and pain, : Negative for injury, bleeding, discharge, and swelling, MS/Extremity: Negative for injury and deformity, Skin: Negative for injury, rash, and discoloration, Neuro: Negative for headache, weakness, numbness, tingling, and seizure, Psych: Negative for depression, anxiety, suicide ideation, homicidal ideation, and hallucinations. 12:33 Abdomen/GI: Positive for abdominal pain, nausea and vomiting, of the abdomen. Exam: 12:31 Head/Face: Normocephalic, atraumatic. Eyes: Pupils equal round and reactive to light, snw extra-ocular motions intact. Lids and lashes normal. Conjunctiva and sclera are non-icteric and not injected. Cornea within normal limits. Periorbital areas with no swelling, redness, or edema. ENT: Nares patent. No nasal discharge, no septal abnormalities noted. Tympanic membranes are normal and external auditory canals are clear. Oropharynx with no redness, swelling, or masses, exudates, or evidence of obstruction, uvula midline. Mucous membranes moist. 12:31 Chest/axilla: Normal chest wall appearance and motion. Nontender with no deformity. No lesions are appreciated. Cardiovascular: Regular rate and rhythm with a normal S1 and S2. No gallops, murmurs, or rubs. Normal PMI, no JVD. No pulse deficits. Respiratory: Lungs have equal breath sounds bilaterally, clear to auscultation and percussion. No rales, rhonchi or wheezes noted. No increased work of breathing, no retractions or nasal flaring. Abdomen/GI: Soft, tender, with normal bowel sounds. No distension or tympany. Back: No spinal tenderness. No costovertebral tenderness. Full range of motion. MS/ Extremity: Pulses equal, no cyanosis. Neurovascular intact. Full, normal range of motion. Neuro: Awake and alert, GCS 15, oriented to person, place, time, and situation. Cranial nerves II-XII grossly intact. Motor strength 5/5 in all extremities. Sensory grossly intact. Cerebellar exam normal. Normal gait. Psych: Awake, alert, with orientation to person, place and time. Behavior, mood, and affect are within normal limits. 12:31 Constitutional: The patient appears alert, awake, anxious, obese. 12:31 ENT: External ear(s): are unremarkable, TM's: are normal, Mouth: is normal, Voice: is normal. 12:31 Skin: Appearance: Color: pale, Temperature: normal temperature. Vital Signs: 09:39 BP 121 / 87; Pulse 66; Resp 17; Temp 98.5(O); Pulse Ox 99% on R/A; Weight 96.16 kg (R); tw2 Height 5 ft. 5 in. (165.10 cm); Pain 9/10; 10:29 BP 115 / 80; Pulse 50; Resp 18; Pulse Ox 99% on R/A; Pain 7/10; em 10:58 BP 124 / 80 Supine; Pulse 52; Resp 17; Pulse Ox 100% on R/A; tw2 12:12 BP 142 / 88; Pulse 67; Resp 17; Pulse Ox 100% on R/A; tw2 13:29 BP 124 / 86; Pulse 52; Resp 17; Pulse Ox 100% on R/A; tw2 13:39 BP 134 / 87; Pulse 57; Resp 17; Pulse Ox 99% ; Pain 4/10; tw2 09:39 Body Mass Index 35.28 (96.16 kg, 165.10 cm) tw2 MDM: 09:38 Patient medically screened. dave 12:41 Data reviewed: vital signs, nurses notes. Data interpreted: Pulse oximetry: on room air snw is 100 %. Interpretation: normal. Counseling: I had a detailed discussion with the patient and/or guardian regarding: the historical points, exam findings, and any diagnostic results supporting the discharge/admit diagnosis, the presence of at least one elevated blood pressure reading (>120/80) during this emergency department visit, lab results, the need for outpatient follow up, to return to the emergency department if symptoms worsen or persist or if there are any questions or concerns that arise at home. Special discussion: Based on the patient's Hx, exam, and Dx evaluation, there is no indication for emergent surgery or inpatient Tx. It is understood by the patient/guardian that if the Sx's persist or worsen they need to return immediately for re-evaluation. I have referred the patient to see his PCP for further evaluation of high blood pressure. Based on the history and exam findings, there is no indication for further emergent testing or inpatient evaluation. I discussed with the patient/guardian the need to see the primary care provider for further evaluation of the symptoms. pt left inpatient area yesterday AMA. Pt returns today with c/o abdominal pain and not being able to sleep last pm. Slept in ED, still c/o abdominal discomfort. Bentyl rx given. Pt to f/u GI.. 08/30 09:47 Order name: Basic Metabolic Panel; Complete Time: 10:26 snw 08/30 09:47 Order name: CBC with Diff; Complete Time: snw 08/30 09:47 Order name: Creatinine for Radiology; Complete Time: snw 08/30 09:47 Order name: Hepatic Function; Complete Time: snw 08/30 09:47 Order name: Lipase; Complete Time: : snw 08/30 09:47 Order name: IV Saline Lock; Complete Time: : snw 08/30 09:47 Order name: Labs collected and sent; Complete Time: : snw Administered Medications: 10:04 Drug: NS 0.9% 1000 ml Route: IV; Rate: 1 bolus; Site: right wrist; tw2 11:20 Follow up: Response: No adverse reaction; IV Status: Completed infusion; IV Intake: tw2 1000ml 10:05 Drug: morphine 2 mg Route: IVP; Site: right wrist; tw2 10:28 Follow up: Response: No adverse reaction; Pain is decreased; RASS: Alert and Calm (0) em 10:41 Drug: morphine 2 mg Route: IVP; Site: right wrist; em 13:29 Follow up: Response: No adverse reaction; Pain is decreased; RASS: Alert and Calm (0) tw2 12:35 Drug: NS 0.9% 1000 ml Route: IV; Rate: 1 bolus; Site: right wrist; em 13:40 Follow up: Response: No adverse reaction; IV Status: Completed infusion; IV Intake: tw2 1000ml 13:28 Drug: fentaNYL (PF) 50 mcg Route: IM; Site: right deltoid; tw2 13:43 Follow up: Response: No adverse reaction; Pain is decreased; RASS: Alert and Calm (0) tw2 Disposition: 16:20 Co-signature as Attending Physician, Lenny Domingo MD I agree with the assessment and dave plan of care. Disposition: 08/30/19 12:40 Discharged to Home. Impression: Generalized abdominal pain, Alcohol induced acute pancreatitis. - Condition is Stable. - Discharge Instructions: Abdominal Pain, Adult, Colic, Acute Pancreatitis, Alcohol Abuse and Nutrition, What You Need To Know About Illegal Drug Use and Dependence, Youth, What You Need to Know About Alcohol Abuse and Dependence, Youth. - Prescriptions for Bentyl 20 mg Oral Tablet - take 1 tablet by ORAL route every 6 hours As needed; 20 tablet. - Medication Reconciliation Form, Thank You Letter, Antibiotic Education, Prescription Opioid Use, Work release form form. - Follow up: Emergency Department; When: As needed; Reason: Worsening of condition. Follow up: Private Physician; When: 2 - 3 days; Reason: Recheck today's complaints, Continuance of care, Re-evaluation by your physician. Signatures: Dispatcher [employer] EDLenny Adair MD MD cha Therrien, Shelly, REDUCING MACHINE OPERATOR-C REDUCING MACHINE OPERATOR-Csnw Jm Pérez, GRADUATE RN GRADUATE RN em Jenifer Lucas, RN RN tw2 Corrections: (The following items were deleted from the chart) 13:44 12:40 08/30/2019 12:40 Discharged to Home. Impression: Generalized abdominal pain; tw2 Alcohol induced acute pancreatitis. Condition is Stable. Forms are Work release form, Medication Reconciliation Form, Thank You Letter, Antibiotic Education, Prescription Opioid Use. Follow up: Emergency Department; When: As needed; Reason: Worsening of condition. Follow up: Private Physician; When: 2 - 3 days; Reason: Recheck today's complaints, Continuance of care, Re-evaluation by your physician. snw
[2019-08-30] MEDS ORDERED: FENTANYL CITR 100 MCG/2 ML ONE (12:46)
[2019-08-30 18:31] VITALS: TEMP 98.5
[2019-08-30 18:38] VITALS: BP 134/87; O2SAT 99
--- OUTSIDE RECORDS SUMMARY | 2019-09-02 05:06 | XMS REPORT ---
:1995 [facility] Address [address] [place] [address] [address]. [address]. [address] [place] [address] Care Team Providers Name Role Phone Unavailable [...]
== END 2019-08-30 13:44 | disposition home or self-care (01) ==
LOC: ER 09:34
DX: K85.20 Alcohol induced acute pancreatitis without necrosis or infection (principal); Z88.3 Allergy status to other anti-infective agents
CPT/HCPCS: 36415; 80048; 80076; 83690; 85025; 96361; 96372; 96374; 99284; J2270; J3010; J7030

== ENCOUNTER 2019-11-12 19:58 | Emergency (ER) | payer SELFPAY ==
--- OUTSIDE RECORDS SUMMARY | 2019-11-12 20:00 | XMS REPORT ---
:1995 [facility] Address [address] [place] [address] Care Team Providers Name Role Phone Unavailable [...]
--- NOTE | 2019-11-12 21:08 | EDPHYS ---
Physician Documentation [facility] Name: Rufina Pavon Age: 24 yrs Sex: Female : 1995 Arrival Date: 11/12/2019 Time: 20:01 Bed 15 Private MD: ED Physician Christian Cole HPI: 11/13 01:22 This 24 yrs old Female presents to ER via Ambulatory with complaints of Arm snw Pain. 01:22 The patient or guardian complains of decreased range of motion, pain, that is chronic. snw The complaints affect the anterior aspect of right shoulder. Context: The problem was sustained at an unknown location, resulted from a chronic condition. Onset: The symptoms/episode began/occurred 1.5 year(s) ago, and became worse 2 day(s) ago. Treatment prior to arrival includes: no previous treatment. Associated signs and symptoms: Pertinent positives: decreased range of motion, pain, of the posterior aspect of right shoulder and anterior aspect of right shoulder. Severity of symptoms: At their worst the symptoms were moderate. The patient has experienced similar episodes in the past, chronically. It is unknown whether or not the patient has recently seen a physician. RN [facility]: 11/12 20:10 LMP 11/09/2019 ca1 Historical: - Allergies: 20:10 Vancomycin; ca1 - Home Meds: 20:10 None [Active]; ca1 - PMHx: 20:10 Anxiety; Pancreatitis; ca1 - PSHx: 20:10 Cholecystectomy; ca1 - Immunization history:: Adult Immunizations not up to date. - Social history:: Smoking status: Patient reports the use of cigarette tobacco products, 2-3 cigarettes a day. - Ebola Screening: : Patient negative for fever greater than or equal to 101.5 degrees Fahrenheit, and additional compatible Ebola Virus Disease symptoms Patient denies exposure to infectious person Patient denies travel to an Ebola-affected area in the 21 days before illness onset No symptoms or risks identified at this time. ROS: 11/13 01:22 Constitutional: Negative for fever, chills, and weight loss, Eyes: Negative for injury, snw pain, redness, and discharge, ENT: Negative for injury, pain, and discharge, Neck: Negative for injury, pain, and swelling, Cardiovascular: Negative for chest pain, palpitations, and edema, Respiratory: Negative for shortness of breath, cough, wheezing, and pleuritic chest pain, Abdomen/GI: Negative for abdominal pain, nausea, vomiting, diarrhea, and constipation, Back: Negative for injury and pain, : Negative for injury, bleeding, discharge, and swelling, Skin: Negative for injury, rash, and discoloration, Neuro: Negative for headache, weakness, numbness, tingling, and seizure. MS/extremity: Positive for decreased range of motion, pain, of the right shoulder. Exam: 01:21 Constitutional: This is a well developed, well nourished patient who is awake, alert, snw and in no acute distress. Head/Face: Normocephalic, atraumatic. Eyes: Pupils equal round and reactive to light, extra-ocular motions intact. Lids and lashes normal. Conjunctiva and sclera are non-icteric and not injected. Cornea within normal limits. Periorbital areas with no swelling, redness, or edema. ENT: Nares patent. No nasal discharge, no septal abnormalities noted. Tympanic membranes are normal and external auditory canals are clear. Oropharynx with no redness, swelling, or masses, exudates, or evidence of obstruction, uvula midline. Mucous membranes moist. Neck: Trachea midline, no thyromegaly or masses palpated, and no cervical lymphadenopathy. Supple, full range of motion without nuchal rigidity, or vertebral point tenderness. No Meningismus. Chest/axilla: Normal chest wall appearance and motion. Nontender with no deformity. No lesions are appreciated. Cardiovascular: Regular rate and rhythm with a normal S1 and S2. No gallops, murmurs, or rubs. Normal PMI, no JVD. No pulse deficits. Respiratory: Lungs have equal breath sounds bilaterally, clear to auscultation and percussion. No rales, rhonchi or wheezes noted. No increased work of breathing, no retractions or nasal flaring. Abdomen/GI: Soft, non-tender, with normal bowel sounds. No distension or tympany. No guarding or rebound. No evidence of tenderness throughout. Back: No spinal tenderness. No costovertebral tenderness. Full range of motion. Skin: Warm, dry with normal turgor. Normal color with no rashes, no lesions, and no evidence of cellulitis. Neuro: Awake and alert, GCS 15, oriented to person, place, time, and situation. Cranial nerves II-XII grossly intact. Motor strength 5/5 in all extremities. Sensory grossly intact. Cerebellar exam normal. Normal gait. Psych: Awake, alert, with orientation to person, place and time. Behavior, mood, and affect are within normal limits. 01: Musculoskeletal/extremity: Extremities: grossly normal except: noted in the right shoulder: decreased ROM, pain, ROM: limited active range of motion due to pain, in the right shoulder, Circulation is intact in all extremities. Sensation intact. Vital Signs: 11/12 20:10 Pulse 84; Resp 17 S; Temp 99.4(O); Pulse Ox 100% on R/A; Weight 96.16 kg (R); Height 5 ca1 ft. 0 in. (152.40 cm) (R); Pain 8/10; 20:14 BP 99 / 71; ca1 21:11 BP 110 / 60; Pulse 59; Resp 17 S; Pulse Ox 100% on R/A; ca1 20:10 Body Mass Index 41.40 (96.16 kg, 152.40 cm) ca1 MDM: 20:19 Patient medically screened. snw 11/13 01:22 Data reviewed: vital signs, nurses notes. Data interpreted: Pulse oximetry: on room air snw is 100 %. Interpretation: normal. Counseling: I had a detailed discussion with the patient and/or guardian regarding: the historical points, exam findings, and any diagnostic results supporting the discharge/admit diagnosis, lab results, the need for outpatient follow up, for definitive care, to return to the emergency department if symptoms worsen or persist or if there are any questions or concerns that arise at home. Response to treatment: the patient's symptoms have mildly improved after treatment. Special discussion: Based on the history and exam findings, there is no indication for further emergent testing or inpatient evaluation. I discussed with the patient/guardian the need to see the primary care provider for further evaluation of the symptoms. 11/12 21:03 Order name: Urine Dipstick--Ancillary (enter results) mw2 11/12 21:03 Order name: Urine --Ancillary (enter results) mw2 Administered Medications: 11/12 21:10 Drug: TORadol 60 mg Route: IM; Site: left gluteus; ca1 21:11 Follow up: Response: No adverse reaction; Medication administered at discharge. ca1 Disposition: 11/12/19 21:08 Discharged to Home. Impression: Pain in right shoulder. - Condition is Stable. - Discharge Instructions: Joint Pain, Shoulder Pain, Heat Therapy. - Prescriptions for Diclofenac Sodium 75 mg Oral Tablet Sustained Release - take 1 tablet by ORAL route 2 times per day; 30 tablet. orphenadrine citrate 100 mg Oral Tablet Sustained Release - take 1 tablet by ORAL route 2 times per day As needed; 20 tablet. - Work release form, Medication Reconciliation Form, Thank You Letter, Antibiotic Education, Prescription Opioid Use form. - Follow up: Emergency Department; When: As needed; Reason: Worsening of condition. Follow up: Private Physician; When: 2 - 3 days; Reason: Recheck today's complaints, Continuance of care, Re-evaluation by your physician. Addendum: 12/02/2019 18:55 Co-signature as Attending Physician, Christian Cole MD. m a2 Signatures: Dispatcher [employer] EDMS Sade Moraes, KENNY-C FORENSIC NURSE-CsnChristian Norton MD MD ma2 Anuja Pena RN RN ca1 Corrections: (The following items were deleted from the chart) 11/12 21:20 21:08 11/12/2019 21:08 Discharged to Home. Impression: Pain in right shoulder. ca1 Condition is Stable. Forms are Medication Reconciliation Form, Thank You Letter, Antibiotic Education, Prescription Opioid Use. Follow up: Emergency Department; When: As needed; Reason: Worsening of condition. Follow up: Private Physician; When: 2 - 3 days; Reason: Recheck today's complaints, Continuance of care, Re-evaluation by your physician. snw
--- NOTE | 2019-11-12 21:08 | ER ---
Nurse's Notes [facility] Name: Rufina Pavon Age: 24 yrs Sex: Female : 1995 Arrival Date: 11/12/2019 Time: 20:01 Bed 15 Private MD: Diagnosis: Pain in right shoulder Presentation: 11/12 20:07 Presenting complaint: Patient states: R shoulder pain started about a year ago but ca1 worst in the past couple days. Denies injury to shoulder. Limited ROM on R shoulder. Transition of care: patient was not received from another setting of care. Onset of symptoms was November 12, 2019. Risk Assessment: Do you want to hurt yourself or someone else? Patient reports no desire to harm self or others. Initial Sepsis Screen: Does the patient meet any 2 criteria? No. Patient's initial sepsis screen is negative. Does the patient have a suspected source of infection? No. Patient's initial sepsis screen is negative. Care prior to arrival: None. 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 - Social history:: Smoking status: Patient reports the use of cigarette tobacco products, 2-3 cigarettes a day. - Ebola Screening: : Patient negative for fever greater than or equal to 101.5 degrees Fahrenheit, and additional compatible Ebola Virus Disease symptoms Patient denies exposure to infectious person Patient denies travel to an Ebola-affected area in the 21 days before illness onset No symptoms or risks identified at this time. Screenin:11 Abuse screen: Denies threats or abuse. Denies injuries from another. Nutritional ca1 screening: No deficits noted. Tuberculosis screening: No symptoms or risk factors identified. Fall Risk None identified. Assessment: 20:11 General: Appears in no apparent distress. uncomfortable, Behavior is calm, cooperative, ca1 appropriate for age. Pain: Complains of pain in anterior aspect of right shoulder and posterior aspect of right shoulder Pain radiates to right scapular area and right subscapular area Pain currently is 8 out of 10 on a pain scale. Aggravated by repositioning. Neuro: Level of Consciousness is awake, alert, obeys commands, Oriented to person, place, time, situation, Appropriate for age. Cardiovascular: Heart tones S1 S2 present Capillary refill < 3 seconds Patient's skin is warm and dry. Respiratory: Airway is patent Respiratory effort is even, unlabored, Respiratory pattern is regular, symmetrical, Breath sounds are clear bilaterally. GI: Abdomen is round non-distended, Bowel sounds present X 4 quads. Abd is soft and non tender X 4 quads. : No deficits noted. No signs and/or symptoms were reported regarding the genitourinary system. EENT: No deficits noted. No signs and/or symptoms were reported regarding the EENT system. Derm: Skin is intact, is healthy with good turgor, Skin is pink, warm \T\ dry. Musculoskeletal: Circulation, motion, and sensation intact. Capillary refill < 3 seconds, Range of motion: limited in right shoulder. 21:11 Reassessment: Patient appears in no apparent distress at this time. Patient is alert, ca1 oriented x 3, equal unlabored respirations, skin warm/dry/pink. Vital Signs: 20:10 Pulse 84; Resp 17 S; Temp 99.4(O); Pulse Ox 100% on R/A; Weight 96.16 kg (R); Height 5 ca1 ft. 0 in. (152.40 cm) (R); Pain 8/10; 20:14 BP 99 / 71; ca1 21:11 BP 110 / 60; Pulse 59; Resp 17 S; Pulse Ox 100% on R/A; ca1 20:10 Body Mass Index 41.40 (96.16 kg, 152.40 cm) ca1 ED Course: 20:01 Patient arrived in ED. cf2 20:07 Anuja Pena, RN is Primary Nurse. ca1 20:09 Triage completed. ca1 20:10 Arm band placed on right wrist. ca1 20:11 Patient has correct armband on for positive identification. Bed in low position. Call ca1 light in reach. Side rails up X 1. Pulse ox on. NIBP on. Warm blanket given. 20:13 [facility]ade Moraes FNP-C [facility]. snw 20:13 Christian Cole MD is Attending Physician. snw 21:19 No provider procedures requiring assistance completed. Patient did not have IV access ca1 during this emergency room visit. Administered Medications: 21:10 Drug: TORadol 60 mg Route: IM; Site: left gluteus; ca1 21:11 Follow up: Response: No adverse reaction; Medication administered at discharge. ca1 Outcome: 21:08 Discharge ordered by . snw 21:19 Discharged to home ambulatory. ca1 21:19 Condition: stable 21:19 Discharge instructions given to patient, Instructed on discharge instructions, follow up and referral plans. medication usage, Demonstrated understanding of instructions, follow-up care, medications, Prescriptions given X 2. 21:20 Patient left the ED. ca1 Signatures: Sade Moraes, MAIL PROCESSING CLERK-C MAIL PROCESSING CLERK-Denisew Anuja Pena RN RN ca1 Sujey Fraser cf2
[2019-11-12] MEDS ORDERED: KETOROLAC 30 MG/ML INJ ONE (21:11)
[2019-11-12 22:05] LABS: Urine Blood 2+ (NEG); Urine Glucose NEGATIVE (NEG); Urine Protein NEGATIVE (NEG)
[2019-11-13 13:58] VITALS: TEMP 99.4; O2SAT 100
[2019-11-13 14:07] VITALS: BP 110/60
== END 2019-11-12 21:20 | disposition home or self-care (01) ==
LOC: ER 19:58
DX: M25.511 Pain in right shoulder (principal); Z88.3 Allergy status to other anti-infective agents
CPT/HCPCS: 81003; 81025; 96372; 99283

== ENCOUNTER 2019-12-16 16:02 | Inpatient (IN) | payer SELFPAY ==
--- OUTSIDE RECORDS SUMMARY | 2019-12-16 16:03 | XMS REPORT ---
:1995 [facility] Address [address] [place] [place] [address] Care Team Providers Name Role Phone Unavailable [...]
[2019-12-16 16:33] LABS: Absolute Lymphocytes (CBC) 1.3 K/uL (0.7-4.9); Basophils % 0.4 % (0-1.3); Hematocrit 39.2 % (36.0-45.0); Lymphocytes % 12.7 % (15.3-44.8); MPV 8.8 fL (7.6-11.3); RBC Red Blood Cell Count 4.91 M/uL (3.86-4.86)
[2019-12-16] MEDS ORDERED: ONDANSETRON 4 MG/2 ML VIAL ONE (16:41)
[2019-12-16] MEDS ORDERED: NA CHLORIDE 0.9% 1,000 ML ONE ×2 (16:41→18:01)
[2019-12-16] MEDS ORDERED: MORPHINE 4 MG/ML SYR ONE (16:41)
[2019-12-16 16:50] LABS: Albumin 3.7 g/dL (3.4-5.0); Bilirubin Direct 0.1 mg/dL (0-0.2); Bilirubin Total 0.4 mg/dL (0.2-1.0); Protein, Total 7.2 g/dL (6.4-8.2)
[2019-12-16] MEDS ORDERED: FENTANYL CITR 100 MCG/2 ML ONE (17:08)
--- NOTE | 2019-12-16 18:16 | P.HP ---
Certification for Inpatient Patient admitted to: Inpatient With expected LOS: >2 Midnights Patient will require the following post-hospital care: None Practitioner: I am a practitioner with admitting privileges, knowledge of patient current condition, hospital course, and medical plan of care. Services: Services provided to patient in accordance with Admission requirements found in Title 42 Section 412.3 of the Code of Federal Regulations Patient History Date of Service: 12/16/19 Primary Care Provider: none Reason for admission: Abdominal pain History of Present Illness: Patient is a 24-year-old female with past medical history of alcohol use smoker with multiple admissions for pancreatitis last admission in August of 2019 comes in with abdominal pain. Patient was in her usual state of health until the day prior to admission when the patient had sudden onset of generalized abdominal pain after drinking beer 6 pack mainly in the epigastric region which is nonradiating sharp associated with nausea and vomiting. Patient denies any fevers or chills. Patient reports worsening pain with alcohol use. Patient's symptoms are constant moderate progressively worsening. No unusual foods travel outside the country or well water. Patient denies any diarrhea. Patient came into the ER for further evaluation. In the ER her workup revealed hypotension normal white blood cell count. Her lipase level was >700. No imaging studies were done. Liver enzymes were within normal limits. Patient was referred for admission. She is given 1 liter normal saline bolus pain medications and antiemetics. When seen in the ER she was awake alert oriented x3 in moderate distress due to pain. Allergies vancomycin Allergy (Verified 03/03/19 02:12) Itching Home medications list reviewed: Yes Home Medications: NK [No Home Meds] 08/28/19 - Past Medical/Surgical History Diabetic: No -: Alcohol abuse -: Cocaine abuse -: Anxiety -: Recurrent pancreatitis -: Tobacco abuse -: Cholecystectomy Psychosocial/ Personal History: Patient lives at home - Family History Mother Notes: States mother is healthy - Social History Smoking Status: Light Tobacco smoker (1-9 cigarettes/day) Alcohol use: Yes CD- Drugs: Yes Caffeine use: Yes Place of Residence: Home Review of Systems 10-point ROS is otherwise unremarkable Gastrointestinal: As per HPI Physical Examination - Vital Signs Temperature: 99.4 F Blood Pressure: 99/71 Pulse: 84 Respirations: 17 Pulse Ox (%): 100 - Physical Exam General: Alert, Oriented x3, Moderate distress, Obese, Other (ill appearing) HEENT: Atraumatic, PERRLA, Mucous membr. moist/pink, EOMI, Sclerae nonicteric Neck: Supple, JVD not distended Respiratory: Clear to auscultation bilaterally, Normal air movement Cardiovascular: No edema, Normal pulses, Regular rate/rhythm, Normal S1 S2 Gastrointestinal: Normal bowel sounds, Non-distended, No rebound, No guarding, Tenderness Musculoskeletal: No clubbing, No tenderness Integumentary: No rashes, No erythema Neurological: Normal speech, Normal strength at 5/5 x4 extr, Normal tone, Cranial nerves 3-12 intact, Normal affect - Studies Laboratory Data (last 24 hrs) 12/16/19 16:20: WBC 10.2, Hgb 12.7, Hct 39.2, Plt Count 239 12/16/19 16:20: Sodium 139, Potassium 4.0, BUN 11, Creatinine 1.01, Glucose 218 H, Total Bilirubin 0.4, AST 15, ALT 39, Alkaline Phosphatase 106, Lipase 725 H 12/16/19 16:09: WBC Cancelled, Hgb Cancelled, Hct Cancelled, Plt Count Cancelled 12/16/19 16:09: Sodium Cancelled, Potassium Cancelled, BUN Cancelled, Creatinine Cancelled, Glucose Cancelled, Total Bilirubin Cancelled, AST Cancelled, ALT Cancelled, Alkaline Phosphatase Cancelled, Lipase Cancelled Assessment and Plan - Problems (Diagnosis) (1) Acute pancreatitis Onset Date: 07/30/18 Current Visit: No Status: Acute Qualifiers: Pancreatitis type: alcohol induced Acute pancreatitis complication: no infection or necrosis Qualified Code(s): K85.20 - Alcohol induced acute pancreatitis without necrosis or infection (2) Anxiety Onset Date: 09/12/18 Current Visit: No Status: Acute (3) Nausea and vomiting Onset Date: 09/12/18 Current Visit: No Status: Acute Qualifiers: Vomiting type: unspecified Vomiting Intractability: intractable Qualified Code(s): R11.2 - Nausea with vomiting, unspecified (4) Alcohol use Onset Date: 07/30/18 Current Visit: No Status: Chronic (5) Nicotine dependence with current use Current Visit: Yes Status: Acute - Plan Pancreatitis. Keep patient NPO. Start on IV fluids. Trend lipase level. This is secondary to alcohol use. Liver enzymes are within normal limits. Patient has had 6 CT scans of her abdomen in the past 1 year. As her etiology is fairly straightforward will avoid repeating imaging for now on the LEs symptoms worsen and patient deteriorates and is clinically indicated. For now will obtain abdominal ultrasound. GI has been consulted. Will provide IV analgesia with morphine and IV antiemetics. Patient has been counseled extensively regarding her alcohol use. Understand that recurrent pancreatitis may lead to chronic complications. Her previous CT scans also show fatty liver disease which is likely to develop pain into cirrhosis if she does not stop drinking. Check serum test. Last menstrual period 1 week prior to admission. Start on IV folate and thiamine along with multi vitamins. Monitor for signs of alcohol withdrawal. Will use Ativan 2 mg IV q.4 hr p.r.n. alcohol withdrawal symptoms using CIWA protocol Counseled regarding smoking cessation DVT prophylaxis with Lovenox Discharge Plan: Home Plan to discharge in: 48 Hours - Advance Directives Does patient have a Living Will: No Does patient have a Durable POA for Healthcare: No - Code Status/Comfort Care Code Status Assessed: Yes
--- NOTE | 2019-12-16 18:29 | ER ---
Nurse's Notes [facility] Name: Rufina Pavon Age: 24 yrs Sex: Female : 1995 Arrival Date: 12/16/2019 Time: 16:04 Bed 25 Private MD: Diagnosis: Alcohol induced acute pancreatitis Presentation: 12/16 16:11 Presenting complaint: N/V/D and epigastric pain x 2-3 days. Not tolerating fluids. Hx hb of pancreatitis. Transition of care: patient was not received from another setting of care. Onset of symptoms was December 14, 2019. Risk Assessment: Do you want to hurt yourself or someone else? Patient reports no desire to harm self or others. Care prior to arrival: None. 16:11 Method Of Arrival: Ambulatory hb 16:11 Acuity: AYAZ 3 hb 16:30 Initial Sepsis Screen: Does the patient meet any 2 criteria? No. Patient's initial sepsis screen is negative. Does the patient have a suspected source of infection? Yes: Acute abdominal pain. 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 - Coronavirus screen:: The patient has NOT traveled to [place] in the past 14 days. The patient has NOT had contact with known/suspected case of Coronavirus? Proceed with normal triage procedures. - Social history:: Smoking status: Patient reports the use of cigarette tobacco products, denies chronic smoking, but will smoke occasionally. - Ebola Screening: : No symptoms or risks identified at this time. Screenin:30 Abuse screen: Denies threats or abuse. Denies injuries from another. Nutritional wh screening: No deficits noted. Tuberculosis screening: No symptoms or risk factors identified. Fall Risk None identified. Assessment: 16:30 General: Appears in no apparent distress. Behavior is calm, cooperative, appropriate wh for age. Pain: Complains of pain in left upper quadrant and right upper quadrant Pain does not radiate. Pain currently is 7 out of 10 on a pain scale. Pain began 2-3 days ago. Is intermittent. Neuro: Level of Consciousness is awake, alert, obeys commands, Oriented to person, place, time, situation, Appropriate for age. Cardiovascular: Heart tones S1 S2. Respiratory: Airway is patent Respiratory effort is even, unlabored, Respiratory pattern is regular, symmetrical. GI: Abdomen is flat, non-distended, Bowel sounds present X 4 quads. Abd is soft and non tender X 4 quads. Reports upper abdominal pain, diarrhea, nausea, vomiting. : No signs and/or symptoms were reported regarding the genitourinary system. EENT: No signs and/or symptoms were reported regarding the EENT system. Derm: Skin is intact, is healthy with good turgor, Skin is pink, warm \T\ dry. normal. Musculoskeletal: Circulation, motion, and sensation intact. 17:30 Reassessment: Patient appears in no apparent distress at this time. No changes from previously documented assessment. Patient and/or family updated on plan of care and expected duration. Pain level reassessed. Patient is alert, oriented x 3, equal unlabored respirations, skin warm/dry/pink. MD at bedside explaining POC need for admit. 18:30 Reassessment: Patient appears in no apparent distress at this time. No changes from previously documented assessment. Patient and/or family updated on plan of care and expected duration. Pain level reassessed. Patient is alert, oriented x 3, equal unlabored respirations, skin warm/dry/pink. Patient states feeling better. Vital Signs: 16:12 BP 126 / 83; Pulse 71; Resp 16; Temp 97.2; Pulse Ox 100% on R/A; Weight 96.16 kg; hb Height 5 ft. (152.40 cm); Pain 8/10; 16:55 BP 122 / 73; Pulse 51; Resp 18; Pulse Ox 99% on R/A; wh 18:00 BP 128 / 52; Pulse 65; Resp 18; Pulse Ox 100% on R/A; wh 16:12 Body Mass Index 41.40 (96.16 kg, 152.40 cm) hb ED Course: 16:04 Patient arrived in ED. mr 16:09 Tammy Nguyen [facility]-C [facility]. kb 16:09 Km Hardin MD is Attending Physician. kb 16:12 Triage completed. hb 16:12 Arm band placed on. hb 16:14 Rola Schroeder is Primary Nurse. wh 16:30 Patient has correct armband on for positive identification. Bed in low position. Call light in reach. Side rails up X 1. Pulse ox on. NIBP on. 16:30 Inserted saline lock: 20 gauge in left antecubital area, using aseptic technique. Blood collected. 17:30 Lizett Valverde MD is Hospitalizing Provider. kb 18:39 No provider procedures requiring assistance completed. Patient admitted, IV remains in place. Administered Medications: 16:37 Drug: NS 0.9% 1000 ml Route: IV; Rate: 1000 ml; Site: left antecubital; 18:40 Follow up: Response: No adverse reaction; IV Status: Completed infusion 16:39 Drug: morphine 4 mg Route: IVP; Site: left antecubital; 18:40 Follow up: Response: No adverse reaction; Pain is decreased; RASS: Alert and Calm (0) 16:41 Drug: Zofran 4 mg Route: IVP; Site: left antecubital; 18:40 Follow up: Response: No adverse reaction; Nausea is decreased 17:11 Drug: fentaNYL (PF) 25 mcg Route: IVP; Site: left antecubital; 18:40 Follow up: Response: No adverse reaction; Pain is decreased; RASS: Alert and Calm (0) 18:04 Drug: NS 0.9% 1000 ml Route: IV; Rate: 125 ml/hr; Site: left antecubital; 18:40 Follow up: Response: No adverse reaction; IV Status: Infusion continued upon admission Outcome: 17:30 Decision to Hospitalize by Provider. kb 18:39 Ad[facility] to [facility], via wheelchair, room 417, with chart, Report called to Jemma Gonzalez RN 18:39 Condition: stable 18:39 Instructed on the need for admit. 18:46 Patient left the ED. Signatures: Tammy Nguyen, FRED [facility] Marina Wray Heather, RN RN Rola Davalos
--- NOTE | 2019-12-16 18:30 | EDPHYS ---
Physician Documentation [facility] Name: Rufina Pavon Age: 24 yrs Sex: Female : 1995 Arrival Date: 12/16/2019 Time: 16:04 Bed 25 Private MD: ED Physician Km Hardin HPI: 12/16 16:26 This 24 yrs old Female presents to ER via Ambulatory with complaints of kb Abdominal Pain. 16:26 The patient presents with abdominal pain in the upper abdomen. Onset: The kb symptoms/episode began/occurred 2 day(s) ago. The symptoms do not radiate. Associated signs and symptoms: none. The symptoms are described as constant. Modifying factors: The symptoms are alleviated by nothing, the symptoms are aggravated by alcohol. Severity of pain: At its worst the pain was moderate in the emergency department the pain is unchanged. The patient has experienced similar episodes in the past. The patient has not recently seen a physician. Pt reports upper abd pain for 2 days. Last drank ETOH 3 days ago. CLINICAL SPECIALIST MEDICAL DEVICE: 16:55 LMP 11/2019 wh Historical: - Allergies: 16:12 Vancomycin; hb - PMHx: 16:12 Anxiety; Pancreatitis; hb - PSHx: 16:12 Cholecystectomy; hb - Immunization history:: Adult Immunizations up to date. - Coronavirus screen:: The patient has NOT traveled to [place] in the past 14 days. The patient has NOT had contact with known/suspected case of Coronavirus? Proceed with normal triage procedures. - Social history:: Smoking status: Patient reports the use of cigarette tobacco products, denies chronic smoking, but will smoke occasionally. - Ebola Screening: : No symptoms or risks identified at this time. ROS: 16:26 Constitutional: Negative for fever, chills, and weight loss, Neck: Negative for injury, kb pain, and swelling, Cardiovascular: Negative for chest pain, palpitations, and edema, Respiratory: Negative for shortness of breath, cough, wheezing, and pleuritic chest pain, Back: Negative for injury and pain, : Negative for injury, bleeding, discharge, and swelling, MS/Extremity: Negative for injury and deformity, Skin: Negative for injury, rash, and discoloration, Neuro: Negative for headache, weakness, numbness, tingling, and seizure. 16:26 Abdomen/GI: Positive for abdominal pain, Negative for nausea, vomiting, and diarrhea, constipation, abdominal cramps, abdominal distension, anorexia. Exam: 16:26 Constitutional: This is a well developed, well nourished patient who is awake, alert, kb and in no acute distress. Head/Face: Normocephalic, atraumatic. ENT: Nares patent. No nasal discharge, no septal abnormalities noted. Tympanic membranes are normal and external auditory canals are clear. Oropharynx with no redness, swelling, or masses, exudates, or evidence of obstruction, uvula midline. Mucous membranes moist. Neck: Trachea midline, no thyromegaly or masses palpated, and no cervical lymphadenopathy. Supple, full range of motion without nuchal rigidity, or vertebral point tenderness. No Meningismus. Chest/axilla: Normal chest wall appearance and motion. Nontender with no deformity. No lesions are appreciated. Cardiovascular: Regular rate and rhythm with a normal S1 and S2. No gallops, murmurs, or rubs. Normal PMI, no JVD. No pulse deficits. Respiratory: Lungs have equal breath sounds bilaterally, clear to auscultation and percussion. No rales, rhonchi or wheezes noted. No increased work of breathing, no retractions or nasal flaring. Skin: Warm, dry with normal turgor. Normal color with no rashes, no lesions, and no evidence of cellulitis. MS/ Extremity: Pulses equal, no cyanosis. Neurovascular intact. Full, normal range of motion. Neuro: Awake and alert, GCS 15, oriented to person, place, time, and situation. Cranial nerves II-XII grossly intact. Motor strength 5/5 in all extremities. Sensory grossly intact. Cerebellar exam normal. Normal gait. 16:26 Abdomen/GI: Inspection: abdomen appears normal, Bowel sounds: normal, in all quadrants, Palpation: moderate abdominal tenderness, in the right upper quadrant and left upper quadrant. Vital Signs: 16:12 BP 126 / 83; Pulse 71; Resp 16; Temp 97.2; Pulse Ox 100% on R/A; Weight 96.16 kg; hb Height 5 ft. (152.40 cm); Pain 8/10; 16:55 BP 122 / 73; Pulse 51; Resp 18; Pulse Ox 99% on R/A; wh 18:00 BP 128 / 52; Pulse 65; Resp 18; Pulse Ox 100% on R/A; wh 16:12 Body Mass Index 41.40 (96.16 kg, 152.40 cm) hb MDM: 16:13 Patient medically screened. kb 16:13 Data reviewed: vital signs, nurses notes. Data interpreted: Pulse oximetry: on room air kb is 100 %. Interpretation: normal. 17:29 Counseling: I had a detailed discussion with the patient and/or guardian regarding: the kb historical points, exam findings, and any diagnostic results supporting the discharge/admit diagnosis, lab results, the need for further work-up and treatment in the hospital. Physician consultation: Lizett Valverde MD was contacted at 17:29, regarding admission, to the medical/surgical unit. patient's condition, and will see patient in ED, shortly. ED course: Pt's pain still 6/10 after second dose of pain medication. Tolerated a sip of water. Pt concerned about going home due to pain. 12/16 16:09 Order name: Basic Metabolic Panel 12/16 16:09 Order name: CBC with Diff 12/16 16:09 Order name: Hepatic Function 12/16 16:09 Order name: Lipase 12/16 16:29 Order name: Basic Metabolic Panel; Complete Time: 16:55 EDMS 12/16 16:29 Order name: Liver (Hepatic) Function; Complete Time: 16:55 EDMS 12/16 16:30 Order name: Lipase; Complete Time: 16:55 EDMS 12/16 16:30 Order name: CBC with Automated Diff; Complete Time: 16:36 EDMS 12/16 17:27 Order name: US Abdomen Limited 12/16 16:09 Order name: IV Saline Lock; Complete Time: 16:24 kb 12/16 16:09 Order name: Labs collected and sent; Complete Time: 16:24 kb 12/16 17:09 Order name: PO challenge; Complete Time: 17:27 kb Administered Medications: 16:37 Drug: NS 0.9% 1000 ml Route: IV; Rate: 1000 ml; Site: left antecubital; 18:40 Follow up: Response: No adverse reaction; IV Status: Completed infusion 16:39 Drug: morphine 4 mg Route: IVP; Site: left antecubital; 18:40 Follow up: Response: No adverse reaction; Pain is decreased; RASS: Alert and Calm (0) 16:41 Drug: Zofran 4 mg Route: IVP; Site: left antecubital; 18:40 Follow up: Response: No adverse reaction; Nausea is decreased 17:11 Drug: fentaNYL (PF) 25 mcg Route: IVP; Site: left antecubital; 18:40 Follow up: Response: No adverse reaction; Pain is decreased; RASS: Alert and Calm (0) 18:04 Drug: NS 0.9% 1000 ml Route: IV; Rate: 125 ml/hr; Site: left antecubital; 18:40 Follow up: Response: No adverse reaction; IV Status: Infusion continued upon admission Disposition: 12/17 07:12 Co-signature as Attending Physician, Km Hardin MD I agree with the assessment and kdr plan of care. Disposition: 12/16/19 17:30 Hospitalization ordered by Lizett Valverde for Observation. Preliminary diagnosis is Alcohol induced acute pancreatitis. - Bed requested for Telemetry/MedSurg (observation). - Status is Observation. - Condition is Stable. - Problem is new. - Symptoms are unchanged. Signatures: Dispatcher [employer] EDMS Tammy Nguyen, HUMAN SERVICES WORKER-C HUMAN SERVICES WORKER-Ckb Kavitha Reina Kevin, MD MD [facility] Savanna Jeff RN RN Rola Schroeder Corrections: (The following items were deleted from the chart) 12/16 18:13 17:30 Hospitalization Ordered by Lizett Valverde MD for Observation. Preliminary diagnosis bd is Alcohol induced acute pancreatitis. Bed requested for Telemetry/MedSurg (observation). Status is Observation. Condition is Stable. Problem is new. Symptoms are unchanged. kb 18:46 18:13 12/16/2019 17:30 Hospitalization Ordered by Lizett Valverde MD for Observation. Preliminary diagnosis is Alcohol induced acute pancreatitis. Bed requested for Telemetry/MedSurg (observation). Status is Observation. Condition is Stable. Problem is new. Symptoms are unchanged. bd
--- NOTE | 2019-12-16 18:37 | RAD REPORT ---
EXAM DESCRIPTION: US - Abdomen Exam Limited - 12/16/2019 6:28 pm CLINICAL HISTORY: ABD PAIN COMPARISON: Abdomen Exam Complete dated 11/18/2018 FINDINGS: The gallbladder is surgically absent. The common bile duct is normal measuring 6 mm. The liver demonstrates no findings of intrahepatic biliary dilatation. IMPRESSION: Normal size common bile duct.
[2019-12-16] MEDS ORDERED: LORazepam 2 MG/ML VIAL IV PRN (19:53)
[2019-12-16] MEDS ORDERED: FLUMAZENIL 0.1 MG/ML (5 mL VIAL) IV PRN (19:53)
[2019-12-16] MEDS ORDERED: ACETAMINOPHEN 650MG/RECT SUPP RECT PRN (19:53)
[2019-12-16 20:09] VITALS: BMI 35.5
[2019-12-16] MEDS: ONDANSETRON 4 MG/2 ML VIAL IV PRN (21:02)
[2019-12-16] MEDS: MORPHINE 2 MG/ML SYR IV PRN (21:02)
[2019-12-17] MEDS: ONDANSETRON 4 MG/2 ML VIAL IV PRN (02:11)
[2019-12-17] MEDS: MORPHINE 2 MG/ML SYR IV PRN ×3 (02:11→11:50)
[2019-12-17] MEDS: FENTANYL CITR 100 MCG/2 ML IV PRN ×3 (05:23→17:55)
[2019-12-17 05:44] LABS: Absolute Lymphocytes (CBC) 1.5 K/uL (0.7-4.9); Basophils % 0.2 % (0-1.3); Hematocrit 37.6 % (36.0-45.0); Lymphocytes % 15.1 % (15.3-44.8); MPV 9.1 fL (7.6-11.3); RBC Red Blood Cell Count 4.68 M/uL (3.86-4.86)
[2019-12-17 06:01] LABS: Albumin 3.4 g/dL (3.4-5.0); Bilirubin Total 0.3 mg/dL (0.2-1.0); Phosphorus 2.4 mg/dL (2.5-4.9); Potassium 3.7 mmol/L (3.5-5.1); Protein, Total 6.6 g/dL (6.4-8.2)
[2019-12-17] MEDS ORDERED: KCL 20 MEQ/100 mL IVPB 20 MEQ/100 ML BAG IV SCH (07:00)
[2019-12-17] MEDS ORDERED: NA CHLORIDE 0.9% 500 ML ONE (07:34)
[2019-12-17] MEDS ORDERED: INFLUENZA VACCINE (for 3y+) 0.5 ML DOSE IMVAC ONE (08:00)
[2019-12-17] MEDS ORDERED: FOLIC ACID 1 MG, MULTIVITAMINS INJ 10 ML, THIAMINE HCL 100 MG in NA CHLORIDE 0.9% 1,000 ML IV SCH (09:00)
[2019-12-17] MEDS ORDERED: ENOXAPARIN 40 MG/0.4 ML SQ SCH (09:00)
[2019-12-17 14:13] VITALS: TEMP 97.5
[2019-12-17 17:45] VITALS: O2SAT 98
[2019-12-17 18:03] VITALS: BP 117/67
== END 2019-12-17 19:55 | disposition left against medical advice (07) | DRG 440 ==
LOC: ER 16:02 → ERHOLD 17:37 → 4TH 18:29
PROVIDERS: ADMIT Family Medicine; ATTEND Family Medicine
DX: K85.20 Alcohol induced acute pancreatitis without necrosis or infection (principal); F41.9 Anxiety disorder, unspecified; R11.2 Nausea with vomiting, unspecified; F17.210 Nicotine dependence, cigarettes, uncomplicated; E66.9 Obesity, unspecified; Z68.35 Body mass index [BMI] 35.0-35.9, adult
CPT/HCPCS: 36415; 76705; 80048; 80053; 80076; 83690; 83735; 84100; 84703; 85025; 94760; 96361; 96374; 96375; 99285; J1650; J2270; J2405; J3010; J3411; J7030; J7040

== ENCOUNTER 2020-01-24 05:44 | Inpatient (IN) | payer SELFPAY ==
--- OUTSIDE RECORDS SUMMARY | 2020-01-24 05:46 | XMS REPORT ---
:1995 [facility] Address [address] [place] [place] [address] Care Team Providers Name Role Phone Unavailable [...]
--- OUTSIDE RECORDS SUMMARY | 2020-01-24 05:47 | XMS REPORT | Summary of Care ---
:1995 Author Organization [facility] Address [address] [place] [address] Care Team Providers Name Role Phone Pcp, Patient Does Not Have A Primary Care Provider Reason for Visit Reason Comments Abdominal Pain Auth/Cert Status Reason Specialty Diagnoses / Referred By Referred To Procedures Contact Contact [facility] [address] [place] [address] Encounter Details Date Type Department Care Team Description 12/18/2019 Emergency [facility] Melody Goldsmith, Epigastric pain Department DO (Primary Dx) [address] [place] [id number] [phone] Allergies No Known Allergiesdocumented as of this encounter (statuses as of 12/18/2019) Medications Medication Sig Dispensed Refills Start Date [...] as of this encounter (statuses as of 12/18/2019) Active Problems Problem Noted Date Pancreatitis 07/03/2019 Morbid obesity with body mass index of 40.0-49.9 02/04/2019 Acute pancreatitis 02/03/2019 Obesity (BMI 30-39.9) 02/03/2019 Abdominal pain 02/03/2019 documented as of this encounter (statuses as of 12/18/2019) Social History Tobacco Use Types Packs/Day Years [...] Sign Reading Time Taken Comments Blood Pressure 142/80 12/18/2019 1:32 AM RN [employer] Pulse 119 12/18/2019 1:32 AM RN [employer] Temperature 37.9 C (100.2 F) 12/18/2019 1:32 AM RN [employer] Respiratory Rate 16 12/18/2019 1:32 AM RN [employer] Oxygen Saturation 99% 12/18/2019 1:32 AM RN [employer] Inhaled Oxygen Concentration - - Weight 96.2 kg (212 lb) 12/18/2019 1:34 AM RN [employer] Height 152.4 cm (5') 12/18/2019 1:34 AM RN [employer] Body Mass Index 41.4 12/18/2019 1:34 AM RN [employer] documented in this encounter Discharge Instructions Melody Cedeno DO - 12/18/2019DIAGNOSIS 1. Vomiting 2. Abdominal Pain NO LIFE-THREATENING FINDINGS ON TODAY'S EXAM. PROCEDURES IN THE ER TODAY: Blood work Urine test MEDICATIONS ADMINISTERED IN THE ER TODAY: Morphine Zofran Haldol IV fluids YOUR PRESCRIPTIONS AND [id number] MEDICATION RECOMMENDATIONS: None SPECIAL CARE INSTRUCTIONS: Please drink a clear liquid diet for the next 24 hours and then advance your diet as you feel better. FOLLOW-UP RECOMMENDATIONS: RECOMMEND FOLLOW-UP WITH A PRIMARY CARE PROVIDER OR SPECIALIST IN 2-5 DAYS, ESPECIALLY IF NO IMPROVEMENT IN SYMPTOMS. TO FOLLOW-UP WITHIN THE [facility], TRY THESE OPTIONS (CLINIC APPOINTMENTS AVAILABLE ON [id number] BASIS): 1. SCHEDULE AN APPOINTMENT ONLINE AT [email or web address] 2. OR CALL THE [facility] AT OR 3. OR CALL YOUR [facility] PHYSICIAN'S OFFICE DIRECTLY IF YOU ARE ALREADY AN ESTABLISHED [facility] PATIENT. OR, YOU MAY FOLLOW-UP WITH A PROVIDER OF YOUR CHOICE, SUCH : 1. A PHYSICIAN OF YOUR CHOICE 2. [facility], . LOCATIONS IN [facility] [place] 3. [facility], [address] [place], [place]; RETURN TO ER FOR WORSENING OF SYMPTOMS. AttachmentsThe following attachments cannot be sent through Care Everywhere.Pancreatitis (Mongolian)Diet, Vilas (Adult) (Mongolian)documented in this encounter Plan of Treatment Health Maintenance Due Date Last Done Comments VARICELLA VACCINES (1 of 2 - 2-dose childhood series) 1995 PNEUMOCOCCAL 0-64 YEARS COMBINED SERIES (1 of 1 - 2000 PPSV23) DTaP,Tdap,and Td Vaccines (1 - Tdap) 2005 HPV VACCINES (1 - Female 2-dose series) 2005 PAP SMEAR 2015 INFLUENZA VACCINE (#1) 2019 documented as of this encounter Procedures Procedure Name Priority Date/Time Associated Comments Diagnosis CBC WITH DIFFERENTIAL STAT 12/18/2019 1:37 Epigastric pain Results for this AM RN [employer] procedure are in the results section. URINALYSIS STAT 12/18/2019 1:37 Epigastric pain Results for this AM RN [employer] procedure are in the results section. CBC WITH DIFFERENTIAL Routine 12/18/2019 1:37 Epigastric pain Results for this AM RN [employer] procedure are in the results section. COMP. METABOLIC PANEL STAT 12/18/2019 1:37 Epigastric pain Results for this ([id number]) AM RN [employer] procedure are in the results section. LIPASE STAT 12/18/2019 1:37 Epigastric pain Results for this AM RN [employer] procedure are in the results section. POCT TEST Routine 12/18/2019 1:35 Epigastric pain Results for this AM RN [employer] procedure are in the results section. CONSENT/REFUSAL FOR Routine 12/18/2019 1:20 DIAGNOSIS AND AM RN [employer] TREATMENT documented in this encounter Results CBC WITH DIFFERENTIAL (12/18/2019 1:37 AM RN [employer]) WBC 11.08 4.30 - 11.10 [facility] 10*3/L [facility] RBC 4.83 3.93 - 5.25 [facility] 10*6/L [facility] HGB 12.6 11.6 - 15.0 [facility] g/dL [facility] HCT 39.8 35.7 - 45.2 % [facility] MCV 82.4 80.6 - 95.5 fL [facility] MCH 26.1 25.9 - 32.8 pg [facility] MCHC 31.7 31.6 - 35.1 [facility] g/dL [facility] RDW-SD 46.7 39.0 - 49.9 fL [facility] RDW-CV 15.5 12.0 - 15.5 % [facility] PLT 263 166 - 358 [facility] 10*3/L [facility] MPV 10.8 9.5 - 12.9 fL [facility] NRBC/100 WBC 0.0 0.0 - 10.0 /100 [facility] WBCs [facility] NRBC x10^3 <0.01 10*3/L [facility] GRAN MAT (NEUT) % 77.6 % [facility] IMM GRAN % 0.40 % [facility] LYMPH % 13.8 % [facility] MONO % 5.1 % [facility] EOS % 2.7 % [facility] BASO % 0.4 % [facility] GRAN MAT x10^3(ANC) 8.60 (H) 1.88 - 7.09 [facility] 10*3/uL [facility] IMM GRAN x10^3 0.04 0.00 - 0.06 [facility] 10*3/uL [facility] LYMPH x10^3 1.53 1.32 - 3.29 [facility] 10*3/uL [facility] MONO x10^3 0.57 0.33 - 0.92 [facility] 10*3/uL [facility] EOS x10^3 0.30 0.03 - 0.39 [facility] 10*3/uL [facility] BASO x10^3 0.04 0.01 - 0.07 [facility] 10*3/uL [facility] Specimen Blood - VENOUS Performing Organization Address City/State/Zipcode Phone Number [facility] CLIA: [id number], [address] [place] [address] Urinalysis (12/18/2019 1:37 AM RN [employer]) APPEARANCE Clear Clear [facility] COLOR Yellow Yellow [facility] PH 6.0 4.8 - 8.0 [facility] SP GRAVITY 1.013 1.003 - 1.030 [facility] GLU U QUAL Normal Normal [facility] BLOOD Negative Negative [facility] KETONES Negative Negative [facility] PROTEIN Negative Negative [facility] UROBILIN 2.0 mg/dL (A) Normal [facility] BILIRUBIN Negative Negative [facility] NITRITE Negative Negative [facility] LEUK AGNES Negative Negative [facility] RBC/HPF 1 0 - 3 HPF [facility] WBC/HPF 2 0 - 5 HPF [facility] BACTERIA Few (A) Negative [facility] MUCOUS Slight (A) Negative LPF [facility] SQ EPITH 2 HPF [facility] HYAL CAST 1 <=2 LPF [facility] Specimen Urine - URINE, CLEAN CATCH Performing Organization Address City/[facility]/Zipcode Phone Number [facility] CLIA: [id number], [address] [place] [address] Lipase, Serum (12/18/2019 1:37 AM RN [employer]) LIPASE 168 0 - 220 U/L [facility] Specimen Blood - VENOUS Performing Organization Address City/[facility] Phone Number [facility] CLIA: [id number], [address] [place] [address] Complete Metabolic Panel (12/18/2019 1:37 AM RN [employer]) NA 139 135 - 145 [facility] mmol/L [facility] K 3.8 3.5 - 5.0 [facility] mmol/L [facility] CL 100 98 - 108 mmol/L [facility] CO2 TOTAL 29 23 - 31 mmol/L [facility] AGAP 10 2 - 16 [facility] BUN 4 (L) 7 - 23 mg/dL [facility] GLUCOSE 131 (H) 70 - 110 mg/dL [facility] CREATININE 0.73 0.50 - 1.04 [facility] mg/dL [facility] TOTAL BILI 0.5 0.1 - 1.1 mg/dL [facility] CALCIUM 9.9 8.6 - 10.6 [facility] mg/dL [facility] T PROTEIN 8.2 6.3 - 8.2 g/dL [facility] ALBUMIN 4.8 3.5 - 5.0 g/dL [facility] ALK PHOS 93 34 - 122 U/L [facility] ALTv 33 5 - 35 U/L [facility] AST(SGOT) 38 13 - 40 U/L [facility] eGFR Calculation 97.1 mL/min/1.73m2 [facility] ([facility] LABORATORY Thai) eGFR Calculation 117.7 mL/min/1.73m2 [facility] () [facility] Specimen Blood - VENOUS Narrative Performed At Association of Glomerular Filtration Rate (GFR) [facility] and Staging of Kidney Disease* + + +- + | GFR (mL/min/1.73 m2) | With Kidney Damage | Without Kidney Damage + + +- + | >90 | Stage one | Normal + + +- + | 60-89 | Stage two | Decreased GFR + + +- + | 30-59 | Stage three | Stage three + + +- + | 15-29 | Stage four | Stage four + + +- + | <15 (or dialysis) | Stage five | Stage five + + +- + *Each stage assumes the associated GFR level has been in effect for at least three months. Stages 1 to 5, with or without kidney [...] abnormalities in imaging tests). Performing Organization Address City/State/Zipcode Phone Number [facility] CLIA: [id number], [address] [place] [address] POCT Test (12/18/2019 1:35 AM RN [employer]) POCT PREG Negative On board controls acceptable Present with C Line POCT PREG LOT # [id number] POCT PREG TEST DATE 05/22/2021 Specimen Urine - URINE, CLEAN CATCH documented in this encounter Visit Diagnoses Diagnosis Epigastric pain - Primary Abdominal pain, epigastric documented in this encounter Administered Medications Medication Order MAR Action Action Date Dose Rate Site haloperidol lactate (HALDOL) Given 12/18/2019 2:40 AM RN [employer] 2.5 mg injection 2.5 mg 2.5 mg, Intravenous, ONCE, 1 dose, Mon12/18/19 at 0345, STAT morpHINE injection 4 mg Given 12/18/2019 1:41 AM RN [employer] 4 mg 4 mg, Slow IV Push, ONCE, 1 dose, Mon12/18/19 at 0245, STAT NaCl 0.9% (NS) bolus infusion New Bag 12/18/2019 1:41 AM RN [employer] 1,000 mL 999 mL/hr 1,000 mL at 999 mL/hr, 1,000 mL, IV Infusion, ONCE, 1 dose, 12/18/19 at 0145, BENJI ondansetron (ZOFRAN (PF)) injection 4 mg Given 12/18/2019 1:41 AM RN [employer] 4 mg 4 mg, Slow IV Push, ONCE, 1 dose, Mon12/18/19 at 0245, BENJI documented in this encounter"
[2020-01-24] MEDS ORDERED: NA CHLORIDE 0.9% 1,000 ML ONE ×2 (06:02→06:06)
[2020-01-24] MEDS ORDERED: ONDANSETRON 4 MG/2 ML VIAL ONE ×2 (06:02→06:40)
[2020-01-24] MEDS ORDERED: MORPHINE 4 MG/ML SYR ONE (06:02)
[2020-01-24] MEDS ORDERED: FAMOTIDINE 20 MG/2 ML VIAL IV ONE (06:06)
[2020-01-24 06:11] LABS: Basophils % 0.3 % (0-1.3); Hematocrit 40.4 % (36.0-45.0); Lymphocytes % 13.4 % (15.3-44.8); MPV 9.3 fL (7.6-11.3); RBC Red Blood Cell Count 5.05 M/uL (3.86-4.86)
[2020-01-24 06:28] LABS: Urine Blood NEGATIVE (NEG); Urine Glucose NEGATIVE (NEG); Urine Protein 1+ (NEG); Urine Specific Gravity 1.025 (1.005-1.030)
[2020-01-24 06:31] LABS: Albumin 3.6 g/dL (3.4-5.0); Bilirubin Direct 0.1 mg/dL (0-0.2); Bilirubin Total 0.4 mg/dL (0.2-1.0); Potassium 3.7 mmol/L (3.5-5.1); Protein, Total 7.5 g/dL (6.4-8.2)
[2020-01-24] MEDS ORDERED: HYDROMORPHONE HCL 1 MG/ML INJ ONE (06:40)
--- NOTE | 2020-01-24 06:49 | EDPHYS ---
Physician Documentation [facility] Name: Rufina Pavon Age: 24 yrs Sex: Female : 1995 Arrival Date: 01/24/2020 Time: 05:46 Bed 7 Private MD: ED Physician Lenny Domingo HPI: 01/23 06:33 This 24 yrs old Female presents to ER via EMS with complaints of Abdominal dave Pain. 06:33 The patient presents with abdominal pain in the epigastric area, in the upper abdomen. dave Onset: The symptoms/episode began/occurred 3 day(s) ago. The symptoms radiate to Associated signs and symptoms: none. Modifying factors: The symptoms are alleviated by nothing, the symptoms are aggravated by alcohol, food. Severity of pain: At its worst the pain was moderate in the emergency department the pain is unchanged. The patient has not experienced similar symptoms in the past. 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 - Social history:: Smoking status: Patient reports the use of cigarette tobacco products, smokes one-half pack cigarettes per day. - Family history:: not pertinent. ROS: 06:33 Constitutional: Negative for fever, chills, and weight loss, Eyes: Negative for injury, dave pain, redness, and discharge, ENT: Negative for injury, pain, and discharge, Neck: Negative for injury, pain, and swelling, Cardiovascular: Negative for chest pain, palpitations, and edema, Respiratory: Negative for shortness of breath, cough, wheezing, and pleuritic chest pain, Back: Negative for injury and pain, : Negative for injury, bleeding, discharge, and swelling, MS/Extremity: Negative for injury and deformity, Skin: Negative for injury, rash, and discoloration, Neuro: Negative for headache, weakness, numbness, tingling, and seizure, Psych: Negative for depression, anxiety, suicide ideation, homicidal ideation, and hallucinations, Allergy/Immunology: Negative for hives, rash, and allergies, Endocrine: Negative for neck swelling, polydipsia, polyuria, polyphagia, and marked weight changes, Hematologic/Lymphatic: Negative for swollen nodes, abnormal bleeding, and unusual bruising. 06:33 Abdomen/GI: Positive for abdominal pain, nausea and vomiting, of the epigastric area, right upper quadrant and left upper quadrant. Exam: 06:33 Constitutional: This is a well developed, well nourished patient who is awake, alert, dave and in no acute distress. Head/Face: Normocephalic, atraumatic. Eyes: Pupils equal round and reactive to light, extra-ocular motions intact. Lids and lashes normal. Conjunctiva and sclera are non-icteric and not injected. Cornea within normal limits. Periorbital areas with no swelling, redness, or edema. ENT: Nares patent. No nasal discharge, no septal abnormalities noted. Tympanic membranes are normal and external auditory canals are clear. Oropharynx with no redness, swelling, or masses, exudates, or evidence of obstruction, uvula midline. Mucous membranes moist. Neck: Trachea midline, no thyromegaly or masses palpated, and no cervical lymphadenopathy. Supple, full range of motion without nuchal rigidity, or vertebral point tenderness. No Meningismus. Chest/axilla: Normal chest wall appearance and motion. Nontender with no deformity. No lesions are appreciated. Cardiovascular: Regular rate and rhythm with a normal S1 and S2. No gallops, murmurs, or rubs. Normal PMI, no JVD. No pulse deficits. Respiratory: Lungs have equal breath sounds bilaterally, clear to auscultation and percussion. No rales, rhonchi or wheezes noted. No increased work of breathing, no retractions or nasal flaring. Back: No spinal tenderness. No costovertebral tenderness. Full range of motion. Female : Normal external genitalia. Skin: Warm, dry with normal turgor. Normal color with no rashes, no lesions, and no evidence of cellulitis. MS/ Extremity: Pulses equal, no cyanosis. Neurovascular intact. Full, normal range of motion. Neuro: Awake and alert, GCS 15, oriented to person, place, time, and situation. Cranial nerves II-XII grossly intact. Motor strength 5/5 in all extremities. Sensory grossly intact. Cerebellar exam normal. Normal gait. Psych: Awake, alert, with orientation to person, place and time. Behavior, mood, and affect are within normal limits. 06:33 Abdomen/GI: Inspection: distension, Bowel sounds: normal, Palpation: moderate abdominal tenderness, in the epigastric area, right upper quadrant and left upper quadrant, Liver: no appreciated palpable abnormalities, Hernia: not appreciated. Vital Signs: 05:50 BP 131 / 87; Pulse 70; Resp 20; Weight 96.16 kg; Height 5 ft. (152.40 cm); Pain 9/10; ea 06:55 BP 128 / 80; Pulse 78; Resp 18; Temp 97.8; Pulse Ox 99% ; ea 08:00 BP 138 / 83; Pulse 74; Resp 18; Pulse Ox 99% on R/A; em 05:50 Body Mass Index 41.40 (96.16 kg, 152.40 cm) ea MDM: 05:51 Patient medically screened. dave 06:37 Data reviewed: vital signs, nurses notes, lab test result(s), EKG, radiologic studies. [facility] 01/23 05:50 Order name: Basic Metabolic Panel; Complete Time: 06:32 01/23 05:50 Order name: CBC with Diff; Complete Time: 06:32 01/23 05:50 Order name: Creatinine for Radiology; Complete Time: 07:16 01/23 05:50 Order name: Hepatic Function; Complete Time: 06:32 01/23 05:50 Order name: Lipase; Complete Time: 06:32 01/23 06:15 Order name: Urine Dipstick--Ancillary (enter results); Complete Time: 06:32 [facility] 01/23 06:15 Order name: Urine --Ancillary (enter results); Complete Time: 06:32 [facility] 01/23 06:40 Order name: ETOH Level; Complete Time: 07:59 [facility] 01/23 06:40 Order name: UDS; Complete Time: 07:59 [facility] 01/23 07:47 Order name: CBC with Automated Diff EDMS 01/23 07:47 Order name: CBC with Automated Diff EDMS 01/23 07:47 Order name: CBC with Automated Diff EDMS 01/23 07:47 Order name: CBC with Automated Diff EDMS 01/23 07:47 Order name: Comprehensive Metabolic Panel EDMS 01/23 05:56 Order name: CT Abd/Pelvis - IV Contrast Only; Complete Time: 07:16 [facility] 01/23 07:47 Order name: Comprehensive Metabolic Panel EDMS 01/23 07:48 Order name: Comprehensive Metabolic Panel EDMS 01/23 07:48 Order name: Comprehensive Metabolic Panel EDMS 01/23 07:48 Order name: Lipase EDMS / 07:48 Order name: Lipase EDMS / 07:48 Order name: Lipase EDMS 01/23 07:48 Order name: Lipase EDMS / 07:48 Order name: Lipid Profile EDMS 01/23 07:48 Order name: Lipid Profile EDMS 01/23 07:48 Order name: Magnesium EDMS / 07:48 Order name: Magnesium EDMS 01/23 07:48 Order name: Magnesium EDMS / 07:48 Order name: Magnesium EDMS 01/23 05:50 Order name: IV Saline Lock; Complete Time: 05:51 01/23 05:50 Order name: Labs collected and sent; Complete Time: 05:51 01/23 05:56 Order name: Urine Dipstick-Ancillary (obtain specimen); Complete Time: 06:09 [facility] 01/23 05:56 Order name: Urine Test (obtain specimen); Complete Time: 06:09 [facility] 01/23 06:38 Order name: EKG; Complete Time: 06:38 [facility] 01/23 06:38 Order name: EKG - Nurse/Tech; Complete Time: 06:49 [facility] 01/23 07:47 Order name: NPO EDMS Administered Medications: 06:00 Drug: Zofran (Ondansetron) 4 mg Route: IVP; Site: right antecubital; 08:14 Follow up: Response: No adverse reaction; Marked relief of symptoms em 06:03 Drug: morphine 4 mg Route: IVP; Site: right antecubital; 06:53 Follow up: Response: No adverse reaction; RASS: Alert and Calm (0) 06:09 Drug: NS 0.9% 1000 ml Route: IV; Rate: 1 bolus; Site: right antecubital; 07:00 Follow up: Response: No adverse reaction; IV Status: Completed infusion jl7 08:13 Follow up: IV Intake: 1000ml jl7 06:09 Drug: Pepcid 20 mg Route: IVP; Site: right antecubital; 06:51 Follow up: Response: No adverse reaction 06:14 Drug: NS 0.9% 1000 ml Route: IV; Rate: 1 bolus; Site: right antecubital; 06:51 Follow up: Response: No adverse reaction ah 07:30 Follow up: IV Status: Completed infusion jl7 08:13 Follow up: IV Intake: 1000ml jl 06:40 Drug: Dilaudid 1 mg Route: IVP; Site: right antecubital; 06:54 Follow up: Response: No adverse reaction ah 06:40 Drug: Zofran (Ondansetron) 4 mg Route: IVP; Site: right antecubital; 06:54 Follow up: Response: No adverse reaction ah 08:22 Drug: NS 0.9% 1000 ml Route: IV; Rate: 1 bolus; Site: right antecubital; 7 09:29 Follow up: IV Status: Completed infusion; IV Intake: 1000ml em 08:22 Drug: NS 0.9% 1000 ml Route: IV; Rate: 125 ml/hr; Site: right antecubital; 7 09:29 Follow up: IV Status: Infusion continued upon admission em 08:41 Drug: Dilaudid 0.5 mg Route: IVP; Site: right antecubital; [facility] 09:10 Follow up: Response: No adverse reaction; Marked relief of symptoms; Pain is decreased; em RASS: Alert and Calm (0) Disposition: 01/24/20 06:48 Hospitalization ordered by Curtis Ndiaye for Inpatient Admission. Preliminary diagnosis are Abdominal tenderness, Acute pancreatitis, Elevated white blood cell count, Cocaine abuse, Abuse of non-psychoactive substances, Alcohol abuse. - Bed requested for Telemetry/MedSurg (Inpatient). - Status is Inpatient Admission. em - Condition is Fair. - Problem is new. - Symptoms have improved. Signatures: Dispatcher [employer] EDTX Lenny Domingo MD MD cha Munoz, Edgar, RN RN Renzo Rawls, [employer] João Loera RN RN jl7 Miri Almazan RN RN ea Botello, Elizabeth eb Harris, Amy RN KYM Corrections: (The following items were deleted from the chart) 08:00 06:48 Hospitalization Ordered by Curtis Ndiaye DO for Inpatient Admission. Preliminary dave diagnosis is Abdominal tenderness; Acute pancreatitis. Bed requested for Telemetry/MedSurg (Inpatient). Status is Inpatient Admission. Condition is Fair. Problem is new. Symptoms have improved. [facility] 08:28 08:00 01/24/2020 06:48 Hospitalization Ordered by Curtis Ndiaye DO for Inpatient eb Admission. Preliminary diagnosis is Abdominal tenderness; Acute pancreatitis; Elevated white blood cell count; Cocaine abuse; Abuse of non-psychoactive substances; Alcohol abuse. Bed requested for Telemetry/MedSurg (Inpatient). Status is Inpatient Admission. Condition is Fair. Problem is new. Symptoms have improved. [facility] 09:31 08:28 01/24/2020 06:48 Hospitalization Ordered by Curtis Ndiaye DO for Inpatient em Admission. Preliminary diagnosis is Abdominal tenderness; Acute pancreatitis; Elevated white blood cell count; Cocaine abuse; Abuse of non-psychoactive substances; Alcohol abuse. Bed requested for Telemetry/MedSurg (Inpatient). Status is Inpatient Admission. Condition is Fair. Problem is new. Symptoms have improved. eb
--- NOTE | 2020-01-24 06:49 | ER ---
Nurse's Notes [facility] Name: Rufina Pavon Age: 24 yrs Sex: Female : 1995 Arrival Date: 01/24/2020 Time: 05:46 Bed 7 Private MD: Diagnosis: Abdominal tenderness;Acute pancreatitis;Elevated white blood cell count;Cocaine abuse;Abuse of non-psychoactive substances;Alcohol abuse Presentation: 01/23 05:50 Chief complaint: EMS states: Pt is complaining of pain in her right upper quadrant that ea radiates to the back, started 2 days ago. Reports nausea and vomiting, rates pain 9/10. Coronavirus screen: Patient denies fever greater than 100.4F, cough, shortness of breath, or difficulty breathing. Ebola Screen: No symptoms or risks identified at this time. Initial Sepsis Screen: Does the patient meet any 2 criteria? No. Patient's initial sepsis screen is negative. Does the patient have a suspected source of infection? No. Patient's initial sepsis screen is negative. Risk Assessment: Do you want to hurt yourself or someone else? Patient reports no desire to harm self or others. 05:50 Method Of Arrival: EMS: [facility] ea 05:50 Acuity: AYAZ 3 ea Triage Assessment: 05:55 General: Appears uncomfortable, Behavior is restless. Pain: Complains of pain in right ea upper quadrant Pain radiates to back Pain currently is 9 out of 10 on a pain scale. Neuro: Level of Consciousness is awake, alert, obeys commands, Oriented to person, place, time, situation. Respiratory: Airway is patent Respiratory effort is even, unlabored, Respiratory pattern is regular, symmetrical. GI: Parent/caregiver reports the patient having nausea, vomiting, pain. Derm: Skin is pink, warm \T\ dry. VACUUM SPINDLE SANDER: 05:54 LMP 01/10/2020 ea Historical: - Allergies: 05:53 Vancomycin; ea - PMHx: 05:53 Pancreatitis; Anxiety; ea - PSHx: 05:53 Cholecystectomy; ea - Immunization history:: Adult Immunizations up to date. - Social history:: Smoking status: Patient reports the use of cigarette tobacco products, smokes one-half pack cigarettes per day. - Family history:: not pertinent. Screenin:53 Abuse screen: Denies threats or abuse. Nutritional screening: No deficits noted. ea Tuberculosis screening: No symptoms or risk factors identified. Fall Risk IV access (20 points). Assessment: 06:15 General: Appears distressed, uncomfortable, Behavior is cooperative, crying, restless. ah Pain: Complains of pain in epigastric pain Pain radiates to thoracic area Pain at worst was 10 out of 10 on a pain scale. Pain began 1 day ago. Neuro: Level of Consciousness is awake, alert, Oriented to person, place, time, situation. Cardiovascular: Heart tones S1 S2 present Capillary refill < 3 seconds Patient's skin is warm and dry. Respiratory: Airway is patent Respiratory effort is even, unlabored, Respiratory pattern is regular, symmetrical, Breath sounds are clear bilaterally. GI: Abdomen is non-distended, Bowel sounds present X 4 quads. Abdomen is tender to palpation in epigastric area Reports nausea, vomiting. GI: Last BM was January 23, 2020. : No signs and/or symptoms were reported regarding the genitourinary system. EENT: No signs and/or symptoms were reported regarding the EENT system. Derm: No signs and/or symptoms reported regarding the dermatologic system. Musculoskeletal: No signs and/or symptoms reported regarding the musculoskeletal system. 07:20 Reassessment: Patient appears in no apparent distress at this time. Patient and/or em family updated on plan of care and expected duration. Pain level reassessed. Patient is alert, oriented x 3, equal unlabored respirations, skin warm/dry/pink. pending room assignment. 08:30 Reassessment: pt reports pain 9/10, grunting and grimacing noted, KORIN Cazares notified, em received verbal order to give 0.5 mg Dilaudid x1 IVP. Vital Signs: 05:50 BP 131 / 87; Pulse 70; Resp 20; Weight 96.16 kg; Height 5 ft. (152.40 cm); Pain 9/10; ea 06:55 BP 128 / 80; Pulse 78; Resp 18; Temp 97.8; Pulse Ox 99% ; ea 08:00 BP 138 / 83; Pulse 74; Resp 18; Pulse Ox 99% on R/A; em 05:50 Body Mass Index 41.40 (96.16 kg, 152.40 cm) ea ED Course: 05:46 Patient arrived in ED. cl3 05:50 Deluca, Jemma, RN is Primary Nurse. 05:51 Lenny Domingo MD is Attending Physician. [facility] 05:53 Triage completed. ea 05:53 Inserted saline lock: 20 gauge in right antecubital area, using aseptic technique. ea Blood collected. 05:54 Patient has correct armband on for positive identification. Bed in low position. Call ea light in reach. Side rails up X2. monitor technician on. Pulse ox on. NIBP on. 05:54 Arm band placed on right wrist. Patient placed in an exam room, on a stretcher, on ea desk monitor, on pulse oximetry. 06:48 Curtis Ndiaye DO is Hospitalizing Provider. [facility] 06:57 CT Abd/Pelvis - IV Contrast Only In Process Unspecified. EDMS 06:[address] via wheelchair. ah 07:[address] back from CT. 08:42 No provider procedures requiring assistance completed. Patient admitted, IV remains in em place. Administered Medications: 06:00 Drug: Zofran (Ondansetron) 4 mg Route: IVP; Site: right antecubital; 08:14 Follow up: Response: No adverse reaction; Marked relief of symptoms em 06:03 Drug: morphine 4 mg Route: IVP; Site: right antecubital; 06:53 Follow up: Response: No adverse reaction; RASS: Alert and Calm (0) ah 06:09 Drug: NS 0.9% 1000 ml Route: IV; Rate: 1 bolus; Site: right antecubital; 07:00 Follow up: Response: No adverse reaction; IV Status: Completed infusion jl7 08:13 Follow up: IV Intake: 1000ml jl7 06:09 Drug: Pepcid 20 mg Route: IVP; Site: right antecubital; 06:51 Follow up: Response: No adverse reaction 06:14 Drug: NS 0.9% 1000 ml Route: IV; Rate: 1 bolus; Site: right antecubital; 06:51 Follow up: Response: No adverse reaction 07:30 Follow up: IV Status: Completed infusion jl7 08:13 Follow up: IV Intake: 1000ml jl7 06:40 Drug: Dilaudid 1 mg Route: IVP; Site: right antecubital; 06:54 Follow up: Response: No adverse reaction 06:40 Drug: Zofran (Ondansetron) 4 mg Route: IVP; Site: right antecubital; 06:54 Follow up: Response: No adverse reaction ah 08:22 Drug: NS 0.9% 1000 ml Route: IV; Rate: 1 bolus; Site: right antecubital; jl7 09:29 Follow up: IV Status: Completed infusion; IV Intake: 1000ml em 08:22 Drug: NS 0.9% 1000 ml Route: IV; Rate: 125 ml/hr; Site: right antecubital; jl7 09:29 Follow up: IV Status: Infusion continued upon admission em 08:41 Drug: Dilaudid 0.5 mg Route: IVP; Site: right antecubital; 7 09:10 Follow up: Response: No adverse reaction; Marked relief of symptoms; Pain is decreased; em RASS: Alert and Calm (0) Intake: 08:13 IV: 1000ml; Total: 1000ml. [facility] 08:13 IV: 1000ml; Total: 2000ml. 09:29 IV: 1000ml; Total: 3000ml. em Outcome: 06:48 Decision to Hospitalize by Provider. dave 09:28 Admitted to Med/surg accompanied by tech, via wheelchair, room 211, with chart, Report em called to KYM Grullon 09:28 Condition: good 09:28 Instructed on the need for admit, Demonstrated understanding of instructions. 09:31 Patient left the ED. em Signatures: Dispatcher [employer] Lenny Barron MD MD cha Munoz, Edgar, RN RN em Leal, Jahala, RN RN jl7 Antunez, Elena, RN RN ea Lewis, Charde cl3 Jemma Deluca RN RN
--- NOTE | 2020-01-24 07:15 | RAD REPORT ---
EXAM DESCRIPTION: CT - Abdomen Pelvis W Contrast - 01/24/2020 6:57 am CLINICAL HISTORY: Abdominal pain COMPARISON: 2019 TECHNIQUE: Computed axial tomography of the abdomen pelvis was obtained. 100 cc Isovue-300 was admin istered intravenously. Oral contrast was not requested which limits evaluation of bowel. All CT scans are performed using dose optimization technique as appropriate and may include automated exposure control or mA/KV adjustment according to patient size. FINDINGS: Mild to moderate stranding adjacent the pancreas. No pseudocyst. The pancreas is normal si ze. Mild fatty liver, Spleen, adrenal and kidneys appear unremarkable. There is no evidence of diverticulitis. 22 millimeter right ovarian cyst without significant free flu id IMPRESSION: [id number] pancreatitis
[2020-01-24] MEDS ORDERED: ACETAMINOPHEN 500 MG TAB PO PRN (07:23)
[2020-01-24 07:24] LABS: Barbiturates NEGATIVE (NEGATIVE); Benzodiazepines NEGATIVE (NEGATIVE); Cocaine POSITIVE (NEGATIVE); METHAMPHETAM NEGATIVE (NEGATIVE); Methadone NEGATIVE (NEGATIVE); Opiates NEGATIVE (NEGATIVE); Phencyclidine NEGATIVE (NEGATIVE); THC Cannibis POSITIVE (NEGATIVE)
--- NOTE | 2020-01-24 07:53 | P.HP ---
Certification for Inpatient With expected LOS: >2 Midnights Patient will require the following post-hospital care: None Practitioner: I am a practitioner with admitting privileges, knowledge of patient current condition, hospital course, and medical plan of care. Services: Services provided to patient in accordance with Admission requirements found in Title 42 Section 412.3 of the Code of Federal Regulations Patient History Date of Service: 01/24/20 Primary Care Provider: None Reason for admission: Acute pancreatitis History of Present Illness: 24-year-old female with history of pancreatitis presents to the emergency department with a 2 day history of epigastric pain, nausea and vomiting. Patient reports that this feels like a flare for pancreatitis. Patient evaluated in the emergency department by ED physician and found to have an elevated lipase at 1756. Patient unable to tolerate p.o. fluids in emergency department. Emergency department physician requesting admission for further management of acute pancreatitis flare. When I saw the patient in the emergency department she appeared uncomfortable. Patient admits to drinking 1 mikes hard lemonade yesterday and also using cocaine. Patient also daily smoker. Patient was admitted about a month and a half ago for acute pancreatitis and ended up leaving against medical advice from the floor. Patient educated on need to abstain from alcohol and drug use. Patient does not have primary care doctor and has not been evaluated by a scrap stripper hand. Patient's vital signs were stable at this time. Will admit the patient for pain control. Will keep patient NPO and give IV pain medication as needed as well as a maintenance fluids. DVT prophylaxis with Lovenox-40 mg. Anticipate patient's condition will improve in the next 48-72 hr at which point we will be advancing her diet as tolerated with. Allergies vancomycin Allergy (Verified 03/03/19 02:12) Itching Home medications list reviewed: Yes Home Medications: NK [No Home Meds] 08/28/19 - Past Medical/Surgical History Has patient received pneumonia vaccine in the past: No Diabetic: No -: Alcohol abuse -: Cocaine abuse -: Anxiety -: Recurrent pancreatitis -: Tobacco abuse -: Cholecystectomy Psychosocial/ Personal History: Patient lives at home - Family History Mother Notes: States mother is healthy - Social History Smoking Status: Current every day smoker Counseled patient to stop smoking for: less than 10 minutes Alcohol use: Yes CD- Drugs: Yes Caffeine use: Yes Review of Systems General: Unremarkable Eyes: Unremarkable ENT: Unremarkable Respiratory: Unremarkable Cardiovascular: Unremarkable Gastrointestinal: Nausea, Vomiting, Abdominal Pain Genitourinary: Unremarkable Musculoskeletal: Unremarkable Integumentary: Unremarkable Neurological: Unremarkable Lymphatics: Unremarkable Physical Examination - Physical Exam General: Alert, In no apparent distress, Oriented x3 HEENT: Atraumatic, Normocephalic, Other (MM dry) Neck: Supple Respiratory: Clear to auscultation bilaterally, Normal air movement Cardiovascular: Normal pulses, Normal S1 S2 Capillary refill: <2 Seconds Gastrointestinal: Normal bowel sounds, Soft and benign, Tenderness Musculoskeletal: No erythema, No tenderness, No warmth Integumentary: No rashes, No breakdown Neurological: Normal speech, Normal strength at 5/5 x4 extr, Normal tone Lymphatics: No axilla or inguinal lymphadenopathy - Studies Laboratory Data (last 24 hrs) 01/24/20 05:50: Creatinine 0.88 01/24/20 05:50: WBC 14.9 H, Hgb 13.0, Hct 40.4, Plt Count 246 01/24/20 05:50: Sodium 139, Potassium 3.7, BUN 7, Creatinine 0.89, Glucose 160 H , Total Bilirubin 0.4, AST 24, ALT 52, Alkaline Phosphatase 118 H, Lipase 1756 H Assessment and Plan - Plan Assessment Acute pancreatitis Alcohol and drug abuse Plan Acute pancreatitis: The patient will be placed NPO and given IV pain medication as well as maintenance fluids. The patient has had flares of acute pancreatitis in the past but continues to abuse alcohol and cocaine. Patient also daily smoker. Patient counseled on need to quit using alcohol and drugs and how it affects her pancreas. DVT prophylaxis with Lovenox 40 mg. Anticipate patient will improve clinically in the next 48-72 hr at which point diet will be advanced as tolerated. Alcohol and drug abuse: The patient counseled on the need to stop abusing drugs and alcohol. Discharge Plan: Home Plan to discharge in: Greater than 2 days - Advance Directives Does patient have a Living Will: No Does patient have a Durable POA for Healthcare: No - Code Status/Comfort Care Code Status Assessed: Yes (Full code) Time Spent Managing Pts Care (In Minutes): 55
[2020-01-24] MEDS ORDERED: NA CHLORIDE 0.9% 2,000 ML ONE (08:20)
[2020-01-24] MEDS ORDERED: HYDROMORPHONE HCL 0.5 MG/0.5 ML INJ ONE (08:44)
[2020-01-24] MEDS ORDERED: FAMOTIDINE 20 MG/2 ML VIAL IV SCH (09:00)
[2020-01-24] MEDS: ENOXAPARIN 40 MG/0.4 ML SQ SCH (10:36)
[2020-01-24] MEDS: ONDANSETRON 4 MG/2 ML VIAL IV PRN ×3 (10:36→23:16)
[2020-01-24] MEDS: NA CHLORIDE 0.9% 1,000 ML IV SCH ×2 (10:38→17:20)
[2020-01-24] MEDS ORDERED: KCL 20 MEQ/100 mL IVPB 20 MEQ/100 ML BAG IV SCH (11:00)
[2020-01-24 11:14] VITALS: BMI 41.3
[2020-01-24] MEDS: HYDROMORPHONE HCL 0.5 MG/0.5 ML INJ IV PRN ×2 (12:58→23:01)
[2020-01-24] MEDS ORDERED: INFLUENZA VACCINE (for 3y+) 0.5 ML DOSE IMVAC ONE (14:00)
[2020-01-24] MEDS: HYDROMORPHONE HCL 1 MG/ML INJ IV PRN (18:51)
[2020-01-24] MEDS: FAMOTIDINE 20 MG/2 ML VIAL IV SCH (21:04)
[2020-01-25] MEDS: NA CHLORIDE 0.9% 1,000 ML IV SCH ×2 (01:48→09:39)
[2020-01-25] MEDS: HYDROMORPHONE HCL 1 MG/ML INJ IV PRN ×2 (03:42→09:41)
[2020-01-25] MEDS: ONDANSETRON 4 MG/2 ML VIAL IV PRN ×2 (03:45→09:41)
[2020-01-25 06:27] LABS: Absolute Lymphocytes (CBC) 1.7 K/uL (0.7-4.9); Basophils % 0.2 % (0-1.3); Lymphocytes % 16.4 % (15.3-44.8); MPV 8.9 fL (7.6-11.3); RBC Red Blood Cell Count 4.44 M/uL (3.86-4.86)
[2020-01-25 07:15] LABS: ALT/SGPT 32 U/L (12-78); AST/SGOT 11 U/L (15-37); Albumin 3.1 g/dL (3.4-5.0); Alkaline Phosphatase 98 U/L (45-117); BUN Blood Urea Nitrogen 4 mg/dL (7-18); Bicarbonate 25 mmol/L (21-32); Bilirubin Total 0.5 mg/dL (0.2-1.0); Glucose Level 84 mg/dL (74-106); HDL Cholesterol 56 mg/dL (40-60); LDL Cholesterol, Calculated 27 (<130); Magnesium 1.9 mg/dL (1.8-2.4); Potassium 3.9 mmol/L (3.5-5.1); Protein, Total 6.4 g/dL (6.4-8.2); Sodium Level 137 mmol/L (136-145)
--- NOTE | 2020-01-25 07:22 | P.PN ---
Subjective Date of Service: 01/25/20 Primary Care Provider: None Chief Complaint: Acute pancreatitis Subjective: Other (Less nausea and vomiting noted. Less pain noted. Patient admits using cocaine/marijuana.) Physical Examination - Vital Signs Temperature: 98 F Blood Pressure: 126/74 Pulse: 70 Respirations: 18 Pulse Ox (%): 99 - Physical Exam General: Alert, In no apparent distress, Oriented x3, Cooperative HEENT: Atraumatic Neck: Supple Respiratory: Clear to auscultation bilaterally, Normal air movement Cardiovascular: Normal pulses, Regular rate/rhythm Gastrointestinal: Normal bowel sounds, Soft and benign, Non-distended, No masses , No rebound, No guarding, Tenderness (Less pain to the epigastric region) Musculoskeletal: No tenderness, No warmth Integumentary: No erythema, No warmth, No cyanosis Neurological: Normal speech, Normal strength at 5/5 x4 extr, Normal tone, Normal affect - Studies Medications List Reviewed: Yes Assessment & Plan Discharge Plan: Home Plan to discharge in: 72 Hours Physician Review Additional Text: Assessment Acute, recurrent mild/moderate alcoholic pancreatitis Cocaine abuse Marijuana abuse Plan Acute, recurrent mild/moderate alcoholic pancreatitis: Abdominal pain has improved. Continue to keep patient NPO at this time. Continue IV fluids. Encourage incentive spirometer. Encourage ambulation. Once pain has significantly improved then will transition to clear liquid diet. Will continue to monitor closely. Possible clear liquids either later today or tomorrow. Patient admits cocaine and marijuana abuse. Cessation addressed. She understands that she needs to quit. Anticipate improvement over the next 72 hr. Cocaine abuse: Cessation education provided. Patient understands risks. She will try to quit. Marijuana abuse: Cessation education provided. Time Spent Managing Pts Care (In Minutes): 55
[2020-01-25] MEDS: ENOXAPARIN 40 MG/0.4 ML SQ SCH (09:41)
[2020-01-25] MEDS: FAMOTIDINE 20 MG/2 ML VIAL IV SCH (09:41)
[2020-01-25 12:01] VITALS: BP 98/58; TEMP 97.3
[2020-01-25 14:36] VITALS: O2SAT 98
== END 2020-01-25 15:14 | disposition left against medical advice (07) | DRG 440 ==
LOC: ER 05:44 → ERHOLD 07:49 → 2ND 09:32
PROVIDERS: ADMIT Family Medicine; ATTEND Family Medicine
DX: K85.20 Alcohol induced acute pancreatitis without necrosis or infection (principal); F17.210 Nicotine dependence, cigarettes, uncomplicated; F14.10 Cocaine abuse, uncomplicated; F12.10 Cannabis abuse, uncomplicated; Z88.1 Allergy status to other antibiotic agents; Z90.49 Acquired absence of other specified parts of digestive tract
CPT/HCPCS: 36415; 74177; 80048; 80053; 80061; 80076; 80307; 80320; 81003; 81025; 83690; 83735; 85025; 90471; 96361; 96374; 96375; 99285; J1170; J1650; J2405; J7030; Q2035; Q9967

== ENCOUNTER 2020-01-25 23:07 | Inpatient (IN) | payer SELFPAY ==
--- OUTSIDE RECORDS SUMMARY | 2020-01-25 23:09 | XMS REPORT ---
:1995 [facility] [address] [place] [address] Care Team Providers Name Role Phone Unavailable [...]
[2020-01-25 23:36] LABS: Absolute Lymphocytes (CBC) 1.7 K/uL (0.7-4.9); Basophils % 0.5 % (0-1.3); Hematocrit 39.8 % (36.0-45.0); Lymphocytes % 20.7 % (15.3-44.8); MPV 9.2 fL (7.6-11.3); RBC Red Blood Cell Count 4.99 M/uL (3.86-4.86)
[2020-01-25] MEDS ORDERED: NA CHLORIDE 0.9% 1,000 ML ONE (23:53)
[2020-01-25] MEDS ORDERED: KETOROLAC 30 MG/ML INJ ONE (23:53)
[2020-01-26 00:08] LABS: Albumin 3.7 g/dL (3.4-5.0); Bilirubin Direct 0.1 mg/dL (0-0.2); Bilirubin Total 0.3 mg/dL (0.2-1.0); Potassium 3.6 mmol/L (3.5-5.1); Protein, Total 7.7 g/dL (6.4-8.2)
--- NOTE | 2020-01-26 00:41 | EDPHYS ---
Physician Documentation [facility] Name: Rufina Pavon Age: 24 yrs Sex: Female : 1995 Arrival Date: 01/25/2020 Time: 23:09 Bed 15 Private MD: ED Physician Erlin Longo HPI: 01/25 06:31 This 24 yrs old Female presents to ER via Ambulatory with complaints of tw4 Abdominal Pain. 06:31 The patient presents with abdominal pain in the epigastric area. Onset: The tw4 symptoms/episode began/occurred yesterday. The symptoms do not radiate. Associated signs and symptoms: Pertinent positives: nausea. The symptoms are described as sharp. Modifying factors: The symptoms are alleviated by nothing, the symptoms are aggravated by alcohol. The patient has not experienced similar symptoms in the past. The patient has been recently been admitted at [facility], was discharged earlier today, for similar complaints, PT LEFT THE HOSPITAL AMA. 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 - Social history:: Smoking status: Patient reports the use of cigarette tobacco products, denies chronic smoking, but will smoke occasionally, Patient uses alcohol, street drugs, cocaine. ROS: 01/25 06:31 Constitutional: Negative for fever, chills, and weight loss, Eyes: Negative for injury, tw4 pain, redness, and discharge, Cardiovascular: Negative for chest pain, palpitations, and edema, Respiratory: Negative for shortness of breath, cough, wheezing, and pleuritic chest pain, Back: Negative for injury and pain, MS/Extremity: Negative for injury and deformity, Skin: Negative for injury, rash, and discoloration, Neuro: Negative for headache, weakness, numbness, tingling, and seizure. Abdomen/GI: Positive for abdominal pain, Negative for nausea and vomiting, nausea, vomiting, and diarrhea, nausea, constipation, abdominal cramps, abdominal distension, anorexia, dysphagia. Exam: 06:31 Head/Face: Normocephalic, atraumatic. Eyes: Pupils equal round and reactive to light, tw4 extra-ocular motions intact. Lids and lashes normal. Conjunctiva and sclera are non-icteric and not injected. Cornea within normal limits. Periorbital areas with no swelling, redness, or edema. Chest/axilla: Normal chest wall appearance and motion. Nontender with no deformity. No lesions are appreciated. Cardiovascular: Regular rate and rhythm with a normal S1 and S2. No gallops, murmurs, or rubs. Normal PMI, no JVD. No pulse deficits. Respiratory: Lungs have equal breath sounds bilaterally, clear to auscultation and percussion. No rales, rhonchi or wheezes noted. No increased work of breathing, no retractions or nasal flaring. 06:31 MS/ Extremity: Pulses equal, no cyanosis. Neurovascular intact. Full, normal range of motion. Neuro: Awake and alert, GCS 15, oriented to person, place, time, and situation. Cranial nerves II-XII grossly intact. Motor strength 5/5 in all extremities. Sensory grossly intact. Cerebellar exam normal. Normal gait. 06:31 Constitutional: The patient appears in obvious distress, moderately distressed. 06:31 Abdomen/GI: Inspection: abdomen appears normal, Bowel sounds: diminished, Palpation: moderate abdominal tenderness, in the epigastric area. Vital Signs: 01/24 23:14 BP 134 / 77; Pulse 82; Resp 18 S; Temp 99.3(O); Pulse Ox 98% on R/A; Weight 96.16 kg bb (R); Height 5 ft. 0 in. (152.40 cm) (R); Pain 10/10; 01/25 00:15 BP 141 / 70; Pulse 80; Resp 16; Pulse Ox 99% ; rr5 01:00 BP 116 / 75; Pulse 84; Resp 16; Pulse Ox 100% on R/A; rv 01:37 BP 112 / 65; Pulse 52; Resp 15; Pulse Ox 98% on R/A; rv 01/24 23:14 Body Mass Index 41.40 (96.16 kg, 152.40 cm) bb MDM: 01/24 23:19 Patient medically screened. tw4 01/25 06:33 Data reviewed: vital signs, nurses notes. Data interpreted: Pulse oximetry: tw4 Interpretation: normal. Counseling: I had a detailed discussion with the patient and/or guardian regarding: the historical points, exam findings, and any diagnostic results supporting the discharge/admit diagnosis. Physician consultation: Luli Toledo MD regarding admission, to the telemetry unit. patient's condition, and will see patient in ED. 06:34 Differential diagnosis: cholecystitis, Cholelithiasis, pancreatitis, Peptic Ulcer tw4 Disease, Perf. Duodenal Ulcer, Perf. Gastric Ulcer. 01/24 23:19 Order name: Basic Metabolic Panel; Complete Time: 00:15 tw 01/25 00:16 Interpretation: Normal except: GLUC 163; GFR 69. tw 01/24 23:19 Order name: CBC with Diff; Complete Time: 00:15 [facility] 01/25 00:16 Interpretation: Normal except: WBC 8.2; RBC 4.99; MCV 79.7; MCH 25.6; RDW 15.4. [facility] 01/24 23:19 Order name: Creatinine for Radiology; Complete Time: 00:15 [facility] 01/25 00:16 Interpretation: Within normal limits: CRE 0.97. [facility] 01/24 23:19 Order name: Hepatic Function; Complete Time: 00:15 [facility] 01/25 00:16 Interpretation: Normal except: AST 12; GLOB 4.0; A/G 0.9. [facility] 01/24 23:19 Order name: Lipase; Complete Time: 00:15 [facility] 01/25 00:16 Interpretation: Normal except: LIP 534. [facility] 01/25 01:08 Order name: Comprehensive Metabolic Panel [facility] 01/24 23:19 Order name: IV Saline Lock; Complete Time: 23:31 tw 01/25 01:08 Order name: CONS Pharmacy Consult [facility] 01/25 01:08 Order name: Clear Liquid [facility] 01/25 01:08 Order name: Comprehensive Metabolic Panel [facility] 01/24 23:19 Order name: Labs collected and sent; Complete Time: 23:31 tw4 Administered Medications: 01/24 23:50 Drug: NS 0.9% 1000 ml Route: IV; Rate: 1 bolus; Site: right forearm; rr5 01/25 01:41 Follow up: IV Status: Completed infusion; IV Intake: 1000ml rv 01/24 23:52 Drug: TORadol 30 mg Route: IVP; Site: right forearm; rr5 01/25 01:41 Follow up: Response: No adverse reaction rv 01:18 Drug: morphine 1 mg {Note: rass 0.} Route: IVP; Site: right forearm; rv 01:41 Follow up: Response: Medication administered at discharge. rv 01:19 Drug: Zofran (Ondansetron) 4 mg Route: IVP; Site: right forearm; rv 01:42 Follow up: Response: Medication administered at discharge. rv Disposition: 01/26/20 00:40 Hospitalization ordered by Luli Toledo for Observation. 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 - Bed requested for Telemetry/MedSurg (observation). - Status is Observation. rv - Condition is Stable. - Problem is new. - Symptoms have improved. Signatures: Dispatcher [employer] EDMerry Brown, RN RN bb Betty Isaac RN RN cg Erlin Longo MD MD tw4 Sarath Petty RN RN rv Josh Carrillo RN RN rr5 Corrections: (The following items were deleted from the chart) : 00:40 Hospitalization Ordered by Luli Toledo MD for Observation. Preliminary cg diagnosis is Alcohol-induced chronic pancreatitis. Bed requested for Telemetry/MedSurg (observation). Status is Observation. Condition is Stable. Problem is new. Symptoms have improved. tw4 01:42 01:23 01/26/2020 00:40 Hospitalization Ordered by Luli Toledo MD for Observation. 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 Bed requested for Telemetry/MedSurg (observation). Status is Observation. Condition is Stable. Problem is new. Symptoms have improved. cg
--- NOTE | 2020-01-26 00:41 | ER ---
Nurse's Notes [facility] Name: Rufina Pavon Age: 24 yrs Sex: Female : 1995 Arrival Date: 01/25/2020 Time: 23:09 Bed 15 Private MD: Diagnosis: Alcohol-induced chronic pancreatitis Presentation: 01/24 23:14 Chief complaint: Patient states: pt states she was admitted here but left today for bb pancreatitis now the pain is getting worse. Coronavirus screen: Proceed with normal triage. Ebola Screen: No symptoms or risks identified at this time. Initial Sepsis Screen: Does the patient meet any 2 criteria? No. Patient's initial sepsis screen is negative. Does the patient have a suspected source of infection? No. Patient's initial sepsis screen is negative. Risk Assessment: Do you want to hurt yourself or someone else? Patient reports no desire to harm self or others. Onset of symptoms was January 25, 2020. 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 - Social history:: Smoking status: Patient reports the use of cigarette tobacco products, denies chronic smoking, but will smoke occasionally, Patient uses alcohol, street drugs, cocaine. Screenin:59 Abuse screen: Denies threats or abuse. Denies injuries from another. Nutritional rr5 screening: No deficits noted. Tuberculosis screening: No symptoms or risk factors identified. Fall Risk IV access (20 points). Total Rincon Fall Scale indicates No Risk (0-24 pts). Assessment: 23:15 General: Appears in no apparent distress. uncomfortable, Behavior is calm, cooperative, rr5 appropriate for age. 23:15 Pain: Complains of pain in epigastric area Pain radiates to back Pain currently is 10 rr5 out of 10 on a pain scale. Quality of pain is described as aching, Pain began gradually, Is intermittent. Neuro: Level of Consciousness is awake, alert, obeys commands, Oriented to person, place, time, situation. Cardiovascular: Capillary refill < 3 seconds Patient's skin is warm and dry. Respiratory: Airway is patent Respiratory effort is even, unlabored, Respiratory pattern is regular, symmetrical. GI: Abdomen is round Bowel sounds present X 4 quads. Abd is soft X 4 quads Reports upper abdominal pain, recently diagnosed of pancreatitis. : No signs and/or symptoms were reported regarding the genitourinary system. EENT: No signs and/or symptoms were reported regarding the EENT system. Derm: Skin is intact, is healthy with good turgor, Skin temperature is warm. Musculoskeletal: Circulation, motion, and sensation intact. Capillary refill < 3 seconds. 01/25 00:45 Reassessment: Patient appears in no apparent distress at this time. hospitalist at rr5 bedside examining the patient. informed the patient complaining of pain with verbal order made and carried out. Patient states symptoms have not improved. 01:30 Reassessment: Patient appears in no apparent distress at this time. Patient is alert, rr5 oriented x 3, equal unlabored respirations, skin warm/dry/pink. pain score 7/10 for transfer to room 230. vitally stable. Patient states symptoms have improved. Vital Signs: 01/24 23:14 BP 134 / 77; Pulse 82; Resp 18 S; Temp 99.3(O); Pulse Ox 98% on R/A; Weight 96.16 kg bb (R); Height 5 ft. 0 in. (152.40 cm) (R); Pain 10/10; 01/25 00:15 BP 141 / 70; Pulse 80; Resp 16; Pulse Ox 99% ; rr5 01:00 BP 116 / 75; Pulse 84; Resp 16; Pulse Ox 100% on R/A; rv 01:37 BP 112 / 65; Pulse 52; Resp 15; Pulse Ox 98% on R/A; rv 01/24 23:14 Body Mass Index 41.40 (96.16 kg, 152.40 cm) bb ED Course: 01/24 23:09 Patient arrived in ED. mr 23:15 Triage completed. bb 23:16 Arm band placed on Patient placed in an exam room, on a stretcher, on pulse oximetry. bb 23:18 Erlin Longo MD is Attending Physician. tw4 23:20 Patient has correct armband on for positive identification. Placed in gown. Bed in low rr5 position. Call light in reach. 23:20 Pulse ox on. NIBP on. rr5 23:21 Josh Carrillo, RN is Primary Nurse. rr5 23:28 Inserted saline lock: 20 gauge in right forearm, using aseptic technique. Blood rr5 collected. 01/25 00:38 Luli Toledo MD is Hospitalizing Provider. tw4 01:25 No provider procedures requiring assistance completed. Patient admitted, IV remains in rr5 place. intact, No redness/swelling at site. Administered Medications: 01/24 23:50 Drug: NS 0.9% 1000 ml Route: IV; Rate: 1 bolus; Site: right forearm; rr5 01/25 01:41 Follow up: IV Status: Completed infusion; IV Intake: 1000ml rv 01/24 23:52 Drug: TORadol 30 mg Route: IVP; Site: right forearm; rr5 01/25 01:41 Follow up: Response: No adverse reaction rv 01:18 Drug: morphine 1 mg {Note: rass 0.} Route: IVP; Site: right forearm; rv 01:41 Follow up: Response: Medication administered at discharge. rv 01:19 Drug: Zofran (Ondansetron) 4 mg Route: IVP; Site: right forearm; rv 01:42 Follow up: Response: Medication administered at discharge. rv Intake: 01:41 IV: 1000ml; Total: 1000ml. rv Outcome: 00:40 Decision to Hospitalize by Provider. tw4 01:33 Admitted to Med/surg accompanied by nurse, via wheelchair, room 230, with chart, Report rr5 called to ari 01:33 Condition: stable 01:33 Instructed on the need for admit. 01:42 Patient left the ED. rv Signatures: Luz Marina Morton Brenda, RN RN bb Erlin Longo MD MD tw4 Sarath Petty RN RN rv Josh Carrillo, KYM RN rr5
[2020-01-26] MEDS ORDERED: ONDANSETRON 4 MG/2 ML VIAL IV PRN (01:02)
[2020-01-26] MEDS ORDERED: ALBUTEROL 2.5 MG/3 ML NEB SOL NEB PRN (01:02)
[2020-01-26] MEDS ORDERED: HYDRALAZINE HCL 20 MG/ML VIAL IV PRN (01:04)
[2020-01-26] MEDS ORDERED: LORazepam 2 MG/ML VIAL IV PRN (01:07)
--- NOTE | 2020-01-26 01:14 | P.HP ---
Certification for Inpatient Patient admitted to: Observation With expected LOS: <2 Midnights Patient will require the following post-hospital care: None Practitioner: I am a practitioner with admitting privileges, knowledge of patient current condition, hospital course, and medical plan of care. Services: Services provided to patient in accordance with Admission requirements found in Title 42 Section 412.3 of the Code of Federal Regulations Patient History Date of Service: 01/26/20 Reason for admission: Abdominal pain History of Present Illness: 24-year-old female with history of polysubstance abuse admitted daily at today for pancreatitis with lipase of greater than 1600 patient signed out AMA after for 4 hrs into hospitalization but returned again this night for 12 last later with complain of the same epigastric area pain. She admits to some nausea vomiting. On questioning she admits to drinking and taking cocaine in the interval. Allergies vancomycin Allergy (Verified 03/03/19 02:12) Itching Home Medications: NK [No Home Meds] 08/28/19 - Past Medical/Surgical History Diabetic: No -: Alcohol abuse -: Cocaine abuse -: Anxiety -: Recurrent pancreatitis -: Tobacco abuse -: Cholecystectomy Psychosocial/ Personal History: Patient lives at home - Family History Mother Notes: States mother is healthy - Social History Alcohol use: Yes CD- Drugs: Yes Caffeine use: Yes Review of Systems 10-point ROS is otherwise unremarkable Physical Examination - Physical Exam General: Alert, Oriented x3, Mild distress HEENT: Atraumatic, Normocephalic, PERRLA Neck: Supple, 2+ carotid pulse no bruit Respiratory: Clear to auscultation bilaterally, Normal air movement Cardiovascular: Normal pulses, Regular rate/rhythm, Normal S1 S2 Gastrointestinal: Normal bowel sounds, Soft and benign, Non-distended, Tenderness (epigastric) Musculoskeletal: No clubbing, No swelling Integumentary: No rashes, No breakdown, No significant lesion Neurological: Normal speech, Normal strength at 5/5 x4 extr, Normal tone - Studies Laboratory Data (last 24 hrs) 01/25/20 23:28: Creatinine 0.97 01/25/20 23:28: WBC 8.2 D, Hgb 12.8, Hct 39.8, Plt Count 214 01/25/20 23:28: Sodium 137, Potassium 3.6, BUN 8, Creatinine 0.98, Glucose 163 H , Total Bilirubin 0.3, AST 12 L, ALT 35, Alkaline Phosphatase 107, Lipase 534 H Assessment and Plan - Problems (Diagnosis) (1) Acute pancreatitis Onset Date: 07/30/18 Current Visit: No Status: Acute Qualifiers: (2) Intractable abdominal pain Onset Date: 09/12/18 Current Visit: No Status: Acute (3) Nicotine dependence with current use Current Visit: No Status: Acute (4) Alcohol use Onset Date: 07/30/18 Current Visit: No Status: Chronic (5) Cocaine abuse Onset Date: 07/30/18 Current Visit: No Status: Chronic - Advance Directives Does patient have a Living Will: No Does patient have a Durable POA for Healthcare: No Physician Review: Patient Assessed, Agree with Above Assessment and Plan Physician Review Additional Text: Pancreatitis-improving -will monitor Overnight -will start patient on clear liquid now since improved lipase to 560 -we do p.r.n. pain control with Toradol, I avoid opioids use given polysubstance abuse -likely due to alcohol and cocaine abuse Alcohol abuse-do Ativan p.r.n. Nausea and vomiting-IV Zofran as needed Possible hospital stay for less than 24 hr Time Spent Managing Pts Care (In Minutes): 60
[2020-01-26] MEDS ORDERED: MORPHINE 2 MG/ML SYR ONE (01:19)
[2020-01-26 01:59] VITALS: BMI 35.5
[2020-01-26] MEDS: D5 0.9 NS 1,000 ML IV SCH ×2 (02:00→09:53)
[2020-01-26] MEDS: KETOROLAC 30 MG/ML INJ IV PRN ×3 (04:32→21:19)
[2020-01-26 05:02] VITALS: O2SAT 100
[2020-01-26] MEDS: ENOXAPARIN 40 MG/0.4 ML SQ SCH (08:43)
[2020-01-26] MEDS: NICOTINE 21 MG/PAT TD SCH (08:44)
[2020-01-26] MEDS: FAMOTIDINE 20 MG TAB PO SCH ×2 (08:44→21:19)
[2020-01-26] MEDS ORDERED: TRAMADOL HCL 50 MG TAB PO PRN (14:57)
--- NOTE | 2020-01-26 15:01 | P.PN ---
Subjective Date of Service: 01/26/20 Primary Care Provider: none Chief Complaint: Abdominal pain Subjective: Improving (Less pain noted. Patient was admitted this morning after leaving against medical advice yesterday. Patient admits eating fajitas last night. Patient also admits using cocaine.) Physical Examination - Vital Signs Temperature: 97.4 F Blood Pressure: 116/69 Pulse: 73 Respirations: 20 Pulse Ox (%): 99 - Physical Exam General: Alert, In no apparent distress, Cooperative HEENT: Atraumatic Neck: Supple Respiratory: Clear to auscultation bilaterally, Normal air movement Cardiovascular: Normal pulses, Regular rate/rhythm Gastrointestinal: Normal bowel sounds, Soft and benign, Non-distended, No masses , No rebound, No guarding, Tenderness (Pain to the epigastric region improve.) Musculoskeletal: Other (Reports pain to the back) Neurological: Normal speech, Normal strength at 5/5 x4 extr, Normal tone, Normal affect - Studies Laboratory Data (last 24 hrs) 01/25/20 23:28: Creatinine 0.97 01/25/20 23:28: WBC 8.2 D, Hgb 12.8, Hct 39.8, Plt Count 214 01/25/20 23:28: Sodium 137, Potassium 3.6, BUN 8, Creatinine 0.98, Glucose 163 H , Total Bilirubin 0.3, AST 12 L, ALT 35, Alkaline Phosphatase 107, Lipase 534 H Medications List Reviewed: Yes Assessment & Plan Discharge Plan: Home Plan to discharge in: 24 Hours Physician Review Additional Text: Impression: Nausea, vomiting with abdominal pain secondary to Acute, recurrent alcoholic pancreatitis Cocaine abuse Alcohol abuse Noncompliance with medical recommendations Plan: Nausea, vomiting with abdominal pain secondary to Acute, recurrent alcoholic pancreatitis: Continue with hydration. Patient started on a clear liquid diet today. Will slowly advanced. Encourage incentive spirometer. Encourage ambulation. Possible discharge as early as tomorrow but will reassess. Will monitor electrolytes and replace. Patient did leave against medical advice yesterday. She was admitted this morning. She admits eating fajitas last night and using cocaine. Will reassess tomorrow. Cocaine abuse: Patient admits to using cocaine last night. Cocaine cessation education address in detail. Alcohol abuse: Alcohol cessation education provided Noncompliance with medical recommendations: Patient did leave against medical advice yesterday. She has a history of doing this in the past. Will continue monitor closely. Patient encouraged to follow medical plan of care at this time. Patient agrees. Time Spent Managing Pts Care (In Minutes): 55
[2020-01-26] MEDS: NA CHLORIDE 0.9% 1,000 ML IV SCH (16:00)
[2020-01-26] MEDS: HYDROCODONE/APAP 7.5/325 MG TAB PO PRN (17:22)
[2020-01-26] MEDS ORDERED: POTASSIUM CL SA 10 MEQ TAB PO ONE (18:40)
[2020-01-27] MEDS: HYDROCODONE/APAP 7.5/325 MG TAB PO PRN ×2 (01:15→06:39)
[2020-01-27] MEDS: NA CHLORIDE 0.9% 1,000 ML IV SCH ×2 (01:15→09:12)
[2020-01-27] MEDS: KETOROLAC 30 MG/ML INJ IV PRN (05:01)
[2020-01-27 06:53] LABS: BUN Blood Urea Nitrogen 3 mg/dL (7-18); Bicarbonate 25 mmol/L (21-32); Glucose Level 111 mg/dL (74-106); Potassium 3.5 mmol/L (3.5-5.1); Sodium Level 140 mmol/L (136-145)
[2020-01-27 06:54] LABS: ALT/SGPT 29 U/L (12-78); AST/SGOT 10 U/L (15-37); Albumin 3.1 g/dL (3.4-5.0); Alkaline Phosphatase 87 U/L (45-117); Bilirubin Total 0.3 mg/dL (0.2-1.0); Magnesium 1.8 mg/dL (1.8-2.4); Protein, Total 6.5 g/dL (6.4-8.2)
[2020-01-27] MEDS ORDERED: DOCUSATE NA 100 MG CAP PO SCH (09:00)
[2020-01-27] MEDS: NICOTINE 21 MG/PAT TD SCH (09:00)
[2020-01-27] MEDS: FAMOTIDINE 20 MG TAB PO SCH (09:13)
[2020-01-27] MEDS: ENOXAPARIN 40 MG/0.4 ML SQ SCH (09:13)
--- NOTE | 2020-01-27 11:05 | P.DS ---
Admission Date: 01/26/20 Discharge Date: 01/27/20 Primary Care Provider: none Disposition: ROUTINE DISCHARGE Discharge Condition: GOOD Reason for Admission: Abdominal pain Consultations: none Procedures: Medical Problem List: Nausea, vomiting with abdominal pain secondary to Acute, recurrent alcoholic pancreatitis Cocaine abuse Alcohol abuse Noncompliance with medical recommendations Brief History of Present Illness: 24-year-old female with history of recurrent acute on chronic alcoholic pancreatitis. Patient recently left against medical advice. Patient returns with abdominal pain and nausea and vomiting. Patient was admitted for recurrent pancreatitis. Hospital Course: Patient recently left against medical advice after being treated for pancreatitis. Patient returned with nausea and vomiting and abdominal pain. Patient found to have acute recurrent alcoholic pancreatitis. Patient admitted eating fajitas and using cocaine after she left against medical advice. Patient was admitted for treatment. Her condition has improved. She is without significant nausea and vomiting and abdominal pain at discharge. She is able to tolerate a GI soft diet. At discharge patient will continue with a GI soft diet. Strong recommendations on discontinuation of alcohol and cocaine was addressed in detail. Patient understands the risks. Information on drug rehab was provided. Patient willing to review as an outpatient. Compliance with medical recommendations was addressed in detail. Education on pancreatitis , diet was addressed in detail with the patient. Recommend follow up with GI as an outpatient to further monitor. Vital Signs/Physical Exam: Temp Pulse Resp BP Pulse Ox 98.6 F 62 18 124/79 98 01/27/20 08:00 01/27/20 08:00 01/27/20 08:00 01/27/20 08:00 01/27/20 08:00 General: Alert, In no apparent distress, Oriented x3, Cooperative HEENT: Atraumatic Neck: Supple Respiratory: Clear to auscultation bilaterally, Normal air movement Cardiovascular: Normal pulses, Regular rate/rhythm Gastrointestinal: Normal bowel sounds, Soft and benign, Non-distended, No tenderness, No masses, No rebound, No guarding Musculoskeletal: No erythema, No tenderness, No warmth Integumentary: No tenderness/swelling, No erythema, No warmth, No cyanosis Neurological: Normal speech, Normal strength at 5/5 x4 extr, Normal tone, Normal affect Laboratory Data at Discharge: WBC 8.2 K/uL (4.3-10.9) D 01/25/20 23:28 Hgb 12.8 g/dL (12.0-15.0) 01/25/20 23:28 Hct 39.8 % (36.0-45.0) 01/25/20 23:28 Plt Count 214 K/uL (152-406) 01/25/20 23:28 Sodium 140 mmol/L (136-145) 01/27/20 05:13 Potassium 3.5 mmol/L (3.5-5.1) 01/27/20 05:13 BUN 3 mg/dL (7-18) L 01/27/20 05:13 Creatinine 0.74 mg/dL (0.55-1.3) 01/27/20 05:13 Glucose 111 mg/dL (74-106) H 01/27/20 05:13 Magnesium 1.8 mg/dL (1.8-2.4) 01/27/20 05:13 Total Bilirubin 0.3 mg/dL (0.2-1.0) 01/27/20 05:13 AST 10 U/L (15-37) L 01/27/20 05:13 ALT 29 U/L (12-78) 01/27/20 05:13 Alkaline Phosphatase 87 U/L (45-117) 01/27/20 05:13 Lipase 352 U/L (73-393) 01/26/20 07:47 Home Medications: NK [No Home Meds] 08/28/19 Patient Discharge Instructions: Patient recently left against medical advice after being treated for pancreatitis. Patient returned with nausea and vomiting and abdominal pain. Patient found to have acute recurrent alcoholic pancreatitis. Patient admitted eating fajitas and using cocaine after she left against medical advice. Patient was admitted for treatment. Her condition has improved. She is without significant nausea and vomiting and abdominal pain at discharge. She is able to tolerate a GI soft diet. At discharge patient will continue with a GI soft diet. Strong recommendations on discontinuation of alcohol and cocaine was addressed in detail. Patient understands the risks. Information on drug rehab was provided. Patient willing to review as an outpatient. Compliance with medical recommendations was addressed in detail. Education on pancreatitis, diet was addressed in detail with the patient. Recommend follow up with GI as an outpatient to further monitor. Diet: GI bland diet Activity: Ad joni Time spent managing pt's care (in minutes): 55
[2020-01-27 14:34] VITALS: BP 127/73; TEMP 97.8
[2020-01-27] MEDS ORDERED: ALBUTEROL 2.5 MG/3 ML NEB SOL NEB PRN (15:00)
== END 2020-01-27 14:54 | disposition home or self-care (01) | DRG 440 ==
LOC: ER 23:07 → OBSVTOIN 01-26 01:11 → ERHOLD 01-26 01:11 → 2ND 01-26 01:35
PROVIDERS: ADMIT Internal Medicine; ATTEND Family Medicine
DX: K85.30 Drug induced acute pancreatitis without necrosis or infection (principal); T40.5X5A Adverse effect of cocaine, initial encounter; F14.10 Cocaine abuse, uncomplicated; F10.10 Alcohol abuse, uncomplicated; F17.210 Nicotine dependence, cigarettes, uncomplicated; Y92.9 Unspecified place or not applicable; Z91.19 Patient's noncompliance with other medical treatment and regimen
CPT/HCPCS: 36415; 80048; 80053; 80076; 83690; 83735; 85025; 96361; 96374; 96375; 99285; J1650; J2270; J2405; J7030; J7042